=== PATIENT | female | born 1940 | race Caucasian/White ===

== ENCOUNTER 2017-05-08 13:37 | Emergency (ER) | payer OTHER, BC ==
[2017-05-08 13:52] VITALS: BP 129/78; PULSE 73; TEMP 97.7; BMI 20.9
--- NOTE | 2017-05-08 14:44 | PDOC ---
History of Present Illness - General Chief Complaint: Injury Stated Complaint: INJURY Time Seen by Provider: 05/08/17 14:07 History Source: Patient Exam Limitations: No Limitations - History of Present Illness Initial Comments: 05/08/17 14:40 76 yr female twisted her left foot last night at home. pt has pain to the side of the left foot. Past History - Past Medical History Allergies/Adverse Reactions: Allergies Allergy/AdvReac Type Severity Reaction Status Date / Time oxycodone [Oxycodone] Allergy Severe Nausea Verified 05/08/17 13:52 Home Medications: Ambulatory Orders Atenolol [Tenormin -] 50 mg PO BID 05/19/13 Atorvastatin Ca [Lipitor] 20 mg PO HS 05/19/13 Hydrochlorothiazide [Hctz -] 25 mg PO DAILY 05/19/13 Levothyroxine [Synthroid -] 50 mcg PO DAILY 05/19/13 Anemia: No Asthma: No Cancer: No Cardiac Disorders: No CVA: No COPD: No CHF: No Dementia: No Diabetes: No GI Disorders: Yes (DIARRHEA, DIVERTICULOSIS) Disorders: No HTN: Yes Hypercholesterolemia: Yes Liver Disease: No Seizures: No Thyroid Disease: Yes (HYPO) - Surgical History Abdominal Surgery: No Appendectomy: No Cardiac Surgery: No Cholecystectomy: Yes Lung Surgery: No Neurologic Surgery: No Orthopedic Surgery: No - Suicide/Smoking/Psychosocial Hx Smoking History: Former smoker Have you smoked in the past 12 months: No If you are a former smoker, when did you quit?: 1996 Information on smoking cessation initiated: No Hx Alcohol Use: No Drug/Substance Use Hx: No Substance Use Type: None Review of Systems - Review of Systems Able to Perform ROS?: Yes Is the patient limited Polish proficient: No Musculoskeletal: Yes: Symptoms Reported Integumentary: No: Symptoms Reported Neurological: No: Symptoms reported *Physical Exam - Vital Signs Last Vital Signs Temp Pulse Resp BP Pulse Ox 97.7 F 73 18 129/78 100 05/08/17 13:49 05/08/17 13:49 05/08/17 13:49 05/08/17 13:49 05/08/17 13:49 - Physical Exam General Appearance: Yes: Nourished, Appropriately Dressed HEENT: positive: EOMI, CELIO Extremity: positive: Normal Capillary Refill, Tender (base of fifth metatarsal, nv intact, no swelling , positive bruising ) Integumentary: positive: Normal Color, Dry, Warm Neurologic: positive: Fully Oriented, Alert, Normal Mood/Affect, Normal Response , Motor Strength /5 Procedures - Splinting Progress: 05/08/17 18:05 mckenzie dressing, hard sole shoe ED Treatment Course - RADIOLOGY Radiology Studies Ordered: Category Date Time Status FOOT-LEFT [RAD] Stat Radiology 05/08/17 13:59 Taken *DC/Admit/Observation/Transfer Diagnosis at time of Disposition: Foot fracture, left Qualifiers: Encounter type: initial encounter Fracture type: closed Qualified Code(s): S92.902A - Unspecified fracture of left foot, initial encounter for closed fracture - Discharge Dispostion Disposition: HOME Condition at time of disposition: Good - Referrals Referrals: Parag Garcia MD, MD [Primary Care Provider] - - Patient Instructions Additional Instructions: elevate and place ice every 2 hrs for 20 minutes for the next 2 days while awake use the mayank wrap and hard sole shoe at all times except remove shoe to sleep take tylenol for pain follow with your crane manager next week
== END 2017-05-08 14:45 | disposition home or self-care (01) ==
LOC: JERFT 13:37
DX: S92.355A Nondisplaced fracture of fifth metatarsal bone, left foot, initial encounter for closed fracture (principal); X58.XXXA Exposure to other specified factors, initial encounter; Y93.89 Activity, other specified; Y92.9 Unspecified place or not applicable; Z87.891 Personal history of nicotine dependence; I10 Essential (primary) hypertension; E78.00 Pure hypercholesterolemia, unspecified; E03.9 Hypothyroidism, unspecified
CPT/HCPCS: 73630-TC-LT; 99281-25

== ENCOUNTER 2017-11-19 10:44 | Observation (INO) | payer OTHER, BC ==
--- NOTE | 2017-11-19 11:02 | PDOC ---
History of Present Illness - General Stated Complaint: BACK PAIN Time Seen by Provider: 11/19/17 11:02 - History of Present Illness Initial Comments: 11/19/17 11:03 Ms. Maynard is a 77 yo female w/ pmh of HTN, HLD, Osteoporosis, sciatica, diverticulitis, diverticulosis, and chronic diarrhea who presents for evaluation of right sided leg/back pain she reports is similar in character to her prior sciatica exacerbation. She reports this started last night and is exacerbated by standing. Denies any associated symptoms, recent trauma, or strains/heavy lifting. The patient denies chest pain, shortness of breath, headache and dizziness. Denies fever, chills, nausea, vomit, diarrhea and constipation. Denies dysuria, frequency, urgency and hematuria. Allergies: Oxycodone Past History - Past Medical History Allergies/Adverse Reactions: Allergies Allergy/AdvReac Type Severity Reaction Status Date / Time oxycodone [Oxycodone] Allergy Severe Nausea Verified 11/19/17 11:15 Home Medications: Ambulatory Orders Atenolol [Tenormin -] 50 mg PO BID 05/19/13 Atorvastatin Ca [Lipitor] 20 mg PO HS 05/19/13 Hydrochlorothiazide [Hctz -] 25 mg PO DAILY 05/19/13 Levothyroxine [Synthroid -] 50 mcg PO DAILY 05/19/13 Anemia: No Asthma: No Cancer: No Cardiac Disorders: No CVA: No COPD: No CHF: No Dementia: No Diabetes: No GI Disorders: Yes (DIARRHEA, DIVERTICULOSIS) Disorders: No HTN: Yes Hypercholesterolemia: Yes Liver Disease: No Seizures: No Thyroid Disease: Yes (HYPO) - Surgical History Abdominal Surgery: No Appendectomy: No Cardiac Surgery: No Cholecystectomy: Yes Lung Surgery: No Neurologic Surgery: No Orthopedic Surgery: No - Suicide/Smoking/Psychosocial Hx Smoking History: Former smoker Have you smoked in the past 12 months: No If you are a former smoker, when did you quit?: 1996 Hx Alcohol Use: No Drug/Substance Use Hx: No Substance Use Type: None Review of Systems - Review of Systems Comments:: 11/19/17 11:03 GENERAL/CONSTITUTIONAL: No fever or chills. No weakness. HEAD, EYES, EARS, NOSE AND THROAT: No change in vision. No ear pain or discharge. No sore throat. CARDIOVASCULAR: No chest pain or shortness of breath RESPIRATORY: No cough, wheezing, or hemoptysis. GASTROINTESTINAL: No nausea, vomiting, diarrhea or constipation. GENITOURINARY: No dysuria, frequency, or change in urination. MUSCULOSKELETAL: +Right leg pain as described. SKIN: No rash NEUROLOGIC: No headache, vertigo, loss of consciousness, or change in strength/ sensation. ENDOCRINE: No increased thirst. No abnormal weight change HEMATOLOGIC/LYMPHATIC: No anemia, easy bleeding, or history of blood clots. ALLERGIC/IMMUNOLOGIC: No hives or skin allergy. *Physical Exam - Physical Exam Comments: 11/19/17 11:03 GENERAL: Awake, alert, and fully oriented, in no acute distress HEAD: No signs of trauma, normocephalic, atraumatic EYES: PERRLA, EOMI, sclera anicteric, conjunctiva clear ENT: Auricles normal inspection, hearing grossly normal, nares patent, oropharynx clear without exudates. Moist mucosa NECK: Normal ROM, supple, no lymphadenopathy, JVD, or masses LUNGS: No distress, speaks full sentences, clear to auscultation bilaterally HEART: Regular rate and rhythm, normal S1 and S2, no murmurs, rubs or gallops, peripheral pulses normal and equal bilaterally. ABDOMEN: Soft, nontender, normoactive bowel sounds. No guarding, no rebound. No masses EXTREMITIES: +Pain with palpation of right lower back with exacerbation upon standing or movement. Normal inspection, Normal range of motion, no edema. No clubbing or cyanosis. NEUROLOGICAL: Cranial nerves II through XII grossly intact. Normal speech, normal gait, no focal sensorimotor deficits SKIN: Warm, Dry, normal turgor, no rashes or lesions noted. ED Treatment Course - LABORATORY CBC & Chemistry Diagram: 11/19/17 14:25 11/19/17 14:25 Medical Decision Making - Medical Decision Making 11/19/17 18:28 Ms. Maynard is a 77 yo female w/ pmh as described who presents w/ symptoms consistent w/ sciatica exacerbation vs. hip/pelvis fracture. 11/19/17 18:31 Labs / workup started for evaluation w/ Hip/Pelvis XR and CBC/CMP/UA. UA positive only for 1+ Leukocyte esterase with minimal WBC's (4). XR negative for acute process. Unable to control pain with stepwise increase of medication with tylenol, ultram, robaxin. Admitting for further pain control / evaluation. Laboratory Results - last 24 hr 11/19/17 11/19/17 11/19/17 14:25 14:25 15:40 WBC 6.0 RBC 3.11 L Hgb 11.0 Hct 32.2 L MCV 103.6 H MCH 35.3 H MCHC 34.1 RDW 13.1 Plt Count 211 MPV 7.8 Neutrophils % 74.6 Lymphocytes % 18.9 Monocytes % 5.5 Eosinophils % 0.2 Basophils % 0.8 Sodium 137 Potassium 5.2 H Chloride 106 Carbon Dioxide 26 Anion Gap 5 L BUN 21 H Creatinine 1.0 Creat Clearance w eGFR 53.48 Random Glucose 120 H Calcium 8.6 Total Bilirubin 0.5 AST 25 ALT 20 Alkaline Phosphatase 92 Total Protein 6.5 Albumin 3.3 L Urine Color Ltyellow Urine Appearance Clear Urine pH 6.0 Ur Specific [place] 1.011 Urine Protein Negative Urine Glucose (UA) 1+ H Urine Ketones Negative Urine Blood Negative Urine Nitrite Negative Urine Bilirubin Negative Urine Urobilinogen Negative Ur Leukocyte Esterase 1+ H Urine WBC (Auto) 4 Urine RBC (Auto) <1 Ur Epithelial Cells Rare Urine Mucus Rare *DC/Admit/Observation/Transfer Diagnosis at time of Disposition: Pain Sciatica Qualifiers: Laterality: unspecified laterality Qualified Code(s): M54.30 - Sciatica, unspecified side - Discharge Dispostion Admit: Yes - Referrals Referrals: Parag Garcia MD, MD [Primary Care Provider] - - Patient Instructions - Post Discharge Activity
--- NOTE | 2017-11-19 11:11 | PDOC ---
Attending Attestation - HPI HPI: 11/19/17 11:19 The patient is a 77 year old female with a significant PMH of sciatica, osteoporosis, chronic diarrhea, diverticulosis, HTN, hyperlipidemia, and hypothyroidism who presents to the emergency department with back pain beginning approximately 1 day ago. She describes her back pain as localized on the right side with no radiation, which is aggravated by standing. She states her back pain feels like her usual sciatica but not as severe. Allergies: Oxycodone PCP: Dr. Garcia <Holden Chakraborty - Last Filed: 11/19/17 11:22> - Resident Resident Name: Magnus Boucher - ED Attending Attestation I have performed the following: I have examined & evaluated the patient, The case was reviewed & discussed with the resident, I agree w/resident's findings & plan, Exceptions are as noted - Physicial Exam PE: GENERAL: Awake, alert, and fully oriented, in no acute distress. Appears uncomfortable. HEAD: No signs of trauma EYES: PERRLA, EOMI, sclera anicteric, conjunctiva clear ENT: Auricles normal inspection, hearing grossly normal, nares patent, oropharynx clear without exudates. Moist mucosa NECK: Normal ROM, supple, no lymphadenopathy, JVD, or masses LUNGS: Breath sounds equal, clear to auscultation bilaterally. No wheezes, and no crackles HEART: Regular rate and rhythm, normal S1 and S2, no murmurs, rubs or gallops ABDOMEN: Soft, nontender, normoactive bowel sounds. No guarding, no rebound. No masses EXTREMITIES: Normal range of motion, no edema. No clubbing or cyanosis. No cords, erythema, or tenderness NEUROLOGICAL: Cranial nerves II through XII grossly intact. Normal speech, normal gait SKIN: Warm, Dry, normal turgor, no rashes or lesions noted. - Medical Decision Making Pain is not reproducible on exam, but patient indicates the R low back/R buttock as the location. SLR is normal. Poss sciatica vs fx due to osteoporosis. <Paula Browning - Last Filed: 11/19/17 13:16>
[2017-11-19] MEDS ORDERED: ACETAMINOPHEN 500 MG TABLET (FP) PO ONE (11:20)
[2017-11-19] MEDS ORDERED: ACETAMINOPHEN 325 MG TABLET (FP) ONE (12:41)
[2017-11-19 14:36] LABS: BASO % 0.8 % (0-2.0); EOS % 0.2 % (0-4.5); HEMATOCRIT 32.2 % (32.4-45.2); LYMPH % 18.9 % (8-40); MCH 35.3 pg (25.7-33.7); MCHC 34.1 g/dl (32.0-36.0); MEAN CELL VOLUME 103.6 fl (80-96); MEAN PLT VOLUME 7.8 fl (7.5-11.1); MONO % 5.5 % (3.8-10.2); NEUT % 74.6 % (42.8-82.8); PLATELET COUNT 211 K/MM3 (134-434); RBC 3.11 M/mm3 (3.60-5.2); RDW 13.1 % (11.6-15.6)
[2017-11-19 15:06] LABS: ALBUMIN 3.3 g/dl (3.4-5.0); ALK PHOS 92 U/L (45-117); ANION GAP 5 (8-16); BILIRUBIN,TOTAL 0.5 mg/dL (0.2-1.0); BLOOD UREA NITROGEN 21 mg/dL (7-18); CALCIUM 8.6 mg/dL (8.5-10.1); CHLORIDE 106 mmol/L (98-107); CO2 26 mmol/L (21-32); GLUCOSE,RANDOM 120 mg/dL (74-106); POTASSIUM 5.2 mmol/L (3.5-5.1); SGOT/AST 25 U/L (15-37); SGPT/ALT 20 U/L (12-78); SODIUM 137 mmol/L (136-145); TOT PROT 6.5 g/dl (6.4-8.2)
[2017-11-19 15:55] LABS: URINE APPEARANCE CLEAR; URINE BILIRUBIN NEGATIVE (<2.0 mg/dL); URINE COLOR LTYELLOW; URINE GLUCOSE (UA) 1+ (NEGATIVE); URINE KETONE NEGATIVE (NEGATIVE); URINE NITRITE NEGATIVE (NEGATIVE); URINE PROTEIN NEGATIVE (NEGATIVE); URINE UROBILINOGEN NEGATIVE mg/dL (0.2-1.0)
[2017-11-19 15:59] LABS: URINE LEUK ESTERASE 1+ (NEGATIVE)
[2017-11-19] MEDS ORDERED: traMADol HCL 50 MG TABLET PO ONE (16:27)
[2017-11-19] MEDS ORDERED: ONDANSETRON 4 MG/2 ML VIAL IVPUSH ONE (16:29)
[2017-11-19 16:55] LABS: EPI CELLS RARE /HPF (FEW); URINE MUCUS RARE
[2017-11-19] MEDS ORDERED: traMADol HCL 50 MG TABLET ONE (17:02)
[2017-11-19] MEDS ORDERED: METHOCARBAMOL 500 MG TABLET PO ONE (17:48)
[2017-11-19] MEDS ORDERED: METHOCARBAMOL 500 MG TABLET ONE (18:44)
--- NOTE | 2017-11-19 20:12 | HP ---
CHIEF COMPLAINT: back pain PCP: Xiomara Garcia HISTORY OF PRESENT ILLNESS: This is a 77 year old female with a past medical history significant for HTN, sciatica presented with right sided low back pain. Pt reports minimal relief from pain medications given in the ED. She denies pain radiating down her leg but states that when she moves, the pain shoots "everywhere". ER course was notable for: (1) given tramadol, tylenol, robaxin with minimal relief (2) hip/pelvis xray no acute fracture Recent Travel: pt denies PAST MEDICAL HISTORY: HTN, HLD, osteoporosis, sciatica, diverticulosis/itis, chronic diarrhea, hypothyroid, polymyalgia rheumatica PAST SURGICAL HISTORY: cholecystectomy Social History: Smoking: quit 20y ago, previous 1 ppd x 40y Alcohol: 1-2 glasses of wine per day Drugs: pt denies Family History: mother age 81, dementia father age 74, cancer-prostate? Allergies oxycodone [Oxycodone] Allergy (Severe, Verified 11/19/17 11:15) Nausea Home Medications 3 Medication Instructions Recorded Atenolol [Tenormin -] 50 mg PO BID 05/19/13 Atorvastatin Ca [Lipitor] 20 mg PO HS 05/19/13 Levothyroxine [Synthroid -] 50 mcg PO DAILY 05/19/13 Amlodipine Besylate 10 mg PO DAILY 11/19/17 Benazepril HCl 40 mg PO DAILY 11/19/17 Cholecalciferol (Vitamin D3) 2,000 unit PO DAILY 11/19/17 [Vitamin D3] Prednisone 5 mg PO DAILY 11/19/17 REVIEW OF SYSTEMS CONSTITUTIONAL: Absent: fever, chills, diaphoresis, generalized weakness, malaise, loss of appetite, weight change HEENT: Absent: rhinorrhea, nasal congestion, throat pain, throat swelling, difficulty swallowing, mouth swelling, ear pain, eye pain, visual changes CARDIOVASCULAR: Absent: chest pain, syncope, palpitations, irregular heart rate, lightheadedness , peripheral edema RESPIRATORY: Absent: cough, shortness of breath, dyspnea with exertion, orthopnea, wheezing, stridor, hemoptysis GASTROINTESTINAL: Absent: abdominal pain, abdominal distension, nausea, vomiting, diarrhea, constipation, melena, hematochezia GENITOURINARY: Absent: dysuria, frequency, urgency, hesitancy, hematuria, flank pain, genital pain MUSCULOSKELETAL: Present: back pain Absent: myalgia, arthralgia, joint swelling, neck pain SKIN: Absent: rash, itching, pallor HEMATOLOGIC/IMMUNOLOGIC: Absent: easy bleeding, easy bruising, lymphadenopathy, frequent infections ENDOCRINE: Absent: unexplained weight gain, unexplained weight loss, heat intolerance, cold intolerance NEUROLOGIC: Absent: headache, focal weakness or paresthesias, dizziness, unsteady gait, seizure, mental status changes, bladder or bowel incontinence PSYCHIATRIC: Absent: anxiety, depression, suicidal or homicidal ideation, hallucinations. PHYSICAL EXAMINATION Vital Signs - 24 hr 3 11/19/17 11:07 Temperature 97.3 F L Pulse Rate 62 Respiratory 18 Rate Blood Pressure 152/59 O2 Sat by Pulse 100 Oximetry (%) GENERAL: Awake, alert, and fully oriented, in no acute distress. HEAD: Normal with no signs of trauma. EYES: Pupils equal, round and reactive to light, extraocular movements intact, sclera anicteric, conjunctiva clear. No lid lag. EARS, NOSE, THROAT: Ears normal, nares patent, oropharynx clear without exudates. Moist mucous membranes. NECK: Normal range of motion, supple without lymphadenopathy, JVD, or masses. LUNGS: Breath sounds equal, clear to auscultation bilaterally. No wheezes, and no crackles. No accessory muscle use. HEART: Regular rate and rhythm, normal S1 and S2 without murmur, rub or gallop. ABDOMEN: Soft, nontender, not distended, normoactive bowel sounds, no guarding, no rebound, no masses. No hepatomegaly or splenomegaly. MUSCULOSKELETAL: Normal range of motion at all joints. No bony deformities or tenderness. No CVA tenderness. No pain on palpation spine, minimal pain on palpation right SI joint UPPER EXTREMITIES: 2+ pulses, warm, well-perfused. No cyanosis. No clubbing. No peripheral edema. LOWER EXTREMITIES: 2+ pulses, warm, well-perfused. No calf tenderness. No peripheral edema. NEUROLOGICAL: Cranial nerves II-XII intact. Normal speech. Full gait not observed, able to transfer from bed to without ataxia. PSYCHIATRIC: Cooperative. Good eye contact. Appropriate mood and affect. SKIN: Warm, dry, normal turgor, no rashes or lesions noted, normal capillary refill. Laboratory Results - last 24 hr 3 11/19/17 11/19/17 11/19/17 14:25 14:25 15:40 WBC 6.0 RBC 3.11 L Hgb 11.0 Hct 32.2 L MCV 103.6 H MCH 35.3 H MCHC 34.1 RDW 13.1 Plt Count 211 MPV 7.8 Neutrophils % 74.6 Lymphocytes % 18.9 Monocytes % 5.5 Eosinophils % 0.2 Basophils % 0.8 Sodium 137 Potassium 5.2 H Chloride 106 Carbon Dioxide 26 Anion Gap 5 L BUN 21 H Creatinine 1.0 Creat Clearance w eGFR 53.48 Random Glucose 120 H Calcium 8.6 Total Bilirubin 0.5 AST 25 ALT 20 Alkaline Phosphatase 92 Total Protein 6.5 Albumin 3.3 L Urine Color Ltyellow Urine Appearance Clear Urine pH 6.0 Ur Specific [place] 1.011 Urine Protein Negative Urine Glucose (UA) 1+ H Urine Ketones Negative Urine Blood Negative Urine Nitrite Negative Urine Bilirubin Negative Urine Urobilinogen Negative Ur Leukocyte Esterase 1+ H Urine WBC (Auto) 4 Urine RBC (Auto) <1 Ur Epithelial Cells Rare Urine Mucus Rare Radiology Reports Right hip and pelvis IMPRESSION: No definite acute fracture in the right hip or bony pelvis. Reported By: Tatianna Gayle DO 11/19/17 1326 ASSESSMENT/PLAN: 77yF with PMH HTN, HLD, osteoporosis, sciatica, diverticulosis/itis, chronic diarrhea, hypothyroid, polymyalgia rheumatica presented to the ED with back pain , unable to walk downstairs. Back pain - cont tramadol and tylenol - trial one time dose valium 5mg po and ketorolac 15mg IVP - PT eval HTN - cont home meds HLD - cont home atorvastatin hyothyroid - cont home synthroid DVT PPX - heparin deferred, anticipated LOS <48h FEN - Tolerating po - BMP in am - Low sodium diet as tolerated Dispo: Pt currently requires further observation for management of her emergent condition. Visit type - Emergency Visit Emergency Visit: Yes ED Registration Date: 11/19/17 Care time: The patient presented to the Emergency Department on the above date and was hospitalized for further evaluation of their emergent condition. - New Patient This patient is new to me today: Yes Date on this admission: 11/19/17 - Critical Care Critical Care patient: No Hospitalist Screening - Colonoscopy Questionnaire Colonoscopy Questionnaire: Colonoscopy Questionnaire - Patient: 50 - 75 years old and never had a screening colonoscopy: No History of colon or rectal polyps, or CA: Unknown History of IBD, Crohn's disease or UC: Unknown History of abdominal radiation therapy as a child: Unknown - Relative: 1 with colon or rectal CA, or polyps at age 60 or younger: Unknown Colon or rectal CA diagnosed at age 45 or younger: Unknown Multiple relatives with colon or rectal CA: Unknown - Outcome: Screening Result: Negative Screen
[2017-11-19] MEDS ORDERED: ACETAMINOPHEN 325 MG TABLET (FP) PO PRN (20:16)
[2017-11-19] MEDS ORDERED: traMADol HCL 50 MG TABLET PO PRN (20:23)
[2017-11-19] MEDS ORDERED: KETOROLAC TROMETHAMINE 15 MG/ML VIAL IVPUSH ONE (20:45)
[2017-11-19] MEDS ORDERED: diazePAM 5 MG TABLET PO ONE (20:45)
[2017-11-19] MEDS ORDERED: ATENOLOL 50 MG TABLET (FP) PO SCH (22:00)
[2017-11-19] MEDS: ATORVASTATIN CA 20 MG TABLET (FP) PO SCH (22:11)
[2017-11-20] MEDS: LEVOTHYROXINE NA 50 MCG TABLET (FP) PO SCH (06:05)
[2017-11-20 08:44] LABS: BASO % 1.2 % (0-2.0); EOS % 1.9 % (0-4.5); HEMATOCRIT 32.2 % (32.4-45.2); HEMOGLOBIN 11.2 GM/dL (10.7-15.3); LYMPH % 39.2 % (8-40); MCH 35.8 pg (25.7-33.7); MCHC 34.7 g/dl (32.0-36.0); MEAN CELL VOLUME 103.4 fl (80-96); MEAN PLT VOLUME 7.9 fl (7.5-11.1); MONO % 9.6 % (3.8-10.2); NEUT % 48.1 % (42.8-82.8); PLATELET COUNT 206 K/MM3 (134-434); RBC 3.12 M/mm3 (3.60-5.2); RDW 13.2 % (11.6-15.6); WHITE BLOOD COUNT 5.3 K/mm3 (4.0-10.0)
[2017-11-20] MEDS ORDERED: SODIUM CHLORIDE 1,000 ML IV STA (09:01)
--- NOTE | 2017-11-20 09:10 | RAPID ---
Physical Examination Vital Signs: Vital Signs Temperature 97.5 F L 11/20/17 06:00 Pulse Rate 57 L 11/20/17 06:00 Respiratory Rate 20 11/20/17 06:00 Blood Pressure 133/69 11/20/17 06:00 O2 Sat by Pulse Oximetry (%) 99 11/20/17 04:21 Labs: CBC, BMP 11/20/17 07:45 Rapid Response - Rapid Response Assessment: Rapid response was paged overhead at 8:55 am. Pt was found in bed aaox3 with nurses around her. Reportedly, pt was on commode and felt suddenly dizzy. She was placed inbed. Pt did NOT fall. Pt has been having chronic diarrhea. Has been seen by GI. Denies CP, SOB, v/d, abdominal pain. PE: aaox3, cardio rrr normal s1s2, lungs cta b/l initial vitals: BP 89/54, HR 51, O2 97% repeat BP 140 systolic, HR 55. Plan -ordered EKG, 1L NS -hold lisinopril due to hyper K 5.2 -hold atenolol, norvasc for BP < 100 -EKG reviewed: sinus bradycardia. Otherwise unremarkable Dr. Abreu was notified Dr. Golden requests transfer to Tele
[2017-11-20 09:13] LABS: CALCIUM 8.7 mg/dL (8.5-10.1); CHLORIDE 105 mmol/L (98-107); POTASSIUM 4.1 mmol/L (3.5-5.1); SODIUM 139 mmol/L (136-145)
[2017-11-20 09:17] LABS: ANION GAP 7 (8-16); BLOOD UREA NITROGEN 16 mg/dL (7-18); CO2 27 mmol/L (21-32); GLUCOSE,RANDOM 78 mg/dL (74-106); PHOSPHOROUS 3.2 mg/dL (2.5-4.9)
--- NOTE | 2017-11-20 09:57 | EKG ---
Test Reason : Blood Pressure : / mmHG Vent. Rate : 053 BPM Atrial Rate : 053 BPM P-R Int : 142 ms QRS Dur : 076 ms QT Int : 448 ms P-R-T Axes : 076 017 062 degrees QTc Int : 420 ms SINUS BRADYCARDIA OTHERWISE NORMAL ECG WHEN COMPARED WITH ECG OF 16-JUN-2009 15:28, NO SIGNIFICANT CHANGE WAS FOUND Confirmed by MD Liana, John ([id number]) on 11/20/2017 9:57:03 AM Referred By: RENALDO VARGAS Confirmed By:John Gaines MD
[2017-11-20] MEDS ORDERED: PATIENT'S OWN MEDICATION (NON-FORMULARY) (Benazepril Hcl [Benazepril Hcl] 40 MG) PO SCH (10:00)
[2017-11-20] MEDS ORDERED: CHOLECALCIFEROL (VITAMIN D3) 1,000 UNIT TABLET (FP) PO SCH (10:00)
[2017-11-20] MEDS ORDERED: amLODIPine BESYLATE 10 MG TABLET (FP) PO SCH ×2 (10:00)
[2017-11-20] MEDS ORDERED: LISINOPRIL 20 MG TABLET (FP) PO SCH (10:00)
[2017-11-20] MEDS ORDERED: predniSONE 5 MG TABLET (UD) PO SCH (10:00)
[2017-11-20] MEDS: ATENOLOL 50 MG TABLET (FP) PO SCH ×2 (10:17→21:20)
--- NOTE | 2017-11-20 10:55 | PN ---
Progress Note, Physician Chief Complaint: Right sided low back pain History of Present Illness: NAD at the moment events this AM noted of hypotension and dizziness while she was on the commode, likely vasovagal EKG showed SB 1L NS bolus given tolerated well. - Current Medication List Current Medications: Active Medications Acetaminophen (Tylenol -) 650 mg PO Q6H PRN PRN Reason: PAIN LEVEL 1 - 3 Amlodipine Besylate (Norvasc -) 10 mg PO DAILY [facility] Last Admin: 11/20/17 10:16 Dose: 10 mg Atenolol (Tenormin -) 50 mg PO BID [facility] Last Admin: 11/20/17 10:17 Dose: 50 mg Atorvastatin Calcium (Lipitor -) 20 mg PO HS [facility] Last Admin: 11/19/17 22:11 Dose: 20 mg Cholecalciferol (Vitamin D3 -) 2,000 unit PO DAILY [facility] Last Admin: 11/20/17 10:15 Dose: 2,000 unit Levothyroxine Sodium (Synthroid -) 50 mcg PO ACBK [facility] Last Admin: 11/20/17 06:05 Dose: 50 mcg Prednisone (Deltasone -) 5 mg PO DAILY [facility] Last Admin: 11/20/17 10:16 Dose: 5 mg Tramadol HCl (Ultram -) 50 mg PO Q6H PRN PRN Reason: PAIN LEVEL 6-10 - Objective Vital Signs: Vital Signs Temperature 97.8 F 11/20/17 08:00 Pulse Rate 55 L 11/20/17 09:10 Respiratory Rate 18 11/20/17 09:10 Blood Pressure 142/73 11/20/17 09:10 O2 Sat by Pulse Oximetry (%) 96 11/20/17 08:40 Constitutional: Yes: Well Nourished, No Distress, Calm Cardiovascular: Yes: Bradycardia Respiratory: Yes: Regular Gastrointestinal: Yes: Normal Bowel Sounds, Soft Musculoskeletal: Yes: Back Pain Extremities: Yes: WNL Edema: No Peripheral Pulses WNL: Yes Neurological: Yes: Alert, Oriented Psychiatric: Yes: Alert, Oriented Labs: CBC, BMP 11/20/17 07:45 11/20/17 07:45 Problem List - Problems (1) Sciatica Assessment/Plan: -pain managmenet -Physical therapy -SNF? Code(s): M54.30 - SCIATICA, UNSPECIFIED SIDE Qualifiers: Laterality: unspecified laterality Qualified Code(s): M54.30 - Sciatica, unspecified side (2) Dizziness Assessment/Plan: -vaso-vagal? -Hold lisinopril -Continue amlodipine -adjust medications -monitor BP Code(s): R42 - DIZZINESS AND GIDDINESS Assessment/Plan see problem list
--- NOTE | 2017-11-20 14:42 | CONSULT ---
Consult - text type - Consultation Consultation Note: Neurology CHIEF COMPLAINT: back pain PCP: Xiomara Garcia HISTORY OF PRESENT ILLNESS: This is a 77 year old female with a past medical history significant for HTN, sciatica presented with right sided low back pain. Pt reports minimal relief from pain medications given in the ED. She denies pain radiating down her leg but states that when she moves, the pain shoots "everywhere". In ER, she was given course of tramadol, tylenol, robaxin with minimal relief. Hip/pelvis xray no acute fracture. seen at bedside with her daughter and reports continued discomfort. I discussed with them having further imaging of the lumbar spine and they were in agreement to having a noncontrast CT of the lumbar spine. I discussed with them medication options including gabapentin for nerve related sciatic pain and she was in agreement. Additionally, discussed adding cyclobenzaprine 5 mg to the regimen to help with localized relief and they're both in agreement. I would also recommend physical therapy in hopes of improvement in ambulation this patient currently too uncomfortable to ambulate. Recent Travel: pt denies PAST MEDICAL HISTORY: HTN, HLD, osteoporosis, sciatica, diverticulosis/itis, chronic diarrhea, hypothyroid, polymyalgia rheumatica PAST SURGICAL HISTORY: cholecystectomy Social History: Smoking: quit 20y ago, previous 1 ppd x 40y Alcohol: 1-2 glasses of wine per day Drugs: pt denies Family History: mother age 81, dementia father age 74, cancer-prostate? Allergies oxycodone [Oxycodone] Allergy (Severe, Verified 11/19/17 11:15) Nausea Home Medications 3 Medication Instructions Recorded Atenolol [Tenormin -] 50 mg PO BID 05/19/13 Atorvastatin Ca [Lipitor] 20 mg PO HS 05/19/13 Levothyroxine [Synthroid -] 50 mcg PO DAILY 05/19/13 Amlodipine Besylate 10 mg PO DAILY 11/19/17 Benazepril HCl 40 mg PO DAILY 11/19/17 Cholecalciferol (Vitamin D3) 2,000 unit PO DAILY 11/19/17 [Vitamin D3] Prednisone 5 mg PO DAILY 11/19/17 REVIEW OF SYSTEMS CONSTITUTIONAL: Absent: fever, chills, diaphoresis, generalized weakness, malaise, loss of appetite, weight change HEENT: Absent: rhinorrhea, nasal congestion, throat pain, throat swelling, difficulty swallowing, mouth swelling, ear pain, eye pain, visual changes CARDIOVASCULAR: Absent: chest pain, syncope, palpitations, irregular heart rate, lightheadedness , peripheral edema RESPIRATORY: Absent: cough, shortness of breath, dyspnea with exertion, orthopnea, wheezing, stridor, hemoptysis GASTROINTESTINAL: Absent: abdominal pain, abdominal distension, nausea, vomiting, diarrhea, constipation, melena, hematochezia GENITOURINARY: Absent: dysuria, frequency, urgency, hesitancy, hematuria, flank pain, genital pain MUSCULOSKELETAL: Present: back pain Absent: myalgia, arthralgia, joint swelling, neck pain SKIN: Absent: rash, itching, pallor HEMATOLOGIC/IMMUNOLOGIC: Absent: easy bleeding, easy bruising, lymphadenopathy, frequent infections ENDOCRINE: Absent: unexplained weight gain, unexplained weight loss, heat intolerance, cold intolerance NEUROLOGIC: Absent: headache, focal weakness or paresthesias, dizziness, unsteady gait, seizure, mental status changes, bladder or bowel incontinence PSYCHIATRIC: Absent: anxiety, depression, suicidal or homicidal ideation, hallucinations. PHYSICAL EXAMINATION Vital Signs Temperature 98.2 F 11/20/17 14:00 Pulse Rate 59 L 11/20/17 14:00 Respiratory Rate 17 11/20/17 14:00 Blood Pressure 152/72 11/20/17 14:00 O2 Sat by Pulse Oximetry (%) 96 11/20/17 08:40 GENERAL: Awake, alert, and fully oriented, in no acute distress. HEAD: Normal with no signs of trauma. EYES: Pupils equal, round and reactive to light, extraocular movements intact, sclera anicteric, conjunctiva clear. No lid lag. EARS, NOSE, THROAT: Ears normal, nares patent, oropharynx clear without exudates. Moist mucous membranes. NECK: Normal range of motion, supple without lymphadenopathy, JVD, or masses. LUNGS: Breath sounds equal, clear to auscultation bilaterally. No wheezes, and no crackles. No accessory muscle use. HEART: Regular rate and rhythm, normal S1 and S2 without murmur, rub or gallop. ABDOMEN: Soft, nontender, not distended, normoactive bowel sounds, no guarding, no rebound, no masses. No hepatomegaly or splenomegaly. MUSCULOSKELETAL: Normal range of motion at all joints. No bony deformities or tenderness. No CVA tenderness. No pain on palpation spine, minimal pain on palpation right SI joint UPPER EXTREMITIES: 2+ pulses, warm, well-perfused. No cyanosis. No clubbing. No peripheral edema. LOWER EXTREMITIES: 2+ pulses, warm, well-perfused. No calf tenderness. No peripheral edema. NEUROLOGICAL: Cranial nerves II-XII intact. Normal speech. Strenght grossly equal to confrontation, sensory intact to LT. Gait deferred PSYCHIATRIC: Cooperative. Good eye contact. Appropriate mood and affect. SKIN: Warm, dry, normal turgor, no rashes or lesions noted, normal capillary refill. Laboratory Results - last 24 hr 3 11/19/17 11/19/17 11/19/17 14:25 14:25 15:40 WBC 6.0 RBC 3.11 L Hgb 11.0 Hct 32.2 L MCV 103.6 H MCH 35.3 H MCHC 34.1 RDW 13.1 Plt Count 211 MPV 7.8 Neutrophils % 74.6 Lymphocytes % 18.9 Monocytes % 5.5 Eosinophils % 0.2 Basophils % 0.8 Sodium 137 Potassium 5.2 H Chloride 106 Carbon Dioxide 26 Anion Gap 5 L BUN 21 H Creatinine 1.0 Creat Clearance w eGFR 53.48 Random Glucose 120 H Calcium 8.6 Total Bilirubin 0.5 AST 25 ALT 20 Alkaline Phosphatase 92 Total Protein 6.5 Albumin 3.3 L Urine Color Ltyellow Urine Appearance Clear Urine pH 6.0 Ur Specific [place] 1.011 Urine Protein Negative Urine Glucose (UA) 1+ H Urine Ketones Negative Urine Blood Negative Urine Nitrite Negative Urine Bilirubin Negative Urine Urobilinogen Negative Ur Leukocyte Esterase 1+ H Urine WBC (Auto) 4 Urine RBC (Auto) <1 Ur Epithelial Cells Rare Urine Mucus Rare Radiology Reports Right hip and pelvis IMPRESSION: No definite acute fracture in the right hip or bony pelvis. Reported By: Tatianna Gayle DO 11/19/17 1326 ASSESSMENT/PLAN: 77 year old female with a past medical history significant for HTN, sciatica presented with right sided low back pain. Pt reports minimal relief from pain medications given in the ED. She denies pain radiating down her leg but states that when she moves, the pain shoots "everywhere". In ER, she was given course of tramadol, tylenol, robaxin with minimal relief. Hip/pelvis xray no acute fracture. seen at bedside with her daughter and reports continued discomfort. I discussed with them having further imaging of the lumbar spine and they were in agreement to having a noncontrast CT of the lumbar spine. I discussed with them medication options including gabapentin for nerve related sciatic pain and she was in agreement. Additionally, discussed adding cyclobenzaprine 5 mg to the regimen to help with localized relief and they're both in agreement. I would also recommend physical therapy in hopes of improvement in ambulation this patient currently too uncomfortable to ambulate. continue pain management medications as tolerated, monitor for any sedation or side effects. Can continue home medications for hypertension, maintain normotensive blood pressure range. Fall precautions, DVT prophylaxis recommended.
[2017-11-20] MEDS: CYCLOBENZAPRINE HCL 10 MG TABLET (FP) PO SCH (21:19)
[2017-11-20] MEDS: ATORVASTATIN CA 20 MG TABLET (FP) PO SCH (21:19)
[2017-11-20] MEDS: GABAPENTIN 300 MG CAPSULE (FP) PO SCH (21:19)
[2017-11-21] MEDS: LEVOTHYROXINE NA 50 MCG TABLET (FP) PO SCH (06:06)
[2017-11-21] MEDS ORDERED: traMADol HCL 50 MG TABLET PO PRN (07:49)
[2017-11-21] MEDS ORDERED: ACETAMINOPHEN 325 MG TABLET (FP) PO PRN (07:49)
[2017-11-21] MEDS ORDERED: KETOROLAC TROMETHAMINE 15 MG/ML VIAL IVPUSH ONE (07:49)
--- NOTE | 2017-11-21 09:21 | PN ---
Progress Note (short form) - Note Progress Note: Neurology HISTORY OF PRESENT ILLNESS: This is a 77 year old female with a past medical history significant for HTN, sciatica presented with right sided low back pain. Pt reports minimal relief from pain medications given in the ED. She denies pain radiating down her leg but states that when she moves, the pain shoots "everywhere". In ER, she was given course of tramadol, tylenol, robaxin with minimal relief. Hip/pelvis xray no acute fracture. seen at bedside with her daughter and reports continued discomfort. I discussed with them having further imaging of the lumbar spine and completed noncontrast CT of the lumbar spine which showed bulging L2-L4, L4/ L5 showed mild to moderate herniation. L5/S1 showed mild bulge. These changes are not unusual for patient of her age. No severe stenosis or cord abnormalities noted. Reviewed with patient and discussed in detail. Added cyclobenzaprine 5 mg to the regimen to help with localized relief. ALso on gabapentin 300mg twice daily, no significant relief thus far but slightly better this AM. Active Medications Acetaminophen (Tylenol -) 650 mg PO Q6H PRN PRN Reason: PAIN LEVEL 1 - 3 Amlodipine Besylate (Norvasc -) 10 mg PO DAILY NIRANJAN Atenolol (Tenormin -) 50 mg PO BID NIRANJAN Atorvastatin Calcium (Lipitor -) 20 mg PO HS NIRANJAN Cholecalciferol (Vitamin D3 -) 2,000 unit PO DAILY NIRANJAN Cyclobenzaprine HCl (Flexeril -) 5 mg PO BID NIRANJAN Last Admin: 11/20/17 21:19 Dose: 5 mg Gabapentin (Neurontin -) 300 mg PO BID NIRANJAN Last Admin: 11/20/17 21:19 Dose: 300 mg Levothyroxine Sodium (Synthroid -) 50 mcg PO ACBK NIRANJAN Prednisone (Deltasone -) 5 mg PO DAILY NIRANJAN Tramadol HCl (Ultram -) 50 mg PO Q6H PRN PRN Reason: PAIN LEVEL 6-10 PHYSICAL EXAMINATION Vital Signs Period Temp Pulse Resp BP Sys/[place] Pulse Ox Last 24 Hr 97.7 F-98.3 F 56-60 17-20 122-152/55-89 97-97 GENERAL: Awake, alert, and fully oriented, in no acute distress. HEAD: Normal with no signs of trauma. EYES: Pupils equal, round and reactive to light, extraocular movements intact, sclera anicteric, conjunctiva clear. No lid lag. EARS, NOSE, THROAT: Ears normal, nares patent, oropharynx clear without exudates. Moist mucous membranes. NECK: Normal range of motion, supple without lymphadenopathy, JVD, or masses. LUNGS: Breath sounds equal, clear to auscultation bilaterally. No wheezes, and no crackles. No accessory muscle use. HEART: Regular rate and rhythm, normal S1 and S2 without murmur, rub or gallop. ABDOMEN: Soft, nontender, not distended, normoactive bowel sounds, no guarding, no rebound, no masses. No hepatomegaly or splenomegaly. MUSCULOSKELETAL: Normal range of motion at all joints. No bony deformities or tenderness. No CVA tenderness. No pain on palpation spine, minimal pain on palpation right SI joint UPPER EXTREMITIES: 2+ pulses, warm, well-perfused. No cyanosis. No clubbing. No peripheral edema. LOWER EXTREMITIES: 2+ pulses, warm, well-perfused. No calf tenderness. No peripheral edema. NEUROLOGICAL: Cranial nerves II-XII intact. Normal speech. Strenght grossly equal to confrontation, sensory intact to LT. Gait deferred PSYCHIATRIC: Cooperative. Good eye contact. Appropriate mood and affect. SKIN: Warm, dry, normal turgor, no rashes or lesions noted, normal capillary refill. CBCD WBC 5.3 K/mm3 (4.0-10.0) 11/20/17 07:45 RBC 3.12 M/mm3 (3.60-5.2) L 11/20/17 07:45 Hgb 11.2 GM/dL (10.7-15.3) 11/20/17 07:45 Hct 32.2 % (32.4-45.2) L 11/20/17 07:45 MCV 103.4 fl (80-96) H 11/20/17 07:45 MCHC 34.7 g/dl (32.0-36.0) 11/20/17 07:45 RDW 13.2 % (11.6-15.6) 11/20/17 07:45 Plt Count 206 K/MM3 (134-434) 11/20/17 07:45 MPV 7.9 fl (7.5-11.1) 11/20/17 07:45 CMP Sodium 139 mmol/L (136-145) 11/20/17 07:45 Potassium 4.1 mmol/L (3.5-5.1) 11/20/17 07:45 Chloride 105 mmol/L (98-107) 11/20/17 07:45 Carbon Dioxide 27 mmol/L (21-32) 11/20/17 07:45 Anion Gap 7 (8-16) L 11/20/17 07:45 BUN 16 mg/dL (7-18) 11/20/17 07:45 Creatinine 1.0 mg/dL (0.55-1.02) 11/20/17 07:45 Creat Clearance w eGFR 53.48 (>60) 11/19/17 14:25 Calcium 8.7 mg/dL (8.5-10.1) 11/20/17 07:45 Total Bilirubin 0.5 mg/dL (0.2-1.0) 11/19/17 14:25 AST 25 U/L (15-37) 11/19/17 14:25 ALT 20 U/L (12-78) 11/19/17 14:25 Alkaline Phosphatase 92 U/L (45-117) 11/19/17 14:25 Total Protein 6.5 g/dl (6.4-8.2) 11/19/17 14:25 Albumin 3.3 g/dl (3.4-5.0) L 11/19/17 14:25 Radiology Reports Right hip and pelvis IMPRESSION: No definite acute fracture in the right hip or bony pelvis. CT L spine as above,reviewed and discussed ASSESSMENT/PLAN: 77 year old female with a past medical history significant for HTN, sciatica presented with right sided low back pain. Pt reports minimal relief from pain medications given in the ED. She denies pain radiating down her leg but states that when she moves, the pain shoots "everywhere". In ER, she was given course of tramadol, tylenol, robaxin with minimal relief. Hip/pelvis xray no acute fracture. seen at bedside with her daughter and reports continued discomfort. CT L spine reviewed and age related changes as expected. Disc herniation at L4/ L5 mild to moderate, not surgical candidate, can continue combination of gabapentin with flexiril. Physical therapy recommended. Continue pain management medications as tolerated, monitor for any sedation or side effects. IF above not effective, then possibly epidural steroid injection if patient amenable. Can continue home medications for hypertension, maintain normotensive blood pressure range. Fall precautions, DVT prophylaxis recommended.
[2017-11-21] MEDS: amLODIPine BESYLATE 10 MG TABLET (FP) PO SCH (09:49)
[2017-11-21] MEDS: predniSONE 5 MG TABLET (UD) PO SCH (09:49)
[2017-11-21] MEDS: CYCLOBENZAPRINE HCL 10 MG TABLET (FP) PO SCH ×2 (09:50→21:54)
[2017-11-21] MEDS: CHOLECALCIFEROL (VITAMIN D3) 1,000 UNIT TABLET (FP) PO SCH (09:51)
[2017-11-21] MEDS: GABAPENTIN 300 MG CAPSULE (FP) PO SCH ×2 (09:51→21:54)
[2017-11-21] MEDS: ATENOLOL 50 MG TABLET (FP) PO SCH ×2 (09:52→21:54)
--- NOTE | 2017-11-21 10:39 | DS ---
Physical Examination Vital Signs: Vital Signs Temperature 98.3 F 11/21/17 05:35 Pulse Rate 56 L 11/21/17 05:35 Respiratory Rate 18 11/21/17 05:35 Blood Pressure 122/55 11/21/17 05:35 O2 Sat by Pulse Oximetry (%) 97 11/21/17 06:00 Constitutional: Yes: Well Nourished, No Distress, Calm Cardiovascular: Yes: Regular Rate and Rhythm Respiratory: Yes: Regular Gastrointestinal: Yes: Normal Bowel Sounds, Soft Musculoskeletal: Yes: Back Pain Extremities: Yes: WNL Edema: No Peripheral Pulses WNL: Yes Neurological: Yes: Alert, Oriented Psychiatric: Yes: Alert, Oriented Labs: CBC, BMP 11/20/17 07:45 11/20/17 07:45 Discharge Summary Reason For Visit: SCIATICA,PAIN Current Active Problems Dizziness (Acute) Pain (Acute) Sciatica (Acute) Hospital Course: This is a 77 year old female with a past medical history significant for HTN, sciatica presented with right sided low back pain. Pt reports minimal relief from pain medications given in the ED. She denies pain radiating down her leg but states that when she moves, the pain shoots "everywhere". CT lumbar spine showed: No compression fracture or subluxation are identified. L2-L3 mild broad-based disc bulge reaching left L2 nerve root without gross impingement. L3-L4 mild disc bulge reaching and probably slightly impinging right L3 nerve root L4-L5 moderate degenerative disc disease with mild to moderate disc herniation reaching both L5 nerve roots, possibly slightly impinging the right as well as reaching and impinging right L4 nerve root. L5-S1 mild disc bulge reaching right S1 nerve root without gross impingement. Moderate bilateral facet hypertrophy at multiple levels. Extensive diverticulosis coli without evidence of acute diverticulitis. Status post cholecystectomy. 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 measuring 2.2 x 2 cm in transverse and AP dimension Condition: Stable - Instructions Referrals: Parag Garcia MD, [Primary Care Provider] - Disposition: VNS/HOME HEALTH CARE - Home Medications Comprehensive Discharge Medication List: Ambulatory Orders Atorvastatin Ca [Lipitor] 20 mg PO HS 05/19/13 Levothyroxine [Synthroid -] 50 mcg PO DAILY 05/19/13 Amlodipine Besylate 10 mg PO DAILY 11/19/17 Benazepril HCl 40 mg PO DAILY 11/19/17 Cholecalciferol (Vitamin D3) [Vitamin D3] 2,000 unit PO DAILY 11/19/17 Prednisone 5 mg PO DAILY 11/19/17 Amlodipine Besylate 5 mg PO DAILY #30 tablet 11/21/17 Cyclobenzaprine HCl [Flexeril -] 5 mg PO BID #60 tablet 11/21/17 Gabapentin [Neurontin -] 300 mg PO BID #60 capsule 11/21/17 Metoprolol Succinate 25 mg PO DAILY #30 tab.er.24h 11/21/17 traMADol HCL [Ultram -] 50 mg PO Q6H PRN #20 tablet MDD 4 11/21/17
[2017-11-21] MEDS ORDERED: ATORVASTATIN CA 20 MG TABLET (FP) PO SCH (22:00)
[2017-11-22] MEDS ORDERED: LEVOTHYROXINE NA 50 MCG TABLET (FP) PO SCH (07:00)
--- NOTE | 2017-11-22 08:48 | DS ---
Physical Examination Vital Signs: Vital Signs Temperature 97.8 F 11/22/17 06:00 Pulse Rate 56 L 11/22/17 06:00 Respiratory Rate 20 11/22/17 06:00 Blood Pressure 121/50 11/22/17 06:00 O2 Sat by Pulse Oximetry (%) 97 11/22/17 06:00 Labs: CBC, BMP 11/20/17 07:45 11/20/17 07:45 Discharge Summary Reason For Visit: SCIATICA,PAIN Current Active Problems Dizziness (Acute) Pain (Acute) Sciatica (Acute) Hospital Course: This is a 77 year old female with a past medical history significant for HTN, sciatica presented with right sided low back pain. Pt reports minimal relief from pain medications given in the ED. She denies pain radiating down her leg but states that when she moves, the pain shoots "everywhere". CT lumbar spine showed: No compression fracture or subluxation are identified. L2-L3 mild broad-based disc bulge reaching left L2 nerve root without gross impingement. L3-L4 mild disc bulge reaching and probably slightly impinging right L3 nerve root L4-L5 moderate degenerative disc disease with mild to moderate disc herniation reaching both L5 nerve roots, possibly slightly impinging the right as well as reaching and impinging right L4 nerve root. L5-S1 mild disc bulge reaching right S1 nerve root without gross impingement. Moderate bilateral facet hypertrophy at multiple levels. Extensive diverticulosis coli without evidence of acute diverticulitis. Status post cholecystectomy. 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 -Hold lisinopril -Continue amlodipine -adjust medications -monitor BP -resolved Code(s): R42 - DIZZINESS AND GIDDINESS Condition: Stable - Instructions Diet, Activity, Other Instructions: -change metoprolol to 25 mg XL daily -Decrease amlodipine to 5 mg daily -BP machine OTC- Brand Omron or [employer] -Hold BP meds if SBP (top number) below 100 mm Hg -start cholestyramine 4g packet up to 4 x day for chronic diarrhea -Start Cyclobenzaprine 5 mg 2 x day as needed -Start Gabapentin 300 mg 2 x day -Start Tramadol 50 mg every 6 hours as needed for pain of 6-10 -Take acetaminophen 500 mg every 6 hours as needed for pain of 1-5 -Follow up with GI outpatient -Follow up with Dr Garcia outpatient Referrals: Parag Garcia MD, [Primary Care Provider] - Disposition: VNS/HOME HEALTH CARE - Home Medications Comprehensive Discharge Medication List: Ambulatory Orders Atorvastatin Ca [Lipitor] 20 mg PO HS 05/19/13 Levothyroxine [Synthroid -] 50 mcg PO DAILY 05/19/13 Amlodipine Besylate 10 mg PO DAILY 11/19/17 Benazepril HCl 40 mg PO DAILY 11/19/17 Cholecalciferol (Vitamin D3) [Vitamin D3] 2,000 unit PO DAILY 11/19/17 Prednisone 5 mg PO DAILY 11/19/17 Amlodipine Besylate 5 mg PO DAILY #30 tablet 11/21/17 Cholestyramine (with Sugar) [Cholestyramine Packet] 4 gm PO QID #120 packet 04/02 Cyclobenzaprine HCl [Flexeril -] 5 mg PO BID #60 tablet 11/21/17 Gabapentin [Neurontin -] 300 mg PO BID #60 capsule 11/21/17 Metoprolol Succinate 25 mg PO DAILY #30 tab.er.24h 11/21/17 traMADol HCL [Ultram -] 50 mg PO Q6H PRN #20 tablet MDD 4 11/21/17
[2017-11-22] MEDS: ATENOLOL 50 MG TABLET (FP) PO SCH (09:44)
[2017-11-22] MEDS: GABAPENTIN 300 MG CAPSULE (FP) PO SCH (09:45)
[2017-11-22] MEDS: CYCLOBENZAPRINE HCL 10 MG TABLET (FP) PO SCH (09:45)
[2017-11-22] MEDS: amLODIPine BESYLATE 10 MG TABLET (FP) PO SCH (09:45)
[2017-11-22] MEDS: predniSONE 5 MG TABLET (UD) PO SCH (09:45)
[2017-11-22] MEDS: CHOLECALCIFEROL (VITAMIN D3) 1,000 UNIT TABLET (FP) PO SCH (09:45)
--- NOTE | 2017-11-22 09:54 | PN ---
Progress Note (short form) - Note Progress Note: Neurology HISTORY OF PRESENT ILLNESS: This is a 77 year old female with a past medical history significant for HTN, sciatica presented with right sided low back pain. Pt reports minimal relief from pain medications given in the ED. She denies pain radiating down her leg but states that when she moves, the pain shoots "everywhere". In ER, she was given course of tramadol, tylenol, robaxin with minimal relief. Hip/pelvis xray no acute fracture. seen at bedside with her daughter and reports continued discomfort. I discussed with them having further imaging of the lumbar spine and completed noncontrast CT of the lumbar spine which showed bulging L2-L4, L4/ L5 showed mild to moderate herniation. L5/S1 showed mild bulge. These changes are not unusual for patient of her age. No severe stenosis or cord abnormalities noted. Reviewed with patient and discussed in detail. Added cyclobenzaprine 5 mg to the regimen to help with localized relief. Also on gabapentin 300mg twice daily, much better today. She's ambulating without discomfort. Discussed outpatient follow up. Active Medications Acetaminophen (Tylenol -) 650 mg PO Q6H PRN PRN Reason: PAIN LEVEL 1 - 3 Amlodipine Besylate (Norvasc -) 10 mg PO DAILY [facility] Last Admin: 11/22/17 09:45 Dose: 10 mg Atenolol (Tenormin -) 50 mg PO BID [facility] Last Admin: 11/22/17 09:44 Dose: 50 mg Atorvastatin Calcium (Lipitor -) 20 mg PO HS [facility] Last Admin: 11/21/17 21:54 Dose: 20 mg Cholecalciferol (Vitamin D3 -) 2,000 unit PO DAILY [facility] Last Admin: 11/22/17 09:45 Dose: 2,000 unit Cyclobenzaprine HCl (Flexeril -) 5 mg PO BID [facility] Last Admin: 11/22/17 09:45 Dose: 5 mg Gabapentin (Neurontin -) 300 mg PO BID [facility] Last Admin: 11/22/17 09:45 Dose: 300 mg Levothyroxine Sodium (Synthroid -) 50 mcg PO ACBK [facility] Last Admin: 11/22/17 06:11 Dose: 50 mcg Prednisone (Deltasone -) 5 mg PO DAILY [facility] Last Admin: 11/22/17 09:45 Dose: 5 mg Tramadol HCl (Ultram -) 50 mg PO Q6H PRN PRN Reason: PAIN LEVEL 6-10 PHYSICAL EXAMINATION Vital Signs Temperature 97.8 F 11/22/17 06:00 Pulse Rate 56 L 11/22/17 06:00 Respiratory Rate 20 11/22/17 06:00 Blood Pressure 121/50 11/22/17 06:00 O2 Sat by Pulse Oximetry (%) 97 11/22/17 06:00 GENERAL: Awake, alert, and fully oriented, in no acute distress. HEAD: Normal with no signs of trauma. EYES: Pupils equal, round and reactive to light, extraocular movements intact, sclera anicteric, conjunctiva clear. No lid lag. EARS, NOSE, THROAT: Ears normal, nares patent, oropharynx clear without exudates. Moist mucous membranes. NECK: Normal range of motion, supple without lymphadenopathy, JVD, or masses. LUNGS: Breath sounds equal, clear to auscultation bilaterally. No wheezes, and no crackles. No accessory muscle use. HEART: Regular rate and rhythm, normal S1 and S2 without murmur, rub or gallop. ABDOMEN: Soft, nontender, not distended, normoactive bowel sounds, no guarding, no rebound, no masses. No hepatomegaly or splenomegaly. MUSCULOSKELETAL: Normal range of motion at all joints. No bony deformities or tenderness. No CVA tenderness. No pain on palpation spine, minimal pain on palpation right SI joint UPPER EXTREMITIES: 2+ pulses, warm, well-perfused. No cyanosis. No clubbing. No peripheral edema. LOWER EXTREMITIES: 2+ pulses, warm, well-perfused. No calf tenderness. No peripheral edema. NEUROLOGICAL: Cranial nerves II-XII intact. Normal speech. Strenght grossly equal to confrontation, sensory intact to LT. Gait deferred PSYCHIATRIC: Cooperative. Good eye contact. Appropriate mood and affect. SKIN: Warm, dry, normal turgor, no rashes or lesions noted, normal capillary refill. CBCD WBC 5.3 K/mm3 (4.0-10.0) 11/20/17 07:45 RBC 3.12 M/mm3 (3.60-5.2) L 11/20/17 07:45 Hgb 11.2 GM/dL (10.7-15.3) 11/20/17 07:45 Hct 32.2 % (32.4-45.2) L 11/20/17 07:45 MCV 103.4 fl (80-96) H 11/20/17 07:45 MCHC 34.7 g/dl (32.0-36.0) 11/20/17 07:45 RDW 13.2 % (11.6-15.6) 11/20/17 07:45 Plt Count 206 K/MM3 (134-434) 11/20/17 07:45 MPV 7.9 fl (7.5-11.1) 11/20/17 07:45 CMP Sodium 139 mmol/L (136-145) 11/20/17 07:45 Potassium 4.1 mmol/L (3.5-5.1) 11/20/17 07:45 Chloride 105 mmol/L (98-107) 11/20/17 07:45 Carbon Dioxide 27 mmol/L (21-32) 11/20/17 07:45 Anion Gap 7 (8-16) L 11/20/17 07:45 BUN 16 mg/dL (7-18) 11/20/17 07:45 Creatinine 1.0 mg/dL (0.55-1.02) 11/20/17 07:45 Creat Clearance w eGFR 53.48 (>60) 11/19/17 14:25 Calcium 8.7 mg/dL (8.5-10.1) 11/20/17 07:45 Total Bilirubin 0.5 mg/dL (0.2-1.0) 11/19/17 14:25 AST 25 U/L (15-37) 11/19/17 14:25 ALT 20 U/L (12-78) 11/19/17 14:25 Alkaline Phosphatase 92 U/L (45-117) 11/19/17 14:25 Total Protein 6.5 g/dl (6.4-8.2) 11/19/17 14:25 Albumin 3.3 g/dl (3.4-5.0) L 11/19/17 14:25 Radiology Reports Right hip and pelvis IMPRESSION: No definite acute fracture in the right hip or bony pelvis. CT L spine as above,reviewed and discussed ASSESSMENT/PLAN: 77 year old female with a past medical history significant for HTN, sciatica presented with right sided low back pain. Pt reports minimal relief from pain medications given in the ED. She denies pain radiating down her leg but states that when she moves, the pain shoots "everywhere". In ER, she was given course of tramadol, tylenol, robaxin with minimal relief. Hip/pelvis xray no acute fracture. seen at bedside with her daughter and reports continued discomfort. CT L spine reviewed and age related changes as expected. DThese changes are not unusual for patient of her age. No severe stenosis or cord abnormalities noted. Reviewed with patient and discussed in detail. Added cyclobenzaprine 5 mg to the regimen to help with localized relief. Also on gabapentin 300mg twice daily , much better today. She's ambulating without discomfort. Discussed outpatient follow up. Can continue home medications for hypertension, maintain normotensive blood pressure range. Fall precautions, for discharge today.
[2017-11-22 11:12] VITALS: BP 110/58; PULSE 58; TEMP 97.4
== END 2017-11-22 13:58 | disposition home health service (06) ==
LOC: JER 10:44 → JERBED 18:34 → J6S 20:20
PROVIDERS: ADMIT Internal Medicine; ATTEND Family Medicine
PROC: 3E0337Z Introduction of Electrolytic and Water Balance Substance into Peripheral Vein, Percutaneous Approach (ICD-10-PCS; principal; 2017-11-19)
DX: M54.30 Sciatica, unspecified side (principal); I10 Essential (primary) hypertension; I95.9 Hypotension, unspecified; E78.5 Hyperlipidemia, unspecified; M81.0 Age-related osteoporosis without current pathological fracture; E03.9 Hypothyroidism, unspecified; E42 Marasmic kwashiorkor; Z88.2 Allergy status to sulfonamides; Z87.891 Personal history of nicotine dependence; M35.3 Polymyalgia rheumatica
CPT/HCPCS: 36415; 72131-TC; 73523-TC-FY; 80048; 80053; 81003; 81015; 83735; 84100; 85025; 87086; 93005; 93010; 96360; 97116-GP; 97161-GP; 99282-25; G0378; J7030

== ENCOUNTER 2018-05-28 05:10 | Inpatient (IN) | payer OTHER, BC ==
[2018-05-24 17:12] VITALS: BMI 20.1
[~2018-05-28 05:10] MED LIST: ceFAZolin SODIUM 1 GM VIAL IVPB ONE
--- NOTE | 2018-05-28 10:23 | HP ---
History & Physical Update - Physical Physical: No Change - Assessment Assessment: No Change - Plan Plan: No Change (for vaginal hysterectomy, anterior , posterior repair)
[2018-05-28] MEDS ORDERED: ONDANSETRON 4 MG/2 ML VIAL IVPUSH PRN ×2 (10:47→14:03)
[2018-05-28] MEDS ORDERED: ROCURONIUM BROMIDE 50 MG/5 ML VIAL ONE (11:39)
[2018-05-28] MEDS ORDERED: PROPOFOL 20 ML ONE (11:39)
[2018-05-28] MEDS ORDERED: LIDOCAINE HCL/PF 2% SDV 5ML VIAL ONE (11:42)
[2018-05-28] MEDS ORDERED: ceFAZolin SODIUM 1 GM VIAL ONE ×3 (11:55→20:55)
[2018-05-28] MEDS ORDERED: ceFAZolin SODIUM 1 GM VIAL IVPB ONE (11:55)
[2018-05-28] MEDS ORDERED: VASOPRESSIN 20 UNITS/ML VIAL IV ONE ×3 (11:57→12:00)
[2018-05-28] MEDS ORDERED: KETOROLAC TROMETHAMINE 30 MG/1 ML VIAL ONE (13:43)
[2018-05-28] MEDS ORDERED: GLYCOPYRROLATE 0.2 MG/1 ML VIAL ONE (13:43)
[2018-05-28] MEDS ORDERED: IBUPROFEN 600 MG TABLET (FP) PO PRN (14:03)
[2018-05-28] MEDS ORDERED: IBUPROFEN 800 MG/8 ML IJ IVPB PRN (14:03)
[2018-05-28] MEDS ORDERED: ACETAMINOPHEN 325 MG TABLET (FP) PO PRN (14:09)
[2018-05-28] MEDS ORDERED: ACETAMINOPHEN 1000 MG/100 ML VIAL (NON FORMULARY) IVPB ONE (15:19)
[2018-05-28] MEDS ORDERED: fentaNYL CITRATE/PF 1,000 MCG/20 ML AMPUL IVPUSH ONE (15:20)
[2018-05-28] MEDS: LACTATED RINGERS SOLUTION 1,000 ML IV SCH (15:30)
[2018-05-28] MEDS: CEFAZOLIN 1 GM in DEXTROSE 5%-WATER - 50 ML IVPB SCH ×2 (16:00→20:58)
[2018-05-28] MEDS ORDERED: DEXTROSE 5%-WATER - 50 ML IVPB ONE (20:55)
[2018-05-28] MEDS: GABAPENTIN 300 MG CAPSULE (FP) PO SCH (20:59)
[2018-05-28] MEDS: ATORVASTATIN CA 20 MG TABLET (FP) PO SCH (20:59)
[2018-05-28] MEDS: SENNOSIDES/DOCUSATE COMBO (SENNA PLUS) TABLET (UD) PO SCH (20:59)
[2018-05-29] MEDS ORDERED: ceFAZolin SODIUM 1 GM VIAL ONE ×2 (01:48→08:58)
[2018-05-29] MEDS ORDERED: DEXTROSE 5%-WATER - 50 ML IVPB ONE ×2 (01:48→08:58)
[2018-05-29] MEDS: ELECTROLYTE-148 SOLN 1,000 ML IV SCH ×2 (01:51→21:07)
[2018-05-29] MEDS: CEFAZOLIN 1 GM in DEXTROSE 5%-WATER - 50 ML IVPB SCH ×2 (02:37→09:03)
[2018-05-29] MEDS: LEVOTHYROXINE NA 50 MCG TABLET (FP) PO SCH (06:44)
[2018-05-29] MEDS: LACTATED RINGERS SOLUTION 1,000 ML IV SCH ×2 (06:45→21:07)
[2018-05-29 08:07] LABS: HEMOGLOBIN 9.9 GM/dL (10.7-15.3); MCH 33.6 pg (25.7-33.7); MEAN PLT VOLUME 8.1 fl (7.5-11.1); PLATELET COUNT 191 K/MM3 (134-434); RBC 2.93 M/mm3 (3.60-5.2); RDW 13.5 % (11.6-15.6); WHITE BLOOD COUNT 8.1 K/mm3 (4.0-10.0)
[2018-05-29] MEDS ORDERED: PT OWN MED DRAWER 7, Y5N ONE (08:58)
[2018-05-29 09:00] LABS: ANION GAP 13 MMOL/L (8-16); BLOOD UREA NITROGEN 15 mg/dL (7-18); CALCIUM 7.5 mg/dL (8.5-10.1); CHLORIDE 92 mmol/L (98-107); CO2 30 mmol/L (21-32); CREATININE 0.9 mg/dL (0.55-1.3); GLUCOSE,RANDOM 63 mg/dL (74-106); POTASSIUM 3.6 mmol/L (3.5-5.1); SODIUM 135 mmol/L (136-145)
[2018-05-29] MEDS: predniSONE 5 MG TABLET (UD) PO SCH (09:04)
[2018-05-29] MEDS: SENNOSIDES/DOCUSATE COMBO (SENNA PLUS) TABLET (UD) PO SCH ×2 (09:05→21:06)
[2018-05-29] MEDS: metoPROLOL SUCCINATE 25 MG TAB.SR.24H (FP) PO SCH (09:05)
[2018-05-29] MEDS: CHLORTHALIDONE 25 MG TABLET PO SCH (09:05)
[2018-05-29] MEDS: traMADol HCL 50 MG TABLET PO SCH (09:05)
[2018-05-29] MEDS: GABAPENTIN 300 MG CAPSULE (FP) PO SCH ×2 (09:05→21:06)
[2018-05-29] MEDS: amLODIPine BESYLATE 5 MG TABLET (FP) PO SCH (09:07)
[2018-05-29] MEDS: ENOXAPARIN NA (PORCINE) 40 MG/0.4 ML DISP.SYRIN SQ SCH (09:08)
--- NOTE | 2018-05-29 11:23 | PN ---
Progress Note (short form) - Note Progress Note: pod 1 . s/p vaginal hysterectomy [place] was removed , not urinated yet no vaginal bleeding, has vaginal pressure CBC, BMP 05/29/18 06:30 05/29/18 06:30 Last Vital Signs Temp Pulse Resp BP Pulse Ox 98 F 64 20 140/56 L 99 05/29/18 07:00 05/29/18 07:00 05/29/18 07:00 05/29/18 07:00 05/28/18 18:23 abdomen soft, no distension, no cva vagina packing removed , dry, no discharge no active vaginal bleeding no calf tenderness impression pod 1 , afebrile, packing removed , monitor out put pain management ambulate
--- NOTE | 2018-05-29 13:30 | OP ---
DATE OF OPERATION: 05/28/2018 PREOPERATIVE DIAGNOSIS: Uterovaginal prolapse, cystocele and rectocele, and pelvic relaxation. POSTOPERATIVE DIAGNOSIS: Uterovaginal prolapse, cystocele and rectocele, and pelvic relaxation. PROCEDURE: Vaginal hysterectomy, cystocele and rectocele repair and perineoplasty. SURGEON: Omar Carl MD COMPOUND WORKER: Ruben Whittington MD ANESTHESIA: General. ESTIMATED BLOOD LOSS: 150 mL. DESCRIPTION OF THE PROCEDURE: The patient was taken to the operating room and under adequate general anesthesia in the dorsal lithotomy position examination under anesthesia revealed a large cystocele and rectocele and the cervix was out of the vagina and the vaginal introitus was gapping. The uterus was anteverted and normal size. Adnexa, no masses were palpable. Then with a weighted speculum into the vagina, anterior lip of the cervix was grasped with a single-toothed tenaculum and the cervix and paracervical area was infiltrated with a dilute solution of vasopressin. Then a round incision was made with the cautery around the cervix circumferentially and then the posterior vaginal mucosa was from the cervix with Metzenbaum scissors and with blunt dissection. Then the peritoneum was grasped posteriorly and the cul-de-sac was entered. Then the weighted speculum was advanced into the cul-de-sac area. At this time the anterior vaginal mucosa with sharp dissection was dissected from the cervix and the bladder was pushed up. Then the uterosacral ligament was identified bilaterally and clamped with Agustin clamp, cut, and the clamp was replaced with a 0 Vicryl suture bilaterally and these clamps were held. Then the bladder was further dissected with blunt dissection and pushed up and then the uterine artery was identified bilaterally, clamped with Agustin clamp, cut, and the clamp was replaced with a 0 Vicryl suture bilaterally. There was a long cervix which the paracervical area was grasped with Agustin clamps serially and cut and the clamp was replaced with a 0 Vicryl suture bilaterally. There was some adhesion of the bowel to the posterior uterine wall. These adhesions were filmy and they were lysed with the Metzenbaum scissors meticulously and bowels were pushed away with a sponge on a stick. On the left side of the parametrial area again the uterus was adherent to the omental area and there were thick adhesions. These adhesions were lysed and the uterus was from the right parametrial area and then the area was sutured with interrupted sutures of 0 Vicryl. Then after the pedicle was reached with a Agustin clamp, cut, and the clamp was replaced with serial 0 Vicryl suture bilaterally. These clamps were also held and then the cavity was irrigated. There was a slight amount of oozing from the right parametrial area where the adhesions was lysed and the adhesion was grasped with a right angle clamp and a tie was placed and hemostasis was established. Then the peritoneum was closed with a purse string suture of 2-0 Vicryl and then the uterosacral ligaments were fixed to the vaginal angles bilaterally with 0 Vicryl interrupted suture. Then the posterior vaginal mucosa was closed with an interrupted suture of 2-0 Vicryl. Then the cystocele repair was started by injecting vasopressin to the anterior bladder. Then the bladder was dissected from the vaginal mucosa with sharp Metzenbaum dissection and also with blunt dissection. The bladder was from the mucosa and then the cystocele was reduced with a purse string suture of 3-0 Vicryl and then a mattress suture was also interrupted and placed over the bladder for reinforcement. Then excess vaginal mucosa was cut and then the mucosa was brought together with the continuous suture of 3-0 Vicryl and hemostasis was established. At this time the rectocele repair was started by grasping the vaginal introitus with an Allis clamp and excess skin was trimmed and then the posterior vaginal mucosa was dissected from the rectum with Metzenbaum scissors with blunt and sharp dissection and then the rectocele was reduced with an interrupted suture of 2-0 Vicryl mattress suture. At this time the posterior vaginal mucosa excess mucosa was trimmed and then posterior vaginal mucosa was brought together with interrupted suture of 3-0 Vicryl until the vaginal introitus was reached. At this time the perineoplasty was started by dissecting the muscles and then the muscles were brought together with an interrupted suture of 2-0 Vicryl and then the perineum was reinforced with interrupted suture of 2-0 Vicryl and then repairing in an episiotomy fashion with 2-0 Vicryl interrupted suture. Then rectum was checked with no defect and no suture was felt and then the Wright catheter was inserted and clear urine 600 was drained and then vaginal cavity was packed with IodoFoam gauze. The patient tolerated the procedure well and left the OR in good condition. OMAR CARL M.D. [id number]
[2018-05-29] MEDS: ATORVASTATIN CA 20 MG TABLET (FP) PO SCH (21:06)
[2018-05-30] MEDS: LEVOTHYROXINE NA 50 MCG TABLET (FP) PO SCH (06:01)
[2018-05-30 07:22] LABS: BASO % 0.7 % (0-2.0); EOS % 1.3 % (0-4.5); HEMATOCRIT 28.4 % (32.4-45.2); HEMOGLOBIN 9.5 GM/dL (10.7-15.3); LYMPH % 18.2 % (8-40); MCH 33.2 pg (25.7-33.7); MCHC 33.5 g/dl (32.0-36.0); MEAN CELL VOLUME 99.1 fl (80-96); MEAN PLT VOLUME 8.1 fl (7.5-11.1); MONO % 10.7 % (3.8-10.2); NEUT % 69.1 % (42.8-82.8); PLATELET COUNT 193 K/MM3 (134-434); RBC 2.86 M/mm3 (3.60-5.2); RDW 13.5 % (11.6-15.6); WHITE BLOOD COUNT 8.4 K/mm3 (4.0-10.0)
--- NOTE | 2018-05-30 08:48 | PN ---
Progress Note (short form) - Note Progress Note: pod 2 , voids ok, no vaginal bleeding.passing gas CBC, BMP 05/30/18 06:15 05/29/18 06:30 Last Vital Signs Temp Pulse Resp BP Pulse Ox 98.2 F 64 20 140/56 L 96 05/30/18 06:47 05/30/18 06:47 05/30/18 06:47 05/30/18 06:47 05/29/18 21:00 abdomen soft, non tender, no cva vaginal no bleeding no calf tenderness impression doing well, voids comfortable plan d/c home , rto 2 weeks instruction given
--- NOTE | 2018-05-30 08:50 | DS ---
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: Vital Signs Temperature 98.2 F 05/30/18 06:47 Pulse Rate 64 05/30/18 06:47 Respiratory Rate 20 05/30/18 06:47 Blood Pressure 140/56 L 05/30/18 06:47 O2 Sat by Pulse Oximetry (%) 96 05/29/18 21:00 Constitutional: Yes: Well Nourished, No Distress, Calm Eyes: Yes: WNL, Conjunctiva Clear, EOM Intact HENT: Yes: WNL, Atraumatic, Normocephalic Neck: Yes: WNL, Supple, Trachea Midline Cardiovascular: Yes: WNL, Regular Rate and Rhythm Respiratory: Yes: WNL, Regular, CTA Bilaterally Gastrointestinal: Yes: WNL ...Rectal Exam: Yes: WNL Renal/: Yes: WNL External Genitalia: Yes: Normal Vaginal Exam: Yes: Normal Breast(s): Yes: WNL Musculoskeletal: Yes: WNL Extremities: Yes: WNL Edema: No Integumentary: Yes: WNL Neurological: Yes: WNL, Alert, Oriented ...Motor Strength: WNL Psychiatric: Yes: WNL, Alert, Oriented Labs: CBC, BMP 05/30/18 06:15 05/29/18 06:30 Discharge Summary Reason For Visit: PELVIC PAIN,CYSTOCELE WITH 2ND DEGREE UTERINE PROL Procedures: Principal: TVH, cystorectocele repair, pernioplasty Condition: Good - Instructions Diet, Activity, Other Instructions: regular diet, follow up office 2 weeks, if pain, fever , heavy vaginal bleeding call MD Referrals: Rom Carl MD [Staff Physician] - Disposition: HOME - Home Medications Comprehensive Discharge Medication List: Ambulatory Orders Atorvastatin Ca [Lipitor] 20 mg PO HS 05/19/13 Levothyroxine [Synthroid -] 50 mcg PO DAILY 05/19/13 Cholecalciferol (Vitamin D3) [Vitamin D3] 2,000 unit PO DAILY 11/19/17 Prednisone 5 mg PO DAILY 11/19/17 Amlodipine Besylate 5 mg PO DAILY #30 tablet 11/21/17 Gabapentin [Neurontin -] 300 mg PO BID #60 capsule 11/21/17 Metoprolol Succinate 25 mg PO DAILY #30 tab.er.24h 11/21/17 traMADol HCL [Ultram -] 50 mg PO DAILY 05/24/18 Chlorthalidone [Hygroton -] 25 mg PO DAILY 05/28/18 Ibuprofen [Motrin -] 600 mg PO QID #28 tablet 05/30/18
[2018-05-30] MEDS ORDERED: PT OWN MED DRAWER 7, Y5N ONE (09:12)
[2018-05-30] MEDS: traMADol HCL 50 MG TABLET PO SCH (09:17)
[2018-05-30] MEDS: amLODIPine BESYLATE 5 MG TABLET (FP) PO SCH (09:17)
[2018-05-30] MEDS: GABAPENTIN 300 MG CAPSULE (FP) PO SCH (09:17)
[2018-05-30] MEDS: SENNOSIDES/DOCUSATE COMBO (SENNA PLUS) TABLET (UD) PO SCH (09:18)
[2018-05-30] MEDS: metoPROLOL SUCCINATE 25 MG TAB.SR.24H (FP) PO SCH (09:18)
[2018-05-30] MEDS: ENOXAPARIN NA (PORCINE) 40 MG/0.4 ML DISP.SYRIN SQ SCH (09:18)
[2018-05-30] MEDS: CHLORTHALIDONE 25 MG TABLET PO SCH (09:18)
[2018-05-30] MEDS: predniSONE 5 MG TABLET (UD) PO SCH (09:18)
[2018-05-30 10:55] VITALS: BP 143/66; PULSE 70; TEMP 97.5
--- NOTE | 2018-05-30 16:29 | PATH ---
Surgical Pathology Report Patient Name: EDWARDO SHIN Med. Rec. #: [id number] /Age/Gender: 1940 (Age: 77) / F Account: [id number] Location: [facility] MED/SURG Taken: 05/28/2018 Received: 05/29/2018 Reported: 05/30/2018 Physicians: Rom Carl M.D. Specimen(s) Received A: UTERUS AND CERVIX B: VAGINAL MUCOSA Clinical History Cystocele, uterine prolapse Final Diagnosis A. UTERUS, CERVIX, VAGINAL HYSTERECTOMY AND CYSTOCELE REPAIR: ATROPHIC ENDOMETRIUM. SEROSA AND MYOMETRIUM WITHOUT SIGNIFICANT PATHOLOGIC FINDINGS. CERVIX WITH FOCAL ACUTE INFLAMMATION, ULCERATION, AND PARAKERATOSIS. B. VAGINAL MUCOSA, EXCISION: VAGINAL SQUAMOUS MUCOSA WITH PARAKERATOSIS. Electronically Signed Melissa Rodrigues M.D. Gross Description A. Received in formalin labeled "uterus and cervix," is a 50 g uterus with an attached cervix and no attached adnexa. The specimen measures 10 cm from superior to inferior, 4 cm from left to right and 2 cm from anterior to posterior. The serosa is rain-swan with a focal defect. The attached cervix measures 4.5 cm in length and averages 1.5 cm in diameter. The cervix displays attached vaginal mucosa. The ectocervix is rain with a focal area of brown discoloration. The endocervix is unremarkable. The endometrial cavity measures 2.5 cm in length and 1.8 cm from cornu to cornu. The endometrium is rain-red and averages 0.1 cm in thickness. The myometrium is rain elizabeth and averages 1 cm in thickness. No intramural nodules are notified. Political Aide sections are submitted in 6 cassettes as follows: 1-anterior cervix with area of discoloration; 2-posterior cervix; 5-4-jcwrbebb endomyometrium; 9-1-vukfqaxgo endomyometrium. B. Received in formalin labeled "vaginal mucosa," is a 4.0 x 3.6 x 0.5 cm aggregate of multiple rain portions of soft tissue, consistent with vaginal mucosa. Political Aide sections are submitted in one cassette. /05/29/201805/29/2018
== END 2018-05-30 10:39 | disposition home or self-care (01) | DRG 743 ==
LOC: JSAMEDAYSX 05:10 → J8W 16:59
PROVIDERS: ADMIT Obstetrics & Gynecology; ATTEND Obstetrics & Gynecology
PROC: 0UT97ZZ Resection of Uterus, Via Natural or Artificial Opening (ICD-10-PCS; 2018-05-28)
PROC: 0JQC0ZZ Repair Pelvic Region Subcutaneous Tissue and Fascia, Open Approach (ICD-10-PCS; 2018-05-28)
PROC: 0UQG0ZZ Repair Vagina, Open Approach (ICD-10-PCS; 2018-05-28)
PROC: 0JQC0ZZ Repair Pelvic Region Subcutaneous Tissue and Fascia, Open Approach (ICD-10-PCS; principal; 2018-05-28 11:00)
DX: N81.4 Uterovaginal prolapse, unspecified (principal); N81.89 Other female genital prolapse; K66.0 Peritoneal adhesions (postprocedural) (postinfection)
CPT/HCPCS: 36415; 80048; 85025; 85027; 86850; 86900; 86901; 88302-TC; 88305-TC; 94760; J0131

== ENCOUNTER 2018-12-01 19:28 | Emergency (ER) | payer OTHER, BC ==
[2018-12-01 20:00] VITALS: BP 138/88; PULSE 74; TEMP 97.9; BMI 21.2
[2018-12-01] MEDS ORDERED: KETOROLAC TROMETHAMINE 60 MG/2 ML VIAL IM ONE (20:43)
--- NOTE | 2018-12-01 20:49 | PDOC ---
History of Present Illness - General Chief Complaint: Pain, Acute Stated Complaint: BACK PAIN Time Seen by Provider: 12/01/18 20:23 History Source: Patient Exam Limitations: No Limitations - History of Present Illness Initial Comments: 12/01/18 20:43 Acute exacerbation last Sunday/Sunday of chronic back pain with sciatic radiation. Denies fever, denies any knowledge of change in activity or injury. States has had many years of very types of pain with pain management and chiropractic work. Has a prescription for physical therapy but did not call to set those appointments up this week. Denies bowel or bladder problems, denies foot drop or changes in sensation to foot, states distribution of pain extends from lateral aspect of right foot through lateral side of leg to hip. This is similar to previous of low back pain with radiation. 12/01/18 20:55 12/01/18 21:46 Occurred: reports: last week Severity: reports: mild Pain Location: reports: lower extremity (right sciatic ) Method of Injury: Yes: unknown Modifying Factors: improves with: None Loss of Consciousness: no loss of consciousness Associated Symptoms (Fall): denies symptoms Past History - Travel Traveled outside of the country in the last 30 days: No Close contact w/someone who was outside of country & ill: No - Past Medical History Allergies/Adverse Reactions: Allergies Allergy/AdvReac Type Severity Reaction Status Date / Time oxycodone [Oxycodone] Allergy Severe Nausea Verified 05/28/18 09:44 Home Medications: Ambulatory Orders Atorvastatin Ca [Lipitor] 20 mg PO HS 05/19/13 Levothyroxine [Synthroid -] 50 mcg PO DAILY 05/19/13 Cholecalciferol (Vitamin D3) [Vitamin D3] 2,000 unit PO DAILY 11/19/17 Prednisone 5 mg PO DAILY 11/19/17 Amlodipine Besylate 5 mg PO DAILY #30 tablet 11/21/17 Gabapentin [Neurontin -] 300 mg PO BID #60 capsule 11/21/17 Metoprolol Succinate 25 mg PO DAILY #30 tab.er.24h 11/21/17 Chlorthalidone [Hygroton -] 25 mg PO DAILY 05/28/18 Ibuprofen [Motrin -] 600 mg PO QID #28 tablet 05/30/18 Tramadol HCl 50 mg PO TID #7 tablet MDD 4 12/01/18 Anemia: No Asthma: No Cancer: No Cardiac Disorders: No CVA: No COPD: No CHF: No Dementia: No Diabetes: No GI Disorders: Yes (DIARRHEA, DIVERTICULOSIS) Disorders: No HTN: Yes Hypercholesterolemia: Yes Liver Disease: No Seizures: No Thyroid Disease: Yes (HYPO) - Surgical History Abdominal Surgery: No Appendectomy: No Cardiac Surgery: No Cholecystectomy: Yes Lung Surgery: No Neurologic Surgery: No Orthopedic Surgery: No - Suicide/Smoking/Psychosocial Hx Smoking History: Former smoker Have you smoked in the past 12 months: No If you are a former smoker, when did you quit?: 1958 Information on smoking cessation initiated: No Hx Alcohol Use: No Drug/Substance Use Hx: No Substance Use Type: None Review of Systems - Review of Systems Able to Perform ROS?: Yes Is the patient limited Kittitian proficient: Yes Constitutional: Yes: Symptoms Reported, See HPI, Malaise HEENTM: No: Symptoms Reported ABD/GI: Yes: Symptoms Reported, See HPI Integumentary: Yes: Symptoms Reported, See HPI. No: Rash Neurological: Yes: Symptoms reported, See HPI, Paresthesia (to right leg ) All Other Systems: Reviewed and Negative *Physical Exam - Vital Signs Last Vital Signs Temp Pulse Resp BP Pulse Ox 97.9 F 74 20 138/88 97 12/01/18 19:53 12/01/18 19:53 12/01/18 19:53 12/01/18 19:53 12/01/18 19:53 - Physical Exam General Appearance: Yes: Nourished, Appropriately Dressed. No: Apparent Distress (patient is able to move, bend over stretcher to sheepskin pickler purse from table. Ambulatory without limp or unsteadiness.) HEENT: positive: CELIO, Normal ENT Inspection Neck: positive: Supple. negative: Tender Respiratory/Chest: positive: Lungs Clear, Normal Breath Sounds Gastrointestinal/Abdominal: positive: Soft. negative: Tender Musculoskeletal: positive: Normal Inspection, Decreased Range of Motion (mild ) . negative: CVA Tenderness, Muscle Spasm, Vertebral Tenderness Extremity: positive: Normal Capillary Refill, Normal Inspection, Normal Range of Motion. negative: Tender, Swelling Integumentary: positive: Normal Color, Dry, Warm Neurologic: positive: quality improvement coordinator II-XII NML intact, Fully Oriented, Alert, Normal Mood/ Affect, Normal Response, Motor Strength 5/5 Progress Note - Progress Note Progress Note: Acute exacerbation of chronic back pain with mild sciatic distribution. Decayed here with an IM dose of Toradol. Updated son and patient to plan follow-up Patient does not appear to be in significant discomfort, however has no longer prescription for Tramadol therefore given additional 7 encouraged to follow up with her PMD tomorrow/Dr. Abreu and Dr. galo to update them is to exacerbation of pain in possible need for changes in pain management. *DC/Admit/Observation/Transfer Diagnosis at time of Disposition: Low back strain Qualifiers: Encounter type: initial encounter Qualified Code(s): S39.012A - Strain of muscle, fascia and tendon of lower back, initial encounter - Discharge Dispostion Disposition: HOME Condition at time of disposition: Stable Decision to Admit order: No - Prescriptions Prescriptions: Tramadol HCl 50 mg PO TID #7 tablet MDD 4 - Referrals Referrals: Gil Abreu MD [Primary Care Provider] - - Patient Instructions Printed Discharge Instructions: DI for Back Strain or Sprain Additional Instructions: Rest, no heavy lifting or exercise until pain is resolved Hot soaks to neck and low back as often as possible/hot showers or Jacuzzis No massage or therapy until spasm is gone Continue Tylenol 23 25 mg tablet, tablet every 8 hours for the next 3 days then as needed for pain and swelling May use tramadol 150 milligrams tablet for severe pain Call and see within the next one to 2 days for further evaluation and possible different treatment and testing. If not significant improvement within 24 hours with medication and rest regime, followup with private physician for change in medications and /or therapy. - Post Discharge Activity
[2018-12-01] MEDS ORDERED: KETOROLAC TROMETHAMINE 30 MG/1 ML VIAL ONE (20:53)
== END 2018-12-01 21:05 | disposition home or self-care (01) ==
LOC: JERFT 19:28
PROC: 3E0233Z Introduction of Anti-inflammatory into Muscle, Percutaneous Approach (ICD-10-PCS; principal; 2018-12-01)
DX: S39.012A Strain of muscle, fascia and tendon of lower back, initial encounter (principal); X58.XXXA Exposure to other specified factors, initial encounter; Y93.89 Activity, other specified; Y92.89 Other specified places as the place of occurrence of the external cause; Y99.8 Other external cause status; I10 Essential (primary) hypertension; E78.00 Pure hypercholesterolemia, unspecified; E03.9 Hypothyroidism, unspecified; Z87.19 Personal history of other diseases of the digestive system
CPT/HCPCS: 96372; 99281-25

== ENCOUNTER 2018-12-11 06:42 | Inpatient (IN) | payer OTHER, BC ==
[2018-12-11] MEDS ORDERED: ACETAMINOPHEN 1000 MG/100 ML VIAL (NON FORMULARY) IVPB ONE (08:01)
[2018-12-11] MEDS ORDERED: ACETAMINOPHEN INJECTION 100 ML IVPB ONE (08:08)
[2018-12-11 08:35] LABS: BASO % 1.1 % (0-2.0); EOS % 1.3 % (0-4.5); HEMATOCRIT 36.2 % (32.4-45.2); LYMPH % 26.3 % (8-40); MCH 32.5 pg (25.7-33.7); MCHC 33.1 g/dl (32.0-36.0); MEAN CELL VOLUME 98.2 fl (80-96); MEAN PLT VOLUME 7.7 fl (7.5-11.1); MONO % 9.4 % (3.8-10.2); NEUT % 61.9 % (42.8-82.8); PLATELET COUNT 327 K/MM3 (134-434); RBC 3.69 M/mm3 (3.60-5.2); RDW 14.7 % (11.6-15.6)
[2018-12-11 08:47] LABS: INR 0.95 (0.83-1.09); PROTHROMBIN TIME (PATIENT) 11.2 SEC (9.7-13.0)
[2018-12-11 09:47] LABS: ALBUMIN 3.4 g/dl (3.4-5.0); BILIRUBIN,TOTAL 0.3 mg/dL (0.2-1); CALCIUM 8.8 mg/dL (8.5-10.1); TOT PROT 6.6 g/dl (6.4-8.2)
--- NOTE | 2018-12-11 11:03 | CONSULT ---
Consult - text type - Consultation Consultation Note: NEUROLOGY CONSULT GREATLY APPRECIATED: Events reviewed and discussed with staff. Pt seen and examined at request of son , now with at the bedside. This 78 yo LH woman lives with her and son. 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 Ambulates independently, but "slowing up a lot" according to her . Last seen in office 07/26/18. MRI of LS spine (C-) 07/15/18 revealed Partial L1 vertebral collapse. Multilevel DJD with disc desiccation. Disc bulges at L3/L4, L4/L5. Posterior osteophyte complexes without cord involvement. EMG's of the legs showed mild chronic L L5 radiculopathy. PMHX: HTN, hypothyroid, Polymyalgia Rheumatica. Meds: amlodipine, toprol xl, chlorthalidone, levothyroxine, gabapentin 300 mg BID, prednisone 5 mg qd, Notes a few months of gait imbalance attributed to new "Sciatica" in the R leg from buttock down leg, limiting ambulation. These pains are "constant" and interrupting sleep, not relieved by meloxicam or gabapentin. Last evening ambulated to the bathroom independently and sat down in chair. Upon raising, experienced "lightheadedness" and fell to her knees. She then crawled to the couch and attempted to get up and sit down and fell again, but this time backwards on the wood floor. She denies LOC. BP in ED= 201/[address] (reviewed): Mod atrophy with ex vacuo ventricular dilation. Extensive periventricular ischemic changes. Calcified intracraninal vessels. CT of C spine (C-): Multilevel DJD. Grade I anterolithesis C4/C5. Xray of Hips/Pelvis/R femur: normal study. Xray of R foot: acute 5th MT fx HERNÁN: Cor reg. R carotid bruit. Neck supple. No evidence head trauma. Neg SLR. Neg Dmitri's. Various ages of bruising to knees, arms. Erythema to R lateral foot. NEURO: Awake, alert, oriented [facility]. Confused? December corrected to November. "Was ." 2019. TRUMP-> PMURT. 09/15 recall @ 3 min. CNII-CNXII: EOM's full without nystagmus. Full pascual. No facial. Motor: Min L drift. Decreased CLAUS's. Strength normal including distal and proximal groups. Reflexes brisk in arms, but reduced in KJs and absent AJs. Toes downgoing. + cogwheel rigidity (L>R) and increased by reinforcement. Coordination: No FTN dystaxia. Sensation: Reduced vibration to ankles. Romberg +/- Gait: Variable, unsteady. (incontinent of urine) Impression: Mil B/L cerebral dysfunction (OMS) probable due to severe CORDWAINER microvascular disease. Presyncope/Syncope Chronic gait imbalance with contribution of LSSS, radiculopathy and new (?) extrapyramidal features. Suggest: Agree with orthopedic consult for R foot fracture Cardiology consult/ telemetry and/or holter. Orthostatic BP's Carotid duplex MRI of brain (C-) and review prior MRI of LS spine Check TSH, ESR, CRP, UA, C & S (R/O UTI induced Toxic-metabolic worsening) PT for gait assessment and gait training with WALKER. Thank you very much, Sridhar Sawyer MD .+ +
--- NOTE | 2018-12-11 11:53 | PDOC ---
Documentation entered by Esperanza Allred SCRIBE, acting as scribe for Connor Camarillo MD. Connor Camarillo MD: This documentation has been prepared by the Chalino solitario Daisy, SCRIBE, under my direction and personally reviewed by me in its entirety. I confirm that the documentation accurately reflects all work, treatment, procedures, and medical decision making performed by me. History of Present Illness - General Chief Complaint: Injury Stated Complaint: FALL Time Seen by Provider: 12/11/18 07:36 History Source: Patient Exam Limitations: No Limitations - History of Present Illness Initial Comments: 12/11/18 08:02 The patient is a 78YOF with a PMH of sciatica, HTN, HLD, and hypothyroidism who presents to the ED s/p two falls since 4AM this morning. The patient states she woke up at 4AM secondary to her sciatica pain, stood up from her recliner and felt dizzy, lightheadedness and nauseous causing her to fall to the ground. She reports similar symptoms while standing up a second time 15 minutes later to go to her couch, but now fell onto her back and injured her posterior head on a wooden floor. Denies loss of consciousness. She currently admits to low back pain, right hip pain and right foot pain. She notes she has not been eating or drinking much at home. Denies similar symptoms in the past. Denies LOC, neck pain, chest pain, shortness of breath, palpitations, vomiting , diarrhea, constipation or urinary symptoms. Allergies: oxycodone. Surgeries: cholecystectomy Social history: Drinks wine occasionally. Denies cigarette or drug use. PCP: Dr. Abreu Past History - Past Medical History Allergies/Adverse Reactions: Allergies Allergy/AdvReac Type Severity Reaction Status Date / Time oxycodone [Oxycodone] Allergy Severe Nausea Verified 12/11/18 07:18 Home Medications: Ambulatory Orders Levothyroxine [Synthroid -] 50 mcg PO DAILY 05/19/13 Cholecalciferol (Vitamin D3) [Vitamin D3] 2,000 unit PO DAILY 11/19/17 Prednisone 5 mg PO DAILY 11/19/17 Amlodipine Besylate 5 mg PO DAILY #30 tablet 11/21/17 Gabapentin [Neurontin -] 300 mg PO BID #60 capsule 11/21/17 Metoprolol Succinate 25 mg PO DAILY #30 tab.er.24h 11/21/17 Chlorthalidone [Hygroton -] 25 mg PO DAILY 05/28/18 Ferrous Sulfate 325 mg PO DAILY 12/11/18 Anemia: No Asthma: No Cancer: No Cardiac Disorders: No CVA: No COPD: No CHF: No Dementia: No Diabetes: No GI Disorders: Yes (DIARRHEA, DIVERTICULOSIS) Disorders: No HTN: Yes Hypercholesterolemia: Yes Liver Disease: No Seizures: No Thyroid Disease: Yes (HYPO) - Surgical History Abdominal Surgery: No Appendectomy: No Cardiac Surgery: No Cholecystectomy: Yes Lung Surgery: No Neurologic Surgery: No Orthopedic Surgery: No - Immunization History Immunization Up to Date: Yes - Suicide/Smoking/Psychosocial Hx Smoking History: Never smoked Have you smoked in the past 12 months: No If you are a former smoker, when did you quit?: 1958 Hx Alcohol Use: No Drug/Substance Use Hx: No Substance Use Type: None Review of Systems - Review of Systems Able to Perform ROS?: Yes Comments:: 12/11/18 08:00 ADULT ROS CONSTITUTIONAL: No fever, no chills, no fatigue EYES: No visual changes ENT: No ear pain, no sore throat CARDIOVASCULAR: No chest pain, no palpitations RESPIRATORY: No cough, no SOB GI: No abdominal pain, no nausea, no vomiting, no constipation, no diarrhea GENITOURINARY: No dysuria, no frequency, no hematuria MUSKULOSKELETAL: (+) lower back pain (+) right foot pain. (+) right hip pain. SKIN: No rash NEURO: No headache *Physical Exam - Vital Signs Last Vital Signs Temp Pulse Resp BP Pulse Ox 98.0 F 78 18 201/80 H 99 12/11/18 07:00 12/11/18 07:00 12/11/18 07:00 12/11/18 07:00 12/11/18 07:00 - Physical Exam Comments: 12/11/18 07:59 CONSTITUTIONAL: Well-appearing; well-nourished; in no apparent distress HEAD: Normocephalic; atraumatic EYES: PERRL; EOM intact ENMT: External appears normal; normal oropharynx NECK: Supple; non-tender; no cervical lymphadenopathy CARD: Normal S1, S2; no murmurs, rubs, or gallops RESP: Normal chest excursion with respiration; breath sounds clear and equal bilaterally; no wheezes, rhonchi, or rales ABD: Soft, non-distended; non-tender; no palpable organomegaly, no palpable hernias EXTREMITIES: (+) Mild right femur tenderness, pain with internal and external rotation. (+) Swelling and tenderness to the 5th metatarsal. Neurovascularly intact. NEURO: No focal deficits. A&0 x3. ED Treatment Course - LABORATORY CBC & Chemistry Diagram: 12/11/18 08:09 12/11/18 08:09 - ADDITIONAL ORDERS Additional order review: Laboratory Results 12/11/18 12/11/18 12/11/18 08:09 08:09 08:09 PT with INR 11.20 INR 0.95 Sodium 131 L Potassium 4.2 Chloride 94 L Carbon Dioxide 28 Anion Gap 9 BUN 25 H Creatinine 1.0 Est GFR (CKD-EPI)AfAm 61.62 Est GFR (CKD-EPI)NonAf 53.17 Random Glucose 91 Calcium 8.8 Total Bilirubin 0.3 AST 15 ALT 15 Alkaline Phosphatase 83 Total Protein 6.6 Albumin 3.4 Blood Type O POSITIVE Antibody Screen Negative 12/11/18 08:09 RBC 3.69 MCV 98.2 H MCHC 33.1 RDW 14.7 MPV 7.7 Neutrophils % 61.9 Lymphocytes % 26.3 D Monocytes % 9.4 Eosinophils % 1.3 Basophils % 1.1 - RADIOLOGY Radiology Studies Ordered: Category Date Time Status CERVICAL SPINE CT W/O CONTR [CT] Stat CT Scan 12/11/18 07:[address] WITHOUT CONTRAST [CT] Stat CT Scan 12/11/18 07:59 Completed CHEST - PA [RAD] Stat Radiology 12/11/18 07:59 Completed FEMUR-LEFT [RAD] Stat Radiology 12/11/18 07:59 Completed FOOT-RIGHT [RAD] Stat Radiology 12/11/18 07:59 Completed HIP & PELVIS-RIGHT [RAD] Stat Radiology 12/11/18 07:59 Completed SPINE-LUMBAR SACRAL [RAD] Stat Radiology 12/11/18 07:59 Completed - Medications Given in the ED: ED Medications Discontinued Medications Generic Name Dose Route Start Last Admin Trade Name Freq PRN Reason Stop Dose Admin Acetaminophen 1,000 mg 12/11/18 08:01 12/11/18 08:11 Ofirmev Injection - IVPB 12/11/18 08:02 1,000 mg ONCE ONE Administration Medical Decision Making - Medical Decision Making 12/11/18 11:01 Imaging: Head CT Impression: Moderate atrophy and extensive periventricular chronic microvascular ischemic disease changes. No gross evidence of a focal intracranial lesion or hemorrhage is seen. Imaging: Cervical Spine CT Impression: The alignment is satisfactory. No gross fracture or subluxation is seen. No jumped facets are identified. Multilevel degenerative disc disease, as described above mainly at C4-C5 level with mild retrolisthesis of C4 over C5, grade 1. Reported by: Dr. Butterfield Imaging: Right Foot XR Impression: Acute fifth metatarsal fracture. Arthritic changes. Imaging: Right femur XR Impression: The visualized osseous structures appear intact, no acute bony abnormalities are seen. Imaging: Right hip and pelvis XR Impression: The visualized osseous structures appear intact, no acute bony abnormalities are seen. Symmetrical articulation of the hip joints. Normal contour of the femoral heads. Imaging: Lumbar-Sacral XR Impression: Chronic compression fracture involving the superior endplate of L1. Degenerative discogenic disease at L2-L3 L3-L4. Please refer to the MRI of lumbosacral spine July 15, 2018. Facet joint arthropathy. Imaging: Chest XR Impression: No evidence of pneumonia, CHF, pneumothorax, or large pleural effusion Reported by: Dr. Vines 12/11/18 11:[address] Abreu 12/11/18 11:50 Patient is an 78-year-old female with history of hypertension, hypothyroidism, chronic low back pain with sciatica who presents to the ER with multiple contusions as a result of a mechanical fall. Patient denies LOC but does complain of different levels of pain involving the lower back, right hip, right femur and right foot. Patient was unable to bear weight prior to arrival. In the ER, patient is awake and alert, GCS-15. Neurological exam reveals no focal deficits. CT of head and cervical spine reveals no evidence of traumatic injury. Pelvis and right hip x-rays reveal no evidence of fracture dislocation. Right foot x-ray reveals a fracture of the proximal fifth metatarsal. Patient's injury is consistent with a Quesada fracture requiring a posterior splint and orthopedic consultation. Patient would be unable to bear weight using crutches at this time and will require admission for short-term rehabilitation. Will admit. 12/11/18 12:53 Patient's oxycodone allergy is vomiting. 12/11/18 13:35 Posterior splint applied to the right lower extremity. Patient tolerated procedure well. Neurovascular intact. *DC/Admit/Observation/Transfer Diagnosis at time of Disposition: Foot fracture, left Qualifiers: Encounter type: initial encounter Fracture type: closed Qualified Code(s): S92.902A - Unspecified fracture of left foot, initial encounter for closed fracture Sciatica Qualifiers: Laterality: right Qualified Code(s): M54.31 - Sciatica, right side - Discharge Dispostion Condition at time of disposition: Fair Decision to Admit order: Yes - Referrals - Patient Instructions - Post Discharge Activity - Attestations Physician Attestion: 12/11/18 11:50 The documentation was prepared by the gweniblori under my direct supervision. I have reviewed the documentation which correctly represents the findings, medical decision-making and critical action taken by me.
[2018-12-11] MEDS ORDERED: amLODIPine BESYLATE 5 MG TABLET (FP) PO SCH (12:45)
[2018-12-11] MEDS ORDERED: CHLORTHALIDONE 25 MG TABLET PO SCH (12:45)
[2018-12-11] MEDS: MORPHINE SULFATE 2 MG/ML VIAL IVPUSH PRN ×2 (12:48→20:18)
[2018-12-11] MEDS ORDERED: morphine CARPU-JECT 2 MG/1 ML DISP.SYRIN IVPUSH ONE (12:52)
[2018-12-11] MEDS ORDERED: morphine SULFATE 4 MG/ML VIAL ONE (12:53)
[2018-12-11] MEDS: metoPROLOL SUCCINATE 25 MG TAB.SR.24H (FP) PO SCH (13:18)
[2018-12-11] MEDS ORDERED: ONDANSETRON 4 MG/2 ML VIAL IVPB PRN (14:38)
[2018-12-11] MEDS: LEVOTHYROXINE NA 50 MCG TABLET (FP) PO SCH (14:43)
[2018-12-11] MEDS: predniSONE 5 MG TABLET (UD) PO SCH (14:43)
[2018-12-11] MEDS: GABAPENTIN 300 MG CAPSULE (FP) PO SCH ×2 (14:43→22:01)
--- NOTE | 2018-12-11 15:05 | CON.CARD ---
Consult Consult Specialty:: Cardiology Referred by:: Nate Reason for Consultation:: fall - History of Present Illness Chief Complaint: fall History of Present Illness: She is an 78 year old woman with a history of sciatica, PVD (seen by Dr Ch) HTN, HLD, and hypothyroidism who was admitted with two falls since 4AM this morning. The patient states she woke up at 4AM secondary to her sciatica pain, stood up from her recliner and felt dizzy, lightheadedness and nauseated, causing her to fall to the ground. She reports similar symptoms while standing up a second time 15 minutes later to go to her couch, but now fell onto her back and injured her posterior head on a wooden floor. Denies loss of consciousness. She currently admits to low back pain, right hip pain and right foot pain. She notes she has not been eating or drinking much at home. Denies similar symptoms in the past. Nuclear stress test 02/20/18: normal perfusion - History Source History Provided By: Patient, Medical Record - Alcohol/Substance Use Hx Alcohol Use: No - Smoking History Smoking history: Never smoked Have you smoked in the past 12 months: No If you are a former smoker, when did you quit?: 1958 Home Medications - Allergies Allergies/Adverse Reactions: Allergies Allergy/AdvReac Type Severity Reaction Status Date / Time oxycodone [Oxycodone] Allergy Severe Nausea Verified 12/11/18 07:18 - Home Medications Home Medications: Ambulatory Orders Levothyroxine [Synthroid -] 50 mcg PO DAILY 05/19/13 Cholecalciferol (Vitamin D3) [Vitamin D3] 2,000 unit PO DAILY 11/19/17 Prednisone 5 mg PO DAILY 11/19/17 Amlodipine Besylate 5 mg PO DAILY #30 tablet 11/21/17 Gabapentin [Neurontin -] 300 mg PO BID #60 capsule 11/21/17 Metoprolol Succinate 25 mg PO DAILY #30 tab.er.24h 11/21/17 Chlorthalidone [Hygroton -] 25 mg PO DAILY 05/28/18 Ferrous Sulfate 325 mg PO DAILY 12/11/18 Vital Signs: Vital Signs Temperature 98.0 F 12/11/18 07:00 Pulse Rate 73 12/11/18 13:11 Respiratory Rate 20 12/11/18 13:11 Blood Pressure 211/88 H 12/11/18 13:11 O2 Sat by Pulse Oximetry (%) 97 12/11/18 13:11 - Other Data Labs, Other Data: CBC, BMP 12/11/18 08:09 12/11/18 08:09 INR, PTT INR 0.95 (0.83-1.09) 12/11/18 08:09 Imaging - Results Chest X-ray: Report Reviewed EKG: Report Reviewed Assessment/Plan She is an 78 year old woman with a history of sciatica, PVD (seen by Dr Ch) HTN, HLD, and hypothyroidism who was admitted with two falls since 4AM this morning. The patient states she woke up at 4AM secondary to her sciatica pain, stood up from her recliner and felt dizzy, lightheadedness and nauseated, causing her to fall to the ground. She reports similar symptoms while standing up a second time 15 minutes later to go to her couch, but now fell onto her back and injured her posterior head on a wooden floor. Denies loss of consciousness. Nuclear stress test 02/20/18: normal perfusion Fall/dizziness -check orthostatic vital signs. -echo -doubt cardiovascular syncope, likely due to leg weakness and mechanical fall. -she also has known PVD, consider vascular evaluation.
[2018-12-11] MEDS: ENOXAPARIN NA (PORCINE) 40 MG/0.4 ML DISP.SYRIN SQ SCH (15:42)
[2018-12-11 16:35] LABS: POTASSIUM 3.2 mmol/L (3.5-5.1)
--- NOTE | 2018-12-11 17:14 | EKG ---
Test Reason : Blood Pressure : / mmHG Vent. Rate : 075 BPM Atrial Rate : 075 BPM P-R Int : 154 ms QRS Dur : 084 ms QT Int : 438 ms P-R-T Axes : 069 -18 048 degrees QTc Int : 489 ms NORMAL SINUS RHYTHM POSSIBLE LEFT ATRIAL ENLARGEMENT NONSPECIFIC ST AND T WAVE ABNORMALITY ABNORMAL ECG WHEN COMPARED WITH ECG OF 20-NOV-2017 09:09, QT HAS LENGTHENED Confirmed by ANDREZ GARCIA, OLIVIA ([id number]) on 12/11/2018 5:14:11 PM Referred By: Confirmed By:OLIVIA MAGUIRE MD
[2018-12-11] MEDS ORDERED: METOCLOPRAMIDE HCL INJECTION 10 MG/2 ML VIAL IVPUSH ONE (17:17)
[2018-12-11] MEDS: KCL 10 MEQ IVPB 10 MEQ/100 ML INFUS.BAG IVPB SCH ×3 (17:30→20:16)
--- NOTE | 2018-12-11 18:20 | HP ---
Admitting History and Physical - Primary Care Physician PCP: Gil Abreu - Admission Chief Complaint: fall. Presyncope. metatarsel fracture. HTN History of Present Illness: She is an 78 year old woman with a history of sciatica, PVD (seen by Dr hC) HTN, HLD, and hypothyroidism who was admitted with two falls since 4AM this morning. The patient states she woke up at 4AM secondary to her sciatica pain, stood up from her recliner and felt dizzy, lightheadedness and nauseated, causing her to fall to the ground. She reports similar symptoms while standing up a second time 15 minutes later to go to her couch, but now fell onto her back and injured her posterior head on a wooden floor. Denies loss of consciousness. She currently admits to low back pain, right hip pain and right foot pain. She notes she has not been eating or drinking much at home. Denies similar symptoms in the past. History Source: Patient, Medical Record Limitations to Obtaining History: No Limitations - Past Medical History ...: No - Smoking History Smoking history: Never smoked Have you smoked in the past 12 months: No If you are a former smoker, when did you quit?: 1958 - Alcohol/Substance Use Hx Alcohol Use: No Home Medications - Allergies Allergies/Adverse Reactions: Allergies Allergy/AdvReac Type Severity Reaction Status Date / Time oxycodone [Oxycodone] Allergy Severe Nausea Verified 12/11/18 07:18 - Home Medications Home Medications: Ambulatory Orders Levothyroxine [Synthroid -] 50 mcg PO DAILY 05/19/13 Cholecalciferol (Vitamin D3) [Vitamin D3] 2,000 unit PO DAILY 11/19/17 Prednisone 5 mg PO DAILY 11/19/17 Amlodipine Besylate 5 mg PO DAILY #30 tablet 11/21/17 Gabapentin [Neurontin -] 300 mg PO BID #60 capsule 11/21/17 Metoprolol Succinate 25 mg PO DAILY #30 tab.er.24h 11/21/17 Chlorthalidone [Hygroton -] 25 mg PO DAILY 05/28/18 Ferrous Sulfate 325 mg PO DAILY 12/11/18 Physical Examination Vital Signs: Vital Signs Temperature 98.4 F 12/11/18 14:39 Pulse Rate 74 12/11/18 14:39 Respiratory Rate 18 12/11/18 14:39 Blood Pressure 156/77 12/11/18 14:39 O2 Sat by Pulse Oximetry (%) 97 12/11/18 13:11 Constitutional: Yes: No Distress, Calm, Thin Cardiovascular: Yes: Regular Rate and Rhythm Respiratory: Yes: Regular Gastrointestinal: Yes: Normal Bowel Sounds, Soft Musculoskeletal: Yes: Other (right foot pain) Extremities: Yes: WNL Edema: No Peripheral Pulses WNL: Yes Neurological: Yes: Alert, Oriented Psychiatric: Yes: Alert, Oriented Labs: CBC, BMP 12/11/18 08:09 12/11/18 08:09 Imaging - Results Chest X-ray: Report Reviewed X-ray: Report Reviewed Problem List - Problems (1) Sciatica Assessment/Plan: -Neurology consult -Continue gabapentin Code(s): M54.30 - SCIATICA, UNSPECIFIED SIDE Qualifiers: Laterality: right Qualified Code(s): M54.31 - Sciatica, right side (2) Dizziness Assessment/Plan: -cardiology consult -Echo -Carotid U/S -safety precautions -Orthostatic vitals -Check Thyroid+ B12 Code(s): R42 - DIZZINESS AND GIDDINESS (3) Fracture of metatarsal of right foot, closed Assessment/Plan: -Last bone density + osteoporosis -Orthopedic consult -Physical therapy -SNF evaluation Code(s): S92.301A - FRACTURE OF UNSP METATARSAL BONE(S), RIGHT FOOT, INIT (4) Lumbar radicular pain Assessment/Plan: -Neurology consult -Continue gabapentin -continue prednisone -NS consult -MRI done 06/2018 reviewed Code(s): M54.16 - RADICULOPATHY, LUMBAR REGION (5) Rheumatoid arthritis Code(s): M06.9 - RHEUMATOID ARTHRITIS, UNSPECIFIED (6) Hyponatremia Assessment/Plan: -Nephrology consult -D/C chlorthalidone -monitor trend Code(s): E87.1 - HYPO-OSMOLALITY AND HYPONATREMIA (7) Hypokalemia Assessment/Plan: -Nephrology consult -D/C Chlorthalidone -monitor trend -KCl 10 meq x 3 given in ER Code(s): E87.6 - HYPOKALEMIA (8) HTN (hypertension) Assessment/Plan: -Cardiology consult -Continue home meds -Increase Amlodipine to 10 mg po daily Code(s): I10 - ESSENTIAL (PRIMARY) HYPERTENSION Assessment/Plan see problem list
[2018-12-12 00:03] LABS: EPI CELLS 8.4 /HPF (0-5/HPF); HYALINE CASTS 4 /lpf (0-8); URINE APPEARANCE CLOUDY; URINE BACTERIA 1293.7 /hpf (NEGATIVE); URINE BILIRUBIN NEGATIVE (NEGATIVE); URINE COLOR YELLOW; URINE GLUCOSE (UA) NEGATIVE (NEGATIVE); URINE KETONE 1+ (NEGATIVE); URINE LEUK ESTERASE NEGATIVE (NEGATIVE); URINE NITRITE NEGATIVE (NEGATIVE); URINE PROTEIN NEGATIVE (NEGATIVE); URINE WBC 3 /hpf (0-5)
[2018-12-12 00:04] LABS: URINE RBC 13.3 /hpf (0-4)
[2018-12-12] MEDS: LEVOTHYROXINE NA 50 MCG TABLET (FP) PO SCH (06:14)
[2018-12-12] MEDS: GABAPENTIN 300 MG CAPSULE (FP) PO SCH ×3 (06:14→21:46)
[2018-12-12] MEDS: ACETAMINOPHEN 325 MG TABLET (FP) PO PRN ×2 (06:19→21:47)
[2018-12-12 07:54] LABS: BASO % 1.1 % (0-2.0); EOS % 2.3 % (0-4.5); HEMATOCRIT 33.7 % (32.4-45.2); HEMOGLOBIN 11.5 GM/dL (10.7-15.3); LYMPH % 31.4 % (8-40); MCHC 34.2 g/dl (32.0-36.0); MEAN CELL VOLUME 96.6 fl (80-96); MEAN PLT VOLUME 7.6 fl (7.5-11.1); NEUT % 55.2 % (42.8-82.8); PLATELET COUNT 346 K/MM3 (134-434); RBC 3.49 M/mm3 (3.60-5.2); RDW 14.7 % (11.6-15.6); WHITE BLOOD COUNT 6.6 K/mm3 (4.0-10.0)
--- NOTE | 2018-12-12 08:19 | PN ---
Progress Note (short form) - Note Progress Note: Pt seen and examined. She is an 78 year old female patient 1 day s/p fall, with c/o pain in the right foot. She is comfortable. PE Right foot in a well molded posterior splint. Grossly NVI No severe swelling Good ROM of the right knee, all toes Xrays Show an acute fracture of the right proximal 5th metatarsal, nondisplaced. Imp Nondislaced acute right 5th MT fracture Rec No surgery needed In post splint, leave on until next out patient follow up [facility] only, use walker Elevate, keep dry She can be DC'd from an ortho pov, no surgery needed P.T. for ambulation Follow in office in 10-14 days
[2018-12-12 08:47] LABS: CALCIUM 8.6 mg/dL (8.5-10.1); CREATININE 0.8 mg/dL (0.55-1.3); POTASSIUM 3.6 mmol/L (3.5-5.1)
--- NOTE | 2018-12-12 10:38 | PN ---
Progress Note, Physician Chief Complaint: EVENTS AND NOTES REVIEWED PATIENT AWAKE ALERT NO FEVER NO CP - Current Medication List Current Medications: Active Medications Acetaminophen (Tylenol -) 650 mg PO Q4H PRN PRN Reason: PAIN OR FEVER Last Admin: 12/12/18 06:19 Dose: 650 mg Amlodipine Besylate (Norvasc -) 10 mg PO DAILY [facility] Enoxaparin Sodium (Lovenox -) 40 mg SQ DAILY [facility] Last Admin: 12/11/18 15:42 Dose: 40 mg Gabapentin (Neurontin -) 300 mg PO TID [facility] Last Admin: 12/12/18 06:14 Dose: 300 mg Levothyroxine Sodium (Synthroid -) 50 mcg PO ACBK [facility] Last Admin: 12/12/18 06:14 Dose: 50 mcg Metoprolol Succinate (Toprol Xl -) 25 mg PO DAILY [facility] Last Admin: 12/11/18 13:18 Dose: 25 mg Morphine Sulfate (Morphine Sulfate) 1 mg IVPUSH Q4H PRN PRN Reason: PAIN LEVEL 6-10 Last Admin: 12/11/18 20:18 Dose: 1 mg Ondansetron HCl (Zofran Injection) 4 mg IVPB Q8H PRN PRN Reason: NAUSEA Prednisone (Deltasone -) 5 mg PO DAILY [facility] Last Admin: 12/11/18 14:43 Dose: Not Given - Objective Vital Signs: Vital Signs Temperature 97.7 F 12/12/18 06:00 Pulse Rate 67 12/12/18 06:00 Respiratory Rate 20 12/12/18 06:00 Blood Pressure 156/91 12/12/18 06:00 O2 Sat by Pulse Oximetry (%) 97 12/11/18 21:00 Constitutional: Yes: Mild Distress Eyes: Yes: WNL HENT: Yes: WNL Neck: Yes: WNL Cardiovascular: Yes: Regular Rate and Rhythm Respiratory: Yes: WNL Gastrointestinal: Yes: WNL Genitourinary: Yes: WNL Musculoskeletal: Yes: Joint Stiffness, Joint Swelling, Muscle Pain, Muscle Weakness Extremities: Yes: Other Edema: No Peripheral Pulses WNL: Yes Integumentary: Yes: WNL Wound/Incision: Yes: Clean/Dry Neurological: Yes: Pre-Existing Deficit Labs: CBC, BMP 12/12/18 07:05 12/12/18 07:05 INR, PTT INR 0.95 (0.83-1.09) 12/11/18 08:09 Problem List - Problems (1) Foot fracture, left Code(s): S92.902A - UNSP FRACTURE OF LEFT FOOT, INIT ENCNTR FOR CLOSED FRACTURE Qualifiers: Encounter type: initial encounter Fracture type: closed Qualified Code(s) : S92.902A - Unspecified fracture of left foot, initial encounter for closed fracture (2) Fracture of metatarsal of right foot, closed Code(s): S92.301A - FRACTURE OF UNSP METATARSAL BONE(S), RIGHT FOOT, INIT (3) HTN (hypertension) Code(s): I10 - ESSENTIAL (PRIMARY) HYPERTENSION (4) Hypokalemia Code(s): E87.6 - HYPOKALEMIA (5) Hyponatremia Code(s): E87.1 - HYPO-OSMOLALITY AND HYPONATREMIA (6) Diarrhea Code(s): R19.7 - DIARRHEA, UNSPECIFIED Assessment/Plan REPLETE ELECTROLYTES RENAL EVAL CORTISOL LEVELS ENDOCRINE CONSULT R/O ADRENAL INSUFF. ORTHO EVAL CLOSED FRACTURE [facility]
[2018-12-12] MEDS ORDERED: PT OWN MED DRAWER 7, Y5N ONE ×3 (10:53→18:07)
[2018-12-12] MEDS: predniSONE 5 MG TABLET (UD) PO SCH (10:59)
[2018-12-12] MEDS: ENOXAPARIN NA (PORCINE) 40 MG/0.4 ML DISP.SYRIN SQ SCH (11:00)
[2018-12-12] MEDS: amLODIPine BESYLATE 5 MG TABLET (FP) PO SCH (11:01)
[2018-12-12] MEDS: metoPROLOL SUCCINATE 25 MG TAB.SR.24H (FP) PO SCH (11:02)
--- NOTE | 2018-12-12 12:29 | PN ---
Progress Note, Physician Chief Complaint: no complaints History of Present Illness: She is an 78 year old woman with a history of sciatica, PVD (seen by Dr Ch) HTN, HLD, and hypothyroidism who was admitted with two falls since 4AM this morning. The patient states she woke up at 4AM secondary to her sciatica pain, stood up from her recliner and felt dizzy, lightheadedness and nauseated, causing her to fall to the ground. She reports similar symptoms while standing up a second time 15 minutes later to go to her couch, but now fell onto her back and injured her posterior head on a wooden floor. Denies loss of consciousness. She currently admits to low back pain, right hip pain and right foot pain. She notes she has not been eating or drinking much at home. Denies similar symptoms in the past. Nuclear stress test 02/20/18: normal perfusion - Current Medication List Current Medications: Active Medications Acetaminophen (Tylenol -) 650 mg PO Q4H PRN PRN Reason: PAIN OR FEVER Last Admin: 12/12/18 06:19 Dose: 650 mg Amlodipine Besylate (Norvasc -) 10 mg PO DAILY [facility] Last Admin: 12/12/18 11:01 Dose: 10 mg Enoxaparin Sodium (Lovenox -) 40 mg SQ DAILY [facility] Last Admin: 12/12/18 11:00 Dose: 40 mg Gabapentin (Neurontin -) 300 mg PO TID [facility] Last Admin: 12/12/18 06:14 Dose: 300 mg Levothyroxine Sodium (Synthroid -) 50 mcg PO ACBK [facility] Last Admin: 12/12/18 06:14 Dose: 50 mcg Metoprolol Succinate (Toprol Xl -) 25 mg PO DAILY [facility] Last Admin: 12/12/18 11:02 Dose: 25 mg Morphine Sulfate (Morphine Sulfate) 1 mg IVPUSH Q4H PRN PRN Reason: PAIN LEVEL 6-10 Last Admin: 12/11/18 20:18 Dose: 1 mg Ondansetron HCl (Zofran Injection) 4 mg IVPB Q8H PRN PRN Reason: NAUSEA Prednisone (Deltasone -) 5 mg PO DAILY [facility] Last Admin: 12/12/18 10:59 Dose: 5 mg - Objective Vital Signs: Vital Signs Temperature 97.7 F 12/12/18 06:00 Pulse Rate 67 12/12/18 06:00 Respiratory Rate 20 12/12/18 06:00 Blood Pressure 156/91 12/12/18 06:00 O2 Sat by Pulse Oximetry (%) 97 12/11/18 21:00 Constitutional: Yes: No Distress, Calm Eyes: Yes: EOM Intact HENT: Yes: Normocephalic Neck: Yes: Trachea Midline Cardiovascular: Yes: Regular Rate and Rhythm Respiratory: Yes: CTA Bilaterally Gastrointestinal: Yes: Normal Bowel Sounds, Soft Musculoskeletal: Yes: WNL Extremities: Yes: WNL Edema: No Labs: CBC, BMP 12/12/18 07:05 12/12/18 07:05 INR, PTT INR 0.95 (0.83-1.09) 12/11/18 08:09 Assessment/Plan She is an 78 year old woman with a history of sciatica, PVD (seen by Dr Ch) HTN, HLD, and hypothyroidism who was admitted with two falls since 4AM this morning. The patient states she woke up at 4AM secondary to her sciatica pain, stood up from her recliner and felt dizzy, lightheadedness and nauseated, causing her to fall to the ground. She reports similar symptoms while standing up a second time 15 minutes later to go to her couch, but now fell onto her back and injured her posterior head on a wooden floor. Denies loss of consciousness. Nuclear stress test 02/20/18: normal perfusion Fall/dizziness -check orthostatic vital signs. -doubt cardiovascular syncope, likely due to leg weakness and mechanical fall. -she also has known PVD, consider vascular evaluation. -stable cardiac status. -will follow as needed.
--- NOTE | 2018-12-12 16:16 | ECHO ---
Name: EDWARDO SHIN Exam:Adult Echocardiogram Study Date: 12/12/2018 11:31 AM Age: 78 yrs Reason For Study: arythmia Height: 63 in Weight: 120 lb BSA: 1.6 m2 MMode/2D Measurements & Calculations IVSd: 0.83 cm Ao root diam: 3.1 cm LVIDd: 3.6 cm LA dimension: 2.4 cm LVIDs: 2.4 cm ACS: 0.92 cm LVPWd: 1.0 cm IVSs: 0.88 cm LVPWs: 1.1 cm EDV(Teich): 53.0 ml ESV(Teich): 20.3 ml LVOT diam: 1.9 cm Doppler Measurements & Calculations MV E max merrill: 54.0 cm/sec Ao V2 max: 124.9 cm/sec MV A max merrill: 80.0 cm/sec Ao max P.8 mmHg MV E/A: 0.68 Ao V2 mean: 78.9 cm/sec Ao mean P.2 mmHg Ao V2 VTI: 26.6 cm RENO(I,D): 1.8 cm2 RENO(V,D): 1.7 cm2 LV V1 max P.3 mmHg MR max merrill: 399.3 cm/sec LV V1 mean P.2 mmHg MR max P.9 mmHg LV V1 max: 76.1 cm/sec LV V1 mean: 51.7 cm/sec LV V1 VTI: 17.1 cm SV(LVOT): 47.7 ml TR max merrill: 258.1 cm/sec TR max P.9 mmHg Procedure A complete two-dimensional transthoracic echocardiogram was performed (2D, M-mode, Doppler and color flow Doppler). Left Ventricle The left ventricular size, thickness and function are normal. The left ventricular ejection fraction is normal. Ejection Fraction = 60-65%. The left ventricular wall motion is normal. Right Ventricle The right ventricle is normal in size and function. Atria Normal left and right atrial size and function. Mitral Valve There is no mitral regurgitation noted. Tricuspid Valve There is mild tricuspid regurgitation. Right ventricular systolic pressure is normal. Aortic Valve No hemodynamically significant valvular aortic stenosis. No aortic regurgitation is present. Pulmonic Valve There is no pulmonic valvular regurgitation. Great Vessels The aortic root is normal size. Pericardium/Pleura There is no pericardial effusion. Interpretation Summary The left ventricular size, thickness and function are normal The right ventricle is normal in size and function. There is mild tricuspid regurgitation. MD Sagar Ko 12/12/2018 04:15 PM
--- NOTE | 2018-12-12 16:51 | CONSULT ---
Consult Consult Specialty:: Nephrology Reason for Consultation:: hyponatremia - History of Present Illness Chief Complaint: s/p fall History of Present Illness: Pt is an 78 year old female with pmhx of htn, hld, sciatica, and hypothyroidism who presents to the ER after a fall. She stood up and felt dizzy and nauseated which caused her to fall to the ground. She had another episode which resulted in another fall. Both episodes occurred when she stood up. She was found to have low sodium and I was called to evaluate her. She denies shortness of breath or lower ext edema. She says she has not had much appetite but she does drink water. She denies weight loss. She denies change in vision or dizziness. Pt is on chlorthalidone. - History Source History Provided By: Patient, Medical Record - Past Medical History Cardio/Vascular: Yes: HTN, Hyperlipdemia ...: No Endocrine: Yes: Hypothyroidism - Alcohol/Substance Use Hx Alcohol Use: No - Smoking History Smoking history: Never smoked Have you smoked in the past 12 months: No If you are a former smoker, when did you quit?: 1958 Home Medications - Allergies Allergies/Adverse Reactions: Allergies Allergy/AdvReac Type Severity Reaction Status Date / Time oxycodone [Oxycodone] Allergy Severe Nausea Verified 12/11/18 07:18 - Home Medications Home Medications: Ambulatory Orders Levothyroxine [Synthroid -] 50 mcg PO DAILY 05/19/13 Cholecalciferol (Vitamin D3) [Vitamin D3] 2,000 unit PO DAILY 11/19/17 Prednisone 5 mg PO DAILY 11/19/17 Amlodipine Besylate 5 mg PO DAILY #30 tablet 11/21/17 Gabapentin [Neurontin -] 300 mg PO BID #60 capsule 11/21/17 Metoprolol Succinate 25 mg PO DAILY #30 tab.er.24h 11/21/17 Chlorthalidone [Hygroton -] 25 mg PO DAILY 05/28/18 Ferrous Sulfate 325 mg PO DAILY 12/11/18 Family Disease History - Family Disease History Family History: Denies Review of Systems - Review of Systems Constitutional: reports: Loss of Appetite, Malaise Eyes: reports: No Symptoms HENT: reports: No Symptoms Neck: reports: No Symptoms Cardiovascular: reports: No Symptoms Respiratory: reports: No Symptoms Gastrointestinal: reports: No Symptoms Genitourinary: reports: No Symptoms Musculoskeletal: reports: Joint Pain, Joint Swelling Neurological: denies: Change in LOC Endocrine: reports: No Symptoms Hematology/Lymphatic: reports: No Symptoms Psychiatric: reports: No Symptoms Physical Exam Vital Signs: Vital Signs Temperature 97.9 F 12/12/18 09:00 Pulse Rate 65 12/12/18 09:00 Respiratory Rate 18 12/12/18 09:00 Blood Pressure 133/67 12/12/18 09:00 O2 Sat by Pulse Oximetry (%) 97 12/12/18 09:00 Constitutional: Yes: Calm Eyes: Yes: Conjunctiva Clear HENT: Yes: Atraumatic Neck: Yes: Supple Cardiovascular: Yes: S1, S2 Respiratory: Yes: CTA Bilaterally Gastrointestinal: Yes: Soft Renal/: Yes: WNL Edema: No Neurological: Yes: Oriented Psychiatric: Yes: Oriented Labs: CBC, BMP 12/12/18 07:05 12/12/18 07:05 Laboratory Tests 12/11/18 12/11/18 12/12/18 08:09 19:40 07:05 Sodium 131 L 130 L Potassium 3.6 Creatinine 1.0 0.8 Total LDL Cholesterol TSH 2.43 Free T4 Ur Specific [place]ger 1.021 Urine Protein Negative Urine Ketones 1+ H Urine Blood 1+ H 12/12/18 07:05 Sodium Potassium Creatinine Total LDL Cholesterol 140 H TSH Free T4 1.55 H Ur Specific Pilger Urine Protein Urine Ketones Urine Blood Imaging - Results Chest X-ray: Report Reviewed Problem List - Problems (1) Foot fracture, left Code(s): S92.902A - UNSP FRACTURE OF LEFT FOOT, INIT ENCNTR FOR CLOSED FRACTURE Qualifiers: Encounter type: initial encounter Fracture type: closed Qualified Code(s) : S92.902A - Unspecified fracture of left foot, initial encounter for closed fracture (2) HTN (hypertension) Code(s): I10 - ESSENTIAL (PRIMARY) HYPERTENSION (3) Hypokalemia Code(s): E87.6 - HYPOKALEMIA (4) Hyponatremia Code(s): E87.1 - HYPO-OSMOLALITY AND HYPONATREMIA Assessment/Plan Current Medications Generic Name Dose Route Start Last Admin Trade Name Freq PRN Reason Stop Dose Admin Acetaminophen 650 mg 12/11/18 12:44 12/12/18 06:19 Tylenol - PO 650 mg Q4H PRN Administration PAIN OR FEVER Amlodipine Besylate 10 mg 12/11/18 22:49 12/12/18 11:01 Norvasc - PO 10 mg DAILY [facility] Administration Enoxaparin Sodium 40 mg 12/11/18 14:45 12/12/18 11:00 Lovenox - SQ 40 mg DAILY [facility] Administration Gabapentin 300 mg 12/12/18 06:00 12/12/18 15:12 Neurontin - PO 300 mg TID [facility] Administration Levothyroxine Sodium 50 mcg 12/11/18 12:45 12/12/18 06:14 Synthroid - PO 50 mcg ACBK [facility] Administration Metoprolol Succinate 25 mg 12/11/18 12:45 12/12/18 11:02 Toprol Xl - PO 25 mg DAILY [facility] Administration Morphine Sulfate 1 mg 12/11/18 12:44 12/11/18 20:18 Morphine Sulfate IVPUSH 1 mg Q4H PRN Administration PAIN LEVEL 6-10 Ondansetron HCl 4 mg 12/11/18 14:38 Zofran Injection IVPB Q8H PRN NAUSEA Prednisone 5 mg 12/11/18 12:45 12/12/18 10:59 Deltasone - PO 5 mg DAILY [facility] Administration Impression 1. hyponatremia 2. s/p fall 3. hypothyroidism 4. htn 5. hypokalemia 6. foot fracture Plan - d/c chlorthalidone - monitor bp - check cortisol, unclear why she is on prednisone - restrict free water - will give salt tab today - check plasma and urine osm - check urine sodium - hyponatremia likely from thiazide
[2018-12-12] MEDS: SODIUM CHLORIDE 1 GM TABLET PO SCH ×2 (18:02→21:46)
--- NOTE | 2018-12-12 23:26 | CONSULT ---
Consult - text type - Consultation Consultation Note: NEUROSURGERY CONSULTATION Mayra Maynard is an 78 year old female who has a long history of low back pain with associated radicular components. She describes waking up yesterday with profound new and severe Right sciatica. She was unable to bear weight and fell down, prompting presentation to the [facility] ER. Patient describes back pain with Right gluteal pain that radiates to the Right foot. Although she has had intermittent back and leg pains over the years, she feels that the current pain is new and severe. She has aggravation with vibration and jostling as well as with Valsalva's maneuver. MRI Lumbar from [address] Lumbar from several months ago suggests progression at L45 with a Right foraminal disc protrusion and compromise of the exiting nerve root. MRI Lumbar would be appropriate to evaluate further. The patient also has symptoms of Cervical spondylotic myelopathy and would benefit from MRI Cervical also. Will return to discuss potential treatment options in the context of her age and overall health when contrasted with her poor quality of life and reasonable expectations of the natural history of her current condition. All questions were answered.
[2018-12-13] MEDS: GABAPENTIN 300 MG CAPSULE (FP) PO SCH ×3 (06:27→22:51)
[2018-12-13] MEDS: ACETAMINOPHEN 325 MG TABLET (FP) PO PRN (06:27)
[2018-12-13] MEDS: LEVOTHYROXINE NA 50 MCG TABLET (FP) PO SCH (06:27)
[2018-12-13 07:58] LABS: ALBUMIN 3.4 g/dl (3.4-5.0); BILIRUBIN,TOTAL 0.3 mg/dL (0.2-1); CALCIUM 8.9 mg/dL (8.5-10.1); POTASSIUM 3.6 mmol/L (3.5-5.1); TOT PROT 6.4 g/dl (6.4-8.2)
[2018-12-13] MEDS: MORPHINE SULFATE 2 MG/ML VIAL IVPUSH PRN ×2 (09:10→22:54)
[2018-12-13] MEDS: ENOXAPARIN NA (PORCINE) 40 MG/0.4 ML DISP.SYRIN SQ SCH (09:15)
[2018-12-13] MEDS: metoPROLOL SUCCINATE 25 MG TAB.SR.24H (FP) PO SCH (09:16)
[2018-12-13] MEDS: amLODIPine BESYLATE 5 MG TABLET (FP) PO SCH (09:16)
[2018-12-13] MEDS: predniSONE 5 MG TABLET (UD) PO SCH (09:16)
[2018-12-13] MEDS ORDERED: PT OWN MED DRAWER 7, Y5N ONE (09:29)
[2018-12-13] MEDS: SODIUM CHLORIDE 1 GM TABLET PO SCH ×2 (09:45→22:53)
[2018-12-13 10:03] LABS: EPI CELLS 5.1 /HPF (0-5/HPF); HYALINE CASTS 1 /lpf (0-8); PH,URINE 5.5 (5.0-8.0); URINE APPEARANCE CLEAR; URINE BACTERIA 91.5 /hpf (NEGATIVE); URINE BILIRUBIN NEGATIVE (NEGATIVE); URINE COLOR YELLOW; URINE GLUCOSE (UA) NEGATIVE (NEGATIVE); URINE KETONE NEGATIVE (NEGATIVE); URINE LEUK ESTERASE 2+ (NEGATIVE); URINE NITRITE NEGATIVE (NEGATIVE); URINE PROTEIN NEGATIVE (NEGATIVE); URINE RBC 6 /hpf (0-4); URINE UROBILINOGEN 0.2 mg/dL (0.2-1.0); URINE WBC 11 /hpf (0-5)
--- NOTE | 2018-12-13 11:03 | PN ---
Progress Note (short form) - Note Progress Note: NEUROLOGY PROGRESS: Events reviewed and discussed with staff. Consults from ortho, cardiology and neurosurgery read and appreciated. Pt now in splint for 5th MTS fx and ambulating with walker with toe touch weight bearing. Was able to ambulate to hallway entrance and back. Notes that her R leg pain "went away" with morphine, however has since returned. Now with pain in R anterior knee down to feet. MRI of brain C- (reviewed): Mod atrophy. Extensive periventricular and supratentorial white matter chronic microvascular changes ex vacuo hydrocephalus. MRI of cervical spine C- (reviewed): Multilevel disc desiccation and loss of disc height jamie C5C6. Diffuse disc/osteophyte complexes with thecal impression but no cord compression. Changes at the C5C6 dis space and cord are probably artifactual. Carotid duplex: small intimal thickening and plaques and RCC, LCC. Moderate plaques at bifurcation B/L. with R ICA 50-69% stenosis. NA= 132; MCV= 98.2; AD=090; T chol= 235; LDL= 140; TSH 2.43; UA WBC= 11. HERNÁN: BPs 130-150/60-90 without significant orthostatic changes. R foot in splint. NEURO: Awake, alert, oriented "6th floor. Beginning of December 2018. TRUMP. + Glabella, grasps CNII-CNXII: EOM's full without nystagmus. Full pascual. No facial. Motor: Decreased CLAUS's. Strength normal including distal and proximal groups. Reflexes normal in arms, but reduced in KJs and absent AJs. + cogwheel rigidity (L>R) and increased by reinforcement. Coordination: No FTN dystaxia. Sensation: Reduced vibration to ankles. 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 Extensive Athlerosclerotic Disease Multifactorial, Chronic, ataxia with contributions from [employer] microvascular disease, LS spinal stenosis due to arachnoid cyst and... New extrapyramidal features (Parkinsonism). RLS Suggest: Check B12, RPR, ESR, CRP RX for Hypercholesteremia/hypertriglyceridemia (i.e. statin and diet modifications) Add thiamine 250 mg IVP TID X 3 days Trial add pramipexole 0.25 mg po qhs for nocturnal leg pains Mobilize OOB to chair for meals, continue PT with walker as out patient Out patient neuro follow-up as scheduled. Thank you very much, Sridhar Sawyer MD
--- NOTE | 2018-12-13 12:15 | PN ---
Progress Note, Physician History of Present Illness: Pt seen and examined at bedside. She is awake and alert. She denies shortness of breath. - Current Medication List Current Medications: Active Medications Acetaminophen (Tylenol -) 650 mg PO Q4H PRN PRN Reason: PAIN OR FEVER Last Admin: 12/13/18 06:27 Dose: 650 mg Amlodipine Besylate (Norvasc -) 10 mg PO DAILY [facility] Last Admin: 12/13/18 09:16 Dose: 10 mg Enoxaparin Sodium (Lovenox -) 40 mg SQ DAILY [facility] Last Admin: 12/13/18 09:15 Dose: 40 mg Gabapentin (Neurontin -) 300 mg PO TID [facility] Last Admin: 12/13/18 06:27 Dose: 300 mg Levothyroxine Sodium (Synthroid -) 50 mcg PO ACBK [facility] Last Admin: 12/13/18 06:27 Dose: 50 mcg Metoprolol Succinate (Toprol Xl -) 25 mg PO DAILY [facility] Last Admin: 12/13/18 09:16 Dose: 25 mg Morphine Sulfate (Morphine Sulfate) 1 mg IVPUSH Q4H PRN PRN Reason: PAIN LEVEL 6-10 Last Admin: 12/13/18 09:10 Dose: 1 mg Ondansetron HCl (Zofran Injection) 4 mg IVPB Q8H PRN PRN Reason: NAUSEA Pramipexole Dihydrochloride (Mirapex -) 0.25 mg PO HS [facility] Prednisone (Deltasone -) 5 mg PO DAILY [facility] Last Admin: 12/13/18 09:16 Dose: 5 mg Sodium Chloride (Sodium Chloride Tablet -) 1 gm PO BID [facility] Last Admin: 12/13/18 09:45 Dose: 1 gm Thiamine HCl (Vitamin B1 Injection -) 250 mg IVPB TID [facility] Stop: 12/16/18 13:59 - Objective Vital Signs: Vital Signs Temperature 97.9 F 12/13/18 06:00 Pulse Rate 85 12/13/18 06:00 Respiratory Rate 12/12/18 21:00 Blood Pressure 133/90 12/13/18 06:00 O2 Sat by Pulse Oximetry (%) 97 12/12/18 21:00 Constitutional: Yes: Calm Eyes: Yes: Conjunctiva Clear HENT: Yes: Atraumatic Neck: Yes: Supple Cardiovascular: Yes: S1, S2 Respiratory: Yes: CTA Bilaterally Gastrointestinal: Yes: Soft Genitourinary: Yes: WNL Edema: No Neurological: Yes: Oriented Psychiatric: Yes: Oriented Labs: CBC, BMP 12/12/18 07:05 12/13/18 06:55 INR, PTT INR 0.95 (0.83-1.09) 12/11/18 08:09 Problem List - Problems (1) Foot fracture, left Code(s): S92.902A - UNSP FRACTURE OF LEFT FOOT, INIT ENCNTR FOR CLOSED FRACTURE Qualifiers: Encounter type: initial encounter Fracture type: closed Qualified Code(s) : S92.902A - Unspecified fracture of left foot, initial encounter for closed fracture (2) HTN (hypertension) Code(s): I10 - ESSENTIAL (PRIMARY) HYPERTENSION (3) Hypokalemia Code(s): E87.6 - HYPOKALEMIA (4) Hyponatremia Code(s): E87.1 - HYPO-OSMOLALITY AND HYPONATREMIA Assessment/Plan Current Medications Generic Name Dose Route Start Last Admin Trade Name Freq PRN Reason Stop Dose Admin Acetaminophen 650 mg 12/11/18 12:44 12/13/18 06:27 Tylenol - PO 650 mg Q4H PRN Administration PAIN OR FEVER Amlodipine Besylate 10 mg 12/11/18 22:49 12/13/18 09:16 Norvasc - PO 10 mg DAILY [facility] Administration Enoxaparin Sodium 40 mg 12/11/18 14:45 12/13/18 09:15 Lovenox - SQ 40 mg DAILY [facility] Administration Gabapentin 300 mg 12/12/18 06:00 12/13/18 06:27 Neurontin - PO 300 mg TID [facility] Administration Levothyroxine Sodium 50 mcg 12/11/18 12:45 12/13/18 06:27 Synthroid - PO 50 mcg ACBK [facility] Administration Metoprolol Succinate 25 mg 12/11/18 12:45 12/13/18 09:16 Toprol Xl - PO 25 mg DAILY [facility] Administration Morphine Sulfate 1 mg 12/11/18 12:44 12/13/18 09:10 Morphine Sulfate IVPUSH 1 mg Q4H PRN Administration PAIN LEVEL 6-10 Ondansetron HCl 4 mg 12/11/18 14:38 Zofran Injection IVPB Q8H PRN NAUSEA Pramipexole Dihydrochloride 0.25 mg 12/13/18 22:00 Mirapex - PO HS [facility] Prednisone 5 mg 12/11/18 12:45 12/13/18 09:16 Deltasone - PO 5 mg DAILY [facility] Administration Sodium Chloride 1 gm 12/12/18 16:57 12/13/18 09:45 Sodium Chloride Tablet - PO 1 gm BID [facility] Administration Thiamine HCl 250 mg 12/13/18 14:00 Vitamin B1 Injection - IVPB 12/16/18 13:59 TID [facility] Laboratory Tests 12/13/18 12/13/18 12/13/18 06:55 07:00 07:00 Sodium 132 L Serum Osmolality 273 L Urine Osmolality Pending Ur Random Sodium 49 Impression 1. hyponatremia 2. s/p fall 3. hypothyroidism 4. htn 5. hypokalemia 6. foot fracture Plan - sodium improving - cont salt tabs for now - follow urine osm - hyponatremia likely in part from chlorthalidone - cont to monitor bp and volume status
[2018-12-13] MEDS: THIAMINE HCL 200 MG/2 ML VIAL IVPB SCH ×2 (14:23→23:18)
--- NOTE | 2018-12-13 14:51 | DS ---
Physical Examination Vital Signs: Vital Signs Temperature 97.9 F 12/13/18 09:00 Pulse Rate 67 12/13/18 09:00 Respiratory Rate 18 12/13/18 09:00 Blood Pressure 145/77 12/13/18 09:00 O2 Sat by Pulse Oximetry (%) 96 12/13/18 09:00 Findings/Remarks: Patient is an 78 y/o female with past medical history of sciatica, PVD, HTN, HLD , hypothyroidism. Patient presented to ER with falls x 2 episodes. Patient woke up at 4am due to sciatic pain and when stood up from recliner she felt dizzy, lightheaded, and nausea which lead her to fall to ground. She reported similar symptoms after she stood up the second time and this time fell backwards and injured posterior head. Constitutional: Yes: No Distress, Calm Eyes: Yes: Conjunctiva Clear HENT: Yes: Atraumatic Cardiovascular: Yes: Regular Rate and Rhythm Respiratory: Yes: Regular, CTA Bilaterally Gastrointestinal: Yes: Normal Bowel Sounds, Soft Musculoskeletal: Yes: Muscle Weakness Extremities: Yes: WNL, Other (cast RLE) Edema: No Neurological: Yes: Alert, Oriented Psychiatric: Yes: Alert, Oriented Labs: CBC, BMP 12/12/18 07:05 12/13/18 06:55 Discharge Summary Reason For Visit: FRACTURE OF LEFT FOOT Current Active Problems Foot fracture, left (Acute) Fracture of metatarsal of right foot, closed (Acute) HTN (hypertension) (Acute) Hypokalemia (Acute) Hyponatremia (Acute) Lumbar radicular pain (Acute) Rheumatoid arthritis (Acute) Sciatica (Acute) Hospital Course: see progress notes Laboratory Tests 12/11/18 12/11/18 12/11/18 08:09 08:09 08:09 WBC 8.0 RBC 3.69 Hgb 12.0 Hct 36.2 D MCV 98.2 H MCH 32.5 MCHC 33.1 RDW 14.7 Plt Count 327 D MPV 7.7 Absolute Neuts (auto) 5.0 Neutrophils % 61.9 Lymphocytes % 26.3 D Monocytes % 9.4 Eosinophils % 1.3 Basophils % 1.1 Nucleated RBC % 0 PT with INR 11.20 INR 0.95 Sodium 131 L Potassium 3.2 L Chloride 94 L Carbon Dioxide 28 Anion Gap 9 BUN 25 H Creatinine 1.0 Est GFR (CKD-EPI)AfAm 61.62 Est GFR (CKD-EPI)NonAf 53.17 Random Glucose 91 Serum Osmolality Calcium 8.8 Total Bilirubin 0.3 AST 15 ALT 15 Alkaline Phosphatase 83 Total Protein 6.6 Albumin 3.4 Triglycerides Cholesterol Total LDL Cholesterol HDL Cholesterol Vitamin B12 TSH Free T4 Urine Color Urine Appearance Urine pH Ur Specific [place] Urine Protein Urine Glucose (UA) Urine Ketones Urine Blood Urine Nitrite Urine Bilirubin Urine Urobilinogen Ur Leukocyte Esterase Urine WBC (Auto) Urine RBC (Auto) Urine Casts (Auto) U Epithel Cells (Auto) Urine Bacteria (Auto) Urine Osmolality Ur Random Sodium Ur Random Potassium Ur Random Chloride Blood Type Antibody Screen 12/11/18 12/11/18 12/12/18 08:09 19:40 07:05 WBC 6.6 RBC 3.49 L Hgb 11.5 Hct 33.7 MCV 96.6 H MCH 33.0 MCHC 34.2 RDW 14.7 Plt Count 346 MPV 7.6 Absolute Neuts (auto) 3.6 Neutrophils % 55.2 Lymphocytes % 31.4 Monocytes % 10.0 Eosinophils % 2.3 Basophils % 1.1 Nucleated RBC % 0 PT with INR INR Sodium Potassium Chloride Carbon Dioxide Anion Gap BUN Creatinine Est GFR (CKD-EPI)AfAm Est GFR (CKD-EPI)NonAf Random Glucose Serum Osmolality Calcium Total Bilirubin AST ALT Alkaline Phosphatase Total Protein Albumin Triglycerides Cholesterol Total LDL Cholesterol HDL Cholesterol Vitamin B12 TSH Free T4 Urine Color Yellow Urine Appearance Cloudy Urine pH 6.0 Ur Specific [place] 1.021 Urine Protein Negative Urine Glucose (UA) Negative Urine Ketones 1+ H Urine Blood 1+ H Urine Nitrite Negative Urine Bilirubin Negative Urine Urobilinogen 1.0 Ur Leukocyte Esterase Negative Urine WBC (Auto) 3 Urine RBC (Auto) 13.3 Urine Casts (Auto) 4 U Epithel Cells (Auto) 8.4 Urine Bacteria (Auto) 1293.7 Urine Osmolality Ur Random Sodium Ur Random Potassium Ur Random Chloride Blood Type O POSITIVE Antibody Screen Negative 12/12/18 12/12/18 12/13/18 07:05 07:05 06:55 WBC RBC Hgb Hct MCV MCH MCHC RDW Plt Count MPV Absolute Neuts (auto) Neutrophils % Lymphocytes % Monocytes % Eosinophils % Basophils % Nucleated RBC % PT with INR INR Sodium 130 L 132 L Potassium 3.6 3.6 Chloride 95 L 96 L Carbon Dioxide 27 29 Anion Gap 9 8 BUN 19 H 21 H Creatinine 0.8 1.0 Est GFR (CKD-EPI)AfAm 80.70 61.62 Est GFR (CKD-EPI)NonAf 69.63 53.17 Random Glucose 96 90 Serum Osmolality 273 L Calcium 8.6 8.9 Total Bilirubin 0.3 AST 19 ALT 20 Alkaline Phosphatase 111 Total Protein 6.4 Albumin 3.4 Triglycerides 263 H Cholesterol 235 H Total LDL Cholesterol 140 H HDL Cholesterol 43 Vitamin B12 632 TSH 2.43 Free T4 1.55 H Urine Color Urine Appearance Urine pH Ur Specific [place] Urine Protein Urine Glucose (UA) Urine Ketones Urine Blood Urine Nitrite Urine Bilirubin Urine Urobilinogen Ur Leukocyte Esterase Urine WBC (Auto) Urine RBC (Auto) Urine Casts (Auto) U Epithel Cells (Auto) Urine Bacteria (Auto) Urine Osmolality Ur Random Sodium Ur Random Potassium Ur Random Chloride Blood Type Antibody Screen 12/13/18 12/13/18 12/13/18 07:00 07:00 07:00 WBC RBC Hgb Hct MCV MCH MCHC RDW Plt Count MPV Absolute Neuts (auto) Neutrophils % Lymphocytes % Monocytes % Eosinophils % Basophils % Nucleated RBC % PT with INR INR Sodium Potassium Chloride Carbon Dioxide Anion Gap BUN Creatinine Est GFR (CKD-EPI)AfAm Est GFR (CKD-EPI)NonAf Random Glucose Serum Osmolality Calcium Total Bilirubin AST ALT Alkaline Phosphatase Total Protein Albumin Triglycerides Cholesterol Total LDL Cholesterol HDL Cholesterol Vitamin B12 TSH Free T4 Urine Color Yellow Urine Appearance Clear Urine pH 5.5 Ur Specific [place] 1.018 Urine Protein Negative Urine Glucose (UA) Negative Urine Ketones Negative Urine Blood Negative Urine Nitrite Negative Urine Bilirubin Negative Urine Urobilinogen 0.2 Ur Leukocyte Esterase 2+ H Urine WBC (Auto) 11 Urine RBC (Auto) 6 Urine Casts (Auto) 1 U Epithel Cells (Auto) 5.1 Urine Bacteria (Auto) 91.5 Urine Osmolality 489 Ur Random Sodium 49 Ur Random Potassium 29.6 Ur Random Chloride 62 L Blood Type Antibody Screen Active Medications Generic Name Dose Route Start Last Admin Trade Name Freq PRN Reason Stop Dose Admin Acetaminophen 650 mg 12/11/18 12:44 12/13/18 06:27 Tylenol - PO 650 mg Q4H PRN Administration PAIN OR FEVER Amlodipine Besylate 10 mg 12/11/18 22:49 12/13/18 09:16 Norvasc - PO 10 mg DAILY NIRANJAN Administration Atorvastatin Calcium 10 mg 05/31/19 22:00 Lipitor - PO HS NIRANJAN Enoxaparin Sodium 40 mg 12/11/18 14:45 12/13/18 09:15 Lovenox - SQ 40 mg DAILY NIRANJAN Administration Gabapentin 300 mg 12/12/18 06:00 12/13/18 14:23 Neurontin - PO 300 mg TID NIRANJAN Administration Levothyroxine Sodium 50 mcg 12/11/18 12:45 12/13/18 06:27 Synthroid - PO 50 mcg ACBK NIRANJAN Administration Metoprolol Succinate 25 mg 12/11/18 12:45 12/13/18 09:16 Toprol Xl - PO 25 mg DAILY NIRANJAN Administration Morphine Sulfate 1 mg 12/11/18 12:44 12/13/18 09:10 Morphine Sulfate IVPUSH 1 mg Q4H PRN Administration PAIN LEVEL 6-10 Ondansetron HCl 4 mg 12/11/18 14:38 Zofran Injection IVPB Q8H PRN NAUSEA Pramipexole Dihydrochloride 0.25 mg 12/13/18 22:00 Mirapex - PO HS NIRANJAN Prednisone 5 mg 12/11/18 12:45 12/13/18 09:16 Deltasone - PO 5 mg DAILY NIRANJAN Administration Sodium Chloride 1 gm 12/12/18 16:57 12/13/18 09:45 Sodium Chloride Tablet - PO 1 gm BID NIRANJAN Administration Thiamine HCl 250 mg 12/13/18 14:00 12/13/18 14:23 Vitamin B1 Injection - IVPB 12/16/18 13:59 250 mg TID NIRANJAN Administration Condition: Fair - Instructions Diet, Activity, Other Instructions: follow up with pmd Follow up with Dr Castaneda Neurosurgery Follow up with Vascular Dr Ch in regards to carotid doppler results continue medication as prescribed return to ER if develop severe pain, respiratory distress, chest pain Referrals: David Castaneda MD, FAANS [Staff Physician] - Stef Ch MD [Non Staff, Medical] - Disposition: [facility] - Home Medications Comprehensive Discharge Medication List: Ambulatory Orders Levothyroxine [Synthroid -] 50 mcg PO DAILY 05/19/13 Cholecalciferol (Vitamin D3) [Vitamin D3] 2,000 unit PO DAILY 11/19/17 Prednisone 5 mg PO DAILY 11/19/17 Amlodipine Besylate 5 mg PO DAILY #30 tablet 11/21/17 Gabapentin [Neurontin -] 300 mg PO BID #60 capsule 11/21/17 Metoprolol Succinate 25 mg PO DAILY #30 tab.er.24h 11/21/17 Chlorthalidone [Hygroton -] 25 mg PO DAILY 05/28/18 Ferrous Sulfate 325 mg PO DAILY 12/11/18 Acetaminophen [Tylenol .Regular Strength -] 650 mg PO Q4H PRN tablet 12/13/18 Atorvastatin Ca [Lipitor] 10 mg PO HS tablet 12/13/18 Enoxaparin [Lovenox -] 40 mg SQ DAILY disp.syrin 12/13/18 Pramipexole Dihydrochloride [Mirapex -] 0.25 mg PO HS tablet 12/13/18 Sodium Chloride Tablet - 1 gm PO BID tablet 12/13/18
[2018-12-13] MEDS: ATORVASTATIN CA 10 MG TABLET (FP) PO SCH (22:51)
[2018-12-13] MEDS: PRAMIPEXOLE DIHYDROCHLORIDE 0.25 MG TABLET PO SCH (22:51)
[2018-12-14] MEDS: THIAMINE HCL 200 MG/2 ML VIAL IVPB SCH ×3 (06:36→21:59)
[2018-12-14] MEDS: GABAPENTIN 300 MG CAPSULE (FP) PO SCH ×3 (06:37→21:58)
[2018-12-14] MEDS: LEVOTHYROXINE NA 50 MCG TABLET (FP) PO SCH (06:37)
[2018-12-14] MEDS: MORPHINE SULFATE 2 MG/ML VIAL IVPUSH PRN (06:38)
--- NOTE | 2018-12-14 09:33 | PN ---
Progress Note (short form) - Note Progress Note: HOLDING DISCHARGE TIL TOMORROW PATIENT FEELS NASAL AND THROAT CONGESTION STARTING CLARITON, FLONASE, CEPACOL, NASAL RINSES MONITOR UNTIL TOMORROW DC PLANNING UNTIL SUNDAY
--- NOTE | 2018-12-14 09:39 | PN ---
Progress Note (short form) - Note Progress Note: Patient comfortable in bed with family when seen Sunday evening. MRI Cervical suggests mild to moderate Cervical degenerative changes with no axial images due to early termination of exam due to pain. Patient with Right lower extremity radicular pain which is elicited soon after bearing weight. While there is no acute pathology mandating Neurosurgical intervention, if the patient does not respond to conservative efforts, it may be reasonable to consider Lumbar epidural steroid injection to address this intermittent radicular discomfort which is significantly restricting the patient's activities of daily living and quality of life. If symptoms persist, Ultimately , although her symptoms are likely multifactorial, there may be a limited role for a minimally invasive, focal decompressive procedure. Complete MRI Cervical and Lumbar may be considered with adequate pain control if patient does not resume ambulation with current plan of care. Case and options plan of care discussed with patient and family.
[2018-12-14] MEDS: metoPROLOL SUCCINATE 25 MG TAB.SR.24H (FP) PO SCH (10:18)
[2018-12-14] MEDS: amLODIPine BESYLATE 5 MG TABLET (FP) PO SCH (10:18)
[2018-12-14] MEDS: LORATADINE 10 MG TABLET PO SCH (10:19)
[2018-12-14] MEDS: ENOXAPARIN NA (PORCINE) 40 MG/0.4 ML DISP.SYRIN SQ SCH (10:19)
[2018-12-14] MEDS: predniSONE 5 MG TABLET (UD) PO SCH (10:19)
[2018-12-14] MEDS ORDERED: PT OWN MED DRAWER 7, Y5N ONE ×2 (10:20→21:57)
[2018-12-14] MEDS: SODIUM CHLORIDE 1 GM TABLET PO SCH ×2 (10:21→21:59)
--- NOTE | 2018-12-14 10:27 | PN ---
Progress Note (short form) - Note Progress Note: RENAL Pt awake and alert comfortable Last Vital Signs Temp Pulse Resp BP Pulse Ox 98.9 F 71 20 134/69 96 12/14/18 09:40 12/14/18 09:40 12/14/18 09:40 12/14/18 09:40 12/13/18 21:00 lungs clear cvs s1s2 rr abd soft ext -edema neuro a+ox3 CBC, BMP 12/12/18 07:05 12/13/18 06:55 Current Medications Generic Name Dose Route Start Last Admin Trade Name Freq PRN Reason Stop Dose Admin Acetaminophen 650 mg 12/11/18 12:44 12/13/18 06:27 Tylenol - PO 650 mg Q4H PRN Administration PAIN OR FEVER Amlodipine Besylate 10 mg 12/11/18 22:49 12/14/18 10:18 Norvasc - PO 10 mg DAILY NIRANJAN Administration Atorvastatin Calcium 10 mg 12/13/18 22:00 12/13/18 22:51 Lipitor - PO 10 mg HS NIRANJAN Administration Benzocaine/Menthol 1 each 12/14/18 09:32 Cepacol Lozenge - MM PRN PRN SORE THROAT Enoxaparin Sodium 40 mg 12/11/18 14:45 12/14/18 10:19 Lovenox - SQ 40 mg DAILY NIRANJAN Administration Fluticasone Propionate 2 spray 12/14/18 10:00 Flonase - NS DAILY NIRANJAN Gabapentin 300 mg 12/12/18 06:00 12/14/18 06:37 Neurontin - PO 300 mg TID NIRANJAN Administration Levothyroxine Sodium 50 mcg 12/11/18 12:45 12/14/18 06:37 Synthroid - PO 50 mcg ACBK NIRANJAN Administration Loratadine 10 mg 12/14/18 10:00 12/14/18 10:19 Claritin - PO 10 mg DAILY NIARNJAN Administration Metoprolol Succinate 25 mg 12/11/18 12:45 12/14/18 10:18 Toprol Xl - PO 25 mg DAILY NIRANJAN Administration Morphine Sulfate 1 mg 12/11/18 12:44 12/14/18 06:38 Morphine Sulfate IVPUSH 1 mg Q4H PRN Administration PAIN LEVEL 6-10 Ondansetron HCl 4 mg 12/11/18 14:38 Zofran Injection IVPB Q8H PRN NAUSEA Pramipexole Dihydrochloride 0.25 mg 12/13/18 22:00 12/13/18 22:51 Mirapex - PO 0.25 mg HS NIRANJAN Administration Prednisone 5 mg 12/11/18 12:45 12/14/18 10:19 Deltasone - PO 5 mg DAILY NIRANJAN Administration Sodium Chloride 1 gm 12/12/18 16:57 12/14/18 10:21 Sodium Chloride Tablet - PO 1 gm BID NIRANJAN Administration Sodium Chloride 2 spray 12/14/18 09:32 [place] Nasal [place] - NS TID PRN NASAL CONGESTION Thiamine HCl 250 mg 12/13/18 14:00 12/14/18 06:36 Vitamin B1 Injection - IVPB 12/16/18 13:59 250 mg TID NIRANJAN Administration Impression 1. hyponatremia- unclear etiology. 2. s/p fall 3. hypothyroidism 4. htn 5. hypokalemia 6. foot fracture Plan - sodium improving - cont salt tabs for now - await cortisol level, could have adrenal insuff - cont to monitor bp and volume status MV
[2018-12-14] MEDS: FLUTICASONE PROP 0.05% 16 GM NASAL SPRAY NS SCH (10:46)
[2018-12-14] MEDS: ACETAMINOPHEN 325 MG TABLET (FP) PO PRN (21:58)
[2018-12-14] MEDS: ATORVASTATIN CA 10 MG TABLET (FP) PO SCH (21:58)
[2018-12-14] MEDS: PRAMIPEXOLE DIHYDROCHLORIDE 0.25 MG TABLET PO SCH (21:58)
[2018-12-15] MEDS: ACETAMINOPHEN 325 MG TABLET (FP) PO PRN (02:36)
[2018-12-15] MEDS: THIAMINE HCL 200 MG/2 ML VIAL IVPB SCH ×3 (05:34→21:24)
[2018-12-15] MEDS: GABAPENTIN 300 MG CAPSULE (FP) PO SCH ×3 (06:29→21:24)
[2018-12-15] MEDS: LEVOTHYROXINE NA 50 MCG TABLET (FP) PO SCH (06:29)
[2018-12-15 07:16] LABS: CALCIUM 8.3 mg/dL (8.5-10.1); CREATININE 1.1 mg/dL (0.55-1.3); POTASSIUM 3.3 mmol/L (3.5-5.1)
[2018-12-15] MEDS: amLODIPine BESYLATE 5 MG TABLET (FP) PO SCH (09:30)
[2018-12-15] MEDS: predniSONE 5 MG TABLET (UD) PO SCH (09:31)
[2018-12-15] MEDS: LORATADINE 10 MG TABLET PO SCH (09:31)
[2018-12-15] MEDS: metoPROLOL SUCCINATE 25 MG TAB.SR.24H (FP) PO SCH (09:31)
[2018-12-15] MEDS: ENOXAPARIN NA (PORCINE) 40 MG/0.4 ML DISP.SYRIN SQ SCH (09:31)
--- NOTE | 2018-12-15 09:35 | PN ---
Progress Note (short form) - Note Progress Note: RENAL Asleep arousable says she has not been able to sleep so is doing it now Last Vital Signs Temp Pulse Resp BP Pulse Ox 98.7 F 86 20 149/76 93 L 12/15/18 06:00 12/15/18 06:00 12/15/18 06:00 12/15/18 06:00 12/14/18 21:00 appears comfortable lungs has a lot of transmitted sounds cvs s1s2 rr abd soft ext -edema neuro a+ox3 CBC, BMP 12/12/18 07:05 12/15/18 06:30 Current Medications Generic Name Dose Route Start Last Admin Trade Name Freq PRN Reason Stop Dose Admin Acetaminophen 650 mg 12/11/18 12:44 12/15/18 02:36 Tylenol - PO 650 mg Q4H PRN Administration PAIN OR FEVER Amlodipine Besylate 10 mg 12/11/18 22:49 12/14/18 10:18 Norvasc - PO 10 mg DAILY NIRANJAN Administration Atorvastatin Calcium 10 mg 12/13/18 22:00 12/14/18 21:58 Lipitor - PO 10 mg HS NIRANJAN Administration Benzocaine/Menthol 1 each 12/14/18 09:32 Cepacol Lozenge - MM PRN PRN SORE THROAT Enoxaparin Sodium 40 mg 12/11/18 14:45 12/14/18 10:19 Lovenox - SQ 40 mg DAILY NIRANJAN Administration Fluticasone Propionate 2 spray 12/14/18 10:00 12/14/18 10:46 Flonase - NS 2 sprays DAILY NIRANJAN Administration Gabapentin 300 mg 12/12/18 06:00 12/15/18 06:29 Neurontin - PO 300 mg TID NIRANJAN Administration Levothyroxine Sodium 50 mcg 12/11/18 12:45 12/15/18 06:29 Synthroid - PO 50 mcg ACBK NIRANJAN Administration Loratadine 10 mg 12/14/18 10:00 12/14/18 10:19 Claritin - PO 10 mg DAILY NIRANJAN Administration Metoprolol Succinate 25 mg 12/11/18 12:45 12/14/18 10:18 Toprol Xl - PO 25 mg DAILY NIRANJAN Administration Ondansetron HCl 4 mg 12/11/18 14:38 Zofran Injection IVPB Q8H PRN NAUSEA Pramipexole Dihydrochloride 0.25 mg 12/13/18 22:00 12/14/18 21:58 Mirapex - PO 0.25 mg HS NIRANJAN Administration Prednisone 5 mg 12/11/18 12:45 12/14/18 10:19 Deltasone - PO 5 mg DAILY NIRANJAN Administration Sodium Chloride 1 gm 12/12/18 16:57 12/14/18 21:59 Sodium Chloride Tablet - PO 1 gm BID NIRANJAN Administration Sodium Chloride 2 spray 12/14/18 09:32 [place] Nasal [place] - NS TID PRN NASAL CONGESTION Thiamine HCl 250 mg 12/13/18 14:00 12/15/18 05:34 Vitamin B1 Injection - IVPB 12/16/18 13:59 250 mg TID NIRANJAN Administration Impression 1. hyponatremia- unclear etiology, resolved. cortisol level normal 2. s/p fall 3. hypothyroidism 4. htn 5. hypokalemia 6. foot fracture Plan -xray reviewed - dc sodium tabs - consider a dose of lasix if some difficulty breathing - cont to monitor bp and volume status MV
[2018-12-15] MEDS ORDERED: PT OWN MED DRAWER 7, Y5N ONE ×3 (09:47→21:19)
[2018-12-15] MEDS: SODIUM CHLORIDE NASAL SPRAY 44 ML BOTTLE NS PRN ×2 (09:49→09:50)
[2018-12-15] MEDS: SODIUM CHLORIDE 1 GM TABLET PO SCH ×2 (09:49→21:24)
[2018-12-15] MEDS: FLUTICASONE PROP 0.05% 16 GM NASAL SPRAY NS SCH (09:51)
--- NOTE | 2018-12-15 11:54 | PN ---
Progress Note, Physician Chief Complaint: AWAKE ALERT STILL CONGESTED WITH HEADACHE - Current Medication List Current Medications: Active Medications Acetaminophen (Tylenol -) 650 mg PO Q4H PRN PRN Reason: PAIN OR FEVER Last Admin: 12/15/18 02:36 Dose: 650 mg Amlodipine Besylate (Norvasc -) 10 mg PO DAILY [facility] Last Admin: 12/15/18 09:30 Dose: 10 mg Atorvastatin Calcium (Lipitor -) 10 mg PO HS [facility] Last Admin: 12/14/18 21:58 Dose: 10 mg Benzocaine/Menthol (Cepacol Lozenge -) 1 each MM PRN PRN PRN Reason: SORE THROAT Enoxaparin Sodium (Lovenox -) 40 mg SQ DAILY [facility] Last Admin: 12/15/18 09:31 Dose: 40 mg Fluticasone Propionate (Flonase -) 2 spray NS DAILY [facility] Last Admin: 12/15/18 09:51 Dose: 2 sprays Gabapentin (Neurontin -) 300 mg PO TID [facility] Last Admin: 12/15/18 06:29 Dose: 300 mg Levothyroxine Sodium (Synthroid -) 50 mcg PO ACBK [facility] Last Admin: 12/15/18 06:29 Dose: 50 mcg Loratadine (Claritin -) 10 mg PO DAILY [facility] Last Admin: 12/15/18 09:31 Dose: 10 mg Metoprolol Succinate (Toprol Xl -) 25 mg PO DAILY [facility] Last Admin: 12/15/18 09:31 Dose: 25 mg Ondansetron HCl (Zofran Injection) 4 mg IVPB Q8H PRN PRN Reason: NAUSEA Potassium Chloride (K-Dur -) 20 meq PO ONCE ONE Stop: 12/15/18 11:52 Pramipexole Dihydrochloride (Mirapex -) 0.25 mg PO [facility] Last Admin: 12/14/18 21:58 Dose: 0.25 mg Prednisone (Deltasone -) 5 mg PO DAILY [facility] Last Admin: 12/15/18 09:31 Dose: 5 mg Sodium Chloride (Sodium Chloride Tablet -) 1 gm PO BID [facility] Last Admin: 12/15/18 09:49 Dose: 1 gm Sodium Chloride ([place] Nasal [place] -) 2 spray NS TID PRN PRN Reason: NASAL CONGESTION Last Admin: 12/15/18 09:50 Dose: 2 spray Thiamine HCl (Vitamin B1 Injection -) 250 mg IVPB TID NIRANJAN Stop: 12/16/18 13:59 Last Admin: 12/15/18 05:34 Dose: 250 mg - Objective Vital Signs: Vital Signs Temperature 98.6 F 12/15/18 10:00 Pulse Rate 88 12/15/18 10:00 Respiratory Rate 20 12/15/18 10:00 Blood Pressure 151/63 12/15/18 10:00 O2 Sat by Pulse Oximetry (%) 94 L 12/15/18 09:00 Constitutional: Yes: Mild Distress Eyes: Yes: Other HENT: Yes: Nasal Congestion Neck: Yes: WNL Cardiovascular: Yes: Regular Rate and Rhythm Respiratory: Yes: Cough, Rhonchi Gastrointestinal: Yes: WNL Genitourinary: Yes: WNL Musculoskeletal: Yes: Back Pain, Joint Stiffness, Muscle Pain, Muscle Weakness Edema: No Integumentary: Yes: WNL Wound/Incision: Yes: Clean/Dry Neurological: Yes: WNL ...Motor Strength: LLE, RLE Psychiatric: Yes: WNL Labs: CBC, BMP 12/12/18 07:05 12/15/18 06:30 INR, PTT INR 0.95 (0.83-1.09) 12/11/18 08:09 Problem List - Problems (1) Sinusitis Code(s): J32.9 - CHRONIC SINUSITIS, UNSPECIFIED (2) Respiratory distress Code(s): R06.03 - ACUTE RESPIRATORY DISTRESS (3) Foot fracture, left Code(s): S92.902A - UNSP FRACTURE OF LEFT FOOT, INIT ENCNTR FOR CLOSED FRACTURE Qualifiers: Encounter type: initial encounter Fracture type: closed Qualified Code(s) : S92.902A - Unspecified fracture of left foot, initial encounter for closed fracture (4) Fracture of metatarsal of right foot, closed Code(s): S92.301A - FRACTURE OF UNSP METATARSAL BONE(S), RIGHT FOOT, INIT (5) HTN (hypertension) Code(s): I10 - ESSENTIAL (PRIMARY) HYPERTENSION (6) Hypokalemia Code(s): E87.6 - HYPOKALEMIA (7) Hyponatremia Code(s): E87.1 - HYPO-OSMOLALITY AND HYPONATREMIA (8) Lumbar radicular pain Code(s): M54.16 - RADICULOPATHY, LUMBAR REGION (9) Rheumatoid arthritis Code(s): M06.9 - RHEUMATOID ARTHRITIS, UNSPECIFIED (10) Sciatica Code(s): M54.30 - SCIATICA, UNSPECIFIED SIDE Qualifiers: Laterality: right Qualified Code(s): M54.31 - Sciatica, right side Assessment/Plan IV ABX CXR NEBS OOB TO CHAIR WITH ASSIST LABS REVIEWED [facility]
[2018-12-15] MEDS ORDERED: CEFTRIAXONE 1 GM in DEXTROSE 5%-WATER - 50 ML IVPB SCH (12:00)
[2018-12-15] MEDS ORDERED: POTASSIUM CHLORIDE TABS 20 MEQ TABLET.ER (FP) PO ONE (12:00)
[2018-12-15] MEDS ORDERED: cefTRIAXone SODIUM 1 GM VIAL ONE (12:07)
[2018-12-15] MEDS ORDERED: DEXTROSE 5%-WATER - 50 ML IVPB ONE (12:07)
[2018-12-15] MEDS: CEFTRIAXONE 1 GM in DEXTROSE 5%-WATER - 50 ML IVPB SCH (12:30)
[2018-12-15 13:40] LABS: URINE APPEARANCE CLEAR; URINE BILIRUBIN NEGATIVE (NEGATIVE); URINE COLOR YELLOW; URINE GLUCOSE (UA) NEGATIVE (NEGATIVE); URINE KETONE NEGATIVE (NEGATIVE); URINE LEUK ESTERASE NEGATIVE (NEGATIVE); URINE NITRITE NEGATIVE (NEGATIVE); URINE PROTEIN TRACE (NEGATIVE); URINE UROBILINOGEN 0.2 mg/dL (0.2-1.0)
[2018-12-15] MEDS: ATORVASTATIN CA 10 MG TABLET (FP) PO SCH (21:24)
[2018-12-15] MEDS: PRAMIPEXOLE DIHYDROCHLORIDE 0.25 MG TABLET PO SCH (21:24)
--- NOTE | 2018-12-15 23:32 | PN ---
Progress Note (short form) - Note Progress Note: Patient is stable with slight improvement in Right leg radiculopathy. Although completion of terminated Cervical and Lumbar MRI might be helpful in planning treatment, initial attempts at Physical Therapy/Rehab as well as Pain Management will be reasonable. All questions answered.
[2018-12-16] MEDS: THIAMINE HCL 200 MG/2 ML VIAL IVPB SCH (06:11)
[2018-12-16] MEDS: GABAPENTIN 300 MG CAPSULE (FP) PO SCH ×2 (06:11→13:45)
[2018-12-16] MEDS: LEVOTHYROXINE NA 50 MCG TABLET (FP) PO SCH (06:11)
[2018-12-16 07:04] LABS: HEMATOCRIT 33.5 % (32.4-45.2); HEMOGLOBIN 11.1 GM/dL (10.7-15.3); MCH 32.7 pg (25.7-33.7); MCHC 33.3 g/dl (32.0-36.0); MEAN CELL VOLUME 98.3 fl (80-96); MEAN PLT VOLUME 7.8 fl (7.5-11.1); PLATELET COUNT 297 K/MM3 (134-434); RDW 14.5 % (11.6-15.6); WHITE BLOOD COUNT 11.7 K/mm3 (4.0-10.0)
[2018-12-16 07:17] LABS: CALCIUM 8.1 mg/dL (8.5-10.1); CREATININE 0.9 mg/dL (0.55-1.3); N-TERMINAL BNP 573.7 pg/ml (5-450); POTASSIUM 3.7 mmol/L (3.5-5.1)
[2018-12-16 09:06] VITALS: BP 128/72; PULSE 96; TEMP 98.4
[2018-12-16] MEDS ORDERED: cefTRIAXone SODIUM 1 GM VIAL ONE (09:10)
[2018-12-16] MEDS ORDERED: DEXTROSE 5%-WATER - 50 ML IVPB ONE (09:11)
[2018-12-16] MEDS: CEFTRIAXONE 1 GM in DEXTROSE 5%-WATER - 50 ML IVPB SCH (09:15)
[2018-12-16] MEDS: ENOXAPARIN NA (PORCINE) 40 MG/0.4 ML DISP.SYRIN SQ SCH (09:15)
[2018-12-16] MEDS: predniSONE 5 MG TABLET (UD) PO SCH (09:19)
[2018-12-16] MEDS: metoPROLOL SUCCINATE 25 MG TAB.SR.24H (FP) PO SCH (09:19)
[2018-12-16] MEDS: LORATADINE 10 MG TABLET PO SCH (09:20)
[2018-12-16] MEDS: amLODIPine BESYLATE 5 MG TABLET (FP) PO SCH (09:20)
[2018-12-16] MEDS: SODIUM CHLORIDE NASAL SPRAY 44 ML BOTTLE NS PRN (09:25)
[2018-12-16] MEDS: FLUTICASONE PROP 0.05% 16 GM NASAL SPRAY NS SCH (09:25)
[2018-12-16] MEDS ORDERED: PT OWN MED DRAWER 7, Y5N ONE ×3 (09:33→13:31)
[2018-12-16] MEDS: SODIUM CHLORIDE 1 GM TABLET PO SCH (09:34)
[2018-12-16] MEDS: BENZOCAINE/MENTH/CETYLPYRD CL 1 EACH LOZENGE MM PRN ×2 (09:37→13:30)
--- NOTE | 2018-12-16 12:05 | PN ---
Progress Note, Physician History of Present Illness: Pt seen and examined at bedside. She is awake and alert. She denies shortness of breath. - Current Medication List Current Medications: Active Medications Acetaminophen (Tylenol -) 650 mg PO Q4H PRN PRN Reason: PAIN OR FEVER Last Admin: 12/15/18 02:36 Dose: 650 mg Amlodipine Besylate (Norvasc -) 10 mg PO DAILY [facility] Last Admin: 12/16/18 09:20 Dose: 10 mg Atorvastatin Calcium (Lipitor -) 10 mg PO HS [facility] Last Admin: 12/15/18 21:24 Dose: 10 mg Benzocaine/Menthol (Cepacol Lozenge -) 1 each MM PRN PRN PRN Reason: SORE THROAT Last Admin: 12/16/18 09:37 Dose: 1 each Enoxaparin Sodium (Lovenox -) 40 mg SQ DAILY [facility] Last Admin: 12/16/18 09:15 Dose: 40 mg Fluticasone Propionate (Flonase -) 2 spray NS DAILY [facility] Last Admin: 12/16/18 09:25 Dose: 2 sprays Gabapentin (Neurontin -) 300 mg PO TID [facility] Last Admin: 12/16/18 06:11 Dose: 300 mg Ceftriaxone Sodium 1 gm/ (Dextrose) 50 mls @ 100 mls/hr IVPB DAILY [facility]; Protocol Last Admin: 12/16/18 09:15 Dose: 100 mls/hr Levothyroxine Sodium (Synthroid -) 50 mcg PO ACBK [facility] Last Admin: 12/16/18 06:11 Dose: 50 mcg Loratadine (Claritin -) 10 mg PO DAILY [facility] Last Admin: 12/16/18 09:20 Dose: 10 mg Metoprolol Succinate (Toprol Xl -) 25 mg PO DAILY [facility] Last Admin: 12/16/18 09:19 Dose: 25 mg Ondansetron HCl (Zofran Injection) 4 mg IVPB Q8H PRN PRN Reason: NAUSEA Pramipexole Dihydrochloride (Mirapex -) 0.25 mg PO HS [facility] Last Admin: 12/15/18 21:24 Dose: 0.25 mg Prednisone (Deltasone -) 5 mg PO DAILY [facility] Last Admin: 12/16/18 09:19 Dose: 5 mg Sodium Chloride (Sodium Chloride Tablet -) 1 gm PO BID [facility] Last Admin: 12/16/18 09:34 Dose: 1 gm Sodium Chloride ([place] Nasal [place] -) 2 spray NS TID PRN PRN Reason: NASAL CONGESTION Last Admin: 12/16/18 09:25 Dose: 2 spray Thiamine HCl (Vitamin B1 Injection -) 250 mg IVPB TID NIRANJAN Stop: 12/16/18 13:59 Last Admin: 12/16/18 06:11 Dose: 250 mg - Objective Vital Signs: Vital Signs Temperature 98.4 F 12/16/18 09:06 Pulse Rate 96 H 12/16/18 09:06 Respiratory Rate 18 12/16/18 09:06 Blood Pressure 128/72 12/16/18 09:06 O2 Sat by Pulse Oximetry (%) 96 12/16/18 09:00 Constitutional: Yes: Calm Eyes: Yes: Conjunctiva Clear Cardiovascular: Yes: S1, S2 Respiratory: Yes: CTA Bilaterally Gastrointestinal: Yes: Soft Genitourinary: Yes: WNL Edema: No Neurological: Yes: Oriented Psychiatric: Yes: Oriented Labs: CBC, BMP 12/16/18 06:20 12/16/18 06:20 INR, PTT INR 0.95 (0.83-1.09) 12/11/18 08:09 Problem List - Problems (1) Foot fracture, left Code(s): S92.902A - UNSP FRACTURE OF LEFT FOOT, INIT ENCNTR FOR CLOSED FRACTURE Qualifiers: Encounter type: initial encounter Fracture type: closed Qualified Code(s) : S92.902A - Unspecified fracture of left foot, initial encounter for closed fracture (2) HTN (hypertension) Code(s): I10 - ESSENTIAL (PRIMARY) HYPERTENSION (3) Hypokalemia Code(s): E87.6 - HYPOKALEMIA (4) Hyponatremia Code(s): E87.1 - HYPO-OSMOLALITY AND HYPONATREMIA Assessment/Plan Current Medications Generic Name Dose Route Start Last Admin Trade Name Freq PRN Reason Stop Dose Admin Acetaminophen 650 mg 12/11/18 12:44 12/15/18 02:36 Tylenol - PO 650 mg Q4H PRN Administration PAIN OR FEVER Amlodipine Besylate 10 mg 12/11/18 22:49 12/16/18 09:20 Norvasc - PO 10 mg DAILY NIRANJAN Administration Atorvastatin Calcium 10 mg 12/13/18 22:00 12/15/18 21:24 Lipitor - PO 10 mg HS NIRANJAN Administration Benzocaine/Menthol 1 each 12/14/18 09:32 12/16/18 09:37 Cepacol Lozenge - MM 1 each PRN PRN Administration SORE THROAT Enoxaparin Sodium 40 mg 12/11/18 14:45 12/16/18 09:15 Lovenox - SQ 40 mg DAILY NIRANJAN Administration Fluticasone Propionate 2 spray 12/14/18 10:00 12/16/18 09:25 Flonase - NS 2 sprays DAILY NIRANJAN Administration Gabapentin 300 mg 12/12/18 06:00 12/16/18 06:11 Neurontin - PO 300 mg TID NIRANJAN Administration Ceftriaxone Sodium 1 gm/ 50 mls @ 100 mls/hr 12/15/18 12:15 12/16/18 09:15 Dextrose IVPB 100 mls/hr DAILY NIRANJAN Administration Protocol Levothyroxine Sodium 50 mcg 12/11/18 12:45 12/16/18 06:11 Synthroid - PO 50 mcg ACBK NIRANJAN Administration Loratadine 10 mg 12/14/18 10:00 12/16/18 09:20 Claritin - PO 10 mg DAILY NIRANJAN Administration Metoprolol Succinate 25 mg 12/11/18 12:45 12/16/18 09:19 Toprol Xl - PO 25 mg DAILY NIRANJAN Administration Ondansetron HCl 4 mg 12/11/18 14:38 Zofran Injection IVPB Q8H PRN NAUSEA Pramipexole Dihydrochloride 0.25 mg 12/13/18 22:00 12/15/18 21:24 Mirapex - PO 0.25 mg HS NIRANJAN Administration Prednisone 5 mg 12/11/18 12:45 12/16/18 09:19 Deltasone - PO 5 mg DAILY NIRANJAN Administration Sodium Chloride 1 gm 12/12/18 16:57 12/16/18 09:34 Sodium Chloride Tablet - PO 1 gm BID NIRANJAN Administration Sodium Chloride 2 spray 12/14/18 09:32 12/16/18 09:25 [place] Nasal [place] - NS 2 spray TID PRN Administration NASAL CONGESTION Thiamine HCl 250 mg 12/13/18 14:00 12/16/18 06:11 Vitamin B1 Injection - IVPB 12/16/18 13:59 250 mg TID NIRANJAN Administration Impression 1. hyponatremia 2. s/p fall 3. hypothyroidism 4. htn 5. hypokalemia 6. foot fracture Plan - sodium is improved - would not restart thiazide - observe off of salt tabs - hyponatremia likely in part from chlorthalidone - cont to monitor bp and volume status
--- NOTE | 2018-12-16 14:00 | PN ---
Progress Note (short form) - Note Progress Note: Patient sitting in chair and reports progressive improvement in pain. I discussed her condition and course of care with her and her children in detail. While there may be a role for surgical intervention, we are all in agreement with initial intent to treat with Physical Therapy/Rehab and Pain Management. Contact information given should this conservative approach fail to achieve satisfactory results. All questions answered. If patient does not improve, the next steps would be MRI Cervical and Lumbar, both without contrast
--- NOTE | 2018-12-16 15:13 | PN ---
Progress Note (short form) - Note Progress Note: patient dc to SNF not on the floor
== END 2018-12-16 16:21 | DRG 552 ==
LOC: JER 06:42 → JERBED 11:53 → J6S 14:22
PROVIDERS: ADMIT Family Medicine; ATTEND Family Medicine
DX: M54.16 Radiculopathy, lumbar region (principal); E87.1 Hypo-osmolality and hyponatremia; M47.12 Other spondylosis with myelopathy, cervical region; S92.354A Nondisplaced fracture of fifth metatarsal bone, right foot, initial encounter for closed fracture; S32.019D Unspecified fracture of first lumbar vertebra, subsequent encounter for fracture with routine healing; E78.5 Hyperlipidemia, unspecified; E03.9 Hypothyroidism, unspecified; R55 Syncope and collapse; I10 Essential (primary) hypertension; I73.9 Peripheral vascular disease, unspecified; M54.41 Lumbago with sciatica, right side; R42 Dizziness and giddiness; W19.XXXA Unspecified fall, initial encounter; Y93.89 Activity, other specified; Y92.098 Other place in other non-institutional residence as the place of occurrence of the external cause; Y99.8 Other external cause status; M06.9 Rheumatoid arthritis, unspecified; E87.6 Hypokalemia; R19.7 Diarrhea, unspecified
CPT/HCPCS: 36415; 70450-TC; 70551-TC; 71045-TC-FY; 72100-TC-FY; 72125-TC; 72141-TC; 73523-TC-FY; 73552-TC-LT-FY; 73630-TC-RT-FY; 80048; 80053; 80061; 81003; 82436; 82533; 82607; 83721; 83880; 83930; 83935; 84133; 84300; 84439; 84443; 85025; 85027; 85610; 85651; 86140; 86593; 86850; 86900; 86901; 87040; 87086; 93005; 93010; 93306-TC; 93880-TC; 97116-GP; 97162-GP; 99283-25; J0131

== ENCOUNTER 2019-01-17 18:56 | Inpatient (IN) | payer OTHER, BC ==
[2019-01-17 19:29] VITALS: BMI 20.2
--- NOTE | 2019-01-17 19:46 | PDOC ---
History of Present Illness - General Chief Complaint: Injury Stated Complaint: FALL - History of Present Illness Initial Comments: The pt is an 78F w/ a history of PVD, HTN, HLD, hypothyroidism, recent RLE metatarsal fx 2/2 fall, sciatica, who presents s/p fall from standing today at 1030 and also one last night. She reports getting up from bed, walking a short distance, feeling light headed and then falling to the ground. She is unsure of LOC, was only on the ground for a short time, and reports left hip pain. She has not been ambulatory recently and has not tried ambulating since her fall. She reports she is currently being treated for a UTI and reports being on day 5 of abx Reports a skin tear to her L forearm from the fall last night as well as an abrasion to her L proximal carpenter She denies recent fevers, current BAUMAN, vision changes, chest pain, SOB, abdominal pain, N/V/C/D, dysuria, or blood in her stool, or changes in sensation 01/17/19 21:00 Past History - Past Medical History Allergies/Adverse Reactions: Allergies Allergy/AdvReac Type Severity Reaction Status Date / Time oxycodone [Oxycodone] Allergy Severe Nausea Verified 01/17/19 19:26 Home Medications: Ambulatory Orders Levothyroxine [Synthroid -] 50 mcg PO DAILY 05/19/13 Cholecalciferol (Vitamin D3) [Vitamin D3] 2,000 unit PO DAILY 11/19/17 Prednisone 5 mg PO DAILY 11/19/17 Amlodipine Besylate 5 mg PO DAILY #30 tablet 11/21/17 Gabapentin [Neurontin -] 300 mg PO BID #60 capsule 11/21/17 Metoprolol Succinate 25 mg PO DAILY #30 tab.er.24h 11/21/17 Chlorthalidone [Hygroton -] 25 mg PO DAILY 05/28/18 Ferrous Sulfate 325 mg PO DAILY 12/11/18 Acetaminophen [Tylenol .Regular Strength -] 650 mg PO Q4H PRN tablet 12/13/18 Atorvastatin Ca [Lipitor] 10 mg PO HS tablet 12/13/18 Enoxaparin [Lovenox -] 40 mg SQ DAILY disp.syrin 12/13/18 Pramipexole Dihydrochloride [Mirapex -] 0.25 mg PO HS tablet 12/13/18 Fluticasone Prop 0.05% Nasal [Flonase -] 2 spray NS DAILY spray 12/16/18 Loratadine [Claritin -] 10 mg PO DAILY tablet 12/16/18 Lactobacillus Acidophilus [Acidophilus] 1 each PO DAILY 01/17/19 Phenazopyridine HCl 200 mg PO TID 01/17/19 Polyethylene Glycol 3350 17 gm PO DAILY PRN 01/17/19 Sulfamethoxazole/Trimethoprim [Bactrim Ds -] 1 tab PO DAILY 01/17/19 traMADol HCL [Ultram] 50 mg PO ONCE 01/17/19 Anemia: No Asthma: No Cancer: No Cardiac Disorders: No CVA: No COPD: No CHF: No Dementia: No Diabetes: No GI Disorders: Yes (DIARRHEA, DIVERTICULOSIS) Disorders: No HTN: Yes Hypercholesterolemia: Yes Liver Disease: No Seizures: No Thyroid Disease: Yes (HYPO) - Surgical History Abdominal Surgery: No Appendectomy: No Cardiac Surgery: No Cholecystectomy: Yes Lung Surgery: No Neurologic Surgery: No Orthopedic Surgery: No - Immunization History Immunization Up to Date: Yes - Suicide/Smoking/Psychosocial Hx Smoking History: Never smoked Have you smoked in the past 12 months: No If you are a former smoker, when did you quit?: 1958 Information on smoking cessation initiated: No Hx Alcohol Use: No Drug/Substance Use Hx: No Substance Use Type: None Hx Substance Use Treatment: No Review of Systems - Review of Systems Able to Perform ROS?: Yes Comments:: GENERAL/CONSTITUTIONAL: No fever or chills. No weakness HEAD, EYES, EARS, NOSE AND THROAT: No change in vision. No ear pain or discharge. No sore throat CARDIOVASCULAR: No chest pain or shortness of breath RESPIRATORY: Denies cough, hemoptysis GASTROINTESTINAL: No nausea, vomiting, diarrhea or constipation GENITOURINARY: No dysuria, frequency, or change in urination MUSCULOSKELETAL: +Chronic back pain; + L hip pain SKIN: No rash_ NEUROLOGIC: No headache, vertigo, loss of consciousness, or change in strength/ sensation ENDOCRINE: No increased thirst. No abnormal weight change HEMATOLOGIC/LYMPHATIC: No anemia, easy bleeding, or history of blood clots ALLERGIC/IMMUNOLOGIC: No hives or skin allergy 01/17/19 19:46 Is the patient limited Mohawk proficient: No *Physical Exam - Vital Signs Last Vital Signs Temp Pulse Resp BP Pulse Ox 99.0 F 66 16 112/54 L 100 01/17/19 19:00 01/17/19 19:00 01/17/19 19:00 01/17/19 19:00 01/17/19 19:00 - Physical Exam Comments: GENERAL: Awake, alert, and oriented to person/place/time, in no acute distress HEAD: No signs of trauma, normocephalic, atraumatic EYES: PERRLA, EOMI, sclera anicteric, conjunctiva clear ENT: Hearing grossly normal, nares patent, oropharynx clear without exudates. No uvular deviation. Moist mucosa LUNGS: No distress, speaks in full sentences, clear to auscultation bilaterally HEART: Regular rate and rhythm, normal S1 and S2, no murmurs appreciated, peripheral pulses normal and equal bilaterally ABDOMEN: Soft, nontender, normoactive bowel sounds. No guarding, no rebound. No masses EXTREMITIES: R foot splint in place; moves all extremities independently; able to straight leg raise b/l NEUROLOGICAL: Cranial nerves II through XII grossly intact. Normal speech, no focal sensorimotor deficits SKIN: L ant proximal forearm skin tear, L proximal 1/3 anterior carpenter abrasion 01/17/19 19:46 ED Treatment Course - LABORATORY CBC & Chemistry Diagram: 01/17/19 21:45 01/17/19 21:46 Medical Decision Making - Medical Decision Making The pt is an 78F w/ a history of hypothyroidism, HTN, falls, R foot fx, who presents s/p syncopal fall from standing this AM at 1030 Ddx includes syncope, ACS, less likely mechanical fall, lyte abn, UTI/infectious ED Course Labs ECG CT head and c-spine CXR, L hip and pelvis XR, b/l knee XR 01/17/19 21:26 ECG w/ NSR; HR 64; QTc 451; no ST elevation or depression Recent ECHO, LVEF 60-65% Pt does not currently feel dizzy in ED 01/17/19 21:28 No leukocytosis No anemia Lytes unremarkable LFTs unremarkable Trop I neg TSH wnl Pt pending CT 01/17/19 23:15 CT w/o acute bleed on prelim ED read Plan for tele obs for syncope x2 01/18/19 00:29 BELEN -Will give 1L NS Pt signed out to [facility] Admitting Dispo: Tele obs 01/18/19 00:50 *DC/Admit/Observation/Transfer Diagnosis at time of Disposition: Syncope Qualifiers: Syncope type: unspecified Qualified Code(s): R55 - Syncope and collapse - Discharge Dispostion Condition at time of disposition: Good Decision to Admit order: Yes - Referrals Referrals: Gil Abreu MD [Primary Care Provider] - - Patient Instructions - Post Discharge Activity
[2019-01-17 22:21] LABS: INR 0.99 (0.83-1.09); PROTHROMBIN TIME (PATIENT) 11.7 SEC (9.7-13.0)
[2019-01-17 22:24] LABS: BASO % 0.7 % (0-2.0); EOS % 1.1 % (0-4.5); HEMATOCRIT 32.7 % (32.4-45.2); HEMOGLOBIN 10.9 GM/dL (10.7-15.3); LYMPH % 24.7 % (8-40); MCH 31.8 pg (25.7-33.7); MCHC 33.4 g/dl (32.0-36.0); MEAN CELL VOLUME 95.2 fl (80-96); MEAN PLT VOLUME 8.2 fl (7.5-11.1); MONO % 9.9 % (3.8-10.2); NEUT % 63.6 % (42.8-82.8); PLATELET COUNT 260 K/MM3 (134-434); RBC 3.44 M/mm3 (3.60-5.2); RDW 13.7 % (11.6-15.6); WHITE BLOOD COUNT 7.2 K/mm3 (4.0-10.0)
[2019-01-17 22:30] LABS: BILIRUBIN,TOTAL 0.4 mg/dL (0.2-1); BLOOD UREA NITROGEN 21.2 mg/dL (7-18); CALCIUM 8.7 mg/dL (8.5-10.1); CREATININE 1.9 mg/dL (0.55-1.3); TOT PROT 5.9 g/dl (6.4-8.2)
[2019-01-18] MEDS ORDERED: LACTATED RINGERS SOLUTION 1000 ML INFUS.BAG IV ONE (00:48)
[2019-01-18] MEDS ORDERED: ACETAMINOPHEN 1000 MG/100 ML VIAL (NON FORMULARY) IVPB ONE (01:25)
[2019-01-18] MEDS ORDERED: ACETAMINOPHEN INJECTION 100 ML IVPB ONE (01:29)
--- NOTE | 2019-01-18 02:24 | PDOC ---
Documentation entered by Dariela Gongora SCRIBE, acting as scribe for Bettina Oscar MD. Bettina Oscar MD: This documentation has been prepared by the Fransisca solitario Adrianna, SCRIBE, under my direction and personally reviewed by me in its entirety. I confirm that the documentation accurately reflects all work, treatment, procedures, and medical decision making performed by me. Attending Attestation - Resident Resident Name: Bj Adam - ED Attending Attestation I have performed the following: I have examined & evaluated the patient, The case was reviewed & discussed with the resident, I agree w/resident's findings & plan, Exceptions are as noted - HPI HPI: The patient is an 78 year old female, with a significant PMH of PVD, HTN, HLD, sciatica, and hypothyroidism, who presents to the ED [facility] from [facility] for evaluation of repeat falls. Patient reports falling once last night, and once again this morning. Last night, she reports hitting her left forearm and left carpenter. This morning, she states she was getting up from bed, when she suddenly felt lightheaded and fell. Patient is unsure of LOC but endorses hitting her head. She states she was on the floor for a short time before Shelter [facility] found her. She notes she was recently diagnosed with a UTI, and is on day 5 on antibiotics. Patient is unsure if she is currently on blood thinners. Pt is at [facility] for rehab after recent R metatarsal fracture. Allergies: Oxycodone Surgical History:cholecystectomy Social History: Occasional EtOH consumption (wine). Denies tobacco or illicit drug use. PCP: Dr. Abreu - Physicial Exam PE: agree with resident exam - Medical Decision Making 01/18/19 01:50 78yo F presents to the ED with 2 episodes of falls after lightheadedness Unknown LOC +Head strike Trauma w/u including CTH, C-spine negative XR hips, knees, chest negative on my read Labs with aviation all source intelligence bump, possible dehydration Pt getting susana IVF Plan for tele obs admission for syncope/falls ED Treatment Course - LABORATORY CBC & Chemistry Diagram: 01/18/19 05:43 01/18/19 05:43 - ADDITIONAL ORDERS Additional order review: Laboratory Results 01/17/19 01/17/19 01/17/19 21:46 21:46 21:46 PT with INR 11.70 INR 0.99 PTT (Actin FS) Sodium Potassium Chloride Carbon Dioxide Anion Gap BUN Creatinine Est GFR (CKD-EPI)AfAm Est GFR (CKD-EPI)NonAf Random Glucose Calcium Total Bilirubin AST ALT Alkaline Phosphatase Creatine Kinase Troponin I < 0.02 Total Protein Albumin TSH 0.69 01/17/19 01/17/19 21:46 21:46 PT with INR INR PTT (Actin FS) 27.3 Sodium 133 L Potassium 4.0 Chloride 99 Carbon Dioxide 26 Anion Gap 8 BUN 21.2 H Creatinine 1.9 H Est GFR (CKD-EPI)AfAm 28.36 Est GFR (CKD-EPI)NonAf 24.47 Random Glucose 84 Calcium 8.7 Total Bilirubin 0.4 AST 13 L ALT 12 L Alkaline Phosphatase 73 Creatine Kinase 80 Troponin I Cancelled Total Protein 5.9 L Albumin 3.0 L TSH 01/17/19 21:45 RBC 3.44 L MCV 95.2 MCHC 33.4 RDW 13.7 MPV 8.2 Neutrophils % 63.6 Lymphocytes % 24.7 D Monocytes % 9.9 Eosinophils % 1.1 Basophils % 0.7 - RADIOLOGY Radiology Studies Ordered: EXAM: HEAD CT WITHOUT CONTRAST HISTORY: Status post fall IMPRESSION: No acute pathology. Reported by: Yobany Blankenship MD 01/18/2019 01:19 EST EXAM: CERVICAL SPINE CT W/O CONTRHISTORY: Rule out fracture IMPRESSION: No fracture. Reported by: Yobany Blankenship MD 01/18/2019 01:22 EST EXAM: HIP \T\ PELVIS-LEFT HISTORY: Status post fall IMPRESSION: No fracture of the pelvis or left Reported by: Yobany Blankenship MD 01/18/2019 01:58 EST - Medications Given in the ED: ED Medications Discontinued Medications Generic Name Dose Route Start Last Admin Trade Name Freq PRN Reason Stop Dose Admin Lactated Ringer's 1,000 ml 01/18/19 00:48 01/18/19 01:15 Lactated Ringers Solution IV 01/18/19 00:49 1,000 ml ONCE ONE Administration
--- NOTE | 2019-01-18 03:39 | HP ---
CHIEF COMPLAINT: Falls HISTORY OF PRESENT ILLNESS: This is a 78 year old female with PMHx of PVD, HTN, HLD, hypothyroidism, recent RLE metatarsal fx 2/2 fall, sciatica who presents s/p fall from standing yesterday morning. She reports standing up from bed, ambulating a short distance , feeling lightheaded, and then falling to the ground. Fall was unwitnessed. Pt is not sure if she lost consciousness but she complains of left hip pain. Pt has not attempted to ambulate since her fall. She had a previous fall several weeks ago which resulted in RLE metatarsal fracture. Pt endorses increasing lightheadedness and unsteadiness when she ambulates over the past several weeks. She denies any chest pain, headaches, changes in vision, tinnitus associated with fall. Pt also denies any dysuria, hematuria, or blood in her stool. ER course was notable for: (1) CT head w/o bleed on prelim ED read (2) EKG w/NSR Recent Travel: Denies PAST MEDICAL HISTORY: PVD HTN HLD Hypothyroidism RLE metatarsal fx 2/2 fall Sciatica PAST SURGICAL HISTORY: Cholecystectomy Social History: Smoking: Denies Alcohol: Denies Drugs: Denies Family History: Allergies oxycodone [Oxycodone] Allergy (Severe, Verified 01/17/19 19:26) Nausea HOME MEDICATIONS: Home Medications Medication Instructions Recorded Levothyroxine [Synthroid -] 50 mcg PO DAILY 05/19/13 Cholecalciferol (Vitamin D3) 2,000 unit PO DAILY 11/19/17 [Vitamin D3] Prednisone 5 mg PO DAILY 11/19/17 Amlodipine Besylate 5 mg PO DAILY #30 tablet 11/21/17 Gabapentin [Neurontin -] 300 mg PO BID #60 capsule 11/21/17 Metoprolol Succinate 25 mg PO DAILY #30 tab.er.24h 11/21/17 Chlorthalidone [Hygroton -] 25 mg PO DAILY 05/28/18 Ferrous Sulfate 325 mg PO DAILY 12/11/18 Acetaminophen [Tylenol .Regular 650 mg PO Q4H PRN tablet 12/13/18 Strength -] Atorvastatin Ca [Lipitor] 10 mg PO HS tablet 12/13/18 Enoxaparin [Lovenox -] 40 mg SQ DAILY disp.syrin 12/13/18 Pramipexole Dihydrochloride 0.25 mg PO HS tablet 12/13/18 [Mirapex -] Fluticasone Prop 0.05% Nasal 2 spray NS DAILY spray 12/16/18 [Flonase -] Loratadine [Claritin -] 10 mg PO DAILY tablet 12/16/18 Lactobacillus Acidophilus 1 each PO DAILY 01/17/19 [Acidophilus] Phenazopyridine HCl 200 mg PO TID 01/17/19 Polyethylene Glycol 3350 17 gm PO DAILY PRN 01/17/19 Sulfamethoxazole/Trimethoprim 1 tab PO DAILY 01/17/19 [Bactrim Ds -] traMADol HCL [Ultram] 50 mg PO ONCE 01/17/19 REVIEW OF SYSTEMS CONSTITUTIONAL: Absent: fever, chills, diaphoresis, generalized weakness, malaise, loss of appetite, weight change HEENT: Absent: rhinorrhea, nasal congestion, throat pain, throat swelling, difficulty swallowing, mouth swelling, ear pain, eye pain, visual changes CARDIOVASCULAR: syncope Absent: chest pain, palpitations, irregular heart rate, lightheadedness, peripheral edema RESPIRATORY: Absent: cough, shortness of breath, dyspnea with exertion, orthopnea, wheezing, stridor, hemoptysis GASTROINTESTINAL: Absent: abdominal pain, abdominal distension, nausea, vomiting, diarrhea, constipation, melena, hematochezia GENITOURINARY: Absent: dysuria, frequency, urgency, hesitancy, hematuria, flank pain, genital pain MUSCULOSKELETAL: hip pain Absent: myalgia, arthralgia, joint swelling, back pain, neck pain SKIN: Absent: rash, itching, pallor HEMATOLOGIC/IMMUNOLOGIC: Absent: easy bleeding, easy bruising, lymphadenopathy, frequent infections ENDOCRINE: Absent: unexplained weight gain, unexplained weight loss, heat intolerance, cold intolerance NEUROLOGIC: lightheadedness, unsteady gait Absent: headache, focal weakness or paresthesias, seizure, mental status changes, bladder or bowel incontinence PSYCHIATRIC: Absent: anxiety, depression, suicidal or homicidal ideation, hallucinations. PHYSICAL EXAMINATION Vital Signs - 24 hr 01/17/19 01/18/19 01/18/19 19:00 01:50 02:30 Temperature 99.0 F 98.0 F 98.0 F Pulse Rate 66 70 Pulse Rate [ 67 Left Radial] Respiratory 16 20 Rate Blood Pressure 112/54 L 138/57 L Blood Pressure 136/62 [Right Arm] O2 Sat by Pulse 100 90 L Oximetry (%) GENERAL: Awake, alert, and fully oriented, in no acute distress. HEAD: Normal with no signs of trauma. EYES: Pupils equal, round and reactive to light, extraocular movements intact, sclera anicteric, conjunctiva clear. No lid lag. EARS, NOSE, THROAT: Ears normal, nares patent, oropharynx clear without exudates. Moist mucous membranes. NECK: Normal range of motion, supple without lymphadenopathy, JVD, or masses. LUNGS: Breath sounds equal, clear to auscultation bilaterally. No wheezes, and no crackles. No accessory muscle use. HEART: Regular rate and rhythm, normal S1 and S2 without murmur, rub or gallop. ABDOMEN: Soft, nontender, not distended, normoactive bowel sounds, no guarding, no rebound, no masses. No hepatomegaly or splenomegaly. MUSCULOSKELETAL: Decreased range of motion in LLE. Tenderness to the L hip. No CVA tenderness. UPPER EXTREMITIES: 2+ pulses, warm, well-perfused. No cyanosis. No clubbing. No peripheral edema. LOWER EXTREMITIES: 2+ pulses, warm, well-perfused. No calf tenderness. No peripheral edema. NEUROLOGICAL: Gait not observed due to pt's pain. PSYCHIATRIC: Cooperative. Good eye contact. Appropriate mood and affect. SKIN: Warm, dry, normal turgor. 5-7cm ecchymosis in left forearm. Several abrasions to L proximal anterior carpenter. Laboratory Results - last 24 hr 01/17/19 01/17/19 01/17/19 21:45 21:46 21:46 WBC 7.2 RBC 3.44 L Hgb 10.9 Hct 32.7 MCV 95.2 MCH 31.8 MCHC 33.4 RDW 13.7 Plt Count 260 MPV 8.2 Absolute Neuts (auto) 4.6 Neutrophils % 63.6 Lymphocytes % 24.7 D Monocytes % 9.9 Eosinophils % 1.1 Basophils % 0.7 Nucleated RBC % 0 PT with INR INR PTT (Actin FS) 27.3 Sodium 133 L Potassium 4.0 Chloride 99 Carbon Dioxide 26 Anion Gap 8 BUN 21.2 H Creatinine 1.9 H Est GFR (CKD-EPI)AfAm 28.36 Est GFR (CKD-EPI)NonAf 24.47 Random Glucose 84 Calcium 8.7 Total Bilirubin 0.4 AST 13 L ALT 12 L Alkaline Phosphatase 73 Creatine Kinase 80 Troponin I Cancelled Total Protein 5.9 L Albumin 3.0 L TSH 01/17/19 01/17/19 01/17/19 21:46 21:46 21:46 WBC RBC Hgb Hct MCV MCH MCHC RDW Plt Count MPV Absolute Neuts (auto) Neutrophils % Lymphocytes % Monocytes % Eosinophils % Basophils % Nucleated RBC % PT with INR 11.70 INR 0.99 PTT (Actin FS) Sodium Potassium Chloride Carbon Dioxide Anion Gap BUN Creatinine Est GFR (CKD-EPI)AfAm Est GFR (CKD-EPI)NonAf Random Glucose Calcium Total Bilirubin AST ALT Alkaline Phosphatase Creatine Kinase Troponin I < 0.02 Total Protein Albumin TSH 0.69 ASSESSMENT/PLAN: Pt is a 78 y/o F with PMHx of PVD, HTN, HLD, hypothyroidism, RLE metatarsal fx 2 /2 fall, sciatic who presents s/p fall preceded by lightheadedness x1 day ago. #Syncope vs Near Syncope Tele obs (EKG NSR, neg trop) Fall precautions and bed rest PT order Orthostatics assessment F/u definitive CT head report #Left hip pain F/u L hip and pelvis XR, BL knee XR PT on board #BELEN Order urine Na and creatinine, UA Order renal US Gentle IVF NS Monitor I&Os Monitor CMP #DVT prophylaxis SCDs #FEN IVF NS #Dispo Tele obs Visit type - Emergency Visit Emergency Visit: Yes ED Registration Date: 01/18/19 Care time: The patient presented to the Emergency Department on the above date and was hospitalized for further evaluation of their emergent condition. - New Patient This patient is new to me today: Yes Date on this admission: 01/18/19 - Critical Care Critical Care patient: No
[2019-01-18] MEDS: SODIUM CHLORIDE 1,000 ML IV SCH (06:38)
[2019-01-18 07:31] LABS: EOS % 1.9 % (0-4.5); HEMATOCRIT 30.2 % (32.4-45.2); HEMOGLOBIN 10.1 GM/dL (10.7-15.3); LYMPH % 28.3 % (8-40); MCH 31.8 pg (25.7-33.7); MCHC 33.5 g/dl (32.0-36.0); MEAN CELL VOLUME 95.1 fl (80-96); MEAN PLT VOLUME 8.3 fl (7.5-11.1); NEUT % 57.8 % (42.8-82.8); RBC 3.17 M/mm3 (3.60-5.2); RDW 13.6 % (11.6-15.6); WHITE BLOOD COUNT 5.9 K/mm3 (4.0-10.0)
[2019-01-18 08:01] LABS: ALBUMIN 2.8 g/dl (3.4-5.0); BILIRUBIN,TOTAL 0.4 mg/dL (0.2-1); BLOOD UREA NITROGEN 19.8 mg/dL (7-18); CALCIUM 8.5 mg/dL (8.5-10.1); CREATININE 1.8 mg/dL (0.55-1.3); MAGNESIUM 1.5 mg/dL (1.8-2.4); PHOSPHOROUS 3.2 mg/dL (2.5-4.9); POTASSIUM 3.9 mmol/L (3.5-5.1); TOT PROT 5.2 g/dl (6.4-8.2)
--- NOTE | 2019-01-18 08:21 | PN ---
Teaching Attending Note Name of Resident: Sharon Cuellar ATTENDING PHYSICIAN STATEMENT I saw and evaluated the patient. Chart data, imaging reviewed I reviewed the resident's note and discussed the case with the resident. I agree with the resident's findings and plan as documented. SUBJECTIVE: 78 y/o F with PMHx of PVD, HTN, HLD, hypothyroidism, RLE metatarsal fx 2/2 fall , sciatic c/o persistent lightheadedness with standing up, now occurred last night. OBJECTIVE: Last Vital Signs Temp Pulse Resp BP Pulse Ox 98.0 F 67 20 147/72 90 L 01/18/19 03:51 01/18/19 06:00 01/18/19 06:00 01/18/19 06:00 01/18/19 04:13 general -nad right ext ankle wrapped in mayank bandage Abnormal Lab Results 01/17/19 01/17/19 01/18/19 21:45 21:46 05:43 RBC 3.44 L Sodium 133 L Anion Gap 7 L BUN 21.2 H 19.8 H Creatinine 1.9 H 1.8 H Magnesium 1.5 L AST 13 L 13 L ALT 12 L 11 L Total Protein 5.9 L 5.2 L Albumin 3.0 L 2.8 L imaging reviewed ASSESSMENT AND PLAN: #Syncope vs Near Syncope -Tele obs -repeat troponin -Fall precautions and bed rest -PT order -Orthostatics -F/u CT head report
[2019-01-18 08:23] LABS: PLATELET COUNT 249 K/MM3 (134-434)
[2019-01-18] MEDS ORDERED: ACETAMINOPHEN 325 MG TABLET (FP) PO PRN (10:27)
[2019-01-18] MEDS ORDERED: CHLORTHALIDONE 25 MG TABLET PO SCH (10:30)
[2019-01-18] MEDS ORDERED: ENOXAPARIN NA (PORCINE) 40 MG/0.4 ML DISP.SYRIN SQ SCH (10:30)
[2019-01-18] MEDS: GABAPENTIN 300 MG CAPSULE (FP) PO SCH ×2 (11:07→22:00)
[2019-01-18] MEDS: LORATADINE 10 MG TABLET PO SCH (11:07)
[2019-01-18] MEDS: FLUTICASONE PROP 0.05% 16 GM NASAL SPRAY NS SCH (11:08)
[2019-01-18] MEDS: LEVOTHYROXINE NA 50 MCG TABLET (FP) PO SCH (11:08)
[2019-01-18] MEDS: FERROUS SO4 325 MG TABLET (FP) PO SCH (11:08)
[2019-01-18] MEDS: predniSONE 5 MG TABLET (UD) PO SCH (11:08)
[2019-01-18] MEDS: amLODIPine BESYLATE 5 MG TABLET (FP) PO SCH (11:08)
[2019-01-18] MEDS: metoPROLOL SUCCINATE 25 MG TAB.SR.24H (FP) PO SCH (11:08)
[2019-01-18] MEDS: POLYETHYLENE GLYCOL 3350 119 GM BTL PO SCH (11:10)
[2019-01-18] MEDS ORDERED: PT OWN MED DRAWER 7, Y5N ONE (11:23)
--- NOTE | 2019-01-18 11:39 | CON.CARD ---
Consult Consult Specialty:: cardiology Referred by:: Nate Reason for Consultation:: Fall - History of Present Illness Chief Complaint: Fall History of Present Illness: The patient is an 78-year-old female, we have a history of hypertension, hyperlipidemia, peripheral vascular disease, chronic kidney disease, sciatica, hypothyroidism, status post fall 12/11/2018 with a normal echocardiogram at that time, now readmitted with recurrent fall. The patient woke up in the middle of the night and try to get out of bed. She became dizzy lightheaded and eventually fell down. She denied loss of consciousness. She was aware of her surroundings at all times. She sustained injury to her feet. The patient is chronic comfortable and symptom free. Denies chest pains and shortness of breath. No palpitations. - Past Medical History Cardio/Vascular: Yes: HTN, Hyperlipdemia Endocrine: Yes: Hypothyroidism - Alcohol/Substance Use Hx Alcohol Use: No - Smoking History Smoking history: Never smoked Have you smoked in the past 12 months: No If you are a former smoker, when did you quit?: 1958 Home Medications - Allergies Allergies/Adverse Reactions: Allergies Allergy/AdvReac Type Severity Reaction Status Date / Time oxycodone [Oxycodone] Allergy Severe Nausea Verified 01/17/19 19:26 - Home Medications Home Medications: Ambulatory Orders Levothyroxine [Synthroid -] 50 mcg PO DAILY 05/19/13 Cholecalciferol (Vitamin D3) [Vitamin D3] 2,000 unit PO DAILY 11/19/17 Prednisone 5 mg PO DAILY 11/19/17 Amlodipine Besylate 5 mg PO DAILY #30 tablet 11/21/17 Gabapentin [Neurontin -] 300 mg PO BID #60 capsule 11/21/17 Metoprolol Succinate 25 mg PO DAILY #30 tab.er.24h 11/21/17 Chlorthalidone [Hygroton -] 25 mg PO DAILY 05/28/18 Ferrous Sulfate 325 mg PO DAILY 12/11/18 Acetaminophen [Tylenol .Regular Strength -] 650 mg PO Q4H PRN tablet 12/13/18 Atorvastatin Ca [Lipitor] 10 mg PO HS tablet 12/13/18 Enoxaparin [Lovenox -] 40 mg SQ DAILY disp.syrin 12/13/18 Pramipexole Dihydrochloride [Mirapex -] 0.25 mg PO HS tablet 12/13/18 Fluticasone Prop 0.05% Nasal [Flonase -] 2 spray NS DAILY spray 12/16/18 Loratadine [Claritin -] 10 mg PO DAILY tablet 12/16/18 Lactobacillus Acidophilus [Acidophilus] 1 each PO DAILY 01/17/19 Phenazopyridine HCl 200 mg PO TID 01/17/19 Polyethylene Glycol 3350 17 gm PO DAILY PRN 01/17/19 Sulfamethoxazole/Trimethoprim [Bactrim Ds -] 1 tab PO DAILY 01/17/19 traMADol HCL [Ultram] 50 mg PO ONCE 01/17/19 Review of Systems - Review of Systems Constitutional: reports: No Symptoms Eyes: reports: No Symptoms HENT: reports: No Symptoms Neck: reports: No Symptoms Cardiovascular: reports: No Symptoms Respiratory: reports: No Symptoms Gastrointestinal: reports: No Symptoms Genitourinary: reports: No Symptoms Breasts: reports: No Symptoms Reported Musculoskeletal: reports: Extremity Pain, Joint Pain Integumentary: reports: No Symptoms Neurological: reports: No Symptoms Endocrine: reports: No Symptoms Hematology/Lymphatic: reports: No Symptoms Psychiatric: reports: No Symptoms Vital Signs: Vital Signs Temperature 98.3 F 01/18/19 08:20 Pulse Rate 65 01/18/19 08:20 Respiratory Rate 20 01/18/19 08:20 Blood Pressure 144/68 01/18/19 08:20 O2 Sat by Pulse Oximetry (%) 96 01/18/19 08:20 Constitutional: Yes: Well Nourished, No Distress, Calm Eyes: Yes: WNL, Conjunctiva Clear, EOM Intact HENT: Yes: WNL, Atraumatic, Normocephalic Neck: Yes: WNL, Supple, Trachea Midline Respiratory: Yes: WNL, Regular, CTA Bilaterally Gastrointestinal: Yes: WNL, Normal Bowel Sounds, Soft Renal/: Yes: WNL Cardiovascular: Yes: WNL, Regular Rate and Rhythm JVD: No Carotid Bruit: No PMI: Non-Displaced Heart Sounds: Yes: S1, S2 Murmur: Yes: Systolic Murmur, Grade 2 Musculoskeletal: Yes: Back Pain, Joint Stiffness, Muscle Pain Extremities: Yes: WNL Edema: No Peripheral Pulses WNL: No Peripheral Pulses: 1+ Left Carotid, 1+ Right Carotid, 1+ Left Femoral, 1+ Right Femoral, 1+ Left Popliteal, 1+ Right Popliteal, 1+ Left Doralis Pedis, 1+ Right Dorsalis Pedis Integumentary: Yes: WNL Neurological: Yes: WNL, Alert, Oriented ...Motor Strength: WNL - Other Data Labs, Other Data: CBC, BMP 01/18/19 05:43 01/18/19 05:43 INR, PTT INR 0.99 (0.83-1.09) 01/17/19 21:46 Troponin, BNP 01/17/19 01/17/19 21:46 21:46 Troponin I Cancelled < 0.02 Troponin, BNP 01/17/19 01/17/19 21:46 21:46 Troponin I Cancelled < 0.02 Assessment/Plan The patient is an 78-year-old female, we have a history of hypertension, hyperlipidemia, peripheral vascular disease, chronic kidney disease, sciatica, hypothyroidism, status post fall 12/11/2018 with a normal echocardiogram at that time, now readmitted with recurrent fall. The patient woke up in the middle of the night and try to get out of bed. She became dizzy lightheaded and eventually fell down. She denied loss of consciousness. She was aware of her surroundings at all times. She sustained injury to her feet. The patient is chronic comfortable and symptom free. Denies chest pains and shortness of breath. No palpitations. Is no evidence of ischemia nor acute coronary syndrome. The patient is in sinus rhythm. No arrhythmias documented at this point. The blood pressures mildly elevated. A recent echocardiogram showed that both ventricles are functioning normally. There were no other significant findings on that study. Please obtain orthostatics. Adjust medications accordingly. Please arrange for rehabilitation consultation. There is no need for further cardiac workup at this point. Please do not hesitate to call us PRN Please arrange for a follow-up visit with as soon as possible post discharge.
--- NOTE | 2019-01-18 13:27 | CON.NEP ---
Consult Consult Specialty:: Nephrology Reason for Consultation:: belen - History of Present Illness Chief Complaint: s/p fall History of Present Illness: This is an 78 year old lady with history of hypertension, RA, osteoporosis, easy bruisability , hypothyroidism and s/p falls x2 who presented with fall and fracture. She has not feeling well, was dizzy. Did not pass out. Did have an epsidoe prior to admission of vomiting. She has been on prednisone 5 mg daily for many years and she states that she never misses her medication. Also takes tramadol. Has no previous history of BELEN. Has been taking salt tabs - History Source History Provided By: Patient, Medical Record Limitations to Obtaining History: No Limitations - Past Medical History Cardio/Vascular: Yes: HTN, Hyperlipdemia Rheumatology: Yes: Rheumatoid Arthritis Endocrine: Yes: Hypothyroidism - Alcohol/Substance Use Hx Alcohol Use: No - Smoking History Smoking history: Never smoked Have you smoked in the past 12 months: No If you are a former smoker, when did you quit?: 1958 Home Medications - Allergies Allergies/Adverse Reactions: Allergies Allergy/AdvReac Type Severity Reaction Status Date / Time oxycodone [Oxycodone] Allergy Severe Nausea Verified 01/17/19 19:26 - Home Medications Home Medications: Ambulatory Orders Levothyroxine [Synthroid -] 50 mcg PO DAILY 05/19/13 Cholecalciferol (Vitamin D3) [Vitamin D3] 2,000 unit PO DAILY 11/19/17 Prednisone 5 mg PO DAILY 11/19/17 Amlodipine Besylate 5 mg PO DAILY #30 tablet 11/21/17 Gabapentin [Neurontin -] 300 mg PO BID #60 capsule 11/21/17 Metoprolol Succinate 25 mg PO DAILY #30 tab.er.24h 11/21/17 Chlorthalidone [Hygroton -] 25 mg PO DAILY 05/28/18 Ferrous Sulfate 325 mg PO DAILY 12/11/18 Acetaminophen [Tylenol .Regular Strength -] 650 mg PO Q4H PRN tablet 12/13/18 Atorvastatin Ca [Lipitor] 10 mg PO HS tablet 12/13/18 Enoxaparin [Lovenox -] 40 mg SQ DAILY disp.syrin 12/13/18 Pramipexole Dihydrochloride [Mirapex -] 0.25 mg PO HS tablet 12/13/18 Fluticasone Prop 0.05% Nasal [Flonase -] 2 spray NS DAILY spray 12/16/18 Loratadine [Claritin -] 10 mg PO DAILY tablet 12/16/18 Lactobacillus Acidophilus [Acidophilus] 1 each PO DAILY 01/17/19 Phenazopyridine HCl 200 mg PO TID 01/17/19 Polyethylene Glycol 3350 17 gm PO DAILY PRN 01/17/19 Sulfamethoxazole/Trimethoprim [Bactrim Ds -] 1 tab PO DAILY 01/17/19 traMADol HCL [Ultram] 50 mg PO ONCE 01/17/19 Review of Systems - Review of Systems Constitutional: reports: Weakness Eyes: reports: No Symptoms HENT: reports: No Symptoms Neck: reports: No Symptoms Cardiovascular: reports: No Symptoms Respiratory: reports: No Symptoms Gastrointestinal: reports: Vomiting Genitourinary: reports: No Symptoms Breasts: reports: No Symptoms Reported Musculoskeletal: reports: Back Pain, Joint Pain Integumentary: reports: Bruising Neurological: reports: Dizziness Endocrine: reports: No Symptoms Hematology/Lymphatic: reports: No Symptoms Psychiatric: reports: No Symptoms Nephrology Consult - Height Height: 4 ft 11 in - Weight Weight: 100 lb - BMI Body Mass Index (BMI): 20.2 - Lab Results CBC,BMP: CBC, BMP 01/18/19 05:43 01/18/19 05:43 Anion Gap: Anion Gap Anion Gap 7 MMOL/L (8-16) L 01/18/19 05:43 - Imaging Chest X-ray: Report Reviewed X-ray: Report Reviewed - Physical Examination Vital Signs: Vital Signs Temperature 98.3 F 01/18/19 08:20 Pulse Rate 65 01/18/19 08:20 Respiratory Rate 20 01/18/19 08:20 Blood Pressure 144/68 01/18/19 08:20 O2 Sat by Pulse Oximetry (%) 96 01/18/19 08:20 Constitutional: Yes: Well Nourished, Thin Eyes: Yes: Conjunctiva Clear HENT: Yes: Atraumatic, Normocephalic Neck: Yes: Supple, Trachea Midline Cardiovascular: Yes: Regular Rate and Rhythm Respiratory: Yes: Regular, CTA Bilaterally Gastrointestinal: Yes: Normal Bowel Sounds, Soft Musculoskeletal: Yes: WNL Extremities: Yes: WNL Edema: No Peripheral Pulses WNL: Yes Integumentary: Yes: WNL Neurological: Yes: Alert, Oriented Psychiatric: Yes: Alert, Oriented Assessment/Plan IMPRESSION probable belen on ckd rule out adrenal insufficiency hyponatremia [facility] osteoporosis s/p prolia which can cause hypocalcemia PLAN would keep hydrated obtain morning cortisol she was on the floor for only 2 mins approximately so likely has no rhabdo but would check cpk anyway obtain renal sono await urine analysis MV
[2019-01-18 16:19] LABS: EPI CELLS 5.1 /HPF (0-5/HPF); HYALINE CASTS 3 /lpf (0-8); PH,URINE 7.5 (5.0-8.0); URINE APPEARANCE CLEAR; URINE BACTERIA 66.7 /hpf (NEGATIVE); URINE BILIRUBIN NEGATIVE (NEGATIVE); URINE COLOR DK YELLOW; URINE GLUCOSE (UA) NEGATIVE (NEGATIVE); URINE KETONE NEGATIVE (NEGATIVE); URINE LEUK ESTERASE NEGATIVE (NEGATIVE); URINE NITRITE POSITIVE (NEGATIVE); URINE PROTEIN NEGATIVE (NEGATIVE); URINE RBC 3 /hpf (0-4); URINE WBC 1 /hpf (0-5)
[2019-01-18] MEDS: ENOXAPARIN NA (PORCINE) 30 MG/0.3 ML DISP.SYRIN SQ SCH (16:34)
--- NOTE | 2019-01-18 16:39 | PN ---
Progress Note, Physician Chief Complaint: Fall History of Present Illness: NAD in bed - Current Medication List Current Medications: Active Medications Acetaminophen (Tylenol -) 650 mg PO Q4H PRN PRN Reason: PAIN OR FEVER Amlodipine Besylate (Norvasc -) 5 mg PO DAILY [facility] Last Admin: 01/18/19 11:08 Dose: 5 mg Atorvastatin Calcium (Lipitor -) 10 mg PO HS [facility] Chlorthalidone (Hygroton -) 25 mg PO DAILY [facility] Enoxaparin Sodium (Lovenox -) 30 mg SQ DAILY [facility] Last Admin: 01/18/19 16:34 Dose: 30 mg Ferrous Sulfate (Feosol -) 325 mg PO DAILY [facility] Last Admin: 01/18/19 11:08 Dose: 325 mg Fluticasone Propionate (Flonase -) 2 spray NS DAILY [facility] Last Admin: 01/18/19 11:08 Dose: 2 spray Gabapentin (Neurontin -) 300 mg PO BID [facility] Last Admin: 01/18/19 11:07 Dose: 300 mg Sodium Chloride (Normal Saline -) 1,000 mls @ 42 mls/hr IV ASDIR [facility] Last Admin: 01/18/19 06:38 Dose: 42 mls/hr Levothyroxine Sodium (Synthroid -) 50 mcg PO DAILY [facility] Last Admin: 01/18/19 11:08 Dose: 50 mcg Loratadine (Claritin -) 10 mg PO DAILY [facility] Last Admin: 01/18/19 11:07 Dose: 10 mg Metoprolol Succinate (Toprol Xl -) 25 mg PO DAILY [facility] Last Admin: 01/18/19 11:08 Dose: 25 mg Polyethylene Glycol (Miralax (For Daily Use) -) 17 gm PO DAILY [facility] Last Admin: 01/18/19 11:10 Dose: 17 grams Pramipexole Dihydrochloride (Mirapex -) 0.25 mg PO HS [facility] Prednisone (Deltasone -) 5 mg PO DAILY [facility] Last Admin: 01/18/19 11:08 Dose: 5 mg - Objective Vital Signs: Vital Signs Temperature 98.3 F 01/18/19 08:20 Pulse Rate 70 01/18/19 14:00 Respiratory Rate 18 01/18/19 15:05 Blood Pressure 139/59 L 01/18/19 14:00 O2 Sat by Pulse Oximetry (%) 96 01/18/19 15:05 Constitutional: Yes: Well Nourished, No Distress, Thin Cardiovascular: Yes: Regular Rate and Rhythm Respiratory: Yes: Regular Gastrointestinal: Yes: Normal Bowel Sounds, Soft Musculoskeletal: Yes: WNL Extremities: Yes: WNL Edema: No Peripheral Pulses WNL: Yes Neurological: Yes: Alert, Oriented Psychiatric: Yes: Alert, Oriented Labs: CBC, BMP 01/18/19 05:43 01/18/19 05:43 INR, PTT INR 0.99 (0.83-1.09) 01/17/19 21:46 Problem List - Problems (1) Weakness Assessment/Plan: -Physiatry -UA+ for nitrites -UC pending -afebrile Code(s): R53.1 - WEAKNESS (2) Fall Assessment/Plan: -Physical therapy -Orthostatic vitals negative Code(s): W19.XXXA - UNSPECIFIED FALL, INITIAL ENCOUNTER (3) UTI (urinary tract infection) Assessment/Plan: -UA+ nitrites -UC pending -afebrile -no leukocytosis -ID consult Code(s): N39.0 - URINARY TRACT INFECTION, SITE NOT SPECIFIED Assessment/Plan see problem list
[2019-01-18] MEDS: PRAMIPEXOLE DIHYDROCHLORIDE 0.25 MG TABLET PO SCH (22:00)
[2019-01-18] MEDS: ATORVASTATIN CA 10 MG TABLET (FP) PO SCH (22:00)
[2019-01-19 07:54] LABS: ALBUMIN 2.9 g/dl (3.4-5.0); BILIRUBIN,TOTAL 0.4 mg/dL (0.2-1); BLOOD UREA NITROGEN 14.5 mg/dL (7-18); CALCIUM 8.6 mg/dL (8.5-10.1); CREATININE 1.4 mg/dL (0.55-1.3); POTASSIUM 3.8 mmol/L (3.5-5.1); TOT PROT 5.5 g/dl (6.4-8.2)
[2019-01-19] MEDS: LEVOTHYROXINE NA 50 MCG TABLET (FP) PO SCH (09:06)
[2019-01-19] MEDS: FERROUS SO4 325 MG TABLET (FP) PO SCH (09:06)
[2019-01-19] MEDS: amLODIPine BESYLATE 5 MG TABLET (FP) PO SCH (09:06)
[2019-01-19] MEDS: POLYETHYLENE GLYCOL 3350 119 GM BTL PO SCH (09:06)
[2019-01-19] MEDS: metoPROLOL SUCCINATE 25 MG TAB.SR.24H (FP) PO SCH (09:06)
[2019-01-19] MEDS: GABAPENTIN 300 MG CAPSULE (FP) PO SCH ×2 (09:06→22:09)
[2019-01-19] MEDS: LORATADINE 10 MG TABLET PO SCH (09:06)
[2019-01-19] MEDS: predniSONE 5 MG TABLET (UD) PO SCH (09:06)
[2019-01-19] MEDS: SODIUM CHLORIDE 1,000 ML IV SCH (09:07)
[2019-01-19] MEDS: FLUTICASONE PROP 0.05% 16 GM NASAL SPRAY NS SCH (09:08)
[2019-01-19] MEDS: ENOXAPARIN NA (PORCINE) 30 MG/0.3 ML DISP.SYRIN SQ SCH (09:14)
[2019-01-19] MEDS ORDERED: CEFTRIAXONE 1 GM in DEXTROSE 5%-WATER - 50 ML IVPB ONE (12:08)
--- NOTE | 2019-01-19 12:09 | PN ---
Progress Note, Physician Chief Complaint: Fall History of Present Illness: NAD in bed - Current Medication List Current Medications: Active Medications Acetaminophen (Tylenol -) 650 mg PO Q4H PRN PRN Reason: PAIN OR FEVER Amlodipine Besylate (Norvasc -) 5 mg PO DAILY [facility] Last Admin: 01/19/19 09:06 Dose: 5 mg Atorvastatin Calcium (Lipitor -) 10 mg PO HS [facility] Last Admin: 01/18/19 22:00 Dose: 10 mg Chlorthalidone (Hygroton -) 25 mg PO DAILY [facility] Enoxaparin Sodium (Lovenox -) 30 mg SQ DAILY [facility] Last Admin: 01/19/19 09:14 Dose: 30 mg Ferrous Sulfate (Feosol -) 325 mg PO DAILY [facility] Last Admin: 01/19/19 09:06 Dose: 325 mg Fluticasone Propionate (Flonase -) 2 spray NS DAILY [facility] Last Admin: 01/19/19 09:08 Dose: 2 spray Gabapentin (Neurontin -) 300 mg PO BID [facility] Last Admin: 01/19/19 09:06 Dose: 300 mg Sodium Chloride (Normal Saline -) 1,000 mls @ 42 mls/hr IV ASDIR [facility] Last Admin: 01/19/19 09:07 Dose: 42 mls/hr Ceftriaxone Sodium 1 gm/ (Dextrose) 100 mls @ 200 mls/hr IVPB ONCE ONE; Protocol Stop: 01/19/19 12:37 Levothyroxine Sodium (Synthroid -) 50 mcg PO DAILY [facility] Last Admin: 01/19/19 09:06 Dose: 50 mcg Loratadine (Claritin -) 10 mg PO DAILY [facility] Last Admin: 01/19/19 09:06 Dose: 10 mg Metoprolol Succinate (Toprol Xl -) 25 mg PO DAILY [facility] Last Admin: 01/19/19 09:06 Dose: 25 mg Polyethylene Glycol (Miralax (For Daily Use) -) 17 gm PO DAILY [facility] Last Admin: 01/19/19 09:06 Dose: Not Given Pramipexole Dihydrochloride (Mirapex -) 0.25 mg PO HS [facility] Last Admin: 01/18/19 22:00 Dose: 0.25 mg Prednisone (Deltasone -) 5 mg PO DAILY [facility] Last Admin: 01/19/19 09:06 Dose: 5 mg - Objective Vital Signs: Vital Signs Temperature 98.1 F 01/19/19 08:27 Pulse Rate 76 01/19/19 08:27 Respiratory Rate 18 01/19/19 08:27 Blood Pressure 147/62 01/19/19 08:27 O2 Sat by Pulse Oximetry (%) 94 L 01/19/19 08:00 Constitutional: Yes: Well Nourished, No Distress, Calm Cardiovascular: Yes: Regular Rate and Rhythm Respiratory: Yes: Regular Gastrointestinal: Yes: Normal Bowel Sounds, Soft Genitourinary: Yes: WNL Musculoskeletal: Yes: Muscle Weakness Extremities: Yes: WNL Edema: No Peripheral Pulses WNL: Yes Neurological: Yes: Alert, Oriented Psychiatric: Yes: Alert, Oriented Labs: CBC, BMP 01/18/19 05:43 01/19/19 05:32 INR, PTT INR 0.99 (0.83-1.09) 01/17/19 21:46 Problem List - Problems (1) Weakness Assessment/Plan: -Physiatry -UA+ for nitrites -UC pending -afebrile Code(s): R53.1 - WEAKNESS (2) Fall Assessment/Plan: -Physical therapy -Orthostatic vitals negative Code(s): W19.XXXA - UNSPECIFIED FALL, INITIAL ENCOUNTER (3) UTI (urinary tract infection) Assessment/Plan: -UA+ nitrites -UC pending -afebrile -no leukocytosis -ID consult Code(s): N39.0 - URINARY TRACT INFECTION, SITE NOT SPECIFIED Assessment/Plan see problem list
--- NOTE | 2019-01-19 12:46 | PN ---
Progress Note (short form) - Note Progress Note: RENAL Awake and alert comfortable Last Vital Signs Temp Pulse Resp BP Pulse Ox 98.1 F 76 18 147/62 94 L 01/19/19 08:27 01/19/19 08:27 01/19/19 08:27 01/19/19 08:27 01/19/19 08:00 lungs few crackles cvs s1s2 rr +RENE abd soft ext no edema neuro a+ox3 CBC, BMP 01/18/19 05:43 01/19/19 05:32 Current Medications Generic Name Dose Route Start Last Admin Trade Name Freq PRN Reason Stop Dose Admin Acetaminophen 650 mg 01/18/19 10:27 Tylenol - PO Q4H PRN PAIN OR FEVER Amlodipine Besylate 5 mg 01/18/19 10:30 01/19/19 09:06 Norvasc - PO 5 mg DAILY NIRANJAN Administration Atorvastatin Calcium 10 mg 01/18/19 22:00 01/18/19 22:00 Lipitor - PO 10 mg HS NIRANJAN Administration Chlorthalidone 25 mg 01/18/19 10:30 [place] - PO DAILY NIRANJAN Enoxaparin Sodium 30 mg 01/18/19 16:15 01/19/19 09:14 Lovenox - SQ 30 mg DAILY NIRANJAN Administration Ferrous Sulfate 325 mg 01/18/19 10:30 01/19/19 09:06 Feosol - PO 325 mg DAILY NIRANJAN Administration Fluticasone Propionate 2 spray 01/18/19 10:30 01/19/19 09:08 Flonase - NS 2 spray DAILY NIRANJAN Administration Gabapentin 300 mg 01/18/19 10:30 01/19/19 09:06 Neurontin - PO 300 mg BID NIRANJAN Administration Sodium Chloride 1,000 mls @ 42 mls/hr 01/18/19 05:00 01/19/19 09:07 Normal Saline - IV 42 mls/hr ASDIR NIRANJAN Administration Levothyroxine Sodium 50 mcg 01/18/19 10:30 01/19/19 09:06 Synthroid - PO 50 mcg DAILY NIRANJAN Administration Loratadine 10 mg 01/18/19 10:30 01/19/19 09:06 Claritin - PO 10 mg DAILY NIRANJAN Administration Metoprolol Succinate 25 mg 01/18/19 10:30 01/19/19 09:06 Toprol Xl - PO 25 mg DAILY NIRANJAN Administration Polyethylene Glycol 17 gm 01/18/19 10:30 01/19/19 09:06 Miralax (For Daily Use) - PO Not Given DAILY NIRANJNA Pramipexole Dihydrochloride 0.25 mg 01/18/19 22:00 01/18/19 22:00 Mirapex - PO 0.25 mg HS NIRANJAN Administration Prednisone 5 mg 01/18/19 10:30 01/19/19 09:06 Deltasone - PO 5 mg DAILY NIRANJAN Administration IMPRESSION margarito is better sodium is stable now. note she was taking sodium tabs s/p fall had one episode of vomiting PLAN await cortisol level continue gentle hydration for now MV
--- NOTE | 2019-01-19 13:26 | CONS ---
DATE OF CONSULTATION: 01/19/2019 HISTORY OF PRESENT ILLNESS: The patient is an 78-year-old woman with past medical history including a recent right metatarsal fracture after a fall, for which she was splinted, as well as chronic sciatic pain, who was admitted after a fall, injuring her left hip. Patient underwent multiple x-rays, including x-rays of the pelvis, which showed underlying osteoarthritis of the hip and spine, but no acute pathology. There were also vascular calcifications noted. X-rays of the knees showed no acute injury but bilateral vascular calcifications. EKG: Normal sinus rhythm. CT of the head was negative for any acute intracranial pathology. CT of the cervical spine showed marked degenerative changes, especially at C4-5 more than C6-7 and C5-6. Admitting blood work demonstrated WBCs normal, 7.2, hemoglobin 10.9, platelet count 260, elevated BUN 21.2, and elevated creatinine 1.9. Troponin was less than 0.02. Patient was on Lovenox for DVT prophylaxis. Her chemistry has improved and her last chemistry done today showed BUN normalizing to 14.5, creatinine improved to 1.4, sodium 137, potassium 3.8, chloride 101, CO2 30, albumin is slightly low at 2.9. Patient generally feels much better with her general sciatic but no significant hip pain, no neck pain. No headache. No lightheadedness or dizziness. The patient had an appointment with Dr. Cage, from Orthopedics, tomorrow, which was canceled, as she is hospitalized for the recent right metatarsal fracture, which she believes is about 3 to 4 weeks old. She has currently a splint, which is uncomfortable, often slides. Review of past medical and surgical history as above: Peripheral vascular disease, hypertension, hyperlipidemia, hypothyroidism. She is status post cholecystectomy. Again, she has chronic sciatic discomfort as well as the right metatarsal fracture approximately 3 to 4 weeks ago. SOCIAL HISTORY: She resides with her and son in an apartment, but she does have about 2-1/2 flights of stairs at home. Premorbidly independent. Current function limited by her right foot but she states that she is able to stand and ambulate with assistance currently. REVIEW OF SYSTEMS: Again, no headache. No lightheadedness, dizziness. No blurry vision, double vision, or change in vision. No nausea, vomiting, difficulty swallowing, difficulty chewing. No chest pain, shortness of breath, dyspnea on exertion, cough. Again, she does have back pain and pain that can radiate, but she attributes this to her normal sciatic pain. No other joint arthralgias. No numbness, tingling. The right foot generally is improved with less discomfort. No skin rash noted. No bowel or bladder incontinence or retention. No diarrhea. No fever, chills, weight loss or weight gain. EXAMINATION: General: The patient is a very friendly elderly woman, who seems to have good insight into her medical condition, sitting out of bed in a chair, and is cooperative, in no acute distress. HEENT: Normocephalic and atraumatic. Extraocular muscles appear intact. Neck: Supple. Slightly limited cervical range but no palpable spasm or tenderness. She has no palpable spasm in the lumbosacral paraspinals but mild discomfort with palpation. Extremities: She has no pitting edema or calf tenderness in the lower extremities. No skin rash noted but reported contusion, left hip. Neuromuscular: She is awake, alert, fully oriented x2. Cranial nerves 2-12 grossly intact. Fairly good strength and range throughout her upper extremities with some mild non-limiting arthritic changes in her hands, especially in the 1st metacarpal joint. Normal sensation. Good joint stability in the lower extremities. Her right foot was not examined due to recent fracture, but she is able to move it actively. Good left dorsiflexion and plantar flexion. Good knee flexion/extension. Fairly good hip girdle strength. Mild tenderness in the left hip. Normal sensation. No gross arthritic change in the lower extremities. OVERALL IMPRESSION: 1. Deficits in mobility, activities of daily living, multifactorial. 2. Status post multiple falls. 3. Recent left metatarsal fracture. 4. Left hip contusion. 5. Underlying osteoarthritis, including her hip and spine as well as her hands, with chronic sciatic discomfort noted. 6. Acute kidney injury, improving. 7. Hypoalbuminemia. 8. Elevated risk for deep vein thrombosis due to immobility. 9. History of hypothyroidism. 10. History of peripheral vascular disease. 11. Hyperlipidemia. 12. Cholecystectomy. PLAN, SUGGESTIONS: 1. Physical therapy at the bedside for mobilization, including bed mobility, transfers, gait training, stair negotiation if appropriate. 2. Patient has a splint for the right lower extremity but hopefully will be cleared soon to ambulate in a shoe. Would consider consultation with Dr. Cage, who she was to follow up in his office on January 20. Also x-rays of the right foot. 3. Continue out of bed to chair. 4. Continue Lovenox for DVT prophylaxis. 5. On Neurontin for chronic lumbar radiculopathy. DISPOSITION: Home, with outpatient therapy if she is able to negotiate stairs to get in and out of her apartment. Thank you for this consultation. RENALDO CASANOVA M.D. [id number]
--- NOTE | 2019-01-19 13:41 | EKG ---
Test Reason : Blood Pressure : / mmHG Vent. Rate : 064 BPM Atrial Rate : 064 BPM P-R Int : 152 ms QRS Dur : 082 ms QT Int : 438 ms P-R-T Axes : 074 000 037 degrees QTc Int : 451 ms NORMAL SINUS RHYTHM LEFT ATRIAL ENLARGEMENT SEPTAL INFARCT ABNORMAL ECG Confirmed by MD SUNITA, DESIREE ([id number]) on 01/19/2019 1:41:15 PM Referred By: Confirmed By:DESIREE DORSEY MD
[2019-01-19] MEDS ORDERED: DEXTROSE 5%-WATER - 50 ML IVPB ONE (16:13)
[2019-01-19] MEDS ORDERED: cefTRIAXone SODIUM 1 GM VIAL ONE (16:13)
[2019-01-19] MEDS: ATORVASTATIN CA 10 MG TABLET (FP) PO SCH (22:09)
[2019-01-19] MEDS: PRAMIPEXOLE DIHYDROCHLORIDE 0.25 MG TABLET PO SCH (22:09)
--- NOTE | 2019-01-20 09:01 | PN ---
Progress Note, Physician Chief Complaint: EVENTS AND NOTES REVIEWED AWAKE ALERT C/O RIGHT FOOT PAIN MECHANICAL FALL - Current Medication List Current Medications: Active Medications Acetaminophen (Tylenol -) 650 mg PO Q4H PRN PRN Reason: PAIN OR FEVER Amlodipine Besylate (Norvasc -) 5 mg PO DAILY [facility] Last Admin: 01/19/19 09:06 Dose: 5 mg Atorvastatin Calcium (Lipitor -) 10 mg PO HS [facility] Last Admin: 01/19/19 22:09 Dose: 10 mg Chlorthalidone (Hygroton -) 25 mg PO DAILY [facility] Enoxaparin Sodium (Lovenox -) 30 mg SQ DAILY [facility] Last Admin: 01/19/19 09:14 Dose: 30 mg Ferrous Sulfate (Feosol -) 325 mg PO DAILY [facility] Last Admin: 01/19/19 09:06 Dose: 325 mg Fluticasone Propionate (Flonase -) 2 spray NS DAILY [facility] Last Admin: 01/19/19 09:08 Dose: 2 spray Gabapentin (Neurontin -) 300 mg PO BID [facility] Last Admin: 01/19/19 22:09 Dose: 300 mg Sodium Chloride (Normal Saline -) 1,000 mls @ 42 mls/hr IV ASDIR [facility] Last Admin: 01/19/19 09:07 Dose: 42 mls/hr Levothyroxine Sodium (Synthroid -) 50 mcg PO DAILY [facility] Last Admin: 01/19/19 09:06 Dose: 50 mcg Loratadine (Claritin -) 10 mg PO DAILY [facility] Last Admin: 01/19/19 09:06 Dose: 10 mg Metoprolol Succinate (Toprol Xl -) 25 mg PO DAILY [facility] Last Admin: 01/19/19 09:06 Dose: 25 mg Polyethylene Glycol (Miralax (For Daily Use) -) 17 gm PO DAILY [facility] Last Admin: 01/19/19 09:06 Dose: Not Given Pramipexole Dihydrochloride (Mirapex -) 0.25 mg PO HS [facility] Last Admin: 01/19/19 22:09 Dose: 0.25 mg Prednisone (Deltasone -) 5 mg PO DAILY [facility] Last Admin: 01/19/19 09:06 Dose: 5 mg - Objective Vital Signs: Vital Signs Temperature 98.1 F 01/20/19 08:00 Pulse Rate 71 01/20/19 08:00 Respiratory Rate 18 01/20/19 08:00 Blood Pressure 145/70 01/20/19 08:00 O2 Sat by Pulse Oximetry (%) 98 01/20/19 08:00 Constitutional: Yes: Mild Distress Eyes: Yes: WNL HENT: Yes: WNL Neck: Yes: WNL Cardiovascular: Yes: WNL Respiratory: Yes: WNL Gastrointestinal: Yes: WNL Genitourinary: Yes: WNL Musculoskeletal: Yes: Joint Swelling Extremities: Yes: WNL Edema: No Peripheral Pulses WNL: Yes Integumentary: Yes: WNL Wound/Incision: Yes: Clean/Dry Neurological: Yes: WNL ...Motor Strength: RLE Psychiatric: Yes: WNL Labs: CBC, BMP 01/18/19 05:43 01/19/19 05:32 INR, PTT INR 0.99 (0.83-1.09) 01/17/19 21:46 Problem List - Problems (1) BELEN (acute kidney injury) Code(s): N17.9 - ACUTE KIDNEY FAILURE, UNSPECIFIED (2) Fall Code(s): W19.XXXA - UNSPECIFIED FALL, INITIAL ENCOUNTER (3) Fracture of metatarsal of right foot, closed Code(s): S92.301A - FRACTURE OF UNSP METATARSAL BONE(S), RIGHT FOOT, INIT Assessment/Plan ORTHOPEDIC F/U XRAY ORDERED PAIN CONTROL PT EVAL APPRECIATED HOME WITH SYSTEMS CONSULTANT AND PT WALKER FOR STABILITY
[2019-01-20] MEDS: LORATADINE 10 MG TABLET PO SCH (09:16)
[2019-01-20] MEDS: FERROUS SO4 325 MG TABLET (FP) PO SCH (09:16)
[2019-01-20] MEDS: ENOXAPARIN NA (PORCINE) 30 MG/0.3 ML DISP.SYRIN SQ SCH (09:16)
[2019-01-20] MEDS: GABAPENTIN 300 MG CAPSULE (FP) PO SCH ×2 (09:16→21:05)
[2019-01-20] MEDS: LEVOTHYROXINE NA 50 MCG TABLET (FP) PO SCH (09:16)
[2019-01-20] MEDS: metoPROLOL SUCCINATE 25 MG TAB.SR.24H (FP) PO SCH (09:16)
[2019-01-20] MEDS: amLODIPine BESYLATE 5 MG TABLET (FP) PO SCH (09:16)
[2019-01-20] MEDS: predniSONE 5 MG TABLET (UD) PO SCH (09:16)
[2019-01-20] MEDS: POLYETHYLENE GLYCOL 3350 119 GM BTL PO SCH (09:17)
[2019-01-20] MEDS: FLUTICASONE PROP 0.05% 16 GM NASAL SPRAY NS SCH (09:17)
[2019-01-20] MEDS: SODIUM CHLORIDE 1,000 ML IV SCH (09:17)
--- NOTE | 2019-01-20 09:36 | CON.ORTH ---
Consult Reason for Consultation:: s/p fall, previous right 5th metatarsal fx - Past Medical History Cardio/Vascular: Yes: HTN, Hyperlipdemia Rheumatology: Yes: Rheumatoid Arthritis Endocrine: Yes: Hypothyroidism - Alcohol/Substance Use Hx Alcohol Use: No - Smoking History Smoking history: Never smoked Have you smoked in the past 12 months: No If you are a former smoker, when did you quit?: 1958 Home Medications - Allergies Allergies/Adverse Reactions: Allergies Allergy/AdvReac Type Severity Reaction Status Date / Time oxycodone [Oxycodone] Allergy Severe Nausea Verified 01/17/19 19:26 - Home Medications Home Medications: Ambulatory Orders Levothyroxine [Synthroid -] 50 mcg PO DAILY 05/19/13 Cholecalciferol (Vitamin D3) [Vitamin D3] 2,000 unit PO DAILY 11/19/17 Prednisone 5 mg PO DAILY 11/19/17 Amlodipine Besylate 5 mg PO DAILY #30 tablet 11/21/17 Gabapentin [Neurontin -] 300 mg PO BID #60 capsule 11/21/17 Metoprolol Succinate 25 mg PO DAILY #30 tab.er.24h 11/21/17 Chlorthalidone [Hygroton -] 25 mg PO DAILY 05/28/18 Ferrous Sulfate 325 mg PO DAILY 12/11/18 Acetaminophen [Tylenol .Regular Strength -] 650 mg PO Q4H PRN tablet 12/13/18 Atorvastatin Ca [Lipitor] 10 mg PO HS tablet 12/13/18 Enoxaparin [Lovenox -] 40 mg SQ DAILY disp.syrin 12/13/18 Pramipexole Dihydrochloride [Mirapex -] 0.25 mg PO HS tablet 12/13/18 Fluticasone Prop 0.05% Nasal [Flonase -] 2 spray NS DAILY spray 12/16/18 Loratadine [Claritin -] 10 mg PO DAILY tablet 12/16/18 Lactobacillus Acidophilus [Acidophilus] 1 each PO DAILY 01/17/19 Phenazopyridine HCl 200 mg PO TID 01/17/19 Polyethylene Glycol 3350 17 gm PO DAILY PRN 01/17/19 Sulfamethoxazole/Trimethoprim [Bactrim Ds -] 1 tab PO DAILY 01/17/19 traMADol HCL [Ultram] 50 mg PO ONCE 01/17/19 Physical Exam for Ortho Vital Signs: Vital Signs Temperature 98.1 F 01/20/19 08:00 Pulse Rate 71 01/20/19 08:00 Respiratory Rate 18 01/20/19 08:00 Blood Pressure 145/70 01/20/19 08:00 O2 Sat by Pulse Oximetry (%) 98 01/20/19 08:00 Labs: CBC, BMP 01/18/19 05:43 01/19/19 05:32 INR, PTT INR 0.99 (0.83-1.09) 01/17/19 21:46 - Lower Extremity Hip: Yes: Exam WNL, Left, Right, Other (nvi) Knee: Yes: Exam WNL, Left, Right, Abrasion, Other (nvi) Foot: Yes: Right, Other (minimal ttp, no swelling, good rom, splint removed, nvi ) Imaging - Results X-ray: Report Reviewed, Image Reviewed Assessment/Plan 78 year old female with PMHx of PVD, HTN, HLD, hypothyroidism, recent RLE metatarsal fx 2/2 fall, sciatica who presents s/p fall from standing yesterday morning. She reports standing up from bed, ambulating a short distance, feeling lightheaded, and then falling to the ground. Fall was unwitnessed. Pt is not sure if she lost consciousness but she complains of left hip pain. Pt has not attempted to ambulate since her fall. She had a previous fall several weeks ago which resulted in RLE metatarsal fracture. Currently pt denies any pain in either hips or knees. States that her right foot has been feeling fine. a/p right 5th metatarsal fx- approx 6 weeks, left hip contusion xray of right foot ordered if fx healed on xray can be wbat no post-op shoe/boot will be needed will advise once xray done d/w Dr. Woo
--- NOTE | 2019-01-20 11:31 | PN ---
Progress Note, Physician History of Present Illness: Pt seen and examined at bedside. She is awake and alert. She denies shortness of breath. - Current Medication List Current Medications: Active Medications Acetaminophen (Tylenol -) 650 mg PO Q4H PRN PRN Reason: PAIN OR FEVER Amlodipine Besylate (Norvasc -) 5 mg PO DAILY [facility] Last Admin: 01/20/19 09:16 Dose: 5 mg Atorvastatin Calcium (Lipitor -) 10 mg PO HS [facility] Last Admin: 01/19/19 22:09 Dose: 10 mg Chlorthalidone (Hygroton -) 25 mg PO DAILY [facility] Enoxaparin Sodium (Lovenox -) 30 mg SQ DAILY [facility] Last Admin: 01/20/19 09:16 Dose: 30 mg Ferrous Sulfate (Feosol -) 325 mg PO DAILY [facility] Last Admin: 01/20/19 09:16 Dose: 325 mg Fluticasone Propionate (Flonase -) 2 spray NS DAILY [facility] Last Admin: 01/20/19 09:17 Dose: 2 spray Gabapentin (Neurontin -) 300 mg PO BID [facility] Last Admin: 01/20/19 09:16 Dose: 300 mg Sodium Chloride (Normal Saline -) 1,000 mls @ 42 mls/hr IV ASDIR [facility] Last Admin: 01/20/19 09:17 Dose: 42 mls/hr Levothyroxine Sodium (Synthroid -) 50 mcg PO DAILY [facility] Last Admin: 01/20/19 09:16 Dose: 50 mcg Loratadine (Claritin -) 10 mg PO DAILY [facility] Last Admin: 01/20/19 09:16 Dose: 10 mg Metoprolol Succinate (Toprol Xl -) 25 mg PO DAILY [facility] Last Admin: 01/20/19 09:16 Dose: 25 mg Polyethylene Glycol (Miralax (For Daily Use) -) 17 gm PO DAILY [facility] Last Admin: 01/19/19 09:06 Dose: Not Given Pramipexole Dihydrochloride (Mirapex -) 0.25 mg PO HS [facility] Last Admin: 01/19/19 22:09 Dose: 0.25 mg Prednisone (Deltasone -) 5 mg PO DAILY [facility] Last Admin: 01/20/19 09:16 Dose: 5 mg - Objective Vital Signs: Vital Signs Temperature 98.1 F 01/20/19 08:00 Pulse Rate 71 01/20/19 08:00 Respiratory Rate 18 01/20/19 08:00 Blood Pressure 145/70 01/20/19 08:00 O2 Sat by Pulse Oximetry (%) 98 01/20/19 08:00 Constitutional: Yes: Calm Eyes: Yes: Conjunctiva Clear HENT: Yes: Atraumatic Neck: Yes: Supple Cardiovascular: Yes: S1, S2 Respiratory: Yes: CTA Bilaterally Gastrointestinal: Yes: Soft Genitourinary: Yes: WNL Musculoskeletal: Yes: WNL Edema: No Integumentary: Yes: Bruising, Skin Tear Wound/Incision: Yes: Open to air Neurological: Yes: Oriented Psychiatric: Yes: Oriented Labs: CBC, BMP 01/18/19 05:43 01/19/19 05:32 INR, PTT INR 0.99 (0.83-1.09) 01/17/19 21:46 Problem List - Problems (1) BELEN (acute kidney injury) Code(s): N17.9 - ACUTE KIDNEY FAILURE, UNSPECIFIED (2) Fall Code(s): W19.XXXA - UNSPECIFIED FALL, INITIAL ENCOUNTER (3) Hyponatremia Code(s): E87.1 - HYPO-OSMOLALITY AND HYPONATREMIA Assessment/Plan Current Medications Generic Name Dose Route Start Last Admin Trade Name Freq PRN Reason Stop Dose Admin Acetaminophen 650 mg 01/18/19 10:27 Tylenol - PO Q4H PRN PAIN OR FEVER Amlodipine Besylate 5 mg 01/18/19 10:30 01/20/19 09:16 Norvasc - PO 5 mg DAILY [facility] Administration Atorvastatin Calcium 10 mg 01/18/19 22:00 01/19/19 22:09 Lipitor - PO 10 mg HS [facility] Administration Chlorthalidone 25 mg 01/18/19 10:30 Hygroton - PO DAILY [facility] Enoxaparin Sodium 30 mg 01/18/19 16:15 01/20/19 09:16 Lovenox - SQ 30 mg DAILY [facility] Administration Ferrous Sulfate 325 mg 01/18/19 10:30 01/20/19 09:16 Feosol - PO 325 mg DAILY [facility] Administration Fluticasone Propionate 2 spray 01/18/19 10:30 01/20/19 09:17 Flonase - NS 2 spray DAILY [facility] Administration Gabapentin 300 mg 01/18/19 10:30 01/20/19 09:16 Neurontin - PO 300 mg BID [facility] Administration Sodium Chloride 1,000 mls @ 42 mls/hr 01/18/19 05:00 01/20/19 09:17 Normal Saline - IV 42 mls/hr ASDIR [facility] Administration Levothyroxine Sodium 50 mcg 01/18/19 10:30 01/20/19 09:16 Synthroid - PO 50 mcg DAILY [facility] Administration Loratadine 10 mg 01/18/19 10:30 01/20/19 09:16 Claritin - PO 10 mg DAILY [facility] Administration Metoprolol Succinate 25 mg 01/18/19 10:30 01/20/19 09:16 Toprol Xl - PO 25 mg DAILY [facility] Administration Polyethylene Glycol 17 gm 01/18/19 10:30 01/19/19 09:06 Miralax (For Daily Use) - PO Not Given DAILY [facility] Pramipexole Dihydrochloride 0.25 mg 01/18/19 22:00 01/19/19 22:09 Mirapex - PO 0.25 mg HS [facility] Administration Prednisone 5 mg 01/18/19 10:30 01/20/19 09:16 Deltasone - PO 5 mg DAILY [facility] Administration Impression 1. hyponatremia 2. s/p fall 3. hypothyroidism 4. htn 5. UTI Plan - renal function is improving - sodium improved - cont fluids - repeat labs in am - follow cortisol (pt is on prednisone) - d/c chlorthalidone
--- NOTE | 2019-01-20 11:39 | PN ---
Progress Note (short form) - Note Progress Note: ID CONSULT DICTATED UTI S/P FALL HX R 5TH MT FRACTURE CONTINUE BACTRIM COMPLETE 7D COURSE
--- NOTE | 2019-01-20 13:24 | CONS ---
INFECTIOUS DISEASE CONSULTATION DATE OF CONSULTATION: DATE OF DICTATION: 01/20/2019 HISTORY: The patient is an 78-year-old female who was evaluated for urinary tract infection. The patient [facility] a [facility]. She was diagnosed with a fracture of the proximal right 5th metatarsal in late November 2018. She was managed nonsurgically. She was transferred to a [facility]it[facility]iary facility where she has been. She is now readmitted from the facility after a fall. She is presently on the telemetry unit. The patient was receiving Bactrim for urinary tract infection. She had complained of dysuria and urinary frequency. She reports symptoms improved after a course of Bactrim. At the present time, she is awake and alert. She denies any dysuria or hematuria. No complaints of suprapubic or flank pain. PAST MEDICAL HISTORY: Positive for hyperlipidemia, hypertension, peripheral vascular disease, hypothyroidism, sciatica. PAST SURGICAL HISTORY: Status post cholecystectomy. ALLERGIES: OXYCODONE. SYSTEMS REVIEW: Neurologic: No loss of consciousness, seizure activity, focal weakness. Cardiac: Negative chest pain or palpitations. Respiratory: Negative cough or sputum production. Gastrointestinal: Negative vomiting or diarrhea. Genitourinary: As per HPI. LABORATORY DATA: White count 5.9, hematocrit 30.2, platelet count 249, creatinine 1.4. Urinalysis: White cells 1. Urine culture less than 10,000 colony-forming units. PHYSICAL EXAMINATION: General: She is awake and alert. She is in no acute distress. She is not acutely toxic appearing. Vital Signs: Afebrile. Heart: Sounds S1, S2. Lungs: Clear. Abdomen: Soft. Nontender. No suprapubic or flank tenderness. Extremities: Negative for edema. IMPRESSION: 1. Urinary tract infection. 2. Status post fall. 3. History of right 5th metatarsal fracture. PLAN: Will complete course of antibiotic therapy with Bactrim Double Strength b.i.d. for previously diagnosed urinary tract infection. Complete 7-day course. Thank you for the kind referral. CASE VELASCO M.D. [id number]
[2019-01-20] MEDS: SULFAMETHOXAZOLE/TRIMETHOPRIM 800MG/160MG D.S. TABLET PO SCH ×2 (14:11→21:04)
[2019-01-20] MEDS: PRAMIPEXOLE DIHYDROCHLORIDE 0.25 MG TABLET PO SCH (21:04)
[2019-01-20] MEDS: ATORVASTATIN CA 10 MG TABLET (FP) PO SCH (21:04)
[2019-01-21 07:57] LABS: ALBUMIN 2.8 g/dl (3.4-5.0); BILIRUBIN,TOTAL 0.8 mg/dL (0.2-1); BLOOD UREA NITROGEN 9.9 mg/dL (7-18); CALCIUM 8.2 mg/dL (8.5-10.1); CREATININE 1.2 mg/dL (0.55-1.3); POTASSIUM 4.1 mmol/L (3.5-5.1); TOT PROT 5.6 g/dl (6.4-8.2)
[2019-01-21] MEDS: SODIUM CHLORIDE 1,000 ML IV SCH (09:40)
[2019-01-21] MEDS: LEVOTHYROXINE NA 50 MCG TABLET (FP) PO SCH (09:40)
[2019-01-21] MEDS: GABAPENTIN 300 MG CAPSULE (FP) PO SCH (09:40)
[2019-01-21] MEDS: LORATADINE 10 MG TABLET PO SCH ×2 (09:40→09:43)
[2019-01-21] MEDS: amLODIPine BESYLATE 5 MG TABLET (FP) PO SCH (09:40)
[2019-01-21] MEDS: SULFAMETHOXAZOLE/TRIMETHOPRIM 800MG/160MG D.S. TABLET PO SCH (09:40)
[2019-01-21] MEDS: ENOXAPARIN NA (PORCINE) 30 MG/0.3 ML DISP.SYRIN SQ SCH (09:40)
[2019-01-21] MEDS: predniSONE 5 MG TABLET (UD) PO SCH (09:40)
[2019-01-21] MEDS: metoPROLOL SUCCINATE 25 MG TAB.SR.24H (FP) PO SCH (09:40)
[2019-01-21] MEDS: FERROUS SO4 325 MG TABLET (FP) PO SCH (09:40)
[2019-01-21] MEDS: FLUTICASONE PROP 0.05% 16 GM NASAL SPRAY NS SCH (09:41)
[2019-01-21] MEDS: POLYETHYLENE GLYCOL 3350 119 GM BTL PO SCH (09:41)
[2019-01-21] MEDS ORDERED: metoPROLOL SUCCINATE 25 MG TAB.SR.24H (FP) PO SCH (13:20)
[2019-01-21] MEDS ORDERED: amLODIPine BESYLATE 2.5 MG TABLET (FP) PO SCH (13:20)
--- NOTE | 2019-01-21 13:20 | PN ---
Progress Note, Physician History of Present Illness: Pt seen and examined at bedside. She is awake and alert. She denies shortness of breath. - Current Medication List Current Medications: Active Medications Acetaminophen (Tylenol -) 650 mg PO Q4H PRN PRN Reason: PAIN OR FEVER Amlodipine Besylate (Norvasc -) 5 mg PO DAILY [facility] Last Admin: 01/21/19 09:40 Dose: 5 mg Atorvastatin Calcium (Lipitor -) 10 mg PO HS [facility] Last Admin: 01/20/19 21:04 Dose: 10 mg Enoxaparin Sodium (Lovenox -) 30 mg SQ DAILY [facility] Last Admin: 01/21/19 09:40 Dose: 30 mg Ferrous Sulfate (Feosol -) 325 mg PO DAILY [facility] Last Admin: 01/21/19 09:40 Dose: 325 mg Fluticasone Propionate (Flonase -) 2 spray NS DAILY [facility] Last Admin: 01/21/19 09:41 Dose: 2 spray Gabapentin (Neurontin -) 300 mg PO BID [facility] Last Admin: 01/21/19 09:40 Dose: 300 mg Levothyroxine Sodium (Synthroid -) 50 mcg PO DAILY [facility] Last Admin: 01/21/19 09:40 Dose: 50 mcg Loratadine (Claritin -) 10 mg PO DAILY [facility] Last Admin: 01/21/19 09:43 Dose: Not Given Metoprolol Succinate (Toprol Xl -) 25 mg PO DAILY [facility] Last Admin: 01/21/19 09:40 Dose: 25 mg Polyethylene Glycol (Miralax (For Daily Use) -) 17 gm PO DAILY [facility] Last Admin: 01/21/19 09:41 Dose: Not Given Pramipexole Dihydrochloride (Mirapex -) 0.25 mg PO HS [facility] Last Admin: 01/20/19 21:04 Dose: 0.25 mg Prednisone (Deltasone -) 5 mg PO DAILY [facility] Last Admin: 01/21/19 09:40 Dose: 5 mg Trimethoprim/Sulfamethoxazole (Bactrim Ds -) 1 each PO BID [facility] Last Admin: 01/21/19 09:40 Dose: 1 each - Objective Vital Signs: Vital Signs Temperature 98.1 F 01/21/19 10:00 Pulse Rate 75 01/21/19 10:00 Respiratory Rate 20 01/21/19 10:00 Blood Pressure 151/58 L 01/21/19 10:00 O2 Sat by Pulse Oximetry (%) 98 01/21/19 09:00 Constitutional: Yes: Calm Eyes: Yes: Conjunctiva Clear HENT: Yes: Atraumatic Cardiovascular: Yes: S1, S2 Respiratory: Yes: CTA Bilaterally Gastrointestinal: Yes: Soft Genitourinary: Yes: WNL Musculoskeletal: Yes: WNL Edema: No Neurological: Yes: Oriented Psychiatric: Yes: Oriented Labs: CBC, BMP 01/18/19 05:43 01/21/19 05:43 INR, PTT INR 0.99 (0.83-1.09) 01/17/19 21:46 Problem List - Problems (1) BELEN (acute kidney injury) Code(s): N17.9 - ACUTE KIDNEY FAILURE, UNSPECIFIED (2) Fall Code(s): W19.XXXA - UNSPECIFIED FALL, INITIAL ENCOUNTER (3) Hyponatremia Code(s): E87.1 - HYPO-OSMOLALITY AND HYPONATREMIA Assessment/Plan Current Medications Generic Name Dose Route Start Last Admin Trade Name Freq PRN Reason Stop Dose Admin Acetaminophen 650 mg 01/18/19 10:27 Tylenol - PO Q4H PRN PAIN OR FEVER Amlodipine Besylate 5 mg 01/18/19 10:30 01/21/19 09:40 Norvasc - PO 5 mg DAILY [facility] Administration Atorvastatin Calcium 10 mg 01/18/19 22:00 01/20/19 21:04 Lipitor - PO 10 mg HS [facility] Administration Enoxaparin Sodium 30 mg 01/18/19 16:15 01/21/19 09:40 Lovenox - SQ 30 mg DAILY [facility] Administration Ferrous Sulfate 325 mg 01/18/19 10:30 01/21/19 09:40 Feosol - PO 325 mg DAILY [facility] Administration Fluticasone Propionate 2 spray 01/18/19 10:30 01/21/19 09:41 Flonase - NS 2 spray DAILY [facility] Administration Gabapentin 300 mg 01/18/19 10:30 01/21/19 09:40 Neurontin - PO 300 mg BID [facility] Administration Levothyroxine Sodium 50 mcg 01/18/19 10:30 01/21/19 09:40 Synthroid - PO 50 mcg DAILY [facility] Administration Loratadine 10 mg 01/18/19 10:30 01/21/19 09:43 Claritin - PO Not Given DAILY [facility] Metoprolol Succinate 25 mg 01/18/19 10:30 01/21/19 09:40 Toprol Xl - PO 25 mg DAILY [facility] Administration Polyethylene Glycol 17 gm 01/18/19 10:30 01/21/19 09:41 Miralax (For Daily Use) - PO Not Given DAILY [facility] Pramipexole Dihydrochloride 0.25 mg 01/18/19 22:00 01/20/19 21:04 Mirapex - PO 0.25 mg HS [facility] Administration Prednisone 5 mg 01/18/19 10:30 01/21/19 09:40 Deltasone - PO 5 mg DAILY [facility] Administration Trimethoprim/Sulfamethoxazole 1 each 01/20/19 11:45 01/21/19 09:40 Bactrim Ds - PO 1 each BID [facility] Administration Impression 1. hyponatremia 2. s/p fall 3. hypothyroidism 4. htn 5. UTI Plan - increase metoprolol to 50 mg - decrease norvasc to 2.5 (can contribute to lower ext edema) - do not restart thiazide - monitor bp - sodium is improved - repeat labs in am - follow cortisol (pt is on prednisone)
--- NOTE | 2019-01-21 13:52 | PN ---
Progress Note (short form) - Note Progress Note: Ortho Xrays show healed 5th metatarsal fx in good position. a/p PT wbat ok to d/c from ortho pov d/w Dr. Woo
--- NOTE | 2019-01-21 14:05 | DS ---
Physical Examination Vital Signs: Vital Signs Temperature 98.1 F 01/21/19 10:00 Pulse Rate 75 01/21/19 10:00 Respiratory Rate 20 01/21/19 10:00 Blood Pressure 151/58 L 01/21/19 10:00 O2 Sat by Pulse Oximetry (%) 98 01/21/19 09:00 Findings/Remarks: Patient is an 78 y/o female with past medical history of PVD, HTN, HLD, Hypothyroidism, recent RLE metafarsal fracture 2/2 fall, and sciatica. Patient presented to ER after experiencing a fall after standing up that morning. She stood up from bed, ambulated a short distance then began to feel lightheaded and fell to the ground. This fall was unwitnessed, unknown if LOC occurs. Patient had recent fall several weeks ago where she experienced a RLE metatarsal fracture. Since fall states having increase in lightheadedness and unsteady gait. Constitutional: Yes: No Distress, Calm Eyes: Yes: Conjunctiva Clear HENT: Yes: Atraumatic Neck: Yes: Supple Cardiovascular: Yes: Regular Rate and Rhythm Respiratory: Yes: Regular, CTA Bilaterally Gastrointestinal: Yes: Normal Bowel Sounds, Soft Musculoskeletal: Yes: WNL Extremities: Yes: WNL Edema: No Wound/Incision: Yes: Other (abrasion lower extremity) Neurological: Yes: Alert, Oriented Psychiatric: Yes: Alert, Oriented Labs: CBC, BMP 01/18/19 05:43 01/21/19 05:43 Discharge Summary Reason For Visit: ACUTE KIDNEY INJURY,SYNCOPE,HYPERTENSION Current Active Problems BELEN (acute kidney injury) (Acute) Fall (Acute) Syncope (Acute) UTI (urinary tract infection) (Acute) Weakness (Acute) Hospital Course: see progress notes Laboratory Tests 01/17/19 01/17/19 01/17/19 21:45 21:46 21:46 WBC 7.2 RBC 3.44 L Hgb 10.9 Hct 32.7 MCV 95.2 MCH 31.8 MCHC 33.4 RDW 13.7 Plt Count 260 MPV 8.2 Absolute Neuts (auto) 4.6 Neutrophils % 63.6 Lymphocytes % 24.7 D Monocytes % 9.9 Eosinophils % 1.1 Basophils % 0.7 Nucleated RBC % 0 PT with INR INR PTT (Actin FS) 27.3 Sodium 133 L Potassium 4.0 Chloride 99 Carbon Dioxide 26 Anion Gap 8 BUN 21.2 H Creatinine 1.9 H Est GFR (CKD-EPI)AfAm 28.36 Est GFR (CKD-EPI)NonAf 24.47 Random Glucose 84 Calcium 8.7 Phosphorus Magnesium Total Bilirubin 0.4 AST 13 L ALT 12 L Alkaline Phosphatase 73 Creatine Kinase 80 Troponin I Cancelled Total Protein 5.9 L Albumin 3.0 L TSH Cortisol AM Sample Urine Color Urine Appearance Urine pH Ur Specific Bowie Urine Protein Urine Glucose (UA) Urine Ketones Urine Blood Urine Nitrite Urine Bilirubin Urine Urobilinogen Ur Leukocyte Esterase Urine WBC (Auto) Urine RBC (Auto) Urine Casts (Auto) U Epithel Cells (Auto) Urine Bacteria (Auto) Ur Random Creatinine Ur Random Sodium 01/17/19 01/17/19 01/17/19 21:46 21:46 21:46 WBC RBC Hgb Hct MCV MCH MCHC RDW Plt Count MPV Absolute Neuts (auto) Neutrophils % Lymphocytes % Monocytes % Eosinophils % Basophils % Nucleated RBC % PT with INR 11.70 INR 0.99 PTT (Actin FS) Sodium Potassium Chloride Carbon Dioxide Anion Gap BUN Creatinine Est GFR (CKD-EPI)AfAm Est GFR (CKD-EPI)NonAf Random Glucose Calcium Phosphorus Magnesium Total Bilirubin AST ALT Alkaline Phosphatase Creatine Kinase Troponin I < 0.02 Total Protein Albumin TSH 0.69 Cortisol AM Sample Urine Color Urine Appearance Urine pH Ur Specific Bowie Urine Protein Urine Glucose (UA) Urine Ketones Urine Blood Urine Nitrite Urine Bilirubin Urine Urobilinogen Ur Leukocyte Esterase Urine WBC (Auto) Urine RBC (Auto) Urine Casts (Auto) U Epithel Cells (Auto) Urine Bacteria (Auto) Ur Random Creatinine Ur Random Sodium 01/18/19 01/18/19 01/18/19 05:43 05:43 15:25 WBC 5.9 RBC 3.17 L Hgb 10.1 L Hct 30.2 L MCV 95.1 MCH 31.8 MCHC 33.5 RDW 13.6 Plt Count 249 MPV 8.3 Absolute Neuts (auto) 3.4 Neutrophils % 57.8 Lymphocytes % 28.3 Monocytes % 11.0 H Eosinophils % 1.9 Basophils % 1.0 Nucleated RBC % 0 PT with INR INR PTT (Actin FS) Sodium 137 Potassium 3.9 Chloride 100 Carbon Dioxide 30 Anion Gap 7 L BUN 19.8 H Creatinine 1.8 H Est GFR (CKD-EPI)AfAm 30.28 Est GFR (CKD-EPI)NonAf 26.12 Random Glucose 81 Calcium 8.5 Phosphorus 3.2 Magnesium 1.5 L Total Bilirubin 0.4 AST 13 L ALT 11 L Alkaline Phosphatase 68 Creatine Kinase Troponin I Total Protein 5.2 L Albumin 2.8 L TSH Cortisol AM Sample Urine Color Dk yellow Urine Appearance Clear Urine pH 7.5 D Ur Specific Bowie 1.008 L Urine Protein Negative Urine Glucose (UA) Negative Urine Ketones Negative Urine Blood Negative Urine Nitrite Positive H Urine Bilirubin Negative Urine Urobilinogen 1.0 Ur Leukocyte Esterase Negative Urine WBC (Auto) 1 Urine RBC (Auto) 3 Urine Casts (Auto) 3 U Epithel Cells (Auto) 5.1 Urine Bacteria (Auto) 66.7 Ur Random Creatinine Ur Random Sodium 01/18/19 01/18/19 01/19/19 15:25 15:25 05:32 WBC RBC Hgb Hct MCV MCH MCHC RDW Plt Count MPV Absolute Neuts (auto) Neutrophils % Lymphocytes % Monocytes % Eosinophils % Basophils % Nucleated RBC % PT with INR INR PTT (Actin FS) Sodium Potassium Chloride Carbon Dioxide Anion Gap BUN Creatinine Est GFR (CKD-EPI)AfAm Est GFR (CKD-EPI)NonAf Random Glucose Calcium Phosphorus Magnesium Total Bilirubin AST ALT Alkaline Phosphatase Creatine Kinase Troponin I Total Protein Albumin TSH Cortisol AM Sample 8.9 Urine Color Urine Appearance Urine pH Ur Specific Bowie Urine Protein Urine Glucose (UA) Urine Ketones Urine Blood Urine Nitrite Urine Bilirubin Urine Urobilinogen Ur Leukocyte Esterase Urine WBC (Auto) Urine RBC (Auto) Urine Casts (Auto) U Epithel Cells (Auto) Urine Bacteria (Auto) Ur Random Creatinine 23.0 L Ur Random Sodium 97 01/19/19 01/21/19 05:32 05:43 WBC RBC Hgb Hct MCV MCH MCHC RDW Plt Count MPV Absolute Neuts (auto) Neutrophils % Lymphocytes % Monocytes % Eosinophils % Basophils % Nucleated RBC % PT with INR INR PTT (Actin FS) Sodium 137 142 Potassium 3.8 4.1 Chloride 101 107 Carbon Dioxide 30 28 Anion Gap 5 L 6 L BUN 14.5 9.9 Creatinine 1.4 H 1.2 Est GFR (CKD-EPI)AfAm 41.03 49.43 Est GFR (CKD-EPI)NonAf 35.40 42.65 Random Glucose 78 83 Calcium 8.6 8.2 L Phosphorus Magnesium Total Bilirubin 0.4 0.8 AST 23 22 ALT 18 24 Alkaline Phosphatase 71 70 Creatine Kinase Troponin I Total Protein 5.5 L 5.6 L Albumin 2.9 L 2.8 L TSH Cortisol AM Sample Urine Color Urine Appearance Urine pH Ur Specific Bowie Urine Protein Urine Glucose (UA) Urine Ketones Urine Blood Urine Nitrite Urine Bilirubin Urine Urobilinogen Ur Leukocyte Esterase Urine WBC (Auto) Urine RBC (Auto) Urine Casts (Auto) U Epithel Cells (Auto) Urine Bacteria (Auto) Ur Random Creatinine Ur Random Sodium Active Medications Generic Name Dose Route Start Last Admin Trade Name Freq PRN Reason Stop Dose Admin Acetaminophen 650 mg 01/18/19 10:27 Tylenol - PO Q4H PRN PAIN OR FEVER Amlodipine Besylate 2.5 mg 01/21/19 13:20 Norvasc - PO DAILY [facility] Atorvastatin Calcium 10 mg 01/18/19 22:00 01/20/19 21:04 Lipitor - PO 10 mg HS NIRANJAN Administration Enoxaparin Sodium 30 mg 01/18/19 16:15 01/21/19 09:40 Lovenox - SQ 30 mg DAILY NIRANJAN Administration Ferrous Sulfate 325 mg 01/18/19 10:30 01/21/19 09:40 Feosol - PO 325 mg DAILY NIRANJAN Administration Fluticasone Propionate 2 spray 01/18/19 10:30 01/21/19 09:41 Flonase - NS 2 spray DAILY NIRANJAN Administration Gabapentin 300 mg 01/18/19 10:30 01/21/19 09:40 Neurontin - PO 300 mg BID NIRANJAN Administration Levothyroxine Sodium 50 mcg 01/18/19 10:30 01/21/19 09:40 Synthroid - PO 50 mcg DAILY NIRANJAN Administration Loratadine 10 mg 01/18/19 10:30 01/21/19 09:43 Claritin - PO Not Given DAILY NIRANJAN Metoprolol Succinate 50 mg 01/21/19 13:20 Toprol Xl - PO DAILY [facility] Polyethylene Glycol 17 gm 01/18/19 10:30 01/21/19 09:41 Miralax (For Daily Use) - PO Not Given DAILY NIRANJAN Pramipexole Dihydrochloride 0.25 mg 01/18/19 22:00 01/20/19 21:04 Mirapex - PO 0.25 mg HS NIRANJAN Administration Prednisone 5 mg 01/18/19 10:30 01/21/19 09:40 Deltasone - PO 5 mg DAILY NIRANJAN Administration Trimethoprim/Sulfamethoxazole 1 each 01/20/19 11:45 01/21/19 09:40 Bactrim Ds - PO 1 each BID NIRANJAN Administration Microbiology 01/18/19 15:30 Urine - Urine Clean Catch Urine Culture - Final Condition: Good - Instructions Diet, Activity, Other Instructions: follow up with PCP in 1 week follow up with Orthopedics Dr Woo follow up with Breeding Technician Dr Lorenzo in 1 week follow up with Renal Dr Cardenas continue with current medication regimen take antibiotics twice daily until finished if develop change in mental status, respiratory distress, chest pain, or repeated falls return to ER Referrals: Sridhar Woo MD [Staff Physician] - Torin Lorenzo MD [Staff Physician] - Claudio Cardenas MD [Staff Physician] - Disposition: [facility]/HOME HEALTH CARE - Home Medications Comprehensive Discharge Medication List: Ambulatory Orders Levothyroxine [Synthroid -] 50 mcg PO DAILY 05/19/13 Cholecalciferol (Vitamin D3) [Vitamin D3] 2,000 unit PO DAILY 11/19/17 Prednisone 5 mg PO DAILY 11/19/17 Amlodipine Besylate 5 mg PO DAILY #30 tablet 11/21/17 Gabapentin [Neurontin -] 300 mg PO BID #60 capsule 11/21/17 Metoprolol Succinate 25 mg PO DAILY #30 tab.er.24h 11/21/17 Chlorthalidone [Hygroton -] 25 mg PO DAILY 05/28/18 Ferrous Sulfate 325 mg PO DAILY 12/11/18 Acetaminophen [Tylenol .Regular Strength -] 650 mg PO Q4H PRN tablet 12/13/18 Atorvastatin Ca [Lipitor] 10 mg PO HS tablet 12/13/18 Enoxaparin [Lovenox -] 40 mg SQ DAILY disp.syrin 12/13/18 Pramipexole Dihydrochloride [Mirapex -] 0.25 mg PO HS tablet 12/13/18 Fluticasone Prop 0.05% Nasal [Flonase -] 2 spray NS DAILY spray 12/16/18 Loratadine [Claritin -] 10 mg PO DAILY tablet 12/16/18 Lactobacillus Acidophilus [Acidophilus] 1 each PO DAILY 01/17/19 Phenazopyridine HCl 200 mg PO TID 01/17/19 Polyethylene Glycol 3350 17 gm PO DAILY PRN 01/17/19 Sulfamethoxazole/Trimethoprim [Bactrim Ds -] 1 tab PO DAILY 01/17/19 traMADol HCL [Ultram -] 50 mg PO ONCE 01/17/19 Amlodipine Besylate [Norvasc -] 2.5 mg PO DAILY #14 tablet 01/21/19 Enoxaparin [Lovenox -] 30 mg SQ DAILY #30 disp.syrin 01/21/19 Ferrous Sulfate [Feosol] 325 mg PO DAILY #30 ud 01/21/19 Metoprolol Succinate [Toprol XL -] 50 mg PO DAILY #30 tab.sr.24h 01/21/19 Polyethylene Glycol 3350 [Miralax 119 gm Btl -] 17 gm PO DAILY #1 bottle Sulfamethoxazole/Trimethoprim [Bactrim DS -] 1 each PO BID 7 Days #14 tablet 04/03
[2019-01-21 14:53] VITALS: BP 129/86; PULSE 78; TEMP 98.2
== END 2019-01-21 18:02 | disposition home health service (06) | DRG 683 ==
LOC: JER 18:56 → JERBED 01-18 00:49 → J4W 01-18 02:43 → OBSVTOIN 01-18 17:42
PROVIDERS: ADMIT Internal Medicine; ATTEND Family Medicine
DX: N17.9 Acute kidney failure, unspecified (principal); E87.1 Hypo-osmolality and hyponatremia; N39.0 Urinary tract infection, site not specified; E03.9 Hypothyroidism, unspecified; E78.5 Hyperlipidemia, unspecified; I73.9 Peripheral vascular disease, unspecified; M54.30 Sciatica, unspecified side; R55 Syncope and collapse; R29.6 Repeated falls; I12.9 Hypertensive chronic kidney disease with stage 1 through stage 4 chronic kidney disease, or unspecified chronic kidney disease; N18.9 Chronic kidney disease, unspecified; M81.0 Age-related osteoporosis without current pathological fracture; E88.09 Other disorders of plasma-protein metabolism, not elsewhere classified; M06.9 Rheumatoid arthritis, unspecified; S70.02XA Contusion of left hip, initial encounter; W18.30XA Fall on same level, unspecified, initial encounter; Y93.89 Activity, other specified; Y92.128 Other place in nursing home as the place of occurrence of the external cause; Y99.8 Other external cause status
CPT/HCPCS: 36415; 70450-TC; 71045-TC-FY; 72125-TC; 73523-TC-FY; 73560-TC-LT-FY; 73560-TC-RT-FY; 73630-TC-RT-FY; 76775-TC; 80053; 81003; 82533; 82550; 82565; 83735; 84100; 84300; 84443; 84484; 85025; 85610; 85730; 87086; 93005; 93010; 97116-GP; 97161-GP; 99283-25; G0378; J0131; J7030

== ENCOUNTER 2019-01-27 08:28 | Observation (INO) | payer OTHER, BC ==
--- NOTE | 2019-01-27 10:01 | PDOC ---
History of Present Illness - General Stated Complaint: WEAKNESS Time Seen by Provider: 01/27/19 10:00 - History of Present Illness Initial Comments: 01/27/19 14:07 The patient is an 78 year old female with a history of HTN, HLD who presents for evaluation of dizziness. The patient reports that she has been experiencing episodes of dizziness and lightheadedness over the past few months. She had an extensive workup several weeks ago due to a fall from lightheadedness. She states that today, she was getting out of bed when she experienced an episodes of severe "room-spinning" dizziness with associated nausea and 3 episodes of vomiting prompting her presentation to the ED for further evaluation. She notes that her symptoms self-resolved and she is currently asymptomatic. She notes that her episode of dizziness was shorter than usual this morning. She otherwise denies fevers, chills, headache, SOB, chest pain, abdominal pain, numbness, tingling, weakness, or changes with urination or bowel movements. Past History - Past Medical History Allergies/Adverse Reactions: Allergies Allergy/AdvReac Type Severity Reaction Status Date / Time oxycodone [Oxycodone] Allergy Severe Nausea Verified 01/17/19 19:26 Home Medications: Ambulatory Orders Levothyroxine [Synthroid -] 50 mcg PO DAILY 05/19/13 Cholecalciferol (Vitamin D3) [Vitamin D3] 2,000 unit PO DAILY 11/19/17 Prednisone 5 mg PO DAILY 11/19/17 Gabapentin [Neurontin -] 300 mg PO BID #60 capsule 11/21/17 Metoprolol Succinate 25 mg PO DAILY #30 tab.er.24h 11/21/17 Chlorthalidone [Hygroton -] 25 mg PO DAILY 05/28/18 Ferrous Sulfate 325 mg PO DAILY 12/11/18 Acetaminophen [Tylenol .Regular Strength -] 650 mg PO Q4H PRN tablet 12/13/18 Atorvastatin Ca [Lipitor] 10 mg PO HS tablet 12/13/18 Pramipexole Dihydrochloride [Mirapex -] 0.25 mg PO HS tablet 12/13/18 Fluticasone Prop 0.05% Nasal [Flonase -] 2 spray NS DAILY spray 12/16/18 Loratadine [Claritin -] 10 mg PO DAILY tablet 12/16/18 Lactobacillus Acidophilus [Acidophilus] 1 each PO DAILY 01/17/19 Phenazopyridine HCl 200 mg PO TID 01/17/19 Polyethylene Glycol 3350 17 gm PO DAILY PRN 01/17/19 traMADol HCL [Ultram -] 50 mg PO ONCE 01/17/19 Amlodipine Besylate [Norvasc -] 2.5 mg PO DAILY #14 tablet 01/21/19 Sulfamethoxazole/Trimethoprim [Bactrim Ds -] 1 tab PO BID 01/27/19 Anemia: No Asthma: No Cancer: No Cardiac Disorders: No CVA: No COPD: No CHF: No Dementia: No Diabetes: No GI Disorders: Yes (DIARRHEA, DIVERTICULOSIS) Disorders: No HTN: Yes Hypercholesterolemia: Yes Liver Disease: No Seizures: No Thyroid Disease: Yes (HYPO) - Surgical History Abdominal Surgery: No Appendectomy: No Cardiac Surgery: No Cholecystectomy: Yes Lung Surgery: No Neurologic Surgery: No Orthopedic Surgery: No - Immunization History Immunization Up to Date: Yes - Suicide/Smoking/Psychosocial Hx Smoking History: Never smoked Have you smoked in the past 12 months: No If you are a former smoker, when did you quit?: 1958 Hx Alcohol Use: No Drug/Substance Use Hx: No Substance Use Type: None Hx Substance Use Treatment: No Review of Systems - Review of Systems Comments:: 01/27/19 14:21 Constitutional: No fevers, chills, fatigue, malaise HEENT: No Rhinorrhea, nasal congestion, visual changes Cardiovascular: No chest pain, syncope, palpitations, Respiratory: No Cough, SOB, Hemoptysis, Gastrointestinal: Nausea, Vomiting. No Abdominal pain, Constipation, Diarrhea, Melena Genitourinary: No Dysuria, Frequency, Urgency, Hesitancy, Hematuria, Flank pain Musculoskeletal: No Myalgia, arthralgia Skin: No rashes, itching, bruising, pallor Neurologic: Dizziness. No Headache, Numbness, Weakness, or Tingling Psychiatric: No Hallucinations. No SI or HI *Physical Exam - Physical Exam Comments: 01/27/19 14:21 General Appearance: Nourished. No Apparent Distress HEENT: EOMI, CELIO. No Pharyngeal Erythema, Tonsillar Exudate, Tonsillar Erythema Neck: No Cervical Lymphadenopathy Respiratory/Chest: Lungs Clear, Normal Breath Sounds. No Crackles, Rales, Rhonchi, Wheezing Cardiovascular: Regular Rhythm, Regular Rate. No Murmur, Gallops, Rubs Gastrointestinal/Abdominal: Normal Bowel Sounds, Soft. No Guarding, Rebound, Tenderness Musculoskeletal: No CVA Tenderness Extremity: Normal Capillary Refill Integumentary: Normal Color, Dry, Warm Neurologic: neonatal nurse II-XII NML intact, Fully Oriented, Alert, Normal Mood/Affect, Normal Response, Motor Strength 5/5. Normal Finger to Nose and Heel to L[place] Heart Score/ECG Review #1 ECG reviewed & interpreted by me at: 14:21 General ECG Interpretation: Sinus Rhythm, Normal Rate, Normal Intervals, No acute ischemic changes ED Treatment Course - LABORATORY CBC & Chemistry Diagram: 01/28/19 07:45 01/28/19 07:45 Medical Decision Making - Medical Decision Making 01/27/19 14:22 The patient is an 78 year old female with a history of HTN, HLD who presents for evaluation of dizziness. Differential includes but is not limited to: Vertigo, ACS, Arrhythmia, UTI, Infectious, Metabolic Derangement. Given the patient's history and physical exam, we will obtain a cbc, cmp, troponin, UA, ekg to evaluate further. We will continue to monitor and reassess while here in the ED. 01/27/19 18:03 CBC was unremarkable. CMP demonstrates a hyponatremia to 127 and creatinine to 1.5. Troponin was unremarkable. We will treat the patient with iv fluids. Given the patient's new hyponatremia with associated BELEN, she will require admission for further monitoring and management. We discussed the case with the admitting team who accepted the patient for admission. *DC/Admit/Observation/Transfer Diagnosis at time of Disposition: Hyponatremia, BELEN (acute kidney injury), Dizziness - Discharge Dispostion Condition at time of disposition: Stable Decision to Admit order: Yes - Referrals - Patient Instructions - Post Discharge Activity
[2019-01-27 14:03] LABS: BASO % 0.6 % (0-2.0); EOS % 7.1 % (0-4.5); HEMATOCRIT 34.3 % (32.4-45.2); HEMOGLOBIN 11.5 GM/dL (10.7-15.3); LYMPH % 26.8 % (8-40); MCHC 33.7 g/dl (32.0-36.0); MEAN CELL VOLUME 94.9 fl (80-96); MEAN PLT VOLUME 8.4 fl (7.5-11.1); NEUT % 56.5 % (42.8-82.8); PLATELET COUNT 230 K/MM3 (134-434); RBC 3.61 M/mm3 (3.60-5.2); RDW 13.6 % (11.6-15.6); WHITE BLOOD COUNT 4.6 K/mm3 (4.0-10.0)
--- NOTE | 2019-01-27 14:14 | PDOC ---
Documentation entered by Laila Hunter SCRIBE, acting as scribe for Sergey Robledo MD. Sergey Robledo MD: This documentation has been prepared by the scribe, Laila Hunter SCRIBE, under my direction and personally reviewed by me in its entirety. I confirm that the documentation accurately reflects all work, treatment, procedures, and medical decision making performed by me. Attending Attestation - Resident Resident Name: Linwood Cason - ED Attending Attestation I have performed the following: I have examined & evaluated the patient, The case was reviewed & discussed with the resident, I agree w/resident's findings & plan - HPI HPI: 01/27/19 14:02 78-year-old female with history of hypertension, high cholesterol, presyncope/ syncopal episodes in the past with extensive workup most recently in November 2018 presents now with another episode of lightheadedness/dizziness this morning. Patient has been in her usual state of health, ambulates with a cane at baseline , this morning developed relatively sudden lightheadedness/dizziness similar to past episodes. She sat down and the symptoms resolved within 30 seconds, more quickly than her usual past episodes. Presents now for evaluation without additional complaints. - Physicial Exam PE: 01/27/19 14:12 vss well appearing seated in stretcher watching tv atraumatic s1s2 rrr, 1/6 RENE RUSB lungs clear neuro exam nonfocal - Medical Decision Making 01/27/19 14:13 78-year-old female with history of near syncopal episodes in the past presents now with another episode, resolved without red flags on history or physical exam. No RUQ pulmonary complaints, neurological exam is normal, no signs or symptoms of infection or dehydration. labs, ua, ekg reassess, trial of ambulation, dispo with PCP 01/27/19 16:55 hypoNa and NHUNG on labs. will admit for IV fluids and trending/monitoring. Heart Score/ECG Review #1 ECG reviewed & interpreted by me at: 12:46 General ECG Interpretation: Sinus Rhythm, Normal Rate (81), Normal Intervals ( qtc 446), No acute ischemic changes
[2019-01-27 14:24] LABS: ALBUMIN 3.1 g/dl (3.4-5.0); ALK PHOS 78 U/L (45-117); ANION GAP 5 MMOL/L (8-16); BILIRUBIN,TOTAL 0.3 mg/dL (0.2-1); BLOOD UREA NITROGEN 19.3 mg/dL (7-18); CALCIUM 8.6 mg/dL (8.5-10.1); CHLORIDE 95 mmol/L (98-107); CO2 27 mmol/L (21-32); CREATININE 1.5 mg/dL (0.55-1.3); GLUCOSE,RANDOM 89 mg/dL (74-106); POTASSIUM 4.7 mmol/L (3.5-5.1); SGOT/AST 19 U/L (15-37); SGPT/ALT 19 U/L (13-61); SODIUM 127 mmol/L (136-145); TOT PROT 5.9 g/dl (6.4-8.2)
--- NOTE | 2019-01-27 14:36 | EKG ---
Test Reason : Blood Pressure : / mmHG Vent. Rate : 081 BPM Atrial Rate : 081 BPM P-R Int : 146 ms QRS Dur : 080 ms QT Int : 384 ms P-R-T Axes : 068 038 063 degrees QTc Int : 446 ms NORMAL SINUS RHYTHM NORMAL ECG WHEN COMPARED WITH ECG OF 17-JAN-2019 19:35, NO SIGNIFICANT CHANGE WAS FOUND Confirmed by MELINA CARTER MD ([id number]) on 01/27/2019 2:36:02 PM Referred By: Confirmed By:MELINA CARTER MD
[2019-01-27] MEDS ORDERED: SODIUM CHLORIDE 1,000 ML IV STA (15:44)
[2019-01-27] MEDS ORDERED: POLYETHYLENE GLYCOL 3350 119 GM BTL PO PRN (17:38)
[2019-01-27] MEDS ORDERED: DOCUSATE SODIUM 100 MG CAPSULE (FP) PO PRN (17:42)
[2019-01-27] MEDS ORDERED: traMADol HCL 50 MG TABLET PO ONE (17:45)
[2019-01-27] MEDS ORDERED: traMADol HCL 50 MG TABLET ONE (20:13)
--- NOTE | 2019-01-27 21:10 | HP ---
Admitting History and Physical - Primary Care Physician PCP: Gil Abreu - Admission Chief Complaint: dizziness History of Present Illness: 78 year old female with PMHx of PVD, HTN, HLD, hypothyroidism, recent RLE metatarsal fx 2/2 fall, sciatica who presents to ED for evaluation due to dizziness which occured this morning. She was recently hospitalized at [facility] for fall while at rehab. Pt has reported three falls within the last month and admits to feeling dizzy before falls. She is followed by Dr. 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 Multilevel DJD with disc desiccation. Disc bulges at L3/L4, L4/L5. Posterior osteophyte complexes without cord involvement. PT had EMGs of the lower extremities which demonstrated chronic L5 radiculopathy. 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 Today, 01/27, pt reports attempting to get out of bed around 7am when she suddenly felt " the room spinning". Associated symptoms include nausea and vomiting which prompted her to activate EMS. She denies fevers, chills, headache, SOB, chest pain, abdominal pain, numbness, tingling, weakness, or changes with urination or bowel movements. In ED: Vitals were: T 98.7, HR 80, BP 134/63, RR 18, O2 sat 97 EKG: SR 81bpm Labs: Na 127 and CR 1.5, pt treated with normal saline IVSS Decision made to admit for observation. History Source: Patient, Family Member (son) Limitations to Obtaining History: No Limitations - Past Medical History Cardiovascular: Yes: HTN, Hyperlipdemia Gastrointestinal: Yes: Diverticulitis Reproductive: Yes: Postmenopausal Musculoskeletal: Yes: Other Rheumatology: Yes: Rheumatoid Arthritis Endocrine: Yes: Hypothyroidism Additional Past Medical History: polymyalgia rheumatica osteoporosis, sciatica, - Past Surgical History Past Surgical History: Yes: Cholecystectomy - Smoking History Smoking history: Never smoked Have you smoked in the past 12 months: No If you are a former smoker, when did you quit?: 1958 - Alcohol/Substance Use Hx Alcohol Use: No History of Substance Use: reports: None - Social History Usual Living Arrangement: Yes: With Spouse, With Child ADL: Family Assistance History of Recent Travel: No Home Medications - Allergies Allergies/Adverse Reactions: Allergies Allergy/AdvReac Type Severity Reaction Status Date / Time oxycodone [Oxycodone] Allergy Severe Nausea Verified 01/17/19 19:26 - Home Medications Home Medications: Ambulatory Orders Levothyroxine [Synthroid -] 50 mcg PO DAILY 05/19/13 Cholecalciferol (Vitamin D3) [Vitamin D3] 2,000 unit PO DAILY 11/19/17 Prednisone 5 mg PO DAILY 11/19/17 Gabapentin [Neurontin -] 300 mg PO BID #60 capsule 11/21/17 Metoprolol Succinate 25 mg PO DAILY #30 tab.er.24h 11/21/17 Chlorthalidone [Hygroton -] 25 mg PO DAILY 05/28/18 Ferrous Sulfate 325 mg PO DAILY 12/11/18 Acetaminophen [Tylenol .Regular Strength -] 650 mg PO Q4H PRN tablet 12/13/18 Atorvastatin Ca [Lipitor] 10 mg PO HS tablet 12/13/18 Pramipexole Dihydrochloride [Mirapex -] 0.25 mg PO HS tablet 12/13/18 Fluticasone Prop 0.05% Nasal [Flonase -] 2 spray NS DAILY spray 12/16/18 Loratadine [Claritin -] 10 mg PO DAILY tablet 12/16/18 Lactobacillus Acidophilus [Acidophilus] 1 each PO DAILY 01/17/19 Phenazopyridine HCl 200 mg PO TID 01/17/19 Polyethylene Glycol 3350 17 gm PO DAILY PRN 01/17/19 traMADol HCL [Ultram -] 50 mg PO ONCE 01/17/19 Amlodipine Besylate [Norvasc -] 2.5 mg PO DAILY #14 tablet 01/21/19 Sulfamethoxazole/Trimethoprim [Bactrim Ds -] 1 tab PO BID 01/27/19 Physical Examination Vital Signs: Vital Signs Temperature 98.7 F 01/27/19 09:00 Pulse Rate 80 01/27/19 09:00 Respiratory Rate 18 01/27/19 09:00 Blood Pressure 134/63 01/27/19 09:00 O2 Sat by Pulse Oximetry (%) 97 01/27/19 09:00 Labs: CBC, BMP 01/27/19 13:30 01/27/19 13:30 Imaging - Results X-ray: Report Reviewed (CXR 01/27/2019: no acute pathology. No change of an adverse nature since 01/18/2019) Problem List - Problems (1) Prophylactic measure Assessment/Plan: OOB to chair with assistance bowel regimen continue home dose of vitamin D, iron Code(s): Z29.9 - ENCOUNTER FOR PROPHYLACTIC MEASURES, UNSPECIFIED (2) Dizziness Assessment/Plan: serial neuro exam pt has good f/u with neuro Dr. Sawyer - can see on outpt basis assist pt with all ADLs fall precautions orthostatic BPs measurements Code(s): R42 - DIZZINESS AND GIDDINESS (3) Hyponatremia Assessment/Plan: hold chlorthalidone hydrate gently with NS trend serum Cr and electrolytes strict intake and outpt renal consulted Code(s): E87.1 - HYPO-OSMOLALITY AND HYPONATREMIA (4) HTN (hypertension) Assessment/Plan: c/w toprol XL and norvasc monitor on tele cardiac diet Code(s): I10 - ESSENTIAL (PRIMARY) HYPERTENSION (5) Herniated lumbar intervertebral disc Assessment/Plan: pt being followed outpt Code(s): M51.26 - OTHER INTERVERTEBRAL DISC DISPLACEMENT, LUMBAR REGION (6) Sciatica Assessment/Plan: PRN APAP turn and reposition q2H continue mirapex and neurontin Code(s): M54.30 - SCIATICA, UNSPECIFIED SIDE Qualifiers: Laterality: right Qualified Code(s): M54.31 - Sciatica, right side (7) Hypothyroidism Assessment/Plan: synthroid 50mcg daily Code(s): E03.9 - HYPOTHYROIDISM, UNSPECIFIED (8) Rheumatoid arthritis Assessment/Plan: prednisone 5mg daily Code(s): M06.9 - RHEUMATOID ARTHRITIS, UNSPECIFIED (9) Sinusitis Assessment/Plan: daily flonase and claritin Code(s): J32.9 - CHRONIC SINUSITIS, UNSPECIFIED (10) Hyperlipidemia Assessment/Plan: lipitor 10mh qhs Code(s): E78.5 - HYPERLIPIDEMIA, UNSPECIFIED Assessment/Plan DISPO: obs overnight and possible d/c home in morning if remains stable Code status: full Visit type - Emergency Visit Emergency Visit: Yes ED Registration Date: 01/27/19 Care time: The patient presented to the Emergency Department on the above date and was hospitalized for further evaluation of their emergent condition. - New Patient This patient is new to me today: Yes Date on this admission: 01/27/19 - Critical Care Critical Care patient: No
[2019-01-27] MEDS ORDERED: SENNOSIDES 8.6MG TABLET (FP) PO ONE (22:03)
[2019-01-27] MEDS ORDERED: ATORVASTATIN CA 10 MG TABLET (FP) ONE (22:03)
[2019-01-27] MEDS ORDERED: GABAPENTIN 100 MG CAPSULE (FP) ONE (22:04)
[2019-01-27] MEDS ORDERED: HEPARIN NA (PORCINE) 5,000 UNITS/ML 1ML VIAL ONE (22:04)
[2019-01-27] MEDS: PRAMIPEXOLE DIHYDROCHLORIDE 0.25 MG TABLET PO SCH (22:37)
[2019-01-27] MEDS: ATORVASTATIN CA 10 MG TABLET (FP) PO SCH (22:37)
[2019-01-27] MEDS: HEPARIN NA (PORCINE) 5,000 UNITS/ML 1ML VIAL SQ SCH (22:37)
[2019-01-27] MEDS: GABAPENTIN 300 MG CAPSULE (FP) PO SCH (22:37)
[2019-01-27] MEDS: SENNOSIDES 8.6MG TABLET (FP) PO SCH (22:37)
[2019-01-27] MEDS ORDERED: ACETAMINOPHEN 325 MG TABLET (FP) ONE (23:03)
[2019-01-27] MEDS: ACETAMINOPHEN 325 MG TABLET (FP) PO PRN (23:07)
[2019-01-27 23:44] LABS: EPI CELLS 5.1 /HPF (0-5/HPF); HYALINE CASTS 3 /lpf (0-8); PH,URINE 5.5 (5.0-8.0); URINE APPEARANCE CLEAR; URINE BACTERIA 90.1 /hpf (NEGATIVE); URINE BILIRUBIN NEGATIVE (NEGATIVE); URINE COLOR YELLOW; URINE GLUCOSE (UA) NEGATIVE (NEGATIVE); URINE KETONE TRACE (NEGATIVE); URINE LEUK ESTERASE 2+ (NEGATIVE); URINE NITRITE NEGATIVE (NEGATIVE); URINE PROTEIN NEGATIVE (NEGATIVE); URINE RBC 3 /hpf (0-4); URINE UROBILINOGEN 0.2 mg/dL (0.2-1.0); URINE WBC 5 /hpf (0-5)
[2019-01-28 01:48] VITALS: BMI 22.2
[2019-01-28] MEDS: HEPARIN NA (PORCINE) 5,000 UNITS/ML 1ML VIAL SQ SCH ×3 (06:54→21:44)
[2019-01-28] MEDS: LEVOTHYROXINE NA 50 MCG TABLET (FP) PO SCH (06:54)
[2019-01-28 08:10] LABS: HEMATOCRIT 31.7 % (32.4-45.2); HEMOGLOBIN 10.7 GM/dL (10.7-15.3); MCHC 33.9 g/dl (32.0-36.0); MEAN CELL VOLUME 94.6 fl (80-96); MEAN PLT VOLUME 7.9 fl (7.5-11.1); RBC 3.34 M/mm3 (3.60-5.2); RDW 13.6 % (11.6-15.6); WHITE BLOOD COUNT 5.1 K/mm3 (4.0-10.0)
[2019-01-28 08:57] LABS: ALBUMIN 2.8 g/dl (3.4-5.0); BILIRUBIN,TOTAL 0.3 mg/dL (0.2-1); CALCIUM 7.8 mg/dL (8.5-10.1); CREATININE 1.3 mg/dL (0.55-1.3); MAGNESIUM 1.5 mg/dL (1.8-2.4); N-TERMINAL BNP 284.2 pg/ml (5-450); PHOSPHOROUS 2.7 mg/dL (2.5-4.9); POTASSIUM 4.2 mmol/L (3.5-5.1); TOT PROT 5.6 g/dl (6.4-8.2)
--- NOTE | 2019-01-28 09:09 | PN ---
Progress Note, Physician Chief Complaint: EVENTS AND NOTES REVIEWED DIZZINESS NO FALL - Current Medication List Current Medications: Active Medications Acetaminophen (Tylenol -) 650 mg PO Q4H PRN PRN Reason: PAIN OR FEVER Last Admin: 01/27/19 23:07 Dose: 650 mg Amlodipine Besylate (Norvasc -) 2.5 mg PO DAILY [facility] Atorvastatin Calcium (Lipitor -) 10 mg PO HS [facility] Last Admin: 01/27/19 22:37 Dose: 10 mg Chlorthalidone (Hygroton -) 25 mg PO DAILY [facility] Cholecalciferol (Vitamin D3 -) 2,000 unit PO DAILY [facility] Docusate Sodium (Colace -) 100 mg PO Q8H PRN PRN Reason: CONSTIPATION Ferrous Sulfate (Feosol -) 325 mg PO DAILY [facility] Fluticasone Propionate (Flonase -) 2 spray NS DAILY [facility] Gabapentin (Neurontin -) 300 mg PO BID [facility] Last Admin: 01/27/19 22:37 Dose: 300 mg Heparin Sodium (Porcine) (Heparin -) 5,000 unit SQ TID [facility] Last Admin: 01/28/19 06:54 Dose: 5,000 unit Lactobacillus Acidophilus (Bacid -) 1 tab PO DAILY [facility] Levothyroxine Sodium (Synthroid -) 50 mcg PO AM [facility] Last Admin: 01/28/19 06:54 Dose: 50 mcg Loratadine (Claritin -) 10 mg PO DAILY [facility] Magnesium Sulfate (Magnesium Sulfate) 1 gm IVPB ONCE ONE Stop: 01/28/19 09:09 Metoprolol Succinate (Toprol Xl -) 25 mg PO DAILY [facility] Polyethylene Glycol (Miralax (For Daily Use) -) 17 gm PO DAILY PRN PRN Reason: CONSTIPATION Pramipexole Dihydrochloride (Mirapex -) 0.25 mg PO HS [facility] Last Admin: 01/27/19 22:37 Dose: 0.25 mg Prednisone (Deltasone -) 5 mg PO DAILY [facility] Senna (Senna -) 2 tab PO HS [facility] Last Admin: 01/27/19 22:37 Dose: 2 tab - Objective Vital Signs: Vital Signs Temperature 97.5 F L 01/28/19 08:13 Pulse Rate 74 01/28/19 08:13 Respiratory Rate 19 01/28/19 08:13 Blood Pressure 115/58 L 01/28/19 08:13 O2 Sat by Pulse Oximetry (%) 98 01/28/19 01:35 Constitutional: Yes: Mild Distress Eyes: Yes: WNL HENT: Yes: WNL Neck: Yes: WNL Cardiovascular: Yes: Regular Rate and Rhythm Respiratory: Yes: Diminished, SOB Gastrointestinal: Yes: WNL Genitourinary: Yes: WNL Musculoskeletal: Yes: Muscle Weakness Peripheral Pulses WNL: Yes Neurological: Yes: Pre-Existing Deficit, Weakness ...Motor Strength: LLE, RLE Labs: CBC, BMP 01/28/19 07:45 Problem List - Problems (1) BELEN (acute kidney injury) Code(s): N17.9 - ACUTE KIDNEY FAILURE, UNSPECIFIED (2) Dizziness Code(s): R42 - DIZZINESS AND GIDDINESS (3) Hyperlipidemia Code(s): E78.5 - HYPERLIPIDEMIA, UNSPECIFIED (4) Hyponatremia Code(s): E87.1 - HYPO-OSMOLALITY AND HYPONATREMIA (5) Hypothyroidism Code(s): E03.9 - HYPOTHYROIDISM, UNSPECIFIED (6) Respiratory distress Code(s): R06.03 - ACUTE RESPIRATORY DISTRESS Assessment/Plan NEURO/CARDIO/PULM WORKUP ECHO PENDING CAROTID DOPPLER PENDING 24 HOUR HOLTER FALL RISKS PT EVAL CHECK LABS UTI ON ABX
[2019-01-28] MEDS ORDERED: MAGNESIUM SULF 50% (8.12 MEQ/2 ML-1 GM VIAL) IVPB ONE ×2 (09:15→14:30)
[2019-01-28 09:45] LABS: PLATELET COUNT 198 K/MM3 (134-434)
[2019-01-28] MEDS ORDERED: CHLORTHALIDONE 25 MG TABLET PO SCH (10:00)
[2019-01-28] MEDS ORDERED: DEXTROSE 5%-WATER - 50 ML IVPB ONE (10:01)
[2019-01-28] MEDS ORDERED: cefTRIAXone SODIUM 1 GM VIAL ONE (10:01)
[2019-01-28] MEDS ORDERED: PT OWN MED DRAWER 7, Y5N ONE ×2 (10:02→11:18)
[2019-01-28] MEDS: metoPROLOL SUCCINATE 25 MG TAB.SR.24H (FP) PO SCH (10:05)
[2019-01-28] MEDS: amLODIPine BESYLATE 5 MG TABLET (FP) PO SCH (10:05)
[2019-01-28] MEDS: LORATADINE 10 MG TABLET PO SCH (10:05)
[2019-01-28] MEDS: GABAPENTIN 300 MG CAPSULE (FP) PO SCH ×2 (10:06→21:49)
[2019-01-28] MEDS: CHOLECALCIFEROL (VIT D3) 1,000 UNIT (25 MCG) TABLET PO SCH (10:06)
[2019-01-28] MEDS: LACTOBACILLUS ACIDOPHILUS 1 TABLET PO SCH (10:06)
[2019-01-28] MEDS: predniSONE 5 MG TABLET (UD) PO SCH (10:06)
[2019-01-28] MEDS: FERROUS SO4 325 MG TABLET (FP) PO SCH (10:07)
[2019-01-28] MEDS: CEFTRIAXONE 1 GM in DEXTROSE 5%-WATER - 50 ML IVPB SCH (10:08)
[2019-01-28] MEDS ORDERED: ONDANSETRON 4 MG/2 ML VIAL IVPB PRN (11:57)
--- NOTE | 2019-01-28 14:10 | CONSULT ---
Consult Consult Specialty:: Nephrology Reason for Consultation:: hyponatremia and BELEN - History of Present Illness Chief Complaint: dizziness, vomiting and diarrhea History of Present Illness: Pt is an 78 year old female with pmhx of hyponatremia, htn, and hld who presented with dizziness. She was found to be hyponatremic. I was called to evaluate her. She also complains of vomiting and diarrhea. She does not have much appetite today and still has nausea. - History Source History Provided By: Patient, Medical Record - Past Medical History Cardio/Vascular: Yes: HTN, Hyperlipdemia Gastrointestinal: Yes: Diverticulitis Musculoskeletal: Yes: Other Rheumatology: Yes: Rheumatoid Arthritis Endocrine: Yes: Hypothyroidism - Past Surgical History Past Surgical History: Yes: Cholecystectomy - Alcohol/Substance Use Hx Alcohol Use: No History of Substance Use: reports: None - Smoking History Smoking history: Never smoked Have you smoked in the past 12 months: No If you are a former smoker, when did you quit?: 1958 - Social History ADL: Family Assistance History of Recent Travel: No Home Medications - Allergies Allergies/Adverse Reactions: Allergies Allergy/AdvReac Type Severity Reaction Status Date / Time oxycodone [Oxycodone] Allergy Severe Nausea Verified 01/17/19 19:26 - Home Medications Home Medications: Ambulatory Orders Levothyroxine [Synthroid -] 50 mcg PO DAILY 05/19/13 Cholecalciferol (Vitamin D3) [Vitamin D3] 2,000 unit PO DAILY 11/19/17 Prednisone 5 mg PO DAILY 11/19/17 Gabapentin [Neurontin -] 300 mg PO BID #60 capsule 11/21/17 Metoprolol Succinate 25 mg PO DAILY #30 tab.er.24h 11/21/17 Chlorthalidone [Hygroton -] 25 mg PO DAILY 05/28/18 Ferrous Sulfate 325 mg PO DAILY 12/11/18 Acetaminophen [Tylenol .Regular Strength -] 650 mg PO Q4H PRN tablet 12/13/18 Atorvastatin Ca [Lipitor] 10 mg PO HS tablet 12/13/18 Pramipexole Dihydrochloride [Mirapex -] 0.25 mg PO HS tablet 12/13/18 Fluticasone Prop 0.05% Nasal [Flonase -] 2 spray NS DAILY spray 12/16/18 Loratadine [Claritin -] 10 mg PO DAILY tablet 12/16/18 Lactobacillus Acidophilus [Acidophilus] 1 each PO DAILY 01/17/19 Phenazopyridine HCl 200 mg PO TID 01/17/19 Polyethylene Glycol 3350 17 gm PO DAILY PRN 01/17/19 traMADol HCL [Ultram -] 50 mg PO ONCE 01/17/19 Amlodipine Besylate [Norvasc -] 2.5 mg PO DAILY #14 tablet 01/21/19 Sulfamethoxazole/Trimethoprim [Bactrim Ds -] 1 tab PO BID 01/27/19 Family Disease History - Family Disease History Family History: Denies Review of Systems - Review of Systems Constitutional: reports: Malaise. denies: Chills Eyes: reports: No Symptoms HENT: reports: No Symptoms Neck: reports: No Symptoms Cardiovascular: reports: No Symptoms Respiratory: reports: No Symptoms Gastrointestinal: reports: Diarrhea, Vomiting Genitourinary: reports: No Symptoms Musculoskeletal: reports: No Symptoms Integumentary: reports: No Symptoms Neurological: reports: No Symptoms Endocrine: reports: No Symptoms Hematology/Lymphatic: reports: No Symptoms Psychiatric: reports: No Symptoms Physical Exam Vital Signs: Vital Signs Temperature 97.5 F L 01/28/19 08:13 Pulse Rate 74 01/28/19 08:13 Respiratory Rate 19 01/28/19 08:13 Blood Pressure 115/58 L 01/28/19 08:13 O2 Sat by Pulse Oximetry (%) 96 01/28/19 09:00 Constitutional: Yes: Calm Eyes: Yes: Conjunctiva Clear HENT: Yes: Atraumatic Cardiovascular: Yes: S1, S2 Respiratory: Yes: CTA Bilaterally Gastrointestinal: Yes: Soft Renal/: Yes: WNL Musculoskeletal: Yes: WNL Edema: No Neurological: Yes: Oriented Psychiatric: Yes: Oriented Labs: CBC, BMP 01/28/19 07:45 01/28/19 07:45 Laboratory Tests 01/17/19 01/18/19 01/18/19 21:46 05:43 15:25 WBC Hgb Plt Count Sodium 133 L Creatinine 1.9 H 1.8 H Creatine Kinase 80 Cortisol AM Sample Ur Specific [place] 1.008 L 01/19/19 01/19/19 01/27/19 05:32 05:32 13:30 WBC 4.6 Hgb 11.5 Plt Count 230 Sodium 137 Creatinine 1.4 H Creatine Kinase Cortisol AM Sample Pending Ur Specific [place] 01/27/19 01/28/19 01/28/19 13:30 07:45 07:45 WBC 5.1 Hgb 10.7 Plt Count 198 Sodium 127 L 131 L Creatinine 1.5 H 1.3 Creatine Kinase Cortisol AM Sample Ur Specific [place] Imaging - Results Chest X-ray: Report Reviewed Problem List - Problems (1) BELEN (acute kidney injury) Code(s): N17.9 - ACUTE KIDNEY FAILURE, UNSPECIFIED (2) Hyperlipidemia Code(s): E78.5 - HYPERLIPIDEMIA, UNSPECIFIED (3) Hyponatremia Code(s): E87.1 - HYPO-OSMOLALITY AND HYPONATREMIA Assessment/Plan Current Medications Generic Name Dose Route Start Last Admin Trade Name Freq PRN Reason Stop Dose Admin Acetaminophen 650 mg 01/27/19 17:38 01/27/19 23:07 Tylenol - PO 650 mg Q4H PRN Administration PAIN OR FEVER Amlodipine Besylate 2.5 mg 01/28/19 10:00 01/28/19 10:05 Norvasc - PO 2.5 mg DAILY NIRANJAN Administration Atorvastatin Calcium 10 mg 01/27/19 22:00 01/27/19 22:37 Lipitor - PO 10 mg HS NIRANJAN Administration Chlorthalidone 25 mg 01/28/19 10:00 01/28/19 12:27 Hygroton - PO 25 mg DAILY NIRANJAN Administration Cholecalciferol 2,000 unit 01/28/19 10:00 01/28/19 10:06 Vitamin D3 - PO 2,000 unit DAILY NIRANJAN Administration Docusate Sodium 100 mg 01/27/19 17:42 Colace - PO Q8H PRN CONSTIPATION Ferrous Sulfate 325 mg 01/28/19 10:00 01/28/19 10:07 Feosol - PO 325 mg DAILY NIRANJAN Administration Fluticasone Propionate 2 spray 01/28/19 10:00 Flonase - NS DAILY NIRANJAN Gabapentin 300 mg 01/27/19 22:00 01/28/19 10:06 Neurontin - PO 300 mg BID NIRANJAN Administration Heparin Sodium (Porcine) 5,000 unit 01/27/19 22:00 01/28/19 06:54 Heparin - SQ 5,000 unit TID NIRANJAN Administration Ceftriaxone Sodium 1 gm/ 50 mls @ 100 mls/hr 01/28/19 10:00 01/28/19 10:08 Dextrose IVPB 100 mls/hr DAILY NIRANJAN Administration Protocol Lactobacillus Acidophilus 1 tab 07/16/19 10:00 01/28/19 10:06 Bacid - PO 1 tab DAILY NIRANJAN Administration Levothyroxine Sodium 50 mcg 01/28/19 07:00 01/28/19 06:54 Synthroid - PO 50 mcg AM NIRANJAN Administration Loratadine 10 mg 01/28/19 10:00 01/28/19 10:05 Claritin - PO 10 mg DAILY NIRANJAN Administration Magnesium Sulfate 1 gm 01/28/19 14:30 Magnesium Sulfate IVPB 01/28/19 14:31 ONCE ONE Metoprolol Succinate 25 mg 01/28/19 10:00 01/28/19 10:05 Toprol Xl - PO 25 mg DAILY NIRANJAN Administration Ondansetron HCl 4 mg 01/28/19 11:57 Zofran Injection IVPB Q6H PRN NAUSEA Polyethylene Glycol 17 gm 01/27/19 17:38 Miralax (For Daily Use) - PO DAILY PRN CONSTIPATION Pramipexole Dihydrochloride 0.25 mg 01/27/19 22:00 01/27/19 22:37 Mirapex - PO 0.25 mg HS NIRANJAN Administration Prednisone 5 mg 01/28/19 10:00 01/28/19 10:06 Deltasone - PO 5 mg DAILY NIRANJAN Administration Senna 2 tab 01/27/19 22:00 01/27/19 22:37 Senna - PO 2 tab HS NIRANJAN Administration Impression 1. hyponatremia 2. s/p fall 3. hypothyroidism 4. htn 5. UTI Plan - d/c chlorthalidone - will restart fluids - encourage PO intake - do not restart chlorthalidone on discharge
[2019-01-28] MEDS ORDERED: SODIUM CHLORIDE 1,000 ML IV SCH (14:15)
--- NOTE | 2019-01-28 15:36 | CON.CARD ---
Consult Consult Specialty:: Cardiology Referred by:: Gil Abreu Reason for Consultation:: Dizziness - History of Present Illness Chief Complaint: Dizzy History of Present Illness: 78 year old female with a pmhx of pvd, htn, hld, hypothyroidism, and RLE metatarsal fx after fall recently who presents with dizziness. She denies any chest pain or sob. No pnd, orthopnea, or edema. No palpitations. No syncope. + nausea and diarrhea CXR unremarkable EKG normal sinus no st changes Na 127 and Cr 1.5 - History Source History Provided By: Patient, Family Member, Medical Record - Past Medical History Cardio/Vascular: Yes: HTN, Hyperlipdemia Gastrointestinal: Yes: Diverticulitis Musculoskeletal: Yes: Other Rheumatology: Yes: Rheumatoid Arthritis Endocrine: Yes: Hypothyroidism - Past Surgical History Past Surgical History: Yes: Cholecystectomy - Alcohol/Substance Use Hx Alcohol Use: No History of Substance Use: reports: None - Smoking History Smoking history: Never smoked Have you smoked in the past 12 months: No If you are a former smoker, when did you quit?: 1958 - Social History ADL: Family Assistance History of Recent Travel: No Home Medications - Allergies Allergies/Adverse Reactions: Allergies Allergy/AdvReac Type Severity Reaction Status Date / Time oxycodone [Oxycodone] Allergy Severe Nausea Verified 01/17/19 19:26 - Home Medications Home Medications: Ambulatory Orders Levothyroxine [Synthroid -] 50 mcg PO DAILY 05/19/13 Cholecalciferol (Vitamin D3) [Vitamin D3] 2,000 unit PO DAILY 11/19/17 Prednisone 5 mg PO DAILY 11/19/17 Gabapentin [Neurontin -] 300 mg PO BID #60 capsule 11/21/17 Metoprolol Succinate 25 mg PO DAILY #30 tab.er.24h 11/21/17 Chlorthalidone [Hygroton -] 25 mg PO DAILY 05/28/18 Ferrous Sulfate 325 mg PO DAILY 12/11/18 Acetaminophen [Tylenol .Regular Strength -] 650 mg PO Q4H PRN tablet 12/13/18 Atorvastatin Ca [Lipitor] 10 mg PO HS tablet 12/13/18 Pramipexole Dihydrochloride [Mirapex -] 0.25 mg PO HS tablet 12/13/18 Fluticasone Prop 0.05% Nasal [Flonase -] 2 spray NS DAILY spray 12/16/18 Loratadine [Claritin -] 10 mg PO DAILY tablet 12/16/18 Lactobacillus Acidophilus [Acidophilus] 1 each PO DAILY 01/17/19 Phenazopyridine HCl 200 mg PO TID 01/17/19 Polyethylene Glycol 3350 17 gm PO DAILY PRN 01/17/19 traMADol HCL [Ultram -] 50 mg PO ONCE 01/17/19 Amlodipine Besylate [Norvasc -] 2.5 mg PO DAILY #14 tablet 01/21/19 Sulfamethoxazole/Trimethoprim [Bactrim Ds -] 1 tab PO BID 01/27/19 Vital Signs: Vital Signs Temperature 98.1 F 01/28/19 12:00 Pulse Rate 82 01/28/19 12:00 Respiratory Rate 18 01/28/19 12:00 Blood Pressure 111/80 01/28/19 12:00 O2 Sat by Pulse Oximetry (%) 97 01/28/19 12:00 Constitutional: Yes: No Distress Neck: Yes: Supple Respiratory: Yes: CTA Bilaterally Gastrointestinal: Yes: Soft JVD: No Carotid Bruit: No PMI: Non-Displaced Heart Sounds: Yes: S1, S2 Murmur: No: Systolic Murmur Edema: No - Other Data Labs, Other Data: CBC, BMP 01/28/19 07:45 01/28/19 07:45 Troponin, BNP 01/28/19 07:45 B-Natriuretic Peptide 284.2 Troponin, BNP 01/28/19 07:45 B-Natriuretic Peptide 284.2 Imaging - Results Chest X-ray: Report Reviewed EKG: Image Reviewed Problem List - Problems (1) Dizziness Code(s): R42 - DIZZINESS AND GIDDINESS Assessment/Plan 78 year old female with a pmhx of pvd, htn, hld, hypothyroidism, and RLE metatarsal fx after fall recently who presents with dizziness. She denies any chest pain or sob. No pnd, orthopnea, or edema. No palpitations. No syncope. + nausea and diarrhea CXR unremarkable EKG normal sinus no st changes Na 127 and Cr 1.5 Echo 11/2018 unremarkable NST 2017 no ischemia 1) Dizziness More likely related to volume/dehyration given diarrhea and on diuretic with Na 127 and Cr 1.5 on admission. IVF's Agree with holding chlorthalidone Had echo in November EKG unremarkable No further cardiac testing at this time. Can have outpatient holter/event monitor placed. Will sign off at this time.
--- NOTE | 2019-01-28 16:29 | CONSULT ---
Consult - text type - Consultation Consultation Note: NEUROLOGY CONSULT GREATLY APPRECIATED: Events reviewed and discussed with staff. and daughter Emmanuelle at bedside aiding in history. This 78 yo 78 yo LH woman lives with her . Well known to me with progressive gait dysfunction. Last seen in consult 12/13/18. PMHX: HTN, HLD, hypothyroid, Polymyalgia Rheumatica, Restless Limbs. Meds: amlodipine, toprol xl, chlorthalidone, levothyroxine, gabapentin 300 mg BID, prednisone 5 mg qd, pramipexole 0.25 mg HS, atorvastatin. Was transferred to [place] s/p fall with fracture of 5th MTJ, requiring rehab with walker. While in [place], she sustained two falls. Has been home now for approximately one week but has had two more falls. Had brief hospitalization 01/17/19. Notes a few months of "dizziness" associated with falls, especially when first getting up in the morning, and walking in evening hours. Iv=705 -> 131 TSH 1.65 UA WBC= 5 - empirically on IV ceftriaxone 12/13/18 Labs CRP= 0.4 ESR = 25; B12= 477%; RPR nonreactive HERNÁN: supine 110/80, sitting 124/60. Cor reg. No bruit. Neck supple. Neg SLR. Various ages of excoriations to arms and legs. NEURO: Awake, alert, responsive. OX "SJ" January. Sunday. 2019. TRUMP-> PMURTU. 2/3 recall @ 3 min. + glabella CNII-CNXII: EOM's full without nystagmus. Full pascual. No facial. Gag ok. Motor: No drift. Decreased CLAUS's B/L. Strength normal including distal and proximal groups. Reflexes normal in arms, but reduced in KJ's. and absent AJs. + Cogwheeling L > R with reinforcement. Coordination: No FTN dystaxia. Sensation: Reduced vibration to ankles. Romberg + Gait: Flexed, shuffling. Takes 3-4 steps to correct retropulsion Impression: Mild B/L cerebral dysfunction (OMS) proably due to severe [employer] microvascular disease. 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 Suggest: Orthostatic BP's Add thiamine 250 mg IVP q8H x 3 days Try Sinemet CR 25/100 take 0.5 tab po TID with meals x 3 days, then increase to 1 tab po TID with meals Continue pramipexole 0.25 mg HS and gabapentin 300 mg q12H for RLS PT with walker for gait safety Neuro f/u as out patient for continued Rx of PD Thank you very much, Sridhar Sawyer MD
[2019-01-28] MEDS: FLUTICASONE PROP 0.05% 16 GM NASAL SPRAY NS SCH (19:44)
[2019-01-28] MEDS: THIAMINE HCL 200 MG/2 ML VIAL IVPB SCH (21:45)
[2019-01-28] MEDS: PRAMIPEXOLE DIHYDROCHLORIDE 0.25 MG TABLET PO SCH (21:45)
[2019-01-28] MEDS: ATORVASTATIN CA 10 MG TABLET (FP) PO SCH (21:45)
[2019-01-28] MEDS: SENNOSIDES 8.6MG TABLET (FP) PO SCH (21:45)
[2019-01-29] MEDS: ACETAMINOPHEN 325 MG TABLET (FP) PO PRN (04:32)
[2019-01-29 08:24] LABS: ALBUMIN 2.7 g/dl (3.4-5.0); BILIRUBIN,TOTAL 0.2 mg/dL (0.2-1); BLOOD UREA NITROGEN 13.1 mg/dL (7-18); CALCIUM 7.7 mg/dL (8.5-10.1); CREATININE 1.1 mg/dL (0.55-1.3); POTASSIUM 3.6 mmol/L (3.5-5.1); TOT PROT 5.1 g/dl (6.4-8.2)
[2019-01-29] MEDS ORDERED: cefTRIAXone SODIUM 1 GM VIAL ONE (10:24)
[2019-01-29] MEDS ORDERED: DEXTROSE 5%-WATER - 50 ML IVPB ONE (10:24)
[2019-01-29] MEDS: predniSONE 5 MG TABLET (UD) PO SCH (10:30)
[2019-01-29] MEDS: CHOLECALCIFEROL (VIT D3) 1,000 UNIT (25 MCG) TABLET PO SCH (10:30)
[2019-01-29] MEDS: CEFTRIAXONE 1 GM in DEXTROSE 5%-WATER - 50 ML IVPB SCH (10:30)
[2019-01-29] MEDS: FERROUS SO4 325 MG TABLET (FP) PO SCH (10:30)
[2019-01-29] MEDS: GABAPENTIN 300 MG CAPSULE (FP) PO SCH ×2 (10:30→21:17)
[2019-01-29] MEDS: amLODIPine BESYLATE 5 MG TABLET (FP) PO SCH (10:30)
[2019-01-29] MEDS: THIAMINE HCL 200 MG/2 ML VIAL IVPB SCH ×3 (10:33→21:18)
[2019-01-29] MEDS: HEPARIN NA (PORCINE) 5,000 UNITS/ML 1ML VIAL SQ SCH ×3 (10:33→21:18)
[2019-01-29] MEDS: metoPROLOL SUCCINATE 25 MG TAB.SR.24H (FP) PO SCH (10:34)
[2019-01-29] MEDS: LACTOBACILLUS ACIDOPHILUS 1 TABLET PO SCH (10:34)
[2019-01-29] MEDS: LORATADINE 10 MG TABLET PO SCH (10:34)
[2019-01-29] MEDS: LEVOTHYROXINE NA 50 MCG TABLET (FP) PO SCH (10:34)
[2019-01-29] MEDS: FLUTICASONE PROP 0.05% 16 GM NASAL SPRAY NS SCH (10:50)
--- NOTE | 2019-01-29 12:35 | PN ---
Progress Note, Physician History of Present Illness: Pt seen and examined at bedside. She is awake and alert. She feels that the nausea is improved. - Current Medication List Current Medications: Active Medications Acetaminophen (Tylenol -) 650 mg PO Q4H PRN PRN Reason: PAIN OR FEVER Last Admin: 01/29/19 04:32 Dose: 650 mg Amlodipine Besylate (Norvasc -) 2.5 mg PO DAILY [facility] Last Admin: 01/29/19 10:30 Dose: 2.5 mg Atorvastatin Calcium (Lipitor -) 10 mg PO HS [facility] Last Admin: 01/28/19 21:45 Dose: 10 mg Carbidopa/Levodopa (Sinemet *Cr* 25/100 -) 0.5 combo PO TID [facility] Last Admin: 01/29/19 06:00 Dose: 0.5 combo Cholecalciferol (Vitamin D3 -) 2,000 unit PO DAILY [facility] Last Admin: 01/29/19 10:30 Dose: 2,000 unit Docusate Sodium (Colace -) 100 mg PO Q8H PRN PRN Reason: CONSTIPATION Ferrous Sulfate (Feosol -) 325 mg PO DAILY [facility] Last Admin: 01/29/19 10:30 Dose: 325 mg Fluticasone Propionate (Flonase -) 2 spray NS DAILY [facility] Last Admin: 01/29/19 10:50 Dose: 2 sprays Gabapentin (Neurontin -) 300 mg PO BID [facility] Last Admin: 01/29/19 10:30 Dose: 300 mg Heparin Sodium (Porcine) (Heparin -) 5,000 unit SQ TID [facility] Last Admin: 01/29/19 10:33 Dose: Not Given Ceftriaxone Sodium 1 gm/ (Dextrose) 50 mls @ 100 mls/hr IVPB DAILY NIRANJAN; Protocol Last Admin: 01/29/19 10:30 Dose: 100 mls/hr Sodium Chloride (Normal Saline -) 1,000 mls @ 50 mls/hr IV ASDIR NIRANJAN Stop: 01/29/19 14:10 Last Admin: 01/28/19 19:43 Dose: 50 mls/hr Lactobacillus Acidophilus (Bacid -) 1 tab PO DAILY [facility] Last Admin: 01/29/19 10:34 Dose: 1 tab Levothyroxine Sodium (Synthroid -) 50 mcg PO AM [facility]ANJAN Last Admin: 01/29/19 10:34 Dose: 50 mcg Loratadine (Claritin -) 10 mg PO DAILY [facility] Last Admin: 01/29/19 10:34 Dose: 10 mg Metoprolol Succinate (Toprol Xl -) 25 mg PO DAILY [facility] Last Admin: 01/29/19 10:34 Dose: 25 mg Ondansetron HCl (Zofran Injection) 4 mg IVPB Q6H PRN PRN Reason: NAUSEA Polyethylene Glycol (Miralax (For Daily Use) -) 17 gm PO DAILY PRN PRN Reason: CONSTIPATION Pramipexole Dihydrochloride (Mirapex -) 0.25 mg PO [facility] Last Admin: 01/28/19 21:45 Dose: 0.25 mg Prednisone (Deltasone -) 5 mg PO DAILY [facility] Last Admin: 01/29/19 10:30 Dose: 5 mg Senna (Senna -) 2 tab PO [facility] Last Admin: 01/28/19 21:45 Dose: 2 tab Thiamine HCl (Vitamin B1 Injection -) 250 mg IVPB TID [facility] Stop: 01/31/19 21:59 Last Admin: 01/29/19 10:33 Dose: Not Given - Objective Vital Signs: Vital Signs Temperature 97.9 F 01/29/19 06:20 Pulse Rate 64 01/29/19 06:20 Respiratory Rate 19 01/29/19 06:20 Blood Pressure 146/57 L 01/29/19 06:20 O2 Sat by Pulse Oximetry (%) 96 01/29/19 06:00 Constitutional: Yes: Calm Eyes: Yes: Conjunctiva Clear HENT: Yes: Atraumatic Neck: Yes: Supple Cardiovascular: Yes: S1, S2 Respiratory: Yes: CTA Bilaterally Gastrointestinal: Yes: Soft Genitourinary: Yes: WNL Musculoskeletal: Yes: WNL Edema: No Neurological: Yes: Oriented Psychiatric: Yes: Oriented Labs: CBC, BMP 01/28/19 07:45 01/29/19 06:55 Problem List - Problems (1) BELEN (acute kidney injury) Code(s): N17.9 - ACUTE KIDNEY FAILURE, UNSPECIFIED (2) Hyperlipidemia Code(s): E78.5 - HYPERLIPIDEMIA, UNSPECIFIED (3) Hyponatremia Code(s): E87.1 - HYPO-OSMOLALITY AND HYPONATREMIA Assessment/Plan Current Medications Generic Name Dose Route Start Last Admin Trade Name Freq PRN Reason Stop Dose Admin Acetaminophen 650 mg 01/27/19 17:38 07/17/19 04:32 Tylenol - PO 650 mg Q4H PRN Administration PAIN OR FEVER Amlodipine Besylate 2.5 mg 01/28/19 10:00 01/29/19 10:30 Norvasc - PO 2.5 mg DAILY NIRANJAN Administration Atorvastatin Calcium 10 mg 01/27/19 22:00 01/28/19 21:45 Lipitor - PO 10 mg HS NIRANJAN Administration Carbidopa/Levodopa 0.5 combo 01/29/19 06:00 01/29/19 06:00 Sinemet *Cr* 25/100 - PO 0.5 combo TID NIRANJAN Administration Cholecalciferol 2,000 unit 01/28/19 10:00 01/29/19 10:30 Vitamin D3 - PO 2,000 unit DAILY NIRANJAN Administration Docusate Sodium 100 mg 01/27/19 17:42 Colace - PO Q8H PRN CONSTIPATION Ferrous Sulfate 325 mg 01/28/19 10:00 01/29/19 10:30 Feosol - PO 325 mg DAILY NIRANJAN Administration Fluticasone Propionate 2 spray 01/28/19 10:00 01/29/19 10:50 Flonase - NS 2 sprays DAILY NIRANJAN Administration Gabapentin 300 mg 01/27/19 22:00 01/29/19 10:30 Neurontin - PO 300 mg BID NIRANJAN Administration Heparin Sodium (Porcine) 5,000 unit 01/27/19 22:00 01/29/19 10:33 Heparin - SQ Not Given TID NIRANJAN Ceftriaxone Sodium 1 gm/ 50 mls @ 100 mls/hr 01/28/19 10:00 01/29/19 10:30 Dextrose IVPB 100 mls/hr DAILY NIRANJAN Administration Protocol Sodium Chloride 1,000 mls @ 50 mls/hr 01/28/19 14:15 01/28/19 19:43 Normal Saline - IV 01/29/19 14:10 50 mls/hr ASDIR NIRANJAN Administration Lactobacillus Acidophilus 1 tab 01/28/19 10:00 01/29/19 10:34 Bacid - PO 1 tab DAILY NIRANJAN Administration Levothyroxine Sodium 50 mcg 01/28/19 07:00 01/29/19 10:34 Synthroid - PO 50 mcg AM NIRANJAN Administration Loratadine 10 mg 01/28/19 10:00 01/29/19 10:34 Claritin - PO 10 mg DAILY NIRANJAN Administration Metoprolol Succinate 25 mg 01/28/19 10:00 01/29/19 10:34 Toprol Xl - PO 25 mg DAILY [facility]ANJAN Administration Ondansetron HCl 4 mg 01/28/19 11:57 Zofran Injection IVPB Q6H PRN NAUSEA Polyethylene Glycol 17 gm 01/27/19 17:38 Miralax (For Daily Use) - PO DAILY PRN CONSTIPATION Pramipexole Dihydrochloride 0.25 mg 01/27/19 22:00 01/28/19 21:45 Mirapex - PO 0.25 mg HS NIRANJAN Administration Prednisone 5 mg 01/28/19 10:00 01/29/19 10:30 Deltasone - PO 5 mg DAILY NIRANJAN Administration Senna 2 tab 01/27/19 22:00 01/28/19 21:45 Senna - PO 2 tab HS NIRANJAN Administration Thiamine HCl 250 mg 01/28/19 22:00 01/29/19 10:33 Vitamin B1 Injection - IVPB 01/31/19 21:59 Not Given TID NIRANJAN Impression 1. hyponatremia 2. s/p fall 3. hypothyroidism 4. htn 5. UTI Plan - restart saline - do not restart chlorthalidone on discharge - po intake is starting to improve today - repeat labs in am - discussed plan with pt and
[2019-01-29] MEDS ORDERED: SODIUM CHLORIDE 1,000 ML IV SCH (12:45)
--- NOTE | 2019-01-29 15:59 | HOL ---
Hook-up date: 2019-01-28 14:16:00 Duration: 23:50:00 Test Indications: DIZZINESS Medications: 87369 QRS complexes * Ventricular ectopics which represent % of total QRS comp. 12 Supraventricular ectopics which represent <1 % of total QRS comp. * Paced QRS complexs which represent % of total QRS comp. 2 % of Time Classified as Noise VENTRICULAR ECTOPY * Isolated * Bigeminal Cycles * Couplets * Runs * Beats in Runs * Beats LONGEST at * BPM at :: -- * Beats FASTEST at * BPM at :: -- SUPRAVENTRICULAR ECTOPY 12 Isolated 0 Couplets 0 Runs 0 Beats in Runs * Beats LONGEST at * BPM at :: -- * Beats FASTEST at * BPM at :: -- HEART RATES 59 MIN at 02:57:05 2019-01-29 68 AVG 92 MAX at 08:51:42 2019-01-29 LONGEST RR 1.096 secs at 07:02:18 2019-01-29 Normal sinus rhythm 12 isolated apcs no vpcs Confirmed by PIERO GARCIA, MARIZA ([id number]) on 01/29/2019 3:58:16 PM Referred By: Wilbert VIDAL Overread By: MARIZA HARRY MD
--- NOTE | 2019-01-29 17:41 | DS ---
Physical Examination Vital Signs: Vital Signs Temperature 97.6 F 01/29/19 14:35 Pulse Rate 67 01/29/19 14:35 Respiratory Rate 19 01/29/19 14:00 Blood Pressure 128/59 L 01/29/19 14:35 O2 Sat by Pulse Oximetry (%) 96 01/29/19 14:00 Findings/Remarks: Patient is an 78 y/o female with past medical history of PVD, HTN, HLD, Hypothyroidism, RLE metatarsalfracture 2/2 fall, sciatica. Patient presented to ER for dizziness. Patient has been having a history of frequent falls recently and has been feeling dizziness prior to the falls. Patient states when getting up this morning she felt dizzy when getting out of bed. Dizziness was accompanied with nausea and vomiting. Constitutional: Yes: No Distress, Calm Eyes: Yes: Conjunctiva Clear HENT: Yes: Atraumatic Cardiovascular: Yes: Regular Rate and Rhythm Respiratory: Yes: Regular, CTA Bilaterally Gastrointestinal: Yes: Normal Bowel Sounds, Soft Musculoskeletal: Yes: Muscle Weakness Extremities: Yes: WNL Edema: No Wound/Incision: Yes: Other (abrasion L knee) Neurological: Yes: Alert, Oriented Psychiatric: Yes: Alert, Oriented Labs: CBC, BMP 01/28/19 07:45 01/29/19 06:55 Microbiology 01/28/19 06:00 Urine - Urine - Catheterized Urine Culture - Final NO GROWTH OBTAINED Discharge Summary Reason For Visit: ACUTE KIDNEY INJURY Current Active Problems BELEN (acute kidney injury) (Acute) Dizziness (Acute) Hyperlipidemia (Acute) Hyponatremia (Acute) Hypothyroidism (Acute) Prophylactic measure (Acute) Hospital Course: see progress notes Laboratory Tests 01/27/19 01/27/19 01/27/19 13:30 13:30 23:30 WBC 4.6 RBC 3.61 Hgb 11.5 Hct 34.3 MCV 94.9 MCH 32.0 MCHC 33.7 RDW 13.6 Plt Count 230 MPV 8.4 Absolute Neuts (auto) 2.6 Neutrophils % 56.5 Lymphocytes % 26.8 Monocytes % 9.0 Eosinophils % 7.1 H D Basophils % 0.6 Nucleated RBC % 0 Sodium 127 L Potassium 4.7 Chloride 95 L Carbon Dioxide 27 Anion Gap 5 L BUN 19.3 H Creatinine 1.5 H Est GFR (CKD-EPI)AfAm 37.74 Est GFR (CKD-EPI)NonAf 32.56 Random Glucose 89 Calcium 8.6 Phosphorus Magnesium Total Bilirubin 0.3 AST 19 ALT 19 Alkaline Phosphatase 78 Creatine Kinase 29 Troponin I < 0.02 B-Natriuretic Peptide Total Protein 5.9 L Albumin 3.1 L TSH PTH Intact Urine Color Yellow Urine Appearance Clear Urine pH 5.5 D Ur Specific Warren 1.018 Urine Protein Negative Urine Glucose (UA) Negative Urine Ketones Trace H Urine Blood Negative Urine Nitrite Negative Urine Bilirubin Negative Urine Urobilinogen 0.2 Ur Leukocyte Esterase 2+ H Urine WBC (Auto) 5 Urine RBC (Auto) 3 Urine Casts (Auto) 3 U Epithel Cells (Auto) 5.1 Urine Bacteria (Auto) 90.1 Urine Yeast (Auto) None Ur Random Sodium Ur Random Potassium Ur Random Chloride 01/27/19 01/28/19 01/28/19 23:30 07:45 07:45 WBC 5.1 RBC 3.34 L Hgb 10.7 Hct 31.7 L MCV 94.6 MCH 32.0 MCHC 33.9 RDW 13.6 Plt Count 198 MPV 7.9 Absolute Neuts (auto) Neutrophils % Lymphocytes % Monocytes % Eosinophils % Basophils % Nucleated RBC % Sodium 131 L Potassium 4.2 Chloride 98 Carbon Dioxide 25 Anion Gap 8 BUN 18.0 Creatinine 1.3 Est GFR (CKD-EPI)AfAm 44.87 Est GFR (CKD-EPI)NonAf 38.71 Random Glucose 82 Calcium 7.8 L Phosphorus 2.7 Magnesium 1.5 L Total Bilirubin 0.3 AST 19 ALT 18 Alkaline Phosphatase 74 Creatine Kinase Troponin I B-Natriuretic Peptide 284.2 Total Protein 5.6 L Albumin 2.8 L TSH 1.65 PTH Intact Urine Color Urine Appearance Urine pH Ur Specific Warren Urine Protein Urine Glucose (UA) Urine Ketones Urine Blood Urine Nitrite Urine Bilirubin Urine Urobilinogen Ur Leukocyte Esterase Urine WBC (Auto) Urine RBC (Auto) Urine Casts (Auto) U Epithel Cells (Auto) Urine Bacteria (Auto) Urine Yeast (Auto) Ur Random Sodium 138 Ur Random Potassium 34.0 Ur Random Chloride 142 01/28/19 01/29/19 11:00 06:55 WBC RBC Hgb Hct MCV MCH MCHC RDW Plt Count MPV Absolute Neuts (auto) Neutrophils % Lymphocytes % Monocytes % Eosinophils % Basophils % Nucleated RBC % Sodium 129 L Potassium 3.6 Chloride 99 Carbon Dioxide 24 Anion Gap 6 L BUN 13.1 Creatinine 1.1 Est GFR (CKD-EPI)AfAm 54.91 Est GFR (CKD-EPI)NonAf 47.38 Random Glucose 96 Calcium 7.7 L Phosphorus Magnesium Total Bilirubin 0.2 AST 16 ALT 6 L Alkaline Phosphatase 67 Creatine Kinase Troponin I B-Natriuretic Peptide Total Protein 5.1 L Albumin 2.7 L TSH PTH Intact 73 H Urine Color Urine Appearance Urine pH Ur Specific Warren Urine Protein Urine Glucose (UA) Urine Ketones Urine Blood Urine Nitrite Urine Bilirubin Urine Urobilinogen Ur Leukocyte Esterase Urine WBC (Auto) Urine RBC (Auto) Urine Casts (Auto) U Epithel Cells (Auto) Urine Bacteria (Auto) Urine Yeast (Auto) Ur Random Sodium Ur Random Potassium Ur Random Chloride Microbiology 01/28/19 06:00 Urine - Urine - Catheterized Urine Culture - Final NO GROWTH OBTAINED Active Medications Generic Name Dose Route Start Last Admin Trade Name Freq PRN Reason Stop Dose Admin Acetaminophen 650 mg 01/27/19 17:38 01/29/19 04:32 Tylenol - PO 650 mg Q4H PRN Administration PAIN OR FEVER Amlodipine Besylate 2.5 mg 01/28/19 10:00 01/29/19 10:30 Norvasc - PO 2.5 mg DAILY NIRANJAN Administration Atorvastatin Calcium 10 mg 01/27/19 22:00 01/28/19 21:45 Lipitor - PO 10 mg HS NIRANJAN Administration Carbidopa/Levodopa 0.5 combo 01/29/19 06:00 01/29/19 14:34 Sinemet *Cr* 25/100 - PO 0.5 combo TID NIRANJAN Administration Cholecalciferol 2,000 unit 01/28/19 10:00 01/29/19 10:30 Vitamin D3 - PO 2,000 unit DAILY NIRANJAN Administration Docusate Sodium 100 mg 01/27/19 17:42 Colace - PO Q8H PRN CONSTIPATION Ferrous Sulfate 325 mg 01/28/19 10:00 01/29/19 10:30 Feosol - PO 325 mg DAILY NIRANJAN Administration Fluticasone Propionate 2 spray 01/28/19 10:00 01/29/19 10:50 Flonase - NS 2 sprays DAILY NIRANJAN Administration Gabapentin 300 mg 01/27/19 22:00 01/29/19 10:30 Neurontin - PO 300 mg BID NIRANJAN Administration Heparin Sodium (Porcine) 5,000 unit 01/27/19 22:00 01/29/19 14:34 Heparin - SQ 5,000 unit TID NIRANJAN Administration Ceftriaxone Sodium 1 gm/ 50 mls @ 100 mls/hr 01/28/19 10:00 01/29/19 10:30 Dextrose IVPB 100 mls/hr DAILY NIRANJAN Administration Protocol Sodium Chloride 1,000 mls @ 65 mls/hr 01/29/19 12:45 01/29/19 14:33 Normal Saline - IV 65 mls/hr ASDIR NIRANJAN Administration Lactobacillus Acidophilus 1 tab 01/28/19 10:00 01/29/19 10:34 Bacid - PO 1 tab DAILY NIRANJAN Administration Levothyroxine Sodium 50 mcg 01/28/19 07:00 01/29/19 10:34 Synthroid - PO 50 mcg AM NIRANJAN Administration Loratadine 10 mg 01/28/19 10:00 01/29/19 10:34 Claritin - PO 10 mg DAILY NIRANJAN Administration Metoprolol Succinate 25 mg 01/28/19 10:00 01/29/19 10:34 Toprol Xl - PO 25 mg DAILY NIRANJAN Administration Ondansetron HCl 4 mg 01/28/19 11:57 Zofran Injection IVPB Q6H PRN NAUSEA Polyethylene Glycol 17 gm 01/27/19 17:38 Miralax (For Daily Use) - PO DAILY PRN CONSTIPATION Pramipexole Dihydrochloride 0.25 mg 01/27/19 22:00 01/28/19 21:45 Mirapex - PO 0.25 mg HS NIRANJAN Administration Prednisone 5 mg 01/28/19 10:00 01/29/19 10:30 Deltasone - PO 5 mg DAILY NIRANJAN Administration Senna 2 tab 01/27/19 22:00 01/28/19 21:45 Senna - PO 2 tab HS NIRANJAN Administration Thiamine HCl 250 mg 01/28/19 22:00 01/29/19 14:34 Vitamin B1 Injection - IVPB 01/31/19 21:59 250 mg TID NIRANJAN Administration Condition: Stable - Instructions Diet, Activity, Other Instructions: follow up with pmd follow up with Operations Analyst Dr Cardenas follow up with Dr Sawyer discontinue clorthalidone monitor Na level Mon and Sunday continue with medication as prescribed return to ER if develop severe pain, respiratory distress, chest pain, altered mental status Referrals: Sridhar Sawyer MD [Staff Physician] - Claudio Cardenas MD [Staff Physician] - Disposition: NURSING HOME FACILITY - Home Medications Comprehensive Discharge Medication List: Ambulatory Orders Levothyroxine [Synthroid -] 50 mcg PO DAILY 05/19/13 Cholecalciferol (Vitamin D3) [Vitamin D3] 2,000 unit PO DAILY 11/19/17 Prednisone 5 mg PO DAILY 11/19/17 Gabapentin [Neurontin -] 300 mg PO BID #60 capsule 11/21/17 Metoprolol Succinate 25 mg PO DAILY #30 tab.er.24h 11/21/17 Ferrous Sulfate 325 mg PO DAILY 12/11/18 Acetaminophen [Tylenol .Regular Strength -] 650 mg PO Q4H PRN tablet 12/13/18 Atorvastatin Ca [Lipitor] 10 mg PO HS tablet 12/13/18 Pramipexole Dihydrochloride [Mirapex -] 0.25 mg PO HS tablet 12/13/18 Fluticasone Prop 0.05% Nasal [Flonase -] 2 spray NS DAILY spray 12/16/18 Loratadine [Claritin -] 10 mg PO DAILY tablet 12/16/18 Lactobacillus Acidophilus [Acidophilus] 1 each PO DAILY 01/17/19 Phenazopyridine HCl 200 mg PO TID 01/17/19 Polyethylene Glycol 3350 17 gm PO DAILY PRN 01/17/19 traMADol HCL [Ultram -] 50 mg PO ONCE 01/17/19 Amlodipine Besylate [Norvasc -] 2.5 mg PO DAILY #14 tablet 01/21/19 Sulfamethoxazole/Trimethoprim [Bactrim Ds -] 1 tab PO BID 01/27/19 Carbidopa/Levodopa *Cr* 25/100 [Sinemet *Cr* 25/100 -] 0.5 combo PO TID tablet.er 01/29/19 Docusate Sodium [Colace -] 100 mg PO Q8H PRN capsule 01/29/19 Sennosides [Senna -] 2 tab PO HS tablet 01/29/19
[2019-01-29] MEDS: ATORVASTATIN CA 10 MG TABLET (FP) PO SCH (21:17)
[2019-01-29] MEDS: SENNOSIDES 8.6MG TABLET (FP) PO SCH (21:17)
[2019-01-29] MEDS: PRAMIPEXOLE DIHYDROCHLORIDE 0.25 MG TABLET PO SCH (21:17)
[2019-01-30] MEDS: HEPARIN NA (PORCINE) 5,000 UNITS/ML 1ML VIAL SQ SCH ×2 (05:46→14:39)
[2019-01-30] MEDS: THIAMINE HCL 200 MG/2 ML VIAL IVPB SCH ×2 (05:47→14:37)
[2019-01-30] MEDS: LEVOTHYROXINE NA 50 MCG TABLET (FP) PO SCH (06:09)
[2019-01-30 08:19] LABS: HEMATOCRIT 30.2 % (32.4-45.2); HEMOGLOBIN 10.3 GM/dL (10.7-15.3); MCH 31.9 pg (25.7-33.7); MCHC 34.2 g/dl (32.0-36.0); MEAN CELL VOLUME 93.5 fl (80-96); RBC 3.23 M/mm3 (3.60-5.2); RDW 13.2 % (11.6-15.6); WHITE BLOOD COUNT 4.8 K/mm3 (4.0-10.0)
[2019-01-30 08:23] LABS: ALBUMIN 2.7 g/dl (3.4-5.0); ALK PHOS 68 U/L (45-117); ANION GAP 8 MMOL/L (8-16); BILIRUBIN,TOTAL 0.2 mg/dL (0.2-1); CALCIUM 7.6 mg/dL (8.5-10.1); CHLORIDE 103 mmol/L (98-107); CO2 23 mmol/L (21-32); CREATININE 0.9 mg/dL (0.55-1.3); GLUCOSE,RANDOM 85 mg/dL (74-106); POTASSIUM 3.8 mmol/L (3.5-5.1); SGOT/AST 11 U/L (15-37); SGPT/ALT < 6 U/L (13-61); SODIUM 134 mmol/L (136-145); TOT PROT 5.3 g/dl (6.4-8.2)
[2019-01-30 09:05] LABS: PLATELET COUNT 198 K/MM3 (134-434)
--- NOTE | 2019-01-30 10:09 | PN ---
Progress Note (short form) - Note Progress Note: NEUROLOGY PROGRESS: Events reviewed and discussed. at bedside. Nephrology consult read and appreciated. Pt started on Sinemet 12.5/50 TID with meals, with brief period of nausea since resolved. Remains on IV antibiotics empirically for UTI. Sleeping well without awakenings from pain in the legs. Pending D/C back to [place]. Ew=586 -> 134 (now off chlorathiadone) HERNÁN: supine 150/80, sitting 140/60. NEURO: Awake, alert, responsive. Ox x 3. Motor: No rest tremor. + Cogwheeling with reinforcement. Decreased CLAUS's B/L. Coordination: No FTN dystaxia. Sensation: Reduced vibration to ankles. Romberg + Gait: Improved ability to raise from chair without assist. Improved stride length. 2 steps to correct retropulsion. 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 Suggest: Continue Sinemet CR 25/100 take 0.5 tab po TID with meals x 3 days, then increase to 1 tab po TID with meals Continue pramipexole 0.25 mg HS and gabapentin 300 mg q12H for RLS Continue orthostatic BP's at OR PT with walker for gait safety Neuro f/u as out patient for continued Rx of PD Thank you very much,
[2019-01-30] MEDS ORDERED: cefTRIAXone SODIUM 1 GM VIAL ONE ×2 (10:34→10:36)
[2019-01-30] MEDS ORDERED: DEXTROSE 5%-WATER - 50 ML IVPB ONE (10:34)
[2019-01-30] MEDS: CEFTRIAXONE 1 GM in DEXTROSE 5%-WATER - 50 ML IVPB SCH (10:41)
[2019-01-30] MEDS: metoPROLOL SUCCINATE 25 MG TAB.SR.24H (FP) PO SCH (10:42)
[2019-01-30] MEDS: FERROUS SO4 325 MG TABLET (FP) PO SCH (10:42)
[2019-01-30] MEDS: LORATADINE 10 MG TABLET PO SCH (10:42)
[2019-01-30] MEDS: LACTOBACILLUS ACIDOPHILUS 1 TABLET PO SCH (10:42)
[2019-01-30] MEDS: GABAPENTIN 300 MG CAPSULE (FP) PO SCH (10:42)
[2019-01-30] MEDS: amLODIPine BESYLATE 5 MG TABLET (FP) PO SCH (10:42)
[2019-01-30] MEDS: predniSONE 5 MG TABLET (UD) PO SCH (10:42)
[2019-01-30] MEDS: CHOLECALCIFEROL (VIT D3) 1,000 UNIT (25 MCG) TABLET PO SCH (10:42)
[2019-01-30] MEDS: FLUTICASONE PROP 0.05% 16 GM NASAL SPRAY NS SCH (10:46)
--- NOTE | 2019-01-30 13:44 | PN ---
Progress Note, Physician Chief Complaint: Dizziness Frequent Falls Hyponatremia History of Present Illness: Previous notes and events reviewed awake and alert NAD patient is being discharged today walks over 200ft so not eligible for SNF will go home with [facility] - Current Medication List Current Medications: Active Medications Acetaminophen (Tylenol -) 650 mg PO Q4H PRN PRN Reason: PAIN OR FEVER Last Admin: 01/29/19 04:32 Dose: 650 mg Amlodipine Besylate (Norvasc -) 2.5 mg PO DAILY [facility] Last Admin: 01/30/19 10:42 Dose: 2.5 mg Atorvastatin Calcium (Lipitor -) 10 mg PO HS [facility] Last Admin: 01/29/19 21:17 Dose: 10 mg Carbidopa/Levodopa (Sinemet *Cr* 25/100 -) 0.5 combo PO TID [facility] Last Admin: 01/30/19 05:46 Dose: 0.5 combo Cholecalciferol (Vitamin D3 -) 2,000 unit PO DAILY NIRANJAN Last Admin: 01/30/19 10:42 Dose: 2,000 unit Docusate Sodium (Colace -) 100 mg PO Q8H PRN PRN Reason: CONSTIPATION Ferrous Sulfate (Feosol -) 325 mg PO DAILY [facility] Last Admin: 01/30/19 10:42 Dose: 325 mg Fluticasone Propionate (Flonase -) 2 spray NS DAILY [facility] Last Admin: 01/30/19 10:46 Dose: 2 sprays Gabapentin (Neurontin -) 300 mg PO BID NIRANJAN Last Admin: 01/30/19 10:42 Dose: 300 mg Heparin Sodium (Porcine) (Heparin -) 5,000 unit SQ TID NIRANJAN Last Admin: 01/30/19 05:46 Dose: 5,000 unit Ceftriaxone Sodium 1 gm/ (Dextrose) 50 mls @ 100 mls/hr IVPB DAILY NIRANJAN; Protocol Last Admin: 01/30/19 10:41 Dose: 100 mls/hr Sodium Chloride (Normal Saline -) 1,000 mls @ 65 mls/hr IV ASDIR NIRANJAN Last Admin: 01/29/19 14:33 Dose: 65 mls/hr Lactobacillus Acidophilus (Bacid -) 1 tab PO DAILY NIRANJAN Last Admin: 01/30/19 10:42 Dose: 1 tab Levothyroxine Sodium (Synthroid -) 50 mcg PO AM NIRANJAN Last Admin: 01/30/19 06:09 Dose: 50 mcg Loratadine (Claritin -) 10 mg PO DAILY [facility] Last Admin: 01/30/19 10:42 Dose: 10 mg Metoprolol Succinate (Toprol Xl -) 25 mg PO DAILY [facility] Last Admin: 01/30/19 10:42 Dose: 25 mg Ondansetron HCl (Zofran Injection) 4 mg IVPB Q6H PRN PRN Reason: NAUSEA Polyethylene Glycol (Miralax (For Daily Use) -) 17 gm PO DAILY PRN PRN Reason: CONSTIPATION Pramipexole Dihydrochloride (Mirapex -) 0.[address] [facility] Last Admin: 01/29/19 21:17 Dose: 0.25 mg Prednisone (Deltasone -) 5 mg PO DAILY [facility] Last Admin: 01/30/19 10:42 Dose: 5 mg Senna (Senna -) [address] [facility] Last Admin: 01/29/19 21:17 Dose: 2 tab Thiamine HCl (Vitamin B1 Injection -) 250 mg IVPB TID [facility] Stop: 01/31/19 21:59 Last Admin: 01/30/19 05:47 Dose: 250 mg - Objective Vital Signs: Vital Signs Temperature 97.6 F 01/30/19 09:00 Pulse Rate 68 01/30/19 09:00 Respiratory Rate 19 01/30/19 09:00 Blood Pressure 132/69 01/30/19 09:00 O2 Sat by Pulse Oximetry (%) 96 01/30/19 09:00 Constitutional: Yes: No Distress, Calm Eyes: Yes: Conjunctiva Clear HENT: Yes: Atraumatic Cardiovascular: Yes: Regular Rate and Rhythm Respiratory: Yes: Regular, CTA Bilaterally Gastrointestinal: Yes: Normal Bowel Sounds, Soft Musculoskeletal: Yes: Muscle Weakness Extremities: Yes: WNL Edema: No Integumentary: Yes: Other (abrasion L knee) Neurological: Yes: Alert, Oriented Psychiatric: Yes: Alert, Oriented Labs: CBC, BMP 01/30/19 07:08 01/30/19 07:08 Microbiology 01/29/19 09:10 Stool Salmonella/Shigella Culture - Preliminary NO ENTERIC PATHOGENS, 24 HOURS, ON PRIMARY PLATES 01/29/19 09:10 Stool Yersinia Culture - Preliminary NO ENTERIC PATHOGENS, 24 HOURS, ON PRIMARY PLATES 01/29/19 09:10 Stool Vibrio Culture - Final NO GROWTH OF VIBRIO SPECIES OBTAINED 01/29/19 09:10 Stool Escherichia coli 0157 Culture - Final NO GROWTH OF E COLI 0157 OBTAINED 01/28/19 06:00 Urine - Urine - Catheterized Urine Culture - Final NO GROWTH OBTAINED Problem List - Problems (1) BELEN (acute kidney injury) Code(s): N17.9 - ACUTE KIDNEY FAILURE, UNSPECIFIED (2) Dizziness Code(s): R42 - DIZZINESS AND GIDDINESS (3) Hyperlipidemia Code(s): E78.5 - HYPERLIPIDEMIA, UNSPECIFIED (4) Hyponatremia Code(s): E87.1 - HYPO-OSMOLALITY AND HYPONATREMIA (5) Hypothyroidism Code(s): E03.9 - HYPOTHYROIDISM, UNSPECIFIED Assessment/Plan discharged home with [facility] home care services
[2019-01-30 14:09] VITALS: BP 133/76; PULSE 69; TEMP 97.4
--- NOTE | 2019-01-30 15:16 | PN ---
Progress Note, Physician History of Present Illness: Pt seen and examined at bedside. She is awake and alert. She has no complaints. She was on chlorthalidone at home. - Current Medication List Current Medications: Active Medications Acetaminophen (Tylenol -) 650 mg PO Q4H PRN PRN Reason: PAIN OR FEVER Last Admin: 01/29/19 04:32 Dose: 650 mg Amlodipine Besylate (Norvasc -) 2.5 mg PO DAILY [facility] Last Admin: 01/30/19 10:42 Dose: 2.5 mg Atorvastatin Calcium (Lipitor -) 10 mg PO HS [facility] Last Admin: 01/29/19 21:17 Dose: 10 mg Carbidopa/Levodopa (Sinemet *Cr* 25/100 -) 0.5 combo PO TID [facility] Last Admin: 01/30/19 14:35 Dose: 0.5 combo Cholecalciferol (Vitamin D3 -) 2,000 unit PO DAILY [facility] Last Admin: 01/30/19 10:42 Dose: 2,000 unit Docusate Sodium (Colace -) 100 mg PO Q8H PRN PRN Reason: CONSTIPATION Ferrous Sulfate (Feosol -) 325 mg PO DAILY [facility] Last Admin: 01/30/19 10:42 Dose: 325 mg Fluticasone Propionate (Flonase -) 2 spray NS DAILY [facility] Last Admin: 01/30/19 10:46 Dose: 2 sprays Gabapentin (Neurontin -) 300 mg PO BID [facility] Last Admin: 01/30/19 10:42 Dose: 300 mg Heparin Sodium (Porcine) (Heparin -) 5,000 unit SQ TID [facility] Last Admin: 01/30/19 14:39 Dose: 5,000 unit Ceftriaxone Sodium 1 gm/ (Dextrose) 50 mls @ 100 mls/hr IVPB DAILY [facility]; Protocol Last Admin: 01/30/19 10:41 Dose: 100 mls/hr Sodium Chloride (Normal Saline -) 1,000 mls @ 65 mls/hr IV ASDIR [facility] Last Admin: 01/29/19 14:33 Dose: 65 mls/hr Lactobacillus Acidophilus (Bacid -) 1 tab PO DAILY [facility] Last Admin: 01/30/19 10:42 Dose: 1 tab Levothyroxine Sodium (Synthroid -) 50 mcg PO AM [facility] Last Admin: 01/30/19 06:09 Dose: 50 mcg Loratadine (Claritin -) 10 mg PO DAILY [facility] Last Admin: 01/30/19 10:42 Dose: 10 mg Metoprolol Succinate (Toprol Xl -) 25 mg PO DAILY [facility] Last Admin: 01/30/19 10:42 Dose: 25 mg Ondansetron HCl (Zofran Injection) 4 mg IVPB Q6H PRN PRN Reason: NAUSEA Polyethylene Glycol (Miralax (For Daily Use) -) 17 gm PO DAILY PRN PRN Reason: CONSTIPATION Pramipexole Dihydrochloride (Mirapex -) 0.25 mg PO HS [facility] Last Admin: 01/29/19 21:17 Dose: 0.25 mg Prednisone (Deltasone -) 5 mg PO DAILY [facility] Last Admin: 01/30/19 10:42 Dose: 5 mg Senna (Senna -) 2 tab PO [facility] Last Admin: 01/29/19 21:17 Dose: 2 tab Thiamine HCl (Vitamin B1 Injection -) 250 mg IVPB TID [facility] Stop: 01/31/19 21:59 Last Admin: 01/30/19 14:37 Dose: 250 mg - Objective Vital Signs: Vital Signs Temperature 97.4 F L 01/30/19 14:07 Pulse Rate 69 01/30/19 14:07 Respiratory Rate 18 01/30/19 14:07 Blood Pressure 133/76 01/30/19 14:07 O2 Sat by Pulse Oximetry (%) 96 01/30/19 09:00 Constitutional: Yes: Calm Eyes: Yes: Conjunctiva Clear HENT: Yes: Atraumatic Neck: Yes: Supple Cardiovascular: Yes: S1, S2 Respiratory: Yes: CTA Bilaterally Gastrointestinal: Yes: Normal Bowel Sounds, Soft Genitourinary: Yes: WNL Musculoskeletal: Yes: WNL Edema: No Integumentary: Yes: WNL Neurological: Yes: Oriented Psychiatric: Yes: Oriented Labs: CBC, BMP 01/30/19 07:08 01/30/19 07:08 Problem List - Problems (1) BELEN (acute kidney injury) Code(s): N17.9 - ACUTE KIDNEY FAILURE, UNSPECIFIED (2) Hyperlipidemia Code(s): E78.5 - HYPERLIPIDEMIA, UNSPECIFIED (3) Hyponatremia Code(s): E87.1 - HYPO-OSMOLALITY AND HYPONATREMIA Assessment/Plan Current Medications Generic Name Dose Route Start Last Admin Trade Name Freq PRN Reason Stop Dose Admin Acetaminophen 650 mg 01/27/19 17:38 01/29/19 04:32 Tylenol - PO 650 mg Q4H PRN Administration PAIN OR FEVER Amlodipine Besylate 2.5 mg 01/28/19 10:00 01/30/19 10:42 Norvasc - PO 2.5 mg DAILY [facility]JAN Administration Atorvastatin Calcium 10 mg 01/27/19 22:00 01/29/19 21:17 Lipitor - PO 10 mg HS [facility]ANJAN Administration Carbidopa/Levodopa 0.5 combo 01/29/19 06:00 01/30/19 14:35 Sinemet *Cr* 25/100 - PO 0.5 combo TID [facility]JAN Administration Cholecalciferol 2,000 unit 01/28/19 10:00 01/30/19 10:42 Vitamin D3 - PO 2,000 unit DAILY [facility] Administration Docusate Sodium 100 mg 01/27/19 17:42 Colace - PO Q8H PRN CONSTIPATION Ferrous Sulfate 325 mg 01/28/19 10:00 01/30/19 10:42 Feosol - PO 325 mg DAILY [facility] Administration Fluticasone Propionate 2 spray 01/28/19 10:00 01/30/19 10:46 Flonase - NS 2 sprays DAILY [facility] Administration Gabapentin 300 mg 01/27/19 22:00 01/30/19 10:42 Neurontin - PO 300 mg BID [facility] Administration Heparin Sodium (Porcine) 5,000 unit 01/27/19 22:00 01/30/19 14:39 Heparin - SQ 5,000 unit TID [facility] Administration Ceftriaxone Sodium 1 gm/ 50 mls @ 100 mls/hr 01/28/19 10:00 01/30/19 10:41 Dextrose IVPB 100 mls/hr DAILY [facility] Administration Protocol Sodium Chloride 1,000 mls @ 65 mls/hr 01/29/19 12:45 01/29/19 14:33 Normal Saline - IV 65 mls/hr ASDIR [facility] Administration Lactobacillus Acidophilus 1 tab 01/28/19 10:00 01/30/19 10:42 Bacid - PO 1 tab DAILY [facility] Administration Levothyroxine Sodium 50 mcg 01/28/19 07:00 01/30/19 06:09 Synthroid - PO 50 mcg AM [facility] Administration Loratadine 10 mg 01/28/19 10:00 01/30/19 10:42 Claritin - PO 10 mg DAILY [facility] Administration Metoprolol Succinate 25 mg 01/28/19 10:00 01/30/19 10:42 Toprol Xl - PO 25 mg DAILY [facility] Administration Ondansetron HCl 4 mg 01/28/19 11:57 Zofran Injection IVPB Q6H PRN NAUSEA Polyethylene Glycol 17 gm 01/27/19 17:38 Miralax (For Daily Use) - PO DAILY PRN CONSTIPATION Pramipexole Dihydrochloride 0.25 mg 01/27/19 22:00 01/29/19 21:17 Mirapex - PO 0.25 mg HS [facility] Administration Prednisone 5 mg 01/28/19 10:00 01/30/19 10:42 Deltasone - PO 5 mg DAILY [facility] Administration Senna 2 tab 01/27/19 22:00 01/29/19 21:17 Senna - PO 2 tab HS [facility] Administration Thiamine HCl 250 mg 01/28/19 22:00 01/30/19 14:37 Vitamin B1 Injection - IVPB 01/31/19 21:59 250 mg TID [facility] Administration Impression 1. hyponatremia 2. s/p fall 3. hypothyroidism 4. htn 5. UTI Plan - sodium is improving - called me with meds, she was on chlorthalidone at home - do not restart chlorthalidone - PO intake is improved
== END 2019-01-30 16:40 | disposition home health service (06) ==
LOC: JER 08:28 → JERBED 17:40 → INTOOBSV 17:40 → UNDOADMOB 17:40 → JERBED 17:42 → J6S 01-28 00:44 → JERBED 01-28 00:44 → J6S 01-28 00:44
PROVIDERS: ADMIT Family Medicine; ATTEND Family Medicine
PROC: 3E03329 Introduction of Other Anti-infective into Peripheral Vein, Percutaneous Approach (ICD-10-PCS; principal; 2019-01-27)
PROC: 3E0337Z Introduction of Electrolytic and Water Balance Substance into Peripheral Vein, Percutaneous Approach (ICD-10-PCS; 2019-01-27)
PROC: 3E033GC Introduction of Other Therapeutic Substance into Peripheral Vein, Percutaneous Approach (ICD-10-PCS; 2019-01-27)
PROC: 3E013GC Introduction of Other Therapeutic Substance into Subcutaneous Tissue, Percutaneous Approach (ICD-10-PCS; 2019-01-27)
DX: N17.9 Acute kidney failure, unspecified (principal); E87.1 Hypo-osmolality and hyponatremia; R42 Dizziness and giddiness; I10 Essential (primary) hypertension; E78.5 Hyperlipidemia, unspecified; E03.9 Hypothyroidism, unspecified; M51.26 Other intervertebral disc displacement, lumbar region; Z29.9 Encounter for prophylactic measures, unspecified; M06.9 Rheumatoid arthritis, unspecified; J32.9 Chronic sinusitis, unspecified; R06.03 Acute respiratory distress; N39.0 Urinary tract infection, site not specified; G25.81 Restless legs syndrome; G93.9 Disorder of brain, unspecified; M48.07 Spinal stenosis, lumbosacral region; G20 Parkinson's disease; R26.89 Other abnormalities of gait and mobility
CPT/HCPCS: 36415; 71045-TC-FY; 80053; 81003; 82436; 82550; 83735; 83880; 83970; 84100; 84133; 84300; 84443; 84484; 85025; 85027; 87045; 87046; 87086; 93005; 93010; 93225; 93226; 93880-TC; 97116-GP; 97161-GP; 99283-25; G0378; J1644; J7030

== ENCOUNTER 2022-11-28 04:12 | Day surgery (SDC) | payer OTHER, BC ==
[2022-11-24 11:55] VITALS: BMI 21.9
[2022-11-28 09:27] VITALS: TEMP 97.8
[2022-11-28 16:31] VITALS: BP 156/72; PULSE 67; RESP 12
== END 2022-11-28 13:00 | disposition home or self-care (01) ==
LOC: JASU-ENDO 04:12
PROVIDERS: ATTEND Internal Medicine Gastroenterology
PROC: 0DB38ZX Excision of Lower Esophagus, Via Natural or Artificial Opening Endoscopic, Diagnostic (ICD-10-PCS; 2022-11-28)
PROC: 0DB78ZX Excision of Stomach, Pylorus, Via Natural or Artificial Opening Endoscopic, Diagnostic (ICD-10-PCS; 2022-11-28)
PROC: 0DB68ZX Excision of Stomach, Via Natural or Artificial Opening Endoscopic, Diagnostic (ICD-10-PCS; 2022-11-28)
PROC: 0DBH8ZX Excision of Cecum, Via Natural or Artificial Opening Endoscopic, Diagnostic (ICD-10-PCS; principal; 2022-11-28 10:30)
DX: Z12.11 Encounter for screening for malignant neoplasm of colon (principal); D12.0 Benign neoplasm of cecum; D13.0 Benign neoplasm of esophagus; K29.50 Unspecified chronic gastritis without bleeding; K22.2 Esophageal obstruction; K64.8 Other hemorrhoids; Z80.0 Family history of malignant neoplasm of digestive organs
CPT/HCPCS: 88305-TC; 88342-TC

== ENCOUNTER 2023-08-24 11:09 | Inpatient (IN) | payer OTHER, BC ==
[2023-08-24 13:15] LABS: BASO % 0.8 % (0-2.0); EOS % 0.7 % (0-4.5); HEMATOCRIT 36.6 % (32.4-45.2); HEMOGLOBIN 12.4 GM/dL (10.7-15.3); MCH 31.9 pg (25.7-33.7); MCHC 33.7 g/dl (32.0-36.0); MEAN CELL VOLUME 94.7 fl (80-96); MEAN PLT VOLUME 9.3 fl (7.5-11.1); MONO % 7.1 % (3.8-10.2); NEUT % 80.4 % (42.8-82.8); PLATELET COUNT 220 10^3/uL (134-434); RBC 3.87 M/mm3 (3.60-5.2); RDW 14.9 % (11.6-15.6); WHITE BLOOD COUNT 11.9 K/mm3 (4.0-10.0)
[2023-08-24] MEDS: ACETAMINOPHEN 1000 MG/100 ML BAG IVPB ONE (13:30)
[2023-08-24 13:31] LABS: POTASSIUM 4.2 mmol/L (3.5-5.1)
[2023-08-24] MEDS ORDERED: ACETAMINOPHEN INJECTION 100 ML IVPB ONE (13:34)
[2023-08-24 13:35] LABS: ALBUMIN 3.2 g/dl (3.4-5.0); BLOOD UREA NITROGEN 27.7 mg/dL (7-18); CALCIUM 8.3 mg/dL (8.5-10.1)
[2023-08-24 13:37] LABS: CREATININE 0.8 mg/dL (0.55-1.3)
[2023-08-24 13:39] LABS: BILIRUBIN,TOTAL 0.6 mg/dL (0.2-1); TOT PROT 6.7 g/dl (6.4-8.2)
[2023-08-24 14:17] LABS: EPI CELLS >36 /uL (0-25.1); HYALINE CASTS 1 /uL (0-3.1); URINE APPEARANCE CLEAR; URINE BACTERIA 57 /uL (0-1359); URINE BILIRUBIN NEGATIVE (NEGATIVE); URINE COLOR DK YELLOW; URINE GLUCOSE (UA) NEGATIVE (NEGATIVE); URINE KETONE 1+ (NEGATIVE); URINE LEUK ESTERASE TRACE (NEGATIVE); URINE NITRITE NEGATIVE (NEGATIVE); URINE PROTEIN TRACE (NEGATIVE); URINE RBC 22 /uL (0-23.9); URINE WBC 38 /uL (0-25.8)
[2023-08-24] MEDS ORDERED: PIPERACILLIN/TAZOB 4.5 GM 4.5 GM/100 ML BAG IVPB ONE (15:16)
[2023-08-24] MEDS: SODIUM CHLORIDE 0.9% 500 ML INFUS.BAG IV ONE (15:25)
[2023-08-24] MEDS: PIPERACILLIN/TAZOB 4.5 GM 4.5 GM in DEXTROSE 5%-WATER 100 ML IVPB ONE (15:25)
[2023-08-24] MEDS ORDERED: KETOROLAC TROMETHAMINE 15 MG/ML VIAL ONE (15:27)
[2023-08-24] MEDS: KETOROLAC TROMETHAMINE 15 MG/ML VIAL IVPUSH ONE (15:37)
[2023-08-24] MEDS: LACTATED RINGERS SOLUTION 1,000 ML/1,000 ML INFUS.BAG IV SCH (17:47)
[2023-08-24] MEDS ORDERED: PIPERACILLIN/TAZOB 3.375 GM 3.375 GM/50 ML BAG IVPB ONE (17:53)
[2023-08-24 18:15] VITALS: BMI 19.3
[2023-08-24] MEDS ORDERED: PIPERACILLIN/TAZOB 4.5 GM 4.5 GM in DEXTROSE 5%-WATER 100 ML IVPB SCH (21:00)
[2023-08-24] MEDS: PRAMIPEXOLE DIHYDROCHLORIDE 0.25 MG TABLET PO SCH (23:58)
[2023-08-25] MEDS: PIPERACILLIN/TAZOB 3.375 GM 3.375 GM in DEXTROSE 5%-WATER - 50 ML IVPB SCH ×2 (02:47→18:38)
[2023-08-25] MEDS ORDERED: ONDANSETRON 4 MG/2 ML VIAL IVPUSH ONE (03:06)
[2023-08-25] MEDS: LEVOTHYROXINE NA 50 MCG TABLET (FP) PO SCH (07:23)
[2023-08-25] MEDS: ONDANSETRON 4 MG/2 ML VIAL IVPUSH ONE (07:23)
[2023-08-25 09:25] LABS: BASO % 0.7 % (0-2.0); EOS % 1.2 % (0-4.5); HEMATOCRIT 31.8 % (32.4-45.2); HEMOGLOBIN 10.4 GM/dL (10.7-15.3); LYMPH % 12.4 % (8-40); MCH 31.6 pg (25.7-33.7); MCHC 32.8 g/dl (32.0-36.0); MEAN CELL VOLUME 96.2 fl (80-96); MEAN PLT VOLUME 8.5 fl (7.5-11.1); MONO % 8.9 % (3.8-10.2); NEUT % 76.8 % (42.8-82.8); PLATELET COUNT 191 10^3/uL (134-434); RDW 14.6 % (11.6-15.6); WHITE BLOOD COUNT 8.9 K/mm3 (4.0-10.0)
[2023-08-25 09:41] LABS: CHLORIDE 110 mmol/L (98-107); POTASSIUM 3.9 mmol/L (3.5-5.1); SODIUM 140 mmol/L (136-145)
[2023-08-25 09:45] LABS: ALBUMIN 2.6 g/dl (3.4-5.0); BLOOD UREA NITROGEN 23.4 mg/dL (7-18)
[2023-08-25 09:46] LABS: ANION GAP 11 mmol/L (4-13); CALCIUM 7.3 mg/dL (8.5-10.1); CO2 18 mmol/L (21-32)
[2023-08-25 09:47] LABS: SGPT/ALT < 6 U/L (13-61)
[2023-08-25 09:48] LABS: CREATININE 0.8 mg/dL (0.55-1.3); SGOT/AST 11 U/L (15-37)
[2023-08-25 09:49] LABS: BILIRUBIN,TOTAL 0.7 mg/dL (0.2-1); TOT PROT 5.5 g/dl (6.4-8.2)
[2023-08-25 09:50] LABS: ALK PHOS 79 U/L (45-117)
[2023-08-25 09:58] LABS: GLUCOSE,RANDOM 45 mg/dL (74-106)
[2023-08-25] MEDS ORDERED: predniSONE 1 MG TABLET (FP) PO SCH (10:00)
[2023-08-25] MEDS: amLODIPine BESYLATE 5 MG TABLET (FP) PO SCH (11:00)
[2023-08-25] MEDS: metoPROLOL SUCCINATE 25 MG TAB.SR.24H (FP) PO SCH (11:00)
[2023-08-25] MEDS: ACETAMINOPHEN 1000 MG/100 ML BAG IVPB PRN (15:24)
[2023-08-26] MEDS: ONDANSETRON 4 MG/2 ML VIAL IVPUSH ONE (03:00)
[2023-08-26] MEDS: ACETAMINOPHEN 500 MG TABLET (FP) PO ONE (05:31)
[2023-08-26 09:05] LABS: BASO % 0.6 % (0-2.0); EOS % 1.7 % (0-4.5); HEMATOCRIT 29.7 % (32.4-45.2); HEMOGLOBIN 9.8 GM/dL (10.7-15.3); LYMPH % 11.5 % (8-40); MCH 31.3 pg (25.7-33.7); MEAN CELL VOLUME 95.1 fl (80-96); MEAN PLT VOLUME 8.6 fl (7.5-11.1); MONO % 10.8 % (3.8-10.2); NEUT % 75.4 % (42.8-82.8); PLATELET COUNT 176 10^3/uL (134-434); RBC 3.13 M/mm3 (3.60-5.2); RDW 14.4 % (11.6-15.6); WHITE BLOOD COUNT 6.9 K/mm3 (4.0-10.0)
[2023-08-26 09:18] LABS: CHLORIDE 110 mmol/L (98-107); POTASSIUM 3.9 mmol/L (3.5-5.1); SODIUM 140 mmol/L (136-145)
[2023-08-26 09:21] LABS: ALBUMIN 2.2 g/dl (3.4-5.0); ANION GAP 8 mmol/L (4-13); CALCIUM 7.5 mg/dL (8.5-10.1); CO2 22 mmol/L (21-32); GLUCOSE,RANDOM 78 mg/dL (74-106)
[2023-08-26 09:22] LABS: BLOOD UREA NITROGEN 17.6 mg/dL (7-18)
[2023-08-26 09:24] LABS: CREATININE 0.7 mg/dL (0.55-1.3)
[2023-08-26 09:26] LABS: BILIRUBIN,TOTAL 0.5 mg/dL (0.2-1); TOT PROT 5.2 g/dl (6.4-8.2)
[2023-08-26 09:27] LABS: ALK PHOS 67 U/L (45-117); SGOT/AST 15 U/L (15-37)
[2023-08-26 09:42] LABS: SGPT/ALT < 6 U/L (13-61)
[2023-08-26] MEDS: ACETAMINOPHEN 1000 MG/100 ML BAG IVPB PRN (16:45)
[2023-08-26] MEDS: MELATONIN 5 MG TABLETS PO ONE (23:03)
[2023-08-27] MEDS ORDERED: PIPERACILLIN/TAZOBACTAM 3.375 GM VIAL IVPB ONE (01:43)
[2023-08-27] MEDS: HEPARIN NA (PORCINE) 5,000 UNITS/ML 1ML VIAL SQ SCH (10:24)
[2023-08-28 08:47] LABS: BASO % 0.9 % (0-2.0); EOS % 2.8 % (0-4.5); HEMOGLOBIN 10.8 GM/dL (10.7-15.3); LYMPH % 16.4 % (8-40); MCH 30.9 pg (25.7-33.7); MCHC 32.6 g/dl (32.0-36.0); MEAN CELL VOLUME 94.5 fl (80-96); MEAN PLT VOLUME 8.8 fl (7.5-11.1); MONO % 8.5 % (3.8-10.2); NEUT % 71.4 % (42.8-82.8); PLATELET COUNT 228 10^3/uL (134-434); RBC 3.49 M/mm3 (3.60-5.2); RDW 14.3 % (11.6-15.6); WHITE BLOOD COUNT 6.1 K/mm3 (4.0-10.0)
[2023-08-28 09:02] LABS: POTASSIUM 3.5 mmol/L (3.5-5.1)
[2023-08-28 09:06] LABS: CALCIUM 7.9 mg/dL (8.5-10.1)
[2023-08-28 09:07] LABS: BLOOD UREA NITROGEN 9.3 mg/dL (7-18); MAGNESIUM 1.4 mg/dL (1.8-2.4)
[2023-08-28 09:10] LABS: CREATININE 0.6 mg/dL (0.55-1.3); PHOSPHOROUS 1.8 mg/dL (2.5-4.9)
[2023-08-28] MEDS: metroNIDAZOLE 250 MG TABLET PO SCH (13:11)
[2023-08-28] MEDS: BANATROL PLUS POWDER PACKET PO SCH (13:12)
[2023-08-28] MEDS: MAGNESIUM 1GM/D5W - 1 GM/100 ML IVPB IVPB ONE (14:43)
[2023-08-28] MEDS: MAGNESIUM OXIDE 400 MG TABLET (FP) PO SCH (22:08)
[2023-08-29 09:59] LABS: BASO % 0.8 % (0-2.0); EOS % 4.2 % (0-4.5); HEMATOCRIT 32.7 % (32.4-45.2); HEMOGLOBIN 11.2 GM/dL (10.7-15.3); LYMPH % 16.5 % (8-40); MCH 31.9 pg (25.7-33.7); MCHC 34.1 g/dl (32.0-36.0); MEAN CELL VOLUME 93.5 fl (80-96); MEAN PLT VOLUME 8.5 fl (7.5-11.1); NEUT % 70.5 % (42.8-82.8); PLATELET COUNT 264 10^3/uL (134-434); RDW 14.4 % (11.6-15.6); WHITE BLOOD COUNT 6.9 K/mm3 (4.0-10.0)
[2023-08-29 10:18] LABS: POTASSIUM 3.5 mmol/L (3.5-5.1)
[2023-08-29 10:22] LABS: CALCIUM 8.2 mg/dL (8.5-10.1)
[2023-08-29 10:23] LABS: BLOOD UREA NITROGEN 5.8 mg/dL (7-18); MAGNESIUM 2.1 mg/dL (1.8-2.4)
[2023-08-29 10:25] LABS: PHOSPHOROUS 1.2 mg/dL (2.5-4.9)
[2023-08-29 10:26] LABS: CREATININE 0.6 mg/dL (0.55-1.3)
[2023-08-29] MEDS: PRAMIPEXOLE DIHYDROCHLORIDE 0.25 MG TABLET PO SCH (20:25)
[2023-08-30] MEDS ORDERED: IOHEXOL (OMNIPAQUE PO) 12 MG/ML - 500 ML BOTTLE PO ONE (15:41)
[2023-08-30] MEDS: MELATONIN 5 MG TABLETS PO PRN (21:05)
[2023-08-31] MEDS: MULTIVITAMINS THER W-MINERALS COMBO TABLET (FP) PO SCH (09:16)
[2023-08-31 12:12] LABS: BASO % 1.1 % (0-2.0); EOS % 4.6 % (0-4.5); HEMATOCRIT 32.9 % (32.4-45.2); LYMPH % 17.7 % (8-40); MCH 31.6 pg (25.7-33.7); MCHC 33.5 g/dl (32.0-36.0); MEAN CELL VOLUME 94.5 fl (80-96); MEAN PLT VOLUME 8.2 fl (7.5-11.1); MONO % 8.1 % (3.8-10.2); NEUT % 68.5 % (42.8-82.8); PLATELET COUNT 301 10^3/uL (134-434); RBC 3.48 M/mm3 (3.60-5.2); RDW 14.4 % (11.6-15.6); WHITE BLOOD COUNT 7.9 K/mm3 (4.0-10.0)
[2023-08-31 12:27] LABS: POTASSIUM 3.7 mmol/L (3.5-5.1)
[2023-08-31 12:30] LABS: CALCIUM 8.8 mg/dL (8.5-10.1)
[2023-08-31 12:31] LABS: BLOOD UREA NITROGEN 3.9 mg/dL (7-18)
[2023-08-31 12:34] LABS: CREATININE 0.9 mg/dL (0.55-1.3)
[2023-08-31] MEDS: amLODIPine BESYLATE 5 MG TABLET (FP) PO SCH (13:22)
[2023-09-01 11:45] LABS: BASO % 0.8 % (0-2.0); HEMATOCRIT 31.4 % (32.4-45.2); HEMOGLOBIN 10.8 GM/dL (10.7-15.3); LYMPH % 16.9 % (8-40); MCH 32.1 pg (25.7-33.7); MCHC 34.2 g/dl (32.0-36.0); MEAN CELL VOLUME 93.6 fl (80-96); MEAN PLT VOLUME 8.1 fl (7.5-11.1); NEUT % 71.3 % (42.8-82.8); PLATELET COUNT 285 10^3/uL (134-434); RBC 3.36 M/mm3 (3.60-5.2); RDW 14.7 % (11.6-15.6)
[2023-09-01 12:13] LABS: POTASSIUM 3.4 mmol/L (3.5-5.1)
[2023-09-01 12:14] LABS: CALCIUM 8.6 mg/dL (8.5-10.1)
[2023-09-01 12:15] LABS: BLOOD UREA NITROGEN 6.2 mg/dL (7-18)
[2023-09-02 09:37] LABS: CHLORIDE 106 mmol/L (98-107); SODIUM 143 mmol/L (136-145)
[2023-09-02 09:38] LABS: CALCIUM 8.5 mg/dL (8.5-10.1)
[2023-09-02 09:39] LABS: BLOOD UREA NITROGEN 8.6 mg/dL (7-18); CO2 29 mmol/L (21-32); GLUCOSE,RANDOM 133 mg/dL (74-106)
[2023-09-02 09:42] LABS: CREATININE 0.9 mg/dL (0.55-1.3)
[2023-09-02 10:05] LABS: ANION GAP 8 mmol/L (4-13); POTASSIUM 2.7 mmol/L (3.5-5.1)
[2023-09-02] MEDS: KCL 10 MEQ IVPB 10 MEQ/100 ML INFUS.BAG IVPB SCH (11:12)
[2023-09-02] MEDS: POTASSIUM CHLORIDE ORAL LIQUID 20 MEQ/15 ML PO ONE (11:12)
[2023-09-03 01:21] VITALS: RESP 18
[2023-09-03 05:23] VITALS: TEMP 98.2
[2023-09-03 08:58] LABS: BASO % 0.7 % (0-2.0); EOS % 5.4 % (0-4.5); HEMATOCRIT 32.4 % (32.4-45.2); HEMOGLOBIN 10.6 GM/dL (10.7-15.3); LYMPH % 18.1 % (8-40); MCHC 32.6 g/dl (32.0-36.0); MEAN PLT VOLUME 8.1 fl (7.5-11.1); MONO % 7.7 % (3.8-10.2); NEUT % 68.1 % (42.8-82.8); PLATELET COUNT 291 10^3/uL (134-434); RBC 3.41 M/mm3 (3.60-5.2); RDW 15.1 % (11.6-15.6); WHITE BLOOD COUNT 9.4 K/mm3 (4.0-10.0)
[2023-09-03 09:11] LABS: CHLORIDE 105 mmol/L (98-107); POTASSIUM 3.5 mmol/L (3.5-5.1); SODIUM 140 mmol/L (136-145)
[2023-09-03 09:17] LABS: ALBUMIN 2.6 g/dl (3.4-5.0); ANION GAP 7 mmol/L (4-13); BLOOD UREA NITROGEN 9.6 mg/dL (7-18); CALCIUM 8.5 mg/dL (8.5-10.1); CO2 29 mmol/L (21-32); GLUCOSE,RANDOM 86 mg/dL (74-106)
[2023-09-03 09:20] LABS: CREATININE 0.9 mg/dL (0.55-1.3); SGOT/AST 12 U/L (15-37); SGPT/ALT < 6 U/L (13-61)
[2023-09-03 09:22] LABS: BILIRUBIN,TOTAL 0.4 mg/dL (0.2-1); TOT PROT 5.7 g/dl (6.4-8.2)
[2023-09-03 09:23] LABS: ALK PHOS 63 U/L (45-117)
[2023-09-03] MEDS: POTASSIUM CHLORIDE ORAL LIQUID 20 MEQ/15 ML PO ONE (10:18)
[2023-09-03 12:18] VITALS: BP 140/50; PULSE 74
== END 2023-09-03 12:29 | disposition home or self-care (01) | DRG 392 ==
LOC: JER 11:09 → JERBED 15:23 → J8W 17:59
PROVIDERS: ADMIT Internal Medicine; ATTEND Internal Medicine
DX: K57.32 Diverticulitis of large intestine without perforation or abscess without bleeding (principal); I73.9 Peripheral vascular disease, unspecified; I10 Essential (primary) hypertension; E78.5 Hyperlipidemia, unspecified; K59.00 Constipation, unspecified; K57.90 Diverticulosis of intestine, part unspecified, without perforation or abscess without bleeding; E03.9 Hypothyroidism, unspecified; M06.9 Rheumatoid arthritis, unspecified; R10.32 Left lower quadrant pain; R19.7 Diarrhea, unspecified; K29.70 Gastritis, unspecified, without bleeding
CPT/HCPCS: 36415; 74018-TC-FY; 74177-TC; 80048; 80053; 81003; 82962; 83605; 83690; 83735; 84100; 84443; 85025; 86140; 87086; 87324; 87449; 99285-25; J0131; J1644; Q9967

== ENCOUNTER 2024-04-30 11:31 | Inpatient (IN) | payer OTHER, BC ==
[2024-04-30] MEDS ORDERED: ONDANSETRON 4 MG/2 ML VIAL ONE (12:32)
[2024-04-30] MEDS ORDERED: ACETAMINOPHEN INJECTION 100 ML ONE ×2 (12:32→20:38)
[2024-04-30] MEDS: ACETAMINOPHEN 1000 MG/100 ML BAG IVPB ONE (12:56)
[2024-04-30] MEDS: ONDANSETRON 4 MG/2 ML VIAL IVPUSH ONE (12:56)
[2024-04-30 13:05] LABS: BASO % 0.6 % (0-2.0); EOS % 2.4 % (0-4.5); HEMATOCRIT 31.1 % (32.4-45.2); HEMOGLOBIN 10.3 GM/dL (10.7-15.3); LYMPH % 18.1 % (8-40); MCH 30.7 pg (25.7-33.7); MCHC 33.1 g/dl (32.0-36.0); MEAN CELL VOLUME 92.7 fl (80-96); MEAN PLT VOLUME 8.5 fl (7.5-11.1); MONO % 14.7 % (3.8-10.2); NEUT % 64.2 % (42.8-82.8); PLATELET COUNT 286 10^3/uL (134-434); RBC 3.36 M/mm3 (3.60-5.2); RDW 15.5 % (11.6-15.6); WHITE BLOOD COUNT 4.9 K/mm3 (4.0-10.0)
[2024-04-30 13:11] LABS: INR 0.95 (0.83-1.09); PROTHROMBIN TIME (PATIENT) 10.8 SEC (9.7-13.0)
[2024-04-30 13:13] LABS: ACTIVATED PTT 28.4 SECONDS (25.2-36.5)
[2024-04-30 13:21] LABS: POTASSIUM 4.5 mmol/L (3.5-5.1)
[2024-04-30 13:22] LABS: ALBUMIN 3.2 g/dl (3.4-5.0); CALCIUM 9.1 mg/dL (8.5-10.1)
[2024-04-30 13:23] LABS: BLOOD UREA NITROGEN 30.5 mg/dL (7-18)
[2024-04-30 13:27] LABS: BILIRUBIN,TOTAL 0.8 mg/dL (0.2-1); TOT PROT 6.3 g/dl (6.4-8.2)
[2024-04-30 13:56] LABS: URINE APPEARANCE CLEAR; URINE BILIRUBIN NEGATIVE (NEGATIVE); URINE COLOR YELLOW; URINE GLUCOSE (UA) NEGATIVE (NEGATIVE); URINE KETONE TRACE (NEGATIVE); URINE LEUK ESTERASE NEGATIVE (NEGATIVE); URINE NITRITE NEGATIVE (NEGATIVE); URINE PROTEIN NEGATIVE (NEGATIVE)
[2024-04-30] MEDS ORDERED: KETOROLAC TROMETHAMINE 15 MG/ML VIAL ONE (16:17)
[2024-04-30] MEDS: KETOROLAC TROMETHAMINE 15 MG/ML VIAL IVPUSH ONE (16:24)
[2024-04-30] MEDS ORDERED: PIPERACILLIN/TAZOB 3.375 GM 3.375 GM/50 ML BAG IVPB ONE (17:25)
[2024-04-30] MEDS: PIPERACILLIN/TAZOB 3.375 GM 50 ML IVPB SCH (17:31)
[2024-04-30] MEDS: PRAMIPEXOLE DIHYDROCHLORIDE 0.125 MG TABLET PO SCH (20:47)
[2024-04-30] MEDS: ACETAMINOPHEN 1000 MG/100 ML BAG IVPB PRN (20:47)
[2024-04-30] MEDS: TICAGRELOR 60 MG TABLET PO ONE (20:47)
[2024-05-01] MEDS ORDERED: KETOROLAC TROMETHAMINE 15 MG/ML VIAL ONE ×3 (00:12→17:25)
[2024-05-01] MEDS: KETOROLAC TROMETHAMINE 15 MG/ML VIAL IVPUSH PRN (00:23)
[2024-05-01] MEDS ORDERED: LEVOTHYROXINE NA 50 MCG TABLET (FP) ONE (07:39)
[2024-05-01] MEDS: LEVOTHYROXINE NA 50 MCG TABLET (FP) PO SCH (07:44)
[2024-05-01 08:36] LABS: HEMATOCRIT 30.1 % (32.4-45.2); HEMOGLOBIN 9.8 GM/dL (10.7-15.3); MCH 30.5 pg (25.7-33.7); MCHC 32.7 g/dl (32.0-36.0); MEAN CELL VOLUME 93.3 fl (80-96); MEAN PLT VOLUME 8.4 fl (7.5-11.1); PLATELET COUNT 260 10^3/uL (134-434); RBC 3.22 M/mm3 (3.60-5.2); RDW 14.8 % (11.6-15.6); WHITE BLOOD COUNT 6.2 K/mm3 (4.0-10.0)
[2024-05-01 08:38] LABS: HEMATOCRIT 29.5 % (32.4-45.2); HEMOGLOBIN 9.8 GM/dL (10.7-15.3); MCH 31.1 pg (25.7-33.7); MCHC 33.4 g/dl (32.0-36.0); MEAN CELL VOLUME 93.2 fl (80-96); MEAN PLT VOLUME 8.3 fl (7.5-11.1); PLATELET COUNT 255 10^3/uL (134-434); RBC 3.17 M/mm3 (3.60-5.2); RDW 14.8 % (11.6-15.6); WHITE BLOOD COUNT 6.2 K/mm3 (4.0-10.0)
[2024-05-01 09:02] LABS: POTASSIUM 3.8 mmol/L (3.5-5.1)
[2024-05-01 09:11] LABS: ALBUMIN 2.8 g/dl (3.4-5.0); BLOOD UREA NITROGEN 33.5 mg/dL (7-18); CALCIUM 8.5 mg/dL (8.5-10.1)
[2024-05-01 09:16] LABS: BILIRUBIN,TOTAL 0.8 mg/dL (0.2-1); CREATININE 1.3 mg/dL (0.55-1.3); TOT PROT 5.6 g/dl (6.4-8.2)
[2024-05-01] MEDS ORDERED: amLODIPine BESYLATE 5 MG TABLET (FP) ONE (10:33)
[2024-05-01] MEDS ORDERED: PIPERACILLIN/TAZOB 3.375 GM 3.375 GM/50 ML BAG IVPB ONE ×2 (10:33→17:25)
[2024-05-01] MEDS: amLODIPine BESYLATE 5 MG TABLET (FP) PO SCH (10:43)
[2024-05-01] MEDS ORDERED: CARBIDOPA/LEVODOPA 25/100 TABLET (FP) ONE (14:27)
[2024-05-01] MEDS: PIPERACILLIN/TAZOB 3.375 GM 50 ML IVPB SCH (17:46)
[2024-05-01] MEDS: VANCOMYCIN ORAL SOLUTION 125 MG/2.5 ML PO SCH (20:47)
[2024-05-01] MEDS: PIPERACILLIN/TAZOB 3.375 GM 3.375 GM in DEXTROSE 5%-WATER - 50 ML IVPB SCH (20:49)
[2024-05-01] MEDS: SODIUM CHLORIDE 250 ML IV STA (21:42)
[2024-05-02] MEDS: SODIUM CHLORIDE 1,000 ML IV SCH (01:29)
[2024-05-02 01:36] LABS: HEMATOCRIT 26.9 % (32.4-45.2); HEMOGLOBIN 8.7 GM/dL (10.7-15.3); MCH 30.1 pg (25.7-33.7); MCHC 32.2 g/dl (32.0-36.0); MEAN CELL VOLUME 93.5 fl (80-96); MEAN PLT VOLUME 8.9 fl (7.5-11.1); PLATELET COUNT 246 10^3/uL (134-434); RBC 2.88 M/mm3 (3.60-5.2); RDW 15.4 % (11.6-15.6); WHITE BLOOD COUNT 7.9 K/mm3 (4.0-10.0)
[2024-05-02 01:54] LABS: POTASSIUM 3.7 mmol/L (3.5-5.1)
[2024-05-02 01:55] LABS: CALCIUM 7.7 mg/dL (8.5-10.1)
[2024-05-02 01:56] LABS: BLOOD UREA NITROGEN 45.1 mg/dL (7-18)
[2024-05-02 01:59] LABS: CREATININE 1.6 mg/dL (0.55-1.3)
[2024-05-02 02:35] VITALS: BMI 17.2
[2024-05-02] MEDS: LACTATED RINGERS SOLUTION 1,000 ML/1,000 ML INFUS.BAG IV SCH (17:36)
[2024-05-03] MEDS: LOPERAMIDE HCL 1 MG/7.5 ML LIQUID PO ONE (02:52)
[2024-05-03 04:18] VITALS: RESP 17
[2024-05-03] MEDS: ACETAMINOPHEN 1000 MG/100 ML BAG IVPB ONE (06:05)
[2024-05-03 08:41] LABS: EPI CELLS 1 /uL (0-25.1); HYALINE CASTS 1 /uL (0-3.1); URINE APPEARANCE CLOUDY; URINE BILIRUBIN 2+ (NEGATIVE); URINE COLOR DK YELLOW; URINE GLUCOSE (UA) NEGATIVE (NEGATIVE); URINE KETONE TRACE (NEGATIVE); URINE LEUK ESTERASE TRACE (NEGATIVE); URINE NITRITE NEGATIVE (NEGATIVE); URINE PROTEIN 1+ (NEGATIVE); URINE RBC 20 /uL (0-23.9); URINE WBC 22 /uL (0-25.8)
[2024-05-03 08:48] LABS: BASO % 0.1 % (0-2.0); EOS % 0.1 % (0-4.5); HEMATOCRIT 28.8 % (32.4-45.2); HEMOGLOBIN 9.3 GM/dL (10.7-15.3); MCH 30.1 pg (25.7-33.7); MCHC 32.3 g/dl (32.0-36.0); MEAN PLT VOLUME 9.2 fl (7.5-11.1); MONO % 7.7 % (3.8-10.2); NEUT % 90.1 % (42.8-82.8); PLATELET COUNT 285 10^3/uL (134-434); RBC 3.09 M/mm3 (3.60-5.2); RDW 15.9 % (11.6-15.6); WHITE BLOOD COUNT 14.3 K/mm3 (4.0-10.0)
[2024-05-03 10:32] LABS: ANISOCYTOSIS 1+; MACROCYTOSIS 0
[2024-05-03 10:51] LABS: CHLORIDE 114 mmol/L (98-107); POTASSIUM 3.9 mmol/L (3.5-5.1); SODIUM 144 mmol/L (136-145)
[2024-05-03 11:01] LABS: CALCIUM 7.4 mg/dL (8.5-10.1)
[2024-05-03 11:02] LABS: ANION GAP 16 mmol/L (4-13); BLOOD UREA NITROGEN 59.8 mg/dL (7-18); CO2 14 mmol/L (21-32); GLUCOSE,RANDOM 94 mg/dL (74-106)
[2024-05-03 11:05] LABS: CREATININE 2.2 mg/dL (0.55-1.3); SGOT/AST 34 U/L (15-37); SGPT/ALT < 6 U/L (13-61)
[2024-05-03 11:06] LABS: BILIRUBIN,TOTAL 0.8 mg/dL (0.2-1); TOT PROT 4.8 g/dl (6.4-8.2)
[2024-05-03 11:12] LABS: ALK PHOS 57 U/L (45-117)
[2024-05-03] MEDS ORDERED: LACTATED RINGERS SOLUTION 1,000 ML/1,000 ML INFUS.BAG IV SCH (13:30)
[2024-05-03] MEDS ORDERED: LACTATED RINGERS SOLUTION 1,000 ML/1,000 ML INFUS.BAG IV ONE (13:39)
[2024-05-03 15:47] VITALS: BP 135/49; PULSE 112; TEMP 98.2
== END 2024-05-03 14:34 | disposition expired | DRG 391 ==
LOC: JER 11:31 → JERBED 16:29 → OBSVTOIN 05-01 10:35 → J8W 05-01 18:28
PROVIDERS: ADMIT Family Medicine; ATTEND Family Medicine
PROC: 02HV33Z Insertion of Infusion Device into Superior Vena Cava, Percutaneous Approach (ICD-10-PCS; principal; 2024-05-02)
PROC: B518ZZA Fluoroscopy of Superior Vena Cava, Guidance (ICD-10-PCS; 2024-05-02)
DX: K57.92 Diverticulitis of intestine, part unspecified, without perforation or abscess without bleeding (principal); A41.89 Other specified sepsis; N17.9 Acute kidney failure, unspecified; I10 Essential (primary) hypertension; E78.5 Hyperlipidemia, unspecified; I73.9 Peripheral vascular disease, unspecified; M25.50 Pain in unspecified joint; G25.81 Restless legs syndrome; K59.00 Constipation, unspecified; M06.9 Rheumatoid arthritis, unspecified; G20.A1 Parkinson's disease without dyskinesia, without mention of fluctuations; E03.9 Hypothyroidism, unspecified; D64.9 Anemia, unspecified; K86.89 Other specified diseases of pancreas; I95.9 Hypotension, unspecified; Z86.19 Personal history of other infectious and parasitic diseases; K29.70 Gastritis, unspecified, without bleeding; D12.0 Benign neoplasm of cecum
CPT/HCPCS: 0241U-QW; 36415; 36569; 74177-TC; 80048; 80053; 81003; 82728; 83540; 83550; 83605; 83690; 85025; 85027; 85610; 85730; 86140; 86850; 86900; 86901; 87045; 87046; 87086; 87205; 87324; 87449; 93005; 93010; 97116-GP; 97161-GP; 99285-25; G0378; J0131; Q9967